=== PATIENT | male | born 1960 ===

== ENCOUNTER 2019-12-05 14:53 | Outpatient (RCR) | payer OTHER, SELFPAY | END 2019-12-21 14:46 | disposition home or self-care (01) | LOC: HO.WCC 14:53 | PROVIDERS: PCP Family Medicine; Visit Provider Physician Assistant Surgical | DX: E11.621 Type 2 diabetes mellitus with foot ulcer (principal); L97.422 Non-pressure chronic ulcer of left heel and midfoot with fat layer exposed; E11.69 Type 2 diabetes mellitus with other specified complication; M86.372 Chronic multifocal osteomyelitis, left ankle and foot; N18.5 Chronic kidney disease, stage 5 | CPT/HCPCS: 11042; 99212 ==

== ENCOUNTER 2020-06-03 08:33 | Emergency (ER) | payer OTHER, SELFPAY ==
--- NOTE | ~2020-06-03 | CT_ITS ---
EXAMINATION: CT ABDOMEN AND PELVIS WITHOUT CONTRAST CLINICAL INFORMATION: Severe left-sided abdominal pain COMPARISON: 10/16/2019 TECHNIQUE: Multidetector volumetric imaging was performed from the superior aspect of the liver through the pubic symphysis. Sagittal and coronal reformatted images were obtained on the technologist's workstation. This CT examination was performed using dose optimization techniques as appropriate, variously including the following: *Automated exposure control *Adjustment of mA and/or kV according to patient size (this includes techniques or standardized protocols for targeted exams where dose is matched to indication/reason for exam; i.e. extremities or head) *Use of iterative reconstruction technique DLP: 951 mGy-cm FINDINGS: LUNG BASES: The visualized lung bases show mosaic attenuation once again. Coronary artery calcifications are present.. LIVER, GALLBLADDER, AND BILIARY TREE: The liver is normal in size, shape, and attenuation. No focal hepatic lesion or biliary ductal dilatation is present. The gallbladder is unremarkable with no evidence of radiopaque gallstones, gallbladder wall thickening, or obvious pericholecystic inflammatory changes. PANCREAS: Unremarkable. SPLEEN: Unremarkable. ADRENAL GLANDS: Unremarkable. KIDNEYS AND URETERS: The kidneys are normal in size, shape, and attenuation. There is mild to moderate left hydroureteronephrosis. There are no obstructing calculi seen. No renal calculi are present on the left or right. Bilateral renal cysts are noted. BLADDER: Partially distended and otherwise unremarkable. GASTROINTESTINAL TRACT: Stomach is unremarkable. Normal caliber small bowel. There is no obstruction. No colonic wall thickening or inflammatory change. Normal appendix. Scattered colonic diverticulosis without diverticulitis. No free air. Trace pelvic free fluid. ABDOMINAL WALL: No significant hernia is appreciated. LYMPH NODES: Normal. VASCULAR: Normal caliber aorta with mild atherosclerotic calcification. PELVIC VISCERA: Normal prostate and seminal vesicles. OSSEOUS STRUCTURES: No acute or suspicious osseous abnormality. Degenerative changes noted throughout the spine. CT/CT abdomen pelvis wo con IMPRESSION: Mild to moderate left hydroureteronephrosis. No obstructing calculus. The appearance is nonspecific and could be associated with a recently passed stone. Cannot exclude outlet obstruction. No acute inflammatory changes otherwise.
[2020-06-03 09:18] VITALS: BP 133/60; PULSE 85; RESP 18; TEMP 36.4; O2SAT 99; BMI 31.8
--- NOTE | 2020-06-03 11:36 | ED.ABDPAIN ---
HPI - Abdominal Pain General Chief Complaint: Abdominal Pain <IGSELA Cain - Last Filed: 06/03/20 14:11> Stated Complaint: abd pain <GISELA Cain - Last Filed: 06/03/20 14:11> Time Seen by Provider: 06/03/20 10:59 <GISELA Cain Last Filed: 06/03/20 14:11> Source: patient <GISELA Cain Last Filed: 06/03/20 14:11> Mode of arrival: ambulatory <GISELA Cain - Last Filed: 06/03/20 14:11> Limitations: no limitations <GISELA Cain Last Filed: 06/03/20 14:11> History of Present Illness HPI narrative: 60 y/o male with history of ESRD on HD M/W/F presents to the ED from dialysis session with complaints of acute onset of 9/10 left sided abdominal pain that started when dialysis session started this morning. He was only able to tolerate 2 of the 4 hours of the session because of the pain. He has never had pain like this before. He denies nausea, vomiting, diarrhea or constipation. No fevers. Had a normal BM yesterday. He still makes urine and last urinated prior to arrival. He denies dysuria or hematuria. <GISELA Cain - Last Filed: 06/03/20 14:11> MD elicited complaint: abdominal pain <GISELA Cain - Last Filed: 06/03/20 14:11> Pertinent past history: none <GISELA Cain Last Filed: 06/03/20 14:11> Onset (ago): hour(s) (3) <GISELA Cain - Last Filed: 06/03/20 14:11> Pain Consistency: constant <GISELA Cain Last Filed: 06/03/20 14:11> Location: LUQ and LLQ <GISELA Cain Last Filed: 06/03/20 14:11> Severity: severe <GISELA Cain Last Filed: 06/03/20 14:11> Pain scale (0-10): 9 <GISELA Cain Last Filed: 06/03/20 14:11> Quality: stabbing <GISELA Cain Last Filed: 06/03/20 14:11> Radiation: none <GISELA Cain Last Filed: 06/03/20 14:11> Migration to: no migration <GISELA Cain Last Filed: 06/03/20 14:11> Exacerbating factors: nothing <GISELA Cain Last Filed: 06/03/20 14:11> Relieving factors: nothing <GISELA Cain Last Filed: 06/03/20 14:11> Associated symptoms: denies other symptoms <GISELA Cain Last Filed: 06/03/20 14:11> Related Data Allergies/Adverse Reactions: Allergies Allergy/AdvReac Type Severity Reaction Status Date / Time No Known Allergies Allergy Verified 06/03/20 09:18 [No Known Allergies*] <GISELA Cain Last Filed: 06/03/20 14:11> Review of Systems Review of Systems Constitutional: No Fever, No Chills ENT/Mouth: No sore throat, No Rhinorrhea, No Swallowing Difficulty Cardiovascular: No Chest Pain, No SOB, No Orthopnea, No Edema Respiratory: No Cough, No Sputum, No Wheezing, No dyspnea Gastrointestinal: No Nausea, No Vomiting, No Diarrhea, + abdominal Pain, No Hematochezia, No Melena Genitourinary: No Dysuria, No Urinary Frequency, No Hematuria Musculoskeletal: No joint pain, No Myalgias Skin: No Skin Lesions, No rash Neuro: No Weakness, No Numbness, No Dizziness, No Headache Psych: No Anxiety/Panic, No Depression Heme/Lymph: No Bruising, No Lymphadenopathy Endocrine: No Polyuria, No Polydipsia <GISELA Cain Last Filed: 06/03/20 14:11> Physical Exam Vital Signs: Vital Signs: Last Vital Signs Temp 97.6 F 06/03/20 09:18 Pulse 77 06/03/20 13:21 Resp 18 06/03/20 13:21 BP 165/77 H 06/03/20 13:21 Pulse Ox 98 06/03/20 13:21 Body Mass Index 31.8 Appearance: Alert. Oriented X3. No acute distress. Eyes: Pupils equal, round and reactive to light. ENT: Pharynx normal. Neck: Normal inspection. Neck supple. CVS: Normal heart rate and rhythm. Pulses normal. Respiratory: No respiratory distress. Breath sounds normal. Abdomen: Soft with left sided abdominal tenderness with some guarding, normal +BS x4 Skin: Skin warm and dry. Normal skin color. Normal skin turgor. No rashes. Extremities: No lower extremity edema. Neuro: Oriented X 3. No motor deficit. No sensory deficit. <GISELA Cain - Last Filed: 06/03/20 14:11> Vital Signs: Last Vital Signs Temp 97.6 F 06/03/20 09:18 Pulse 77 06/03/20 13:21 Resp 18 06/03/20 13:21 BP 165/77 H 06/03/20 13:21 Pulse Ox 98 06/03/20 13:21 Body Mass Index 31.8 <Jere Pierce MD - Last Filed: 06/18/20 07:34> Course Course Course Narrative: 60 y/o male with history of ESRD on HD presents to the ED with acute onset of left sided abdominal pain that starting during HD session this morning. He has tenderness and guarding on exam. Will get labs and imaging for further evaluation. <GISELA Cain - Last Filed: 06/03/20 14:11> I have reviewed the chart <Jere Pierce MD - Last Filed: 06/18/20 07:34> Reevaluation(s) Reevaluation #1: CT scan showing mild-moderate left sided hydronephrosis without obstructing calculus which is nonspecific. Question recently passed kidney stone. Cannot exclude outlet obstruction. Patient is urinating at his baseline. His pain is almost resolved. The results were discussed with the patient and his at the bedside. He is stable for discharge with plan to follow up with PCP and next HD Wednesday. <GISELA Cain - Last Filed: 06/03/20 14:11> MDM - Abdominal Pain Lab Data Result diagrams: : 06/03/20 11:54 06/03/20 11:54 <GISELA Cain - Last Filed: 06/03/20 14:11> Labs: Lab Results 04/07/1906/03/20 06/03/20 Range/Units 11:54 11:54 11:54 WBC 9.3 (4.8-10.8) X10*3/uL RBC 3.44 L (4.60-5.80) X10*6/uL Hgb 10.6 L (14.0-18.0) g/dl Hct 31.0 L (42-52) % MCV 90.1 (80-98) fL MCH 30.8 (27.0-33.0) pg MCHC 34.2 (31.0-36.0) g/dl RDW 12.6 (11.0-16.0) % Plt Count 249 (160-400) X10*3/uL MPV 8.8 L (9.4-12.4) fL Immature Gran % (Auto) 0.2 (0.0-0.4) % Neut % (Auto) 75.7 H (45-73) % Lymph % (Auto) 18.6 L (20-40) % [place] % (Auto) 5.0 (2-11) % Eos % (Auto) 0.3 (0-4) % Baso % (Auto) 0.2 (0-2) % Lymph # (Auto) 1.7 (1.2-4.9) X10*3/uL [place] # (Auto) 0.5 (0.1-1.2) X10*3/uL Eos # (Auto) 0.0 (0.0-0.4) X10*3/uL Baso # (Auto) 0.0 (0.0-0.2) X10*3/uL Abs Immat Gran (auto) 0.02 (0.00-0.03) X10*3/uL Absolute Neuts (auto) 7.0 (2.0-8.3) X10*3/uL Absolute Nucleated RBC 0.000 (0.0-0.012) X10*3/uL Nucleated RBC % (auto) 0.0 (0.0-0.2) /100WBC Hold Blue Top SEE NOTE Sodium 138 (135-145) mmol/L Potassium 4.2 (3.3-5.1) mmol/L Chloride 98 (96-108) mmol/L Carbon Dioxide 27 (22-29) mmol/L Anion Gap 17 (12-20) BUN 38 H (9-16) mg/dL Creatinine 5.67 H* (0.5-1.4) mg/dL Estim Creat Clear Calc 18.0 Estimated GFR 10 Random Glucose 195 H (60-115) mg/dL Calcium 8.1 L (8.4-10.2) mg/dL Magnesium 1.8 (1.6-2.6) mg/dL Total Bilirubin 0.4 (0.0-1.0) mg/dL Direct Bilirubin 0.2 (0.0-0.5) mg/dL AST 23 (5-37) U/L ALT 28 (0-40) U/L Alkaline Phosphatase 78 (39-117) U/L Total Protein 7.0 (6.5-8.0) g/dL Albumin 3.8 (3.5-5.0) g/dL <GISELA Cain - Last Filed: 06/03/20 14:11> Lab Results 06/03/20 06/03/20 06/03/20 Range/Units 11:54 11:54 11:54 WBC 9.3 (4.8-10.8) X10*3/uL RBC 3.44 L (4.60-5.80) X10*6/uL Hgb 10.6 L (14.0-18.0) g/dl Hct 31.0 L (42-52) % MCV 90.1 (80-98) fL MCH 30.8 (27.0-33.0) pg MCHC 34.2 (31.0-36.0) g/dl RDW 12.6 (11.0-16.0) % Plt Count 249 (160-400) X10*3/uL MPV 8.8 L (9.4-12.4) fL Immature Gran % (Auto) 0.2 (0.0-0.4) % Neut % (Auto) 75.7 H (45-73) % Lymph % (Auto) 18.6 L (20-40) % [place] % (Auto) 5.0 (2-11) % Eos % (Auto) 0.3 (0-4) % Baso % (Auto) 0.2 (0-2) % Lymph # (Auto) 1.7 (1.2-4.9) X10*3/uL [place] # (Auto) 0.5 (0.1-1.2) X10*3/uL Eos # (Auto) 0.0 (0.0-0.4) X10*3/uL Baso # (Auto) 0.0 (0.0-0.2) X10*3/uL Abs Immat Gran (auto) 0.02 (0.00-0.03) X10*3/uL Absolute Neuts (auto) 7.0 (2.0-8.3) X10*3/uL Absolute Nucleated RBC 0.000 (0.0-0.012) X10*3/uL Nucleated RBC % (auto) 0.0 (0.0-0.2) /100WBC Hold Blue Top SEE NOTE Sodium 138 (135-145) mmol/L Potassium 4.2 (3.3-5.1) mmol/L Chloride 98 (96-108) mmol/L Carbon Dioxide 27 (22-29) mmol/L Anion Gap 17 (12-20) BUN 38 H (9-16) mg/dL Creatinine 5.67 H* (0.5-1.4) mg/dL Estim Creat Clear Calc 18.0 Estimated GFR 10 Random Glucose 195 H (60-115) mg/dL Calcium 8.1 L (8.4-10.2) mg/dL Magnesium 1.8 (1.6-2.6) mg/dL Total Bilirubin 0.4 (0.0-1.0) mg/dL Direct Bilirubin 0.2 (0.0-0.5) mg/dL AST 23 (5-37) U/L ALT 28 (0-40) U/L Alkaline Phosphatase 78 (39-117) U/L Total Protein 7.0 (6.5-8.0) g/dL Albumin 3.8 (3.5-5.0) g/dL <Jere Pierce MD - Last Filed: 06/18/20 07:34> Critical Care Time Critical Care Time Critical Care Time: No <GISELA Cain - Last Filed: 06/03/20 14:11> Discharge Plan Discharge Clinical Impression: Left sided abdominal pain, Hydronephrosis <GISELA Cain - Last Filed: 06/03/20 14:11> Patient Disposition: Home, Self-Care <GISELA Cain - Last Filed: 06/03/20 14:11> Instructions: Hydronephrosis (ED) <GISELA Cain - Last Filed: 06/03/20 14:11> Additional Instructions: Your blood workup today was unremarkable. CT scan showed some swelling of your left kidney. This is likely due to a recently passed kidney stone. Your pain should continue to get better. Follow up with your doctor this week. If you have worsening pain, come back to the ER for further evaluation. <GISELA Cain - Last Filed: 06/03/20 14:11> Interventions: ED Discharge Assessment Last Done: 06/03/20 15:09 <GISELA Cain - Last Filed: 06/03/20 14:11> Discharge Date/Time: 06/03/20 15:10 <GISELA Cain - Last Filed: 06/03/20 14:11> Print Language: Yakut <GISELA Cain - Last Filed: 06/03/20 14:11> [facility] Past Medical History Attestation statement: The following information was validated with the patient. <GISELA Cain - Last Filed: 06/03/20 14:11> Social History Social History: Social History Smoking Status: Never smoker Use of substances other than those prescribed or required for medical reasons: No Advance Directives: No Advance Directives Information Provided: No <GISELA Cain - Last Filed: 06/03/20 14:11>
[2020-06-03 11:42] VITALS: BP 165/76; PULSE 79; RESP 20; O2SAT 99
[2020-06-03] MEDS: HYDROcodone Bit/Acetam 5/325 TABLET 1 TAB PO (11:58)
[2020-06-03 11:59] LABS: MANUAL DIFF FLAG NO
--- NOTE | 2020-06-03 12:00 | PC.NURSE ---
pt reports left sided abd pain, mostly on the upper side, denies nausea/vomiting, states that he only had two hours of dialysis today, ns on the monitor, and vs stable.
[2020-06-03 12:02] LABS: Basophils Percent Auto 0.2 % (0-2); Eosinophils Percent Auto 0.3 % (0-4); Hemoglobin 10.6 g/dl (14.0-18.0); Imm Gran Abs Auto 0.02 X10*3/uL (0.00-0.03); Imm Gran Pct Auto 0.2 % (0.0-0.4); Lymphocytes Absolute Auto 1.7 X10*3/uL (1.2-4.9); Lymphocytes Percent Auto 18.6 % (20-40); Mean Corpuscular HGB Conc 34.2 g/dl (31.0-36.0); Mean Corpuscular Hemoglobin 30.8 pg (27.0-33.0); Mean Corpuscular Volume 90.1 fL (80-98); Mean Platelet Volume 8.8 fL (9.4-12.4); Monocytes Absolute Auto 0.5 X10*3/uL (0.1-1.2); Neutrophils Percent Auto 75.7 % (45-73); Platelet Count 249 X10*3/uL (160-400); Red Blood Count 3.44 X10*6/uL (4.60-5.80); Red Cell Distribution Width 12.6 % (11.0-16.0); White Blood Count 9.3 X10*3/uL (4.8-10.8)
[2020-06-03 12:35] LABS: Alanine Aminotransferase 28 U/L (0-40); Albumin Level 3.8 g/dL (3.5-5.0); Alkaline Phosphatase 78 U/L (39-117); Anion Gap 17 (12-20); Aspartate Amino Transferase 23 U/L (5-37); Bilirubin Direct 0.2 mg/dL (0.0-0.5); Bilirubin Total 0.4 mg/dL (0.0-1.0); Blood Urea Nitrogen 38 mg/dL (9-16); Calcium 8.1 mg/dL (8.4-10.2); Carbon Dioxide 27 mmol/L (22-29); Chloride 98 mmol/L (96-108); Estimated Glomerular Filt Rate 10; Glucose Random 195 mg/dL (60-115); Magnesium 1.8 mg/dL (1.6-2.6); Potassium 4.2 mmol/L (3.3-5.1); Sodium 138 mmol/L (135-145)
--- NOTE | 2020-06-03 13:20 | PC.NURSE ---
PT REPORTS FEELING BETTER, PAIN AT 4/10 AT THIS TIME
[2020-06-03 13:21] VITALS: BP 165/77; PULSE 77; RESP 18; O2SAT 98
== END 2020-06-03 15:10 | disposition home or self-care (01) ==
PROVIDERS: Physician Assistant; Emergency Provider Emergency Medicine; PCP Family Medicine
DX: N13.30 Unspecified hydronephrosis (principal); R10.9 Unspecified abdominal pain; N18.6 End stage renal disease; Z99.2 Dependence on renal dialysis
CPT/HCPCS: 36415; 74176; 80048; 80076; 83735; 85025; 99284

== ENCOUNTER 2020-12-26 15:00 | Outpatient (REF) | payer OTHER, SELFPAY ==
--- NOTE | ~2020-12-26 | US_ITS ---
EXAMINATION: US THYROID CLINICAL INFORMATION: Single thyroid nodule. COMPARISON: Ultrasound soft tissue head/neck thyroid dated 10/26/2019. TECHNIQUE: Linear transducer grayscale and color Doppler examination with attention to the region of the thyroid. FINDINGS: SIZE: Measurements of the thyroid lobes and nodules are given in sagittal, anteroposterior and transverse dimensions respectively. Right Thyroid Lobe: 4.4 x 1.8 x 2.0 cm, volume 8.1 mL. Previously 4.4 x 1.9 x 1.8 cm, volume 7.9 mL. Parenchyma: The gland echotexture is homogeneous. Thyroid vascularity is normal. Left Thyroid Lobe: 4.1 x 1.3 x 1.8 cm, volume 5.0 mL. Previously 4.0 x 1.3 x 1.9 cm, volume 5.2 mL. Parenchyma: The gland echotexture is homogeneous. Thyroid vascularity is normal. Isthmus: 0.46 cm in maximum AP dimension. Previously 0.4 cm. Estimated total number of nodules greater than or equal to 1 cm: 0. [place]ace [place] nodules are described as follows: 1. Location: Right superior. Size: 0.3 x 0.2 x 0.25 cm, volume 0.008 mL. Previously: 0.3 x 0.2 x 0.3 cm, volume 0.009 mL. Nodule characteristics: Composition: Solid (2). Echogenicity: Hyperechoic (1). Shape: Not taller than wide (0). Margins: Smooth (0). Echogenic Foci: None (0). ACR TI-RADS total points: 3 ACR TI-RADS category: 3 Significant change in size (>/= 20% in 2 dimensions and minimal increase of 2 mm or 50% or greater increase in volume): No Change in features: No Change in ACR TI-RADS risk category: No NODES: No lymphadenopathy is seen in the tissue surrounding the thyroid gland. US/US thyroid IMPRESSION: Stable small right thyroid nodule. According to TI RADS criteria, ultrasound follow-up is not indicated. ACR TI-RADS RECOMMENDATION REFERENCE: Ultrasound-guided fine-needle aspiration, followup ultrasound, no further follow up. * TR1 (0 point) and TR 2 (2 points): No FNA or follow up * TR3 (3 points): FNA if more than or equal to 2.5 cm in maximum dimension, followup ultrasound in 1, 3 and 5 years if 1.5 to 2.4 cm in maximum dimension. * TR4 (4-6 points): FNA if more than or equal to 1.5 cm in maximum dimension, followup ultrasound in 1, 2, 3 and 5 years if 1 to 1.4 cm in maximum dimension. * TR5 (more than or equal to 7 points): FNA if more than or equal to 1 cm in maximum dimension, followup ultrasound every year for 5 years if 0.5 to 0.9 cm in maximum dimension. * TR3, TR4 or TR5 nodules that are below the size threshold for follow up receive no follow up.
== END 2020-12-26 15:01 | disposition home or self-care (01) ==
LOC: HO.US 15:00
PROVIDERS: PCP Internal Medicine; Visit Provider Internal Medicine
DX: E04.1 Nontoxic single thyroid nodule (principal)
CPT/HCPCS: 76536

== ENCOUNTER 2021-06-27 10:36 | Emergency (ER) | payer OTHER, SELFPAY ==
[2021-06-27 10:46] VITALS: BP 116/68; BP 135/65; PULSE 87; PULSE 94; RESP 18; TEMP 36.5; O2SAT 100; O2SAT 99; BMI 38.0
--- NOTE | 2021-06-27 11:11 | ED.GENADULT ---
HPI - General Adult General Chief complaint: General Medical Stated complaint: HYPOTENSION Time Seen by Provider: 06/27/21 11:11 Source: patient Mode of arrival: ambulatory Limitations: no limitations History of Present Illness HPI narrative: Patient is 58-year-old with history of end-stage renal disease on hemodialysis had full hemodialysis today came home felt lightheaded checked his blood pressure was 86/50 took some salt and water when EMS arrived patient's blood pressure improved to 135/65 patient denies any chest pain or dizziness at this time no palpitation patient has similar episode once before few years ago no fever no chills no cough no nausea no vomiting Related Data Allergies Allergy/AdvReac Type Severity Reaction Status Date / Time No Known Allergies Allergy Verified 06/03/20 09:18 [No Known Allergies*] Review of Systems Review of Systems: Yes all other systems are reviewed and are negative [facility] Past Medical History Medical History (Updated 06/27/21 @ 13:52 by Neo Celis MD) End stage chronic kidney disease Social History Social History Advance Directives: No Advance Directives Information Provided: No Physical Exam ED Vital Signs: Vital Signs - 24 hr 06/27/21 10:46 06/27/21 11:49 06/27/21 11:50 Temperature 97.7 F Pulse Rate 87 88 94 Respiratory Rate 18 Blood Pressure 135/65 140/67 H 131/68 Pulse Oximetry 100 06/27/21 13:43 06/27/21 13:48 06/27/21 13:54 Temperature Pulse Rate 83 80 98 Respiratory Rate Blood Pressure 167/77 H 171/84 H 156/78 H Pulse Oximetry BMI result Body Mass Index 38.0 Appearance: Alert. Oriented X3. No acute distress. Eyes: No pallor or icterus ENT: Pharynx normal. Oral Mucosa moist Neck: Normal inspection. Neck supple. CVS: Normal heart rate and rhythm. Pulses normal. Respiratory: No respiratory distress. Equal air entry bilateral, no wheezing/rales/rhonchi Abdomen: Soft and nontender. Bowel sounds are present, Skin: Skin warm and dry. Normal skin color. Normal skin turgor. Extremities: No lower extremity edema. No calf tenderness AV fistula left arm with bruit + Neuro: Oriented X 3. No motor deficit. Medical Decision Making MDM Narrative Medical decision making narrative: Patient likely increased fluid removed during dialysis patient orthostatic positive but still blood pressure was 131/a 60 felt dizzy on standing will give midodrine 5 mg recheck blood pressure and orthostatics Repeat orthostatics much better patient did not feel much dizziness at the time of discharge ECG Data Attestation: I personally reviewed and interpreted this ECG as follows: Interpretation: Normal sinus rhythm heart rate 86 beats per minute QTC 488 milliseconds LVH no acute ST T wave changes no acute ischemia Discharge Plan Discharge Clinical Impression: Orthostatic hypotension Patient Disposition: Home, Self-Care Instructions: Hypotension (ED) Additional Instructions: Rest at home drink fluids Take time while trying to stand up Follow with PCP if any concerns Interventions: ED Discharge Assessment Last Done: 06/27/21 14:06 Discharge Date/Time: 06/27/21 14:07
--- NOTE | 2021-06-27 11:31 | ECG_ITS ---
Test Reason : hypotension Blood Pressure : / mmHG Vent. Rate : 086 BPM Atrial Rate : 086 BPM P-R Int : 170 ms QRS Dur : 092 ms QT Int : 408 ms P-R-T Axes : 050 -11 048 degrees QTc Int : 488 ms Normal sinus rhythm Possible Left atrial enlargement Left ventricular hypertrophy ( R in aVL , [place] product ) Prolonged QT Abnormal ECG When compared with ECG of 24-NOV-2019 12:18, No significant change was found Referred By: Neo Celis Electronically Signed By:JOSÉ MANUEL URIBE
[2021-06-27 11:49] VITALS: BP 140/67; BP 162/70; PULSE 87; PULSE 88
[2021-06-27 11:50] VITALS: BP 131/68; PULSE 94
[2021-06-27] MEDS: Midodrine HCl 5 MG TABLET PO (12:29)
[2021-06-27 13:43] VITALS: BP 167/77; PULSE 83
[2021-06-27 13:48] VITALS: BP 171/84; PULSE 80
[2021-06-27 13:54] VITALS: BP 156/78; PULSE 98
== END 2021-06-27 14:07 | disposition home or self-care (01) ==
PROVIDERS: Emergency Provider Internal Medicine; PCP Internal Medicine
DX: I95.1 Orthostatic hypotension (principal); N18.6 End stage renal disease
CPT/HCPCS: 93005; 99283

== ENCOUNTER 2021-08-06 01:09 | Emergency (ER) | payer OTHER, SELFPAY ==
--- NOTE | ~2021-08-06 | XR_ITS ---
EXAMINATION: XR CHEST CLINICAL INFORMATION: Dyspnea COMPARISON: 11/24/2019 TECHNIQUE: Frontal view of the chest was obtained. FINDINGS: There is pulmonary venous congestion and mild interstitial edema. Heart size within normal limits for portable technique. Aorta is atherosclerotic. No pleural effusion or pneumothorax. No acute osseous abnormalities. XR/XR chest 1V IMPRESSION: Pulmonary venous congestion and mild interstitial edema.
--- NOTE | 2021-08-06 01:13 | ECG_ITS ---
Test Reason : sob Blood Pressure : / mmHG Vent. Rate : 110 BPM Atrial Rate : 110 BPM P-R Int : 154 ms QRS Dur : 088 ms QT Int : 352 ms P-R-T Axes : 062 -07 091 degrees QTc Int : 476 ms Sinus tachycardia Minimal voltage criteria for LVH, may be normal variant ( R in aVL ) Nonspecific ST and T wave abnormality Abnormal ECG When compared with ECG of 27-JUN-2021 11:32, No significant change was found Referred By: Generic ED Physician Electronically Signed By:JOSÉ MANUEL URIBE
[2021-08-06 01:19] VITALS: BP 162/81; PULSE 115; RESP 16; TEMP 36.6; O2SAT 95; BMI 31.0
--- NOTE | 2021-08-06 01:26 | ED_ITS ---
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 He tried albuterol at home with little relief. Per he has not had an asthma attack in 3 years. MD elicited complaint: shortness of breath and asthma attack Pertinent past history: asthma Onset (ago): hour(s) (midnight today) Timing: progressively worsening Severity: moderate Exacerbating factors: exertion and coughing Relieving factors: nothing Known history of: asthma Associated symptoms: cough and wheezing Treatment prior to arrival: bronchodilator Related Data Previous Rx's Medication Instructions Recorded prednisone 20 mg tablet 40 mg PO DAILY 5 days #10 tabs 08/06/21 Allergies Allergy/AdvReac Type Severity Reaction Status Date / Time No Known Allergies Allergy Verified 06/03/20 09:18 [No Known Allergies*] Review of Systems Review of Systems: Constitutional : No Fever, No Chills ENT/Mouth : No Hoarseness, No sore throat, No Rhinorrhea Eyes: No Redness, No Discharge, No Vision Changes Cardiovascular : No Chest Pain, positive SOB, positive Dyspnea on Exertion, No Edema Respiratory : positive Cough, No Sputum, positive Wheezing, Gastrointestinal : No Nausea, No Vomiting, No Diarrhea, No abdominal Pain Genitourinary : No Dysuria, No Hematuria Musculoskeletal : No joint pain, No Myalgias Skin : No rash Neuro : No Weakness, No Numbness, No Headache Psych : No anxiety, depression Heme/Lymph: No Bruising, No Bleeding Endocrine : No Polyuria, No Polydipsia All other systems reviewed and are negative [facility] Past Medical History Attestation statement: The following information was validated with the patient. Medical History Asthma Diabetes End stage chronic kidney disease Social History Social History Patient Tobacco Use Status: Never used Tobacco Advance Directives: No Physical Exam Vital Signs: Vital Signs: Last Vital Signs Temp 97.8 F 08/06/21 01:19 Pulse 107 H 08/06/21 03:29 Resp 12 08/06/21 03:29 BP 161/74 H 08/06/21 03:29 Pulse Ox 98 08/06/21 03:29 O2 Del Method 08/06/21 03:29 BMI result Body Mass Index 31.0 Appearance: Alert. Oriented X3. Mild acute distress. Eyes: Pupils equal, round and reactive to light. ENT: Pharynx normal. Neck: Normal inspection. Neck supple. CVS: tachycardic heart rate and rhythm. Pulses normal. Respiratory: Mild respiratory distress - tachypnea and retractions. Breath sounds diminished with diffuse end exp wheezes Abdomen: Soft and nontender. Skin: Skin warm and dry. Normal skin color. Normal skin turgor. Extremities: trace pitting lower extremity edema. No calf ttp Neuro: Oriented X 3. No motor deficit. No sensory deficit. Course Course Course Narrative: patient states he feels much better with the treatment due for HD this AM mild edema due fo HD this AM, improving with neb and steroids, repeat troponin pending trop downtrending feels better no hypoxia stable for DC at this time, tachycardia due to neb treatment, plans to go to HD today MDM - SOB/Dyspnea MDM Narrative Medical decision making narrative: 61 yo male with ESRD on HD MWF no missed sessions, DM, asthma here with c/o wheezing and cough since midnight with no known triggers on exam the patient has audible wheezes and he is diminished. He c/o feeling chest tightness due to his cough - at this time will obtain labs, EKG, CXR, 5mg albuterol neb, IV steroids and COVID swab. Dispo per results and clinical improvement Lab Data Result diagrams: 08/06/21 01:31 08/06/21 01:31 Labs: Lab Results 08/06/21 08/06/21 08/06/21 Range/Units 01:31 01:31 01:31 WBC 7.3 (4.8-10.8) X10*3/uL RBC 3.49 L (4.60-5.80) X10*6/uL Hgb 10.5 L (14.0-18.0) g/dl Hct 31.8 L (42.0-52.0) % MCV 91.1 (80.0-98.0) fL MCH 30.1 (27.0-33.0) pg MCHC 33.0 (31.0-36.0) g/dl RDW 14.8 (11.0-16.0) % Plt Count 267 (160-400) X10*3/uL MPV 7.9 L (9.4-12.4) fL Immature Gran % (Auto) 0.3 (0.0-0.4) % Neut % (Auto) 59.8 (45-73) % Lymph % (Auto) 31.0 (20-40) % Crowley % (Auto) 5.4 (2-11) % Eos % (Auto) 3.2 (0-4) % Baso % (Auto) 0.3 (0-2) % Lymph # (Auto) 2.3 (1.2-4.9) X10*3/uL Crowley # (Auto) 0.4 (0.1-1.2) X10*3/uL Eos # (Auto) 0.2 (0.0-0.4) X10*3/uL Baso # (Auto) 0.0 (0.0-0.2) X10*3/uL Abs Immat Gran (auto) 0.02 (0.00-0.03) X10*3/uL Absolute Neuts (auto) 4.4 (2.0-8.3) x10*3/uL Absolute Nucleated RBC 0.000 (0.0-0.012) X10*3/uL Nucleated RBC % (auto) 0.0 (0.0-0.2) /100WBC Sodium 140 (135-145) mmol/L Potassium 4.1 (3.3-5.1) mmol/L Chloride 99 (96-108) mmol/L Carbon Dioxide 27 (22-29) mmol/L Anion Gap 18 (12-20) BUN 43 H (9-16) mg/dL Creatinine 7.53 H* (0.5-1.4) mg/dL Estim Creat Clear Calc 13.2 Estimated GFR 7 Random Glucose 116 H D (60-115) mg/dL Calcium 9.2 D (8.4-10.2) mg/dL Troponin I High Sens (<3.5-35.0) ng/L COVID-19 (LUZ) Negative (Negative) COVID-19 Clin Com See Note 08/06/21 08/06/21 Range/Units 01:31 03:27 WBC (4.8-10.8) X10*3/uL RBC (4.60-5.80) X10*6/uL Hgb (14.0-18.0) g/dl Hct (42.0-52.0) % MCV (80.0-98.0) fL MCH (27.0-33.0) pg MCHC (31.0-36.0) g/dl RDW (11.0-16.0) % Plt Count (160-400) X10*3/uL MPV (9.4-12.4) fL Immature Gran % (Auto) (0.0-0.4) % Neut % (Auto) (45-73) % Lymph % (Auto) (20-40) % Crowley % (Auto) (2-11) % Eos % (Auto) (0-4) % Baso % (Auto) (0-2) % Lymph # (Auto) (1.2-4.9) X10*3/uL Crowley # (Auto) (0.1-1.2) X10*3/uL Eos # (Auto) (0.0-0.4) X10*3/uL Baso # (Auto) (0.0-0.2) X10*3/uL Abs Immat Gran (auto) (0.00-0.03) X10*3/uL Absolute Neuts (auto) (2.0-8.3) x10*3/uL Absolute Nucleated RBC (0.0-0.012) X10*3/uL Nucleated RBC % (auto) (0.0-0.2) /100WBC Sodium (135-145) mmol/L Potassium (3.3-5.1) mmol/L Chloride (96-108) mmol/L Carbon Dioxide (22-29) mmol/L Anion Gap (12-20) BUN (9-16) mg/dL Creatinine (0.5-1.4) mg/dL Estim Creat Clear Calc Estimated GFR Random Glucose (60-115) mg/dL Calcium (8.4-10.2) mg/dL Troponin I High Sens 59.5 H 51.4 H (<3.5-35.0) ng/L COVID-19 (LUZ) (Negative) COVID-19 Clin Com ECG Data Attestation: I personally reviewed and interpreted this ECG as follows: ECG interpretation date: 08/06/21 ECG interpretation time: 01:27 Interpretation: Rate: 110 Rhythm: sinus tachycardia Ogden: left , LVH Normal P waves. Normal VANI. Normal QRS complex. ST T wave : inverted aVL, no TAMANNA, nonspecific qTC: normal prior studies: no change from prior The study has been interpreted contemporaneously by me. Discharge Plan Discharge Clinical Impression: Asthma Qualifiers: Asthma severity: mild Asthma persistence: persistent Asthma complication type: with acute exacerbation Qualified Code(s): J45.31 - Mild persistent asthma with (acute) exacerbation Patient Disposition: Home, Self-Care Instructions: Asthma (ED) Additional Instructions: return to ED for any worsening symptoms or concerns go to dialysis today, monitor blood sugars while on steroids regresar al servicio de urgencias por cualquier empeoramiento de los s?ntomas o inquietudes vaya a di?lisis hoy, controle los niveles de az?car en la polly mientras danitza esteroides.. Prescriptions: New prednisone 20 mg tablet 40 mg PO DAILY 5 Days Qty: 10 0RF Referrals: Azalea Lanier MD [Primary Care Provider] - 2 days (if not better) Print Language: Ugandan
[2021-08-06 01:36] LABS: Basophils Percent Auto 0.3 % (0-2); Eosinophils Absolute Auto 0.2 X10*3/uL (0.0-0.4); Eosinophils Percent Auto 3.2 % (0-4); Hematocrit 31.8 % (42.0-52.0); Hemoglobin 10.5 g/dl (14.0-18.0); Imm Gran Abs Auto 0.02 X10*3/uL (0.00-0.03); Imm Gran Pct Auto 0.3 % (0.0-0.4); Lymphocytes Absolute Auto 2.3 X10*3/uL (1.2-4.9); MANUAL DIFF FLAG NO; Mean Corpuscular Hemoglobin 30.1 pg (27.0-33.0); Mean Corpuscular Volume 91.1 fL (80.0-98.0); Mean Platelet Volume 7.9 fL (9.4-12.4); Monocytes Absolute Auto 0.4 X10*3/uL (0.1-1.2); Monocytes Percent Auto 5.4 % (2-11); Neutrophils Absolute Auto 4.4 x10*3/uL (2.0-8.3); Neutrophils Percent Auto 59.8 % (45-73); Platelet Count 267 X10*3/uL (160-400); Red Blood Count 3.49 X10*6/uL (4.60-5.80); Red Cell Distribution Width 14.8 % (11.0-16.0); White Blood Count 7.3 X10*3/uL (4.8-10.8)
[2021-08-06] MEDS: methylPREDNISolone Sod Succ 125 MG/2 ML VIAL IVPUSH (01:50)
[2021-08-06 01:52] VITALS: PULSE 115; RESP 18; O2SAT 95
[2021-08-06] MEDS: Albuterol Sulfate (0.083%) 2.5 MG/3 ML VIAL.NEB 5 MG INHALE (01:52)
[2021-08-06 01:56] LABS: COVID-19 Test Negative (Negative)
[2021-08-06 02:03] LABS: Creatinine Clr Calc Pharmacy 13.2; Estimated Glomerular Filt Rate 7
[2021-08-06 02:04] LABS: Anion Gap 18 (12-20); Blood Urea Nitrogen 43 mg/dL (9-16); Calcium 9.2 mg/dL (8.4-10.2); Carbon Dioxide 27 mmol/L (22-29); Chloride 99 mmol/L (96-108); Glucose Random 116 mg/dL (60-115); Potassium 4.1 mmol/L (3.3-5.1); Sodium 140 mmol/L (135-145)
[2021-08-06 02:08] LABS: Troponin-I High Sensitivity 59.5 ng/L (<3.5-35.0)
[2021-08-06 03:05] VITALS: BP 159/71; PULSE 105; RESP 14; O2SAT 100
[2021-08-06 03:29] VITALS: BP 161/74; PULSE 107; RESP 12; O2SAT 98
[2021-08-06 03:52] LABS: Troponin-I High Sensitivity 51.4 ng/L (<3.5-35.0)
== END 2021-08-06 04:33 | disposition home or self-care (01) ==
PROVIDERS: Emergency Provider Emergency Medicine; PCP Internal Medicine
DX: J45.31 Mild persistent asthma with (acute) exacerbation (principal); Z20.822 Contact with and (suspected) exposure to COVID-19; E11.22 Type 2 diabetes mellitus with diabetic chronic kidney disease; N18.6 End stage renal disease; Z99.2 Dependence on renal dialysis
CPT/HCPCS: 36415; 71045; 80048; 84484; 85025; 87635; 93005; 94640; 94644; 96374; 99283; 99284; J2930

== ENCOUNTER 2021-08-24 06:53 | Inpatient (IN) | payer OTHER, SELFPAY ==
[2021-08-24] VITALS (7 sets, daily range): BP systolic 154–222; BP diastolic 74–100; PULSE 88–125; RESP 12–29; TEMP 36.8–38.2; O2SAT 92–100; BMI 32.3
--- NOTE | ~2021-08-24 | CT_ITS ---
EXAMINATION: CT CHEST WITHOUT CONTRAST CLINICAL INFORMATION: Fever and cough. COMPARISON: Chest x-ray 08/24/2021. TECHNIQUE: Multidetector volumetric CT imaging of the chest was done. Axial MIP volume rendering provided. Sagittal and coronal reformatted images were obtained. This CT examination was performed using dose optimization techniques as appropriate, variously including the following: *Automated exposure control. *Adjustment of mA and/or kV according to patient size (this includes techniques or standardized protocols for targeted exams where dose is matched to indication/reason for exam; i.e. extremities or head). *Use of iterative reconstruction technique. DLP: 381 mGy-cm FINDINGS: [employer]: Unremarkable. LUNGS: There is diffuse ground-glass attenuation seen throughout both lungs without dense consolidation. There is no pulmonary nodule, mass. MEDIASTINUM: Heart size and the great vessels are normal caliber. There are reactive lymph nodes in the mediastinum. There is trace coronary artery calcifications. No pericardial effusion seen. PLEURA: There are small bilateral pleural effusions. AXILLA: No lymphadenopathy. UPPER ABDOMEN: Visualized liver, spleen, pancreas and bilateral adrenal glands unremarkable. There is exophytic small right renal cyst. OSSEOUS STRUCTURES: No aggressive lytic or sclerotic process seen. CT/CT chest wo con IMPRESSION: 1. Diffuse ground-glass attenuation suggestive of panlobular parenchymal inflammatory changes. 2. Bilateral small pleural effusions with reactive lymph nodes in the mediastinum. Fleischner guidelines were followed.
--- NOTE | ~2021-08-24 | XR_ITS ---
EXAMINATION: XR CHEST CLINICAL INFORMATION: Weakness. Fever. Cough. COMPARISON: Chest done on 08/06/2021. TECHNIQUE: 2 views of the chest were obtained. FINDINGS: Mild diffuse prominent bronchovascular markings and diffuse linear interstitial markings are present, similar to prior study, may represent interstitial edema, interstitial infiltrate, fibrosis, interstitial spread of neoplasm or combination thereof. No evidence of any dense airspace consolidation to suspect pneumonia. No evidence of any pleural effusion or pneumothorax. The cardiac mediastinal silhouette is within normal limits. Visualized upper abdomen is unremarkable. XR/XR chest 2V IMPRESSION: Nonspecific diffuse prominent linear interstitial lung markings and bronchovascular markings, indeterminate etiology. No evidence of any dense airspace consolidation to suspect pneumonia.
--- NOTE | 2021-08-24 08:14 | ECG_ITS ---
Test Reason : SHORTNESS OF BREATH Blood Pressure : / mmHG Vent. Rate : 120 BPM Atrial Rate : 120 BPM P-R Int : 140 ms QRS Dur : 090 ms QT Int : 330 ms P-R-T Axes : 062 -01 107 degrees QTc Int : 466 ms Sinus tachycardia T wave abnormality, consider lateral ischemia Abnormal ECG When compared with ECG of 06-AUG-2021 01:15, No significant change was found Referred By: Jeimy Chapin Electronically Signed By:JOSÉ MANUEL URIBE
--- NOTE | 2021-08-24 08:17 | ED.URI ---
HPI - URI/Sore Throat General Chief Complaint: Upper Respiratory Symptoms Stated Complaint: copd exacterbation Time Seen by Provider: 08/24/21 07:59 Source: patient, family, EMS and automotive parts interpreter Mode of arrival: EMS Limitations: language barrier History of Present Illness HPI Narrative: 61-year-old male with a history of end-stage renal disease on dialysis Wednesday, Wednesdays, Fridays, asthma, diabetes here with several days of cough, chills, body aches, shortness of breath. Of note patient was seen here on August 06 for asthma exacerbation and he was treated with prednisone for 5 days. He tells me after this he has been feeling better. However the last few days he started to feel sick again. His cough is nonproductive. He denies any leg swelling or leg pain or chest pain. He has received COVID vaccine x3. He has not missed any dialysis sessions. Related Data Home Medications Medication Instructions Recorded Confirmed atorvastatin 40 mg tablet 1 tab PO DAILY 08/24/21 08/24/21 furosemide 80 mg tablet 80 mg PO SUTUTHSA@0900,2100 08/24/21 08/24/21 glipizide 5 mg tablet, extended 1 tab PO DAILY 08/24/21 08/24/21 release 24 hr omeprazole 20 mg capsule,delayed 1 cap PO DAILY 08/24/21 08/24/21 release primidone 50 mg tablet 1 tab PO BID PRN Tremor(S) 08/24/21 08/24/21 sevelamer carbonate 800 mg tablet 3 tab PO TIDWM 08/24/21 08/24/21 Allergies Allergy/AdvReac Type Severity Reaction Status Date / Time No Known Allergies Allergy Verified 06/03/20 09:18 [No Known Allergies*] Review of Systems Review of Systems: Yes all other systems are reviewed and are negative Constitutional: Constitutional: Reports no additional constitutional complaints, Reports body ache(s), Reports chills, Denies fever(s), Denies headache(s) and Denies weakness Eyes: Eyes: Reports no additional eye complaints and Denies change in vision ENT: Reports system reviewed and no additional complaints, except as documented, Denies dizziness, Denies headache(s), Denies nasal congestion, Reports nasal discharge and Denies neck pain Cardiovascular: Cardiovascular: Reports no additional cardiovascular complaints, Denies chest pain, Denies leg edema and Reports dyspnea Respiratory: Respiratory: Reports no additional respiratory complaints, Reports cough and Reports dyspnea Gastrointestinal: Gastrointestinal: Reports no additional gastrointestinal complaints, Denies abdominal pain, Denies diarrhea, Denies nausea and Denies vomiting Genitourinary: Genitourinary: Denies urinary incontinence Musculoskeletal: Musculoskeletal: Reports no additional musculoskeletal complaints, Denies back pain, Denies arthralgias, Denies joint swelling, Denies neck pain, Denies numbness and Denies tingling Integumentary/Breasts: Skin/Breast: Reports system reviewed and no additional complaints, except as docu and Denies rash Neurologic: Reports system reviewed and no additional complaints, except as documented, Denies Abnormal speech present, Denies dizziness, Denies headache(s), Denies numbness, Denies tingling and Denies weakness PMFSH Past Medical History Attestation statement: The following information was validated with the patient. Source: old records reviewed and nursing notes reviewed Medical History (Updated 08/24/21 @ 15:54 by Jamie De La Torre MD) Asthma Diabetes End stage chronic kidney disease Surgical History (Updated 08/24/21 @ 15:54 by Jamie De La Torre MD) AV fistula Family History Family History Mother CAD (coronary artery disease) Social History Social History (Updated 08/24/21 @ 15:54 by Jamie De La Torre MD) Alcohol intake: never Patient Tobacco Use Status: Never used Tobacco Use of substances other than those prescribed or required for medical reasons: No Advance Directives: No Advance Directives Information Provided: No Physical Exam Vital Signs: Vital Signs: Last Vital Signs Temp 98.2 F 08/24/21 16:03 Pulse 91 08/24/21 16:03 Resp 16 08/24/21 16:03 BP 177/84 H 08/24/21 16:03 Pulse Ox 100 08/24/21 16:03 O2 Del Method 08/24/21 16:03 O2 Flow Rate 2 08/24/21 16:03 BMI result Body Mass Index 32.3 Const: General: cooperative, healthy appearing, comfortable and no acute distress Orientation/consciousness: patient oriented x3 Limitations: no limitations HEENT: Head: Yes normal to inspection Ears: hearing grossly normal bilaterally and TM's normal bilaterally General nose exam: Normal external nose present Face and sinus: Yes normal facial exam Mouth: Normal oral and palatal mucosa present Throat: Yes posterior oropharynx normal, Yes tonsils normal and Yes uvula midline Eyes: General: appearance normal, both eyes and all related structures Pupils: Equal, round and reactive pupils present Neck: Neck: Yes normal visual inspection, Yes full ROM and Yes no lymphadenopathy Chest: Chest palpation & inspection: normal inspection of the chest Resp: Other: Mild tachypnea with rate of 22 Auscultation: clear to auscultation bilaterally Cardio: Rate: tachycardic (118) Rhythm: regular rhythm Peripheral pulses: Peripheral pulses 2+ throughout GI: Inspection: Yes normal to inspection Palpation (GI): Soft to palpation and nontender Auscultation: normal bowel sounds Back/Spine/Pelvis: Thoracic/Lumbar Spine: thoracic and lumbar spine normal to inspection Skin: General skin exam: no rashes or lesions noted Neuro: General: patient oriented x3, no focal motor deficits and normal sensation to monofilament Cranial nerves: Yes Equal, round and reactive pupils present Cognition (Neuro): normal cognition Speech: No Abnormal speech present Gait exam (Neuro): Normal gait present Motor exam (neuro): 5/5 motor strength present throughout Extrem: General: Yes normal to inspection, Yes no pedal edema and Yes no calf tenderness Course Course Course Narrative: 1330-chest x-ray shows no acute finding. Labs show elevated renal function. This is consistent with a dialysis patient. His troponin his mildly elevated. This is likely secondary to his elevated creatinine. Will trend. EKG shows no ischemic changes. Patient denies chest pain. His COVID, flu and RSV screen are positive for COVID only. His CT of the chest will be obtained to rule out occult pneumonia Reevaluation(s) Reevaluation #1: 1530-delay in imaging. I spoke to Radiology. The CT of the chest shows ground-glass density with reactive mediastinal lymph nodes. Bilateral small pleural effusions. Left upper lobe atelectasis. At this time infection is suspected. Antibiotics ordered. The patient's repeat troponin is mildly elevated. Low concern for ACS. No chest pain. This is likely secondary to patient's creatinine. Will continue to trend. I spoke to Dr. De La Torre who accepted admission MDM - URI/Sore Throat MDM Narrative Medical decision making narrative: 61-year-old male with a history of end-stage renal disease, asthma here with several days of URI symptoms with body aches and chills and shortness of breath. No chest pain, leg swelling or leg pain. On arrival patient has a low-grade fever 100.7, tachycardia 118, mild tachypnea with rate of 22, oxygen saturation 92%. He is hypertensive in did receive his morning medications. Lung sounds are diminished but clear throughout. Will check labs including blood cultures, lactic acid, chest x-ray, COVID and flu testing, EKG. At this time infection suspected. Antibiotics ordered Medical Records Attestation: I reviewed the patient's medical records. Lab Data Attestation: I reviewed the patient's lab results. Result diagrams: 08/24/21 09:39 08/24/21 09:39 Labs: Lab Results 08/24/21 08/24/21 08/24/21 Range/Units 09:39 09:39 09:39 WBC 9.3 (4.8-10.8) X10*3/uL RBC 3.01 L (4.60-5.80) X10*6/uL Hgb 9.1 L (14.0-18.0) g/dl Hct 27.3 L (42.0-52.0) % MCV 90.7 (80.0-98.0) fL MCH 30.2 (27.0-33.0) pg MCHC 33.3 (31.0-36.0) g/dl RDW 14.6 (11.0-16.0) % Plt Count 243 (160-400) X10*3/uL MPV 8.5 L (9.4-12.4) fL Immature Gran % (Auto) 0.2 (0.0-0.4) % Neut % (Auto) 87.3 H (45-73) % Lymph % (Auto) 8.2 L (20-40) % Sibley % (Auto) 4.0 (2-11) % Eos % (Auto) 0.1 (0-4) % Baso % (Auto) 0.2 (0-2) % Lymph # (Auto) 0.8 L (1.2-4.9) X10*3/uL Sibley # (Auto) 0.4 (0.1-1.2) X10*3/uL Eos # (Auto) 0.0 (0.0-0.4) X10*3/uL Baso # (Auto) 0.0 (0.0-0.2) X10*3/uL Abs Immat Gran (auto) 0.02 (0.00-0.03) X10*3/uL Absolute Neuts (auto) 8.1 (2.0-8.3) x10*3/uL Absolute Nucleated RBC 0.000 (0.0-0.012) X10*3/uL Nucleated RBC % (auto) 0.0 (0.0-0.2) /100WBC PT 12.9 (9.9-13.0) SEC INR 1.1 (0.9-1.1) Sodium 138 (135-145) mmol/L Potassium 4.1 (3.3-5.1) mmol/L Chloride 98 (96-108) mmol/L Carbon Dioxide 28 (22-29) mmol/L Anion Gap 16 (12-20) BUN 41 H (9-16) mg/dL Creatinine 8.28 H* (0.5-1.4) mg/dL Estim Creat Clear Calc 12.2 Estimated GFR 7 POC Glucose (60-115) mg/dL Random Glucose 162 H D (60-115) mg/dL Lactic Acid (0.5-2.0) mmol/L Calcium 8.9 (8.4-10.2) mg/dL Magnesium 2.0 (1.6-2.6) mg/dL Total Bilirubin 0.6 (0.0-1.0) mg/dL Direct Bilirubin 0.3 (0.0-0.5) mg/dL AST 11 D (5-37) U/L ALT 11 (0-40) U/L Alkaline Phosphatase 57 D (39-117) U/L Troponin I High Sens (<3.5-35.0) ng/L B-Natriuretic Peptide (<100) pg/mL Total Protein 6.5 (6.5-8.0) g/dL Albumin 3.6 (3.5-5.0) g/dL COVID-19 (LUZ) (Negative) COVID-19 Clin Com Influenza Type A (NAHID) (Negative) Influenza Type B (NAHID) (Negative) Influenza A & B Note 08/24/21 08/24/21 08/24/21 Range/Units 09:39 09:39 09:39 WBC (4.8-10.8) X10*3/uL RBC (4.60-5.80) X10*6/uL Hgb (14.0-18.0) g/dl Hct (42.0-52.0) % MCV (80.0-98.0) fL MCH (27.0-33.0) pg MCHC (31.0-36.0) g/dl RDW (11.0-16.0) % Plt Count (160-400) X10*3/uL MPV (9.4-12.4) fL Immature Gran % (Auto) (0.0-0.4) % Neut % (Auto) (45-73) % Lymph % (Auto) (20-40) % Sibley % (Auto) (2-11) % Eos % (Auto) (0-4) % Baso % (Auto) (0-2) % Lymph # (Auto) (1.2-4.9) X10*3/uL Sibley # (Auto) (0.1-1.2) X10*3/uL Eos # (Auto) (0.0-0.4) X10*3/uL Baso # (Auto) (0.0-0.2) X10*3/uL Abs Immat Gran (auto) (0.00-0.03) X10*3/uL Absolute Neuts (auto) (2.0-8.3) x10*3/uL Absolute Nucleated RBC (0.0-0.012) X10*3/uL Nucleated RBC % (auto) (0.0-0.2) /100WBC PT (9.9-13.0) SEC INR (0.9-1.1) Sodium (135-145) mmol/L Potassium (3.3-5.1) mmol/L Chloride (96-108) mmol/L Carbon Dioxide (22-29) mmol/L Anion Gap (12-20) BUN (9-16) mg/dL Creatinine (0.5-1.4) mg/dL Estim Creat Clear Calc Estimated GFR POC Glucose (60-115) mg/dL Random Glucose (60-115) mg/dL Lactic Acid 1.0 (0.5-2.0) mmol/L Calcium (8.4-10.2) mg/dL Magnesium (1.6-2.6) mg/dL Total Bilirubin (0.0-1.0) mg/dL Direct Bilirubin (0.0-0.5) mg/dL AST (5-37) U/L ALT (0-40) U/L Alkaline Phosphatase (39-117) U/L Troponin I High Sens 132.4 H* D (<3.5-35.0) ng/L B-Natriuretic Peptide 1252 H (<100) pg/mL Total Protein (6.5-8.0) g/dL Albumin (3.5-5.0) g/dL COVID-19 (LUZ) (Negative) COVID-19 Clin Com Influenza Type A (NAHID) (Negative) Influenza Type B (NAHID) (Negative) Influenza A & B Note 08/24/21 08/24/21 08/24/21 Range/Units 10:21 10:21 13:19 WBC (4.8-10.8) X10*3/uL RBC (4.60-5.80) X10*6/uL Hgb (14.0-18.0) g/dl Hct (42.0-52.0) % MCV (80.0-98.0) fL MCH (27.0-33.0) pg MCHC (31.0-36.0) g/dl RDW (11.0-16.0) % Plt Count (160-400) X10*3/uL MPV (9.4-12.4) fL Immature Gran % (Auto) (0.0-0.4) % Neut % (Auto) (45-73) % Lymph % (Auto) (20-40) % Sibley % (Auto) (2-11) % Eos % (Auto) (0-4) % Baso % (Auto) (0-2) % Lymph # (Auto) (1.2-4.9) X10*3/uL Sibley # (Auto) (0.1-1.2) X10*3/uL Eos # (Auto) (0.0-0.4) X10*3/uL Baso # (Auto) (0.0-0.2) X10*3/uL Abs Immat Gran (auto) (0.00-0.03) X10*3/uL Absolute Neuts (auto) (2.0-8.3) x10*3/uL Absolute Nucleated RBC (0.0-0.012) X10*3/uL Nucleated RBC % (auto) (0.0-0.2) /100WBC PT (9.9-13.0) SEC INR (0.9-1.1) Sodium (135-145) mmol/L Potassium (3.3-5.1) mmol/L Chloride (96-108) mmol/L Carbon Dioxide (22-29) mmol/L Anion Gap (12-20) BUN (9-16) mg/dL Creatinine (0.5-1.4) mg/dL Estim Creat Clear Calc Estimated GFR POC Glucose 109 (60-115) mg/dL Random Glucose (60-115) mg/dL Lactic Acid (0.5-2.0) mmol/L Calcium (8.4-10.2) mg/dL Magnesium (1.6-2.6) mg/dL Total Bilirubin (0.0-1.0) mg/dL Direct Bilirubin (0.0-0.5) mg/dL AST (5-37) U/L ALT (0-40) U/L Alkaline Phosphatase (39-117) U/L Troponin I High Sens (<3.5-35.0) ng/L B-Natriuretic Peptide (<100) pg/mL Total Protein (6.5-8.0) g/dL Albumin (3.5-5.0) g/dL COVID-19 (LUZ) Positive A (Negative) COVID-19 Clin Com See Note Influenza Type A (NAHID) Negative (Negative) Influenza Type B (NAHID) Negative (Negative) Influenza A & B Note See Note 08/24/21 Range/Units 14:09 WBC (4.8-10.8) X10*3/uL RBC (4.60-5.80) X10*6/uL Hgb (14.0-18.0) g/dl Hct (42.0-52.0) % MCV (80.0-98.0) fL MCH (27.0-33.0) pg MCHC (31.0-36.0) g/dl RDW (11.0-16.0) % Plt Count (160-400) X10*3/uL MPV (9.4-12.4) fL Immature Gran % (Auto) (0.0-0.4) % Neut % (Auto) (45-73) % Lymph % (Auto) (20-40) % Sibley % (Auto) (2-11) % Eos % (Auto) (0-4) % Baso % (Auto) (0-2) % Lymph # (Auto) (1.2-4.9) X10*3/uL Sibley # (Auto) (0.1-1.2) X10*3/uL Eos # (Auto) (0.0-0.4) X10*3/uL Baso # (Auto) (0.0-0.2) X10*3/uL Abs Immat Gran (auto) (0.00-0.03) X10*3/uL Absolute Neuts (auto) (2.0-8.3) x10*3/uL Absolute Nucleated RBC (0.0-0.012) X10*3/uL Nucleated RBC % (auto) (0.0-0.2) /100WBC PT (9.9-13.0) SEC INR (0.9-1.1) Sodium (135-145) mmol/L Potassium (3.3-5.1) mmol/L Chloride (96-108) mmol/L Carbon Dioxide (22-29) mmol/L Anion Gap (12-20) BUN (9-16) mg/dL Creatinine (0.5-1.4) mg/dL Estim Creat Clear Calc Estimated GFR POC Glucose (60-115) mg/dL Random Glucose (60-115) mg/dL Lactic Acid (0.5-2.0) mmol/L Calcium (8.4-10.2) mg/dL Magnesium (1.6-2.6) mg/dL Total Bilirubin (0.0-1.0) mg/dL Direct Bilirubin (0.0-0.5) mg/dL AST (5-37) U/L ALT (0-40) U/L Alkaline Phosphatase (39-117) U/L Troponin I High Sens 196.3 H* (<3.5-35.0) ng/L B-Natriuretic Peptide (<100) pg/mL Total Protein (6.5-8.0) g/dL Albumin (3.5-5.0) g/dL COVID-19 (LUZ) (Negative) COVID-19 Clin Com Influenza Type A (NAHID) (Negative) Influenza Type B (NAHID) (Negative) Influenza A & B Note Imaging Data Chest x-ray: Attestation: I personally reviewed and interpreted this imaging study as follows: Radiologist's impression: [id number] [place] [id number] XRay Report Signed Patient: Manny Gar MR#: [id number] : 1960 Acct:[id number] Age/Sex: 61 / M ADM Date: 08/24/21 Loc: .ED Attending Dr: Ordering Physician: Jeimy Chapin NP Date of Service: 08/24/21 Procedure(s): XR chest 2V Accession Number(s): [id number] cc: Jeimy Chapin NP~ EXAMINATION: XR CHEST CLINICAL INFORMATION: Weakness. Fever. Cough. COMPARISON: Chest done on 08/06/2021. TECHNIQUE: 2 views of the chest were obtained. FINDINGS: Mild diffuse prominent bronchovascular markings and diffuse linear interstitial markings are present, similar to prior study, may represent interstitial edema, interstitial infiltrate, fibrosis, interstitial spread of neoplasm or combination thereof. No evidence of any dense airspace consolidation to suspect pneumonia. No evidence of any pleural effusion or pneumothorax. The cardiac mediastinal silhouette is within normal limits. Visualized upper abdomen is unremarkable. XR/XR chest 2V IMPRESSION: Nonspecific diffuse prominent linear interstitial lung markings and bronchovascular markings, indeterminate etiology. No evidence of any dense airspace consolidation to suspect pneumonia. ECG Data Attestation: I personally reviewed and interpreted this ECG as follows: ECG interpretation date: 08/24/21 ECG interpretation time: 08:14 Interpretation: Sinus tachycardia with a rate of 120, normal [place], normal QRS, normal QT, ST depressions leads 1, lead 2, aVL. Discharge Plan Discharge Clinical Impression: COVID-19, Anemia in chronic renal disease, Chronic kidney disease, Elevated troponin, Elevated brain natriuretic peptide (BNP) level Patient Disposition: Admitted As Inpatient
[2021-08-24] MEDS: guaiFEN/Codeine SF 200/20/10ML 10 ML LIQUID 5 ML PO (08:48)
[2021-08-24] MEDS: Acetaminophen 325 MG TABLET 975 MG PO (08:49)
--- NOTE | 2021-08-24 09:20 | PC.NURSE ---
pt is a difficult lab draw. Phlebotomy has been called to draw labs
[2021-08-24 09:49] LABS: Basophils Percent Auto 0.2 % (0-2); Eosinophils Percent Auto 0.1 % (0-4); Hematocrit 27.3 % (42.0-52.0); Hemoglobin 9.1 g/dl (14.0-18.0); Imm Gran Abs Auto 0.02 X10*3/uL (0.00-0.03); Imm Gran Pct Auto 0.2 % (0.0-0.4); Lymphocytes Absolute Auto 0.8 X10*3/uL (1.2-4.9); Lymphocytes Percent Auto 8.2 % (20-40); MANUAL DIFF FLAG NO; Mean Corpuscular HGB Conc 33.3 g/dl (31.0-36.0); Mean Corpuscular Hemoglobin 30.2 pg (27.0-33.0); Mean Corpuscular Volume 90.7 fL (80.0-98.0); Mean Platelet Volume 8.5 fL (9.4-12.4); Monocytes Absolute Auto 0.4 X10*3/uL (0.1-1.2); Neutrophils Absolute Auto 8.1 x10*3/uL (2.0-8.3); Neutrophils Percent Auto 87.3 % (45-73); Platelet Count 243 X10*3/uL (160-400); Red Blood Count 3.01 X10*6/uL (4.60-5.80); Red Cell Distribution Width 14.6 % (11.0-16.0); White Blood Count 9.3 X10*3/uL (4.8-10.8)
[2021-08-24] MEDS: cefTRIAXone sodium 1 GM in 0.9 % Sodium Chloride 50 ML IV (09:50)
[2021-08-24 09:53] LABS: INTERNATIONAL NORM RATIO 1.1 (0.9-1.1); Prothrombin Time 12.9 SEC (9.9-13.0)
--- NOTE | 2021-08-24 10:05 | PHA.MEDREC ---
Pharmacy Consult ? Medication Reconciliation Pharmacy has completed the medication reconciliation. Pt's at bedside, conference interpreter services used. No remarkable issues.
[2021-08-24 10:08] LABS: B Type Natriuretic Peptide 1252 pg/mL (<100)
[2021-08-24 10:13] LABS: Alanine Aminotransferase 11 U/L (0-40); Albumin Level 3.6 g/dL (3.5-5.0); Alkaline Phosphatase 57 U/L (39-117); Anion Gap 16 (12-20); Aspartate Amino Transferase 11 U/L (5-37); Bilirubin Direct 0.3 mg/dL (0.0-0.5); Bilirubin Total 0.6 mg/dL (0.0-1.0); Blood Urea Nitrogen 41 mg/dL (9-16); Calcium 8.9 mg/dL (8.4-10.2); Carbon Dioxide 28 mmol/L (22-29); Chloride 98 mmol/L (96-108); Creatinine Clr Calc Pharmacy 12.2; Estimated Glomerular Filt Rate 7; Glucose Random 162 mg/dL (60-115); Potassium 4.1 mmol/L (3.3-5.1); Sodium 138 mmol/L (135-145); Total Protein 6.5 g/dL (6.5-8.0); Troponin-I High Sensitivity 132.4 ng/L (<3.5-35.0)
[2021-08-24 10:33] LABS: COVID-19 Test Positive (Negative); IDNOW Serial# 16C4AD1C
[2021-08-24 10:41] LABS: Influenza A Negative (Negative); Influenza B2 Negative (Negative)
[2021-08-24 13:25] LABS: Glucose, Whole Blood 109 mg/dL (60-115)
--- NOTE | 2021-08-24 14:17 | PC.NURSE ---
pt resting comfortably with family at bedside. Pt came back positive for covid. Will continue to monitor
[2021-08-24 14:49] LABS: Troponin-I High Sensitivity 196.3 ng/L (<3.5-35.0)
--- NOTE | 2021-08-24 15:51 | P.HPHOSP_ITS ---
History of Present Illness Date of Service: 08/24/21 Chief Complaint: sob 61M presented with 4 days feeling unwell. he states that he has been having non productive cough, sob, orthopnea, weakness. started having fevers day ptp. denies sick contacts, only goes out to HD, he has received 3 covid vaccinations. in ED found to be hypoxic to 90% at rest. low grade fever, cxr with increased interstitial markings. Review of Systems Review of Systems: Constitutional: see hpi Eyes: denies blurry vision ENT: denies sore throat CVS: denies chest pain Respiratory: dyspnea GI: no abdominal pain : denies dysuria MSK: denies neck pain Skin: denies rash Neuro: denies specific motor weakness Psych: denies suicidal ideation Endocrine: denies heat/cold intolerance Hematologic: denies easy bleeding Allergy: denies hives [facility] Medical History (Updated 08/24/21 @ 15:54 by Jeimy Chapin NP) Asthma Diabetes End stage chronic kidney disease Family History Mother CAD (coronary artery disease) Surgical History (Updated 08/24/21 @ 15:54 by Jamie De La Torre MD) AV fistula Social History (Updated 08/24/21 @ 15:54 by Jamie De La Torre MD) Alcohol intake: never Patient Tobacco Use Status: Never used Tobacco Use of substances other than those prescribed or required for medical reasons: No Advance Directives: No Advance Directives Information Provided: No Meds Allergies Allergy/AdvReac Type Severity Reaction Status Date / Time No Known Allergies Allergy Verified 06/03/20 09:18 [No Known Allergies*] Active Medications: Current Medications Atorvastatin Calcium (Atorvastatin Calcium 40 Mg Tablet) 40 mg PO DAILY [facility] Dexamethasone Sodium Phosphate (Dexamethasone Sod Phosphate 4 Mg/Ml Vial) 6 mg IVPUSH DAILY [facility] Dextrose (Dextrose 50 % 25 Gm/50 Ml Syringe) 25 gm IVPUSH Q15M PRN; Protocol PRN Reason: per Hypoglycemia Standing Ord. Furosemide (Furosemide 100 Mg/10 Ml Vial) 60 mg IVPUSH ONCE ONE; Protocol Stop: 08/24/21 15:46 Furosemide (Furosemide 40 Mg Tablet) 80 mg PO SUTUTHSA@0900,2100 [facility]; Protocol Glucose (Glucose Gel 15 Gm Gel..Gram.) 15 gm PO Q15M PRN; Protocol PRN Reason: per Hypoglycemia Standing Ord. Azithromycin 500 mg/ Sodium (Chloride) 250 mls @ 125 mls/hr IV ONCE ONE Stop: 08/24/21 17:28 Insulin Human Lispro (Insulin Lispro 100 Unit/Ml 3 Ml Vial) 0 unit SUBCUT QIDACHS [facility]; Protocol Omeprazole (Omeprazole 20 Mg Capsule.) 20 mg PO DAILY [facility] Pharmacy Consult (Consult Rx Perform Med Rec) 1 each MISCELLANE ONCE PRN PRN Reason: Consult order Primidone (Primidone 50 Mg Tablet) 50 mg PO BID PRN PRN Reason: Tremor(S) Sevelamer Carbonate (Sevelamer Carbonate Tablet 800 Mg Tablet) 2,400 mg PO TIDWM [facility] Home Medications Medication Instructions Recorded Confirmed Last Taken Type atorvastatin 40 mg tablet 1 tab PO DAILY 08/24/21 08/24/21 08/23/21 History furosemide 80 mg tablet 80 mg PO SUTUTHSA@0900,2100 08/24/21 08/24/21 08/23/21 H istory glipizide 5 mg tablet, extended 1 tab PO DAILY 08/24/21 08/24/21 Unknown History release 24 hr omeprazole 20 mg capsule,delayed 1 cap PO DAILY 08/24/21 08/24/21 08/23/21 History release primidone 50 mg tablet 1 tab PO BID PRN Tremor(S) 08/24/21 08/24/21 Unknown History sevelamer carbonate 800 mg tablet 3 tab PO TIDWM 08/24/21 08/24/21 08/23/21 History Physical Exam Vital Signs and Narrative: Vital Signs: Last Vital Signs Temp 98.4 F 08/24/21 14:12 Pulse 88 08/24/21 14:09 Resp 22 H 08/24/21 14:09 BP 158/75 H 08/24/21 14:09 Pulse Ox 100 08/24/21 14:09 O2 Del Method 08/24/21 14:09 O2 Flow Rate 2 08/24/21 14:09 BMI result Body Mass Index 32.3 General: dyspneic HEENT: atraumatic Neck: normal to visual inspection CVS: S1, S2, RRR Resp: Crackles bilateral Chest: non tender GI: soft, non tender, non distended : no CVA tenderness Skin: no rashes Extremities: no edema Neuro: Oriented X3, grossly intact Psych: cooperative Results Labs CBC and Chem 7: 08/24/21 09:39 08/24/21 09:39 Labs: Laboratory Results - last 24 hr 08/24/21 08/24/21 08/24/21 09:39 09:39 09:39 MCV 90.7 MCH 30.2 MCHC 33.3 RDW 14.6 Plt Count 243 MPV 8.5 L Immature Gran % (Auto) 0.2 Neut % (Auto) 87.3 H Lymph % (Auto) 8.2 L [place] % (Auto) 4.0 Eos % (Auto) 0.1 Baso % (Auto) 0.2 Lymph # (Auto) 0.8 L [place] # (Auto) 0.4 Eos # (Auto) 0.0 Baso # (Auto) 0.0 Abs Immat Gran (auto) 0.02 Absolute Neuts (auto) 8.1 Absolute Nucleated RBC 0.000 Nucleated RBC % (auto) 0.0 PT 12.9 INR 1.1 Anion Gap 16 Estim Creat Clear Calc 12.2 Estimated GFR 7 POC Glucose Random Glucose 162 H D Lactic Acid Calcium 8.9 Magnesium 2.0 Total Bilirubin 0.6 Direct Bilirubin 0.3 AST 11 D ALT 11 Alkaline Phosphatase 57 D Troponin I High Sens B-Natriuretic Peptide Total Protein 6.5 Albumin 3.6 COVID-19 (LUZ) COVID-19 Clin Com Influenza Type A (NAHID) Influenza Type B (NAHID) Influenza A & B Note 08/24/21 08/24/21 08/24/21 09:39 09:39 09:39 MCV MCH MCHC RDW Plt Count MPV Immature Gran % (Auto) Neut % (Auto) Lymph % (Auto) [place] % (Auto) Eos % (Auto) Baso % (Auto) Lymph # (Auto) [place] # (Auto) Eos # (Auto) Baso # (Auto) Abs Immat Gran (auto) Absolute Neuts (auto) Absolute Nucleated RBC Nucleated RBC % (auto) PT INR Anion Gap Estim Creat Clear Calc Estimated GFR POC Glucose Random Glucose Lactic Acid 1.0 Calcium Magnesium Total Bilirubin Direct Bilirubin AST ALT Alkaline Phosphatase Troponin I High Sens 132.4 H* D B-Natriuretic Peptide 1252 H Total Protein Albumin COVID-19 (LUZ) COVID-19 Clin Com Influenza Type A (NAHID) Influenza Type B (NAHID) Influenza A & B Note 08/24/21 08/24/21 08/24/21 10:21 10:21 13:19 MCV MCH MCHC RDW Plt Count MPV Immature Gran % (Auto) Neut % (Auto) Lymph % (Auto) [place] % (Auto) Eos % (Auto) Baso % (Auto) Lymph # (Auto) [place] # (Auto) Eos # (Auto) Baso # (Auto) Abs Immat Gran (auto) Absolute Neuts (auto) Absolute Nucleated RBC Nucleated RBC % (auto) PT INR Anion Gap Estim Creat Clear Calc Estimated GFR POC Glucose 109 Random Glucose Lactic Acid Calcium Magnesium Total Bilirubin Direct Bilirubin AST ALT Alkaline Phosphatase Troponin I High Sens B-Natriuretic Peptide Total Protein Albumin COVID-19 (LUZ) Positive A COVID-19 Clin Com See Note Influenza Type A (NAHID) Negative Influenza Type B (NAHID) Negative Influenza A & B Note See Note 08/24/21 14:09 MCV MCH MCHC RDW Plt Count MPV Immature Gran % (Auto) Neut % (Auto) Lymph % (Auto) [place] % (Auto) Eos % (Auto) Baso % (Auto) Lymph # (Auto) [place] # (Auto) Eos # (Auto) Baso # (Auto) Abs Immat Gran (auto) Absolute Neuts (auto) Absolute Nucleated RBC Nucleated RBC % (auto) PT INR Anion Gap Estim Creat Clear Calc Estimated GFR POC Glucose Random Glucose Lactic Acid Calcium Magnesium Total Bilirubin Direct Bilirubin AST ALT Alkaline Phosphatase Troponin I High Sens 196.3 H* B-Natriuretic Peptide Total Protein Albumin COVID-19 (LUZ) COVID-19 Clin Com Influenza Type A (NAHID) Influenza Type B (NAHID) Influenza A & B Note Imaging Radiologist's Impressions: Impressions Chest X-Ray 08/24/21 08:35 IMPRESSION: Nonspecific diffuse prominent linear interstitial lung markings and bronchovascular markings, indeterminate etiology. No evidence of any dense airspace consolidation to suspect pneumonia. Assessment and Plan (1) COVID-19: Status: Acute Plan 61M presented with sob acute hypoxic respiratory failure secondary to COVID pneumonia and pulmonary edema in the setting of fluid overload due to end-stage renal disease IV Decadron airborne isolation wean O2 as tolerated continue phosphate binders will give Lasix x1( makes small amount of urine) hemodialysis hyperlipidemia continue statin diabetes hold glipizide will use insulin sliding scale DVT prophylaxis with heparin full code patient with hypoxia due to COVID pneumonia and fluid overload, at high risk due to end-stage renal disease and diabetes, therefore likely to require at least 2 midnights Quality Stroke Does the patient have a stroke diagnosis?: No VTE Prior VTE?: No VTE Risk Level:: Medical - moderate - high VTE Device Contraindication: Treatment Not Indicated VTE Drug Contraindication: N/A - Med Ordered
[2021-08-24] MEDS: Azithromycin 500 MG in 0.9 % Sodium Chloride 250 ML 125 MG IV (16:07)
[2021-08-24] MEDS: 0.9 % Sodium Chloride Flush 3 ML SYRINGE IVFLUSH (16:10)
[2021-08-24] MEDS: dexAMETHasone sod phosphate 4 MG/ML VIAL 6 MG IVPUSH (16:20)
[2021-08-24] MEDS: Heparin Sodium,Porcine 5,000 UNIT/ML VIAL 5000 UNIT SUBCUT (16:20)
[2021-08-24] MEDS: Furosemide 100 MG/10 ML VIAL 60 MG IVPUSH (16:20)
[2021-08-24 16:34] LABS: Glucose, Whole Blood 111 mg/dL (60-115)
[2021-08-24] MEDS: Furosemide 40 MG TABLET 80 MG PO (20:39)
[2021-08-24] MEDS: Insulin Lispro 100 UNIT/ML 3 ML VIAL SUBCUT (20:48)
[2021-08-24] MEDS: Sevelamer Carbonate Tablet 800 MG TABLET 2400 MG PO (20:55)
[2021-08-24 21:16] LABS: Glucose, Whole Blood 179 mg/dL (60-115)
[2021-08-25] VITALS (8 sets, daily range): BP systolic 132–178; BP diastolic 55–92; PULSE 86–92; RESP 11–21; TEMP 36.4–36.8; O2SAT 97–100
[2021-08-25] MEDS: Heparin Sodium,Porcine 5,000 UNIT/ML VIAL 5000 UNIT SUBCUT ×3 (01:20→15:37)
[2021-08-25] MEDS: 0.9 % Sodium Chloride Flush 3 ML SYRINGE IVFLUSH ×3 (01:20→16:39)
--- NOTE | 2021-08-25 04:19 | PC.NURSE ---
Patient alert and oriented x 3. Patient ambulates independently but really exhausted. Patient voiding on commode. Patient on 2l nasal cannula with o2 sats in high 90's. Patient has 22g iv in right hand dressing clean dry and intact. tele: sinus rhythm. troponins + x 2. Will continue with plan of care.
[2021-08-25] MEDS: Omeprazole 20 MG CAPSULE.DR PO (06:10)
--- NOTE | 2021-08-25 07:43 | PC.NURSE ---
Patient brought over to overflow bed 4 (isolation) from main ER. Patient alert, oriented. Patient denies pain. RR 14-16, on 2 liters nasal cannula, 100% O2sat. Patient sitting at side of bed.
[2021-08-25 07:50] LABS: Glucose, Whole Blood 168 mg/dL (60-115)
[2021-08-25 08:41] LABS: Hematocrit 30.2 % (42.0-52.0); Hemoglobin 9.8 g/dl (14.0-18.0); Mean Corpuscular HGB Conc 32.5 g/dl (31.0-36.0); Mean Corpuscular Hemoglobin 29.6 pg (27.0-33.0); Mean Corpuscular Volume 91.2 fL (80.0-98.0); Platelet Count 287 X10*3/uL (160-400); Red Blood Count 3.31 X10*6/uL (4.60-5.80); Red Cell Distribution Width 14.6 % (11.0-16.0); White Blood Count 7.2 X10*3/uL (4.8-10.8)
[2021-08-25 09:18] LABS: Anion Gap 21 (12-20); Blood Urea Nitrogen 60 mg/dL (9-16); C Reactive Protein 6.22 mg/dL (< or = 0.50); Calcium 9.3 mg/dL (8.4-10.2); Carbon Dioxide 26 mmol/L (22-29); Chloride 99 mmol/L (96-108); Creatinine Clr Calc Pharmacy 10.1; Estimated Glomerular Filt Rate 5; Glucose Fasting 173 mg/dL (60-99); Potassium 4.9 mmol/L (3.3-5.1); Sodium 141 mmol/L (135-145)
[2021-08-25] MEDS: Insulin Lispro 100 UNIT/ML 3 ML VIAL SUBCUT ×2 (09:49→18:43)
[2021-08-25] MEDS: dexAMETHasone sod phosphate 4 MG/ML VIAL 6 MG IVPUSH (09:50)
[2021-08-25] MEDS: Atorvastatin Calcium 40 MG TABLET PO (09:51)
[2021-08-25] MEDS: Sevelamer Carbonate Tablet 800 MG TABLET 2400 MG PO ×3 (09:51→16:42)
--- NOTE | 2021-08-25 10:09 | PC.NURSE ---
Addendum entered by Tejal Galindo RN 08/25/21 12:22: skin specialist used to communicate. Dialysis fistula with postive bruit and thrill. Original Note: 0930-pt assessed. GCS 15, ANDERSON well. Pt denies pain, SOB and numbness and tingling in extremities. Pt currently on RA, oxygen sats 97%.Lungs clear A&P throughout bilaterally, but slightly diminished. Heart murmur noted upon auscultation. Pulses +2 x4, no edema noted. Bowel sounds active x4. Pt tolerating fluids and food. no nausea or pain stated.
--- NOTE | 2021-08-25 13:14 | PC.NURSE ---
pt medicated per order
[2021-08-25 13:35] LABS: Glucose, Whole Blood 143 mg/dL (60-115)
--- NOTE | 2021-08-25 13:48 | HO.PM.IMPN ---
Subjective Subjective Date of Service: 08/25/21 Interval History: cc: sob interval history:imrpoved Cardiovascular Cardiovascular: Reports no additional cardiovascular complaints Respiratory Respiratory: Reports no additional respiratory complaints Physical Exam Vital Signs: Vital Signs: Last Vital Signs Temp 97.5 F 08/25/21 13:04 Pulse 89 08/25/21 07:54 Resp 16 08/25/21 13:04 BP 178/89 H 08/25/21 13:04 Pulse Ox 98 08/25/21 13:04 O2 Del Method 08/25/21 13:04 O2 Flow Rate 2 08/25/21 07:54 Oxygen Flow Rate 2 08/25/21 03:58 BMI result Body Mass Index 32.3 General: AO X 3, no acute distress Resp: CTA bilateral, no accessory muscles used CVS: S1,S2,RRR GI: soft, non tender, non distended Neuro: motor grossly intact, alert Psych: appropriate affect, appropriate insight Objective Data Active Medications Acetaminophen (Acetaminophen 325 Mg Tablet) 650 mg PO Q6H PRN PRN Reason: Pain, Mild (Pain Scale 1-3) Atorvastatin Calcium (Atorvastatin Calcium 40 Mg Tablet) 40 mg PO DAILY [facility] Last Admin: 08/25/21 09:51 Dose: 40 mg Documented By: QUYNH Dexamethasone Sodium Phosphate (Dexamethasone Sod Phosphate 4 Mg/Ml Vial) 6 mg IVPUSH DAILY [facility] Last Admin: 08/25/21 09:50 Dose: 6 mg Documented By: QUYNH Dextrose (Dextrose 50 % 25 Gm/50 Ml Syringe) 25 gm IVPUSH Q15M PRN; Protocol PRN Reason: per Hypoglycemia Standing Ord. Furosemide (Furosemide 40 Mg Tablet) 80 mg PO SUTUTHSA@0900,2100 [facility]; Protocol Last Admin: 08/24/21 20:39 Dose: 80 mg Documented By: BEATA Glucose (Glucose Gel 15 Gm Gel..Gram.) 15 gm PO Q15M PRN; Protocol PRN Reason: per Hypoglycemia Standing Ord. Heparin Sodium (Porcine) (Heparin Sodium,Porcine 5,000 Unit/Ml Vial) 5,000 unit SUBCUT Q8H [facility] Last Admin: 08/25/21 09:49 Dose: 5,000 unit Documented By: QUYNH Insulin Human Lispro (Insulin Lispro 100 Unit/Ml 3 Ml Vial) 0 unit SUBCUT QIDACHS [facility]; Protocol Last Admin: 08/25/21 13:45 Dose: Not Given Documented By: SHASHI Non-Admin Reason: No Insulin Coverage Omeprazole (Omeprazole 20 Mg [place].) 20 mg PO DAILY@0630 [facility] Last Admin: 08/25/21 06:10 Dose: 20 mg Documented By: JACQUELIN Pharmacy Consult (Consult Rx Perform Med Rec) 1 each MISCELLANE ONCE PRN PRN Reason: Consult order Primidone (Primidone 50 Mg Tablet) 50 mg PO BID PRN PRN Reason: Tremor(S) Sevelamer Carbonate (Sevelamer Carbonate Tablet 800 Mg Tablet) 2,400 mg PO TIDWM [facility] Last Admin: 08/25/21 13:13 Dose: 2,400 mg Documented By: SHASHI Sodium Chloride (0.9 % Sodium Chloride Flush 3 Ml Syringe) [facility] Last Admin: 08/25/21 09:51 Dose: 3 ml Documented By: QUYNH Labs CBC & Chem 7: 08/25/21 08:14 08/25/21 08:14 Labs: Laboratory Results - last 24 hr 08/24/21 08/24/21 08/24/21 14:09 16:29 20:38 MCV MCH MCHC RDW Plt Count MPV Absolute Nucleated RBC Nucleated RBC % (auto) Anion Gap Estim Creat Clear Calc Estimated GFR POC Glucose 111 179 H Fasting Glucose Calcium Troponin I High Sens 196.3 H* C-Reactive Protein 08/25/21 08/25/21 08/25/21 07:44 08:14 08:14 MCV 91.2 MCH 29.6 MCHC 32.5 RDW 14.6 Plt Count 287 MPV 9.0 L Absolute Nucleated RBC 0.000 Nucleated RBC % (auto) 0.0 Anion Gap 21 H Estim Creat Clear Calc 10.1 Estimated GFR 5 POC Glucose 168 H Fasting Glucose 173 H Calcium 9.3 Troponin I High Sens C-Reactive Protein 6.22 H 08/25/21 13:29 MCV MCH MCHC RDW Plt Count MPV Absolute Nucleated RBC Nucleated RBC % (auto) Anion Gap Estim Creat Clear Calc Estimated GFR POC Glucose 143 H Fasting Glucose Calcium Troponin I High Sens C-Reactive Protein Microbiology Microbiology Results: Microbiology 08/24/21 09:39 Blood Culture - Preliminary Blood - Venous No growth after 24 hours. 08/24/21 09:39 Blood Culture - Preliminary Blood - Venous No growth after 24 hours. Assessment and Plan (1) COVID-19: Status: Acute Plan 61M presented with sob ?acute hypoxic respiratory failure secondary to COVID pneumonia and pulmonary edema in the setting of fluid overload due to end-stage renal disease ?IV Decadron day 2 ?airborne isolation ?weaned to room air ?continue phosphate binders ?hemodialysis htn will start amldoipnie ?hyperlipidemia ?continue statin ?diabetes ?hold glipizide ?will use insulin sliding scale ?DVT prophylaxis with heparin ?full code reason for continued hospitalization: close monitoring, high risk covid patient Quality Stroke Does the patient have a stroke diagnosis?: No VTE Prior VTE?: No VTE Risk Level:: Medical - moderate - high VTE Device Contraindication: Treatment Not Indicated VTE Drug Contraindication: N/A - Med Ordered
--- NOTE | 2021-08-25 15:43 | PC.NURSE ---
poc and insulin to be done later as dinner comes late
--- NOTE | 2021-08-25 15:46 | PC.NURSE ---
pt is a&ox3, resting in his bed while watching tv, denies any pain or discomfort, monitoring coordinator intact, medication was given per order, vss, left upper extremity fistula positive for bruit and thrill, lung sounds clear, call verdugo within reach, will continue to monitor
[2021-08-25 16:36] LABS: Glucose, Whole Blood 208 mg/dL (60-115)
--- NOTE | 2021-08-25 16:39 | PM.CNNEP ---
History of Present Illness Reason for Consult Consult date: 08/25/21 Reason for consult: ESRD on HD Chief Complaint Chief complaint: covid, fluid overload History of Present Illness Narrative: 61M presented with 4 days feeling unwell. he states that he has been having non productive cough, sob, orthopnea, weakness. started having fevers day ptp. denies sick contacts, only goes out to HD, he has received 3 covid vaccinations. in ED found to be hypoxic to 90% at rest. low grade fever, cxr with increased interstitial markings. Found to have acute hypoxic respiratory failure secondary to COVID pneumonia and pulmonary edema in the setting of fluid overload due to end-stage renal disease. ROS otherwise negative. Review of Systems Review of Systems Yes all other systems are reviewed and are negative Constitutional: Reports as per HPI [facility] Past Medical History Medical History (Updated 08/24/21 @ 15:54 by Jamie De La Torre MD) Asthma Diabetes End stage chronic kidney disease Family History Family History Mother CAD (coronary artery disease) Surgical History Surgical History (Updated 08/24/21 @ 15:54 by Jamie De La Torre MD) AV fistula Social History Social History (Updated 08/24/21 @ 15:54 by Jamie De La Torre MD) Alcohol intake: never Patient Tobacco Use Status: Never used Tobacco Use of substances other than those prescribed or required for medical reasons: No Advance Directives: No Advance Directives Information Provided: No Meds Allergies Allergy/AdvReac Type Severity Reaction Status Date / Time No Known Allergies Allergy Verified 06/03/20 09:18 [No Known Allergies*] Active Medications: Current Medications Acetaminophen (Acetaminophen 325 Mg Tablet) 650 mg PO Q6H PRN PRN Reason: Pain, Mild (Pain Scale 1-3) Amlodipine Besylate (Amlodipine Besylate 5 Mg Tablet) 5 mg PO DAILY [facility]; Protocol Atorvastatin Calcium (Atorvastatin Calcium 40 Mg Tablet) 40 mg PO DAILY [facility] Last Admin: 08/25/21 09:51 Dose: 40 mg Dexamethasone Sodium Phosphate (Dexamethasone Sod Phosphate 4 Mg/Ml Vial) 6 mg IVPUSH DAILY [facility] Last Admin: 08/25/21 09:50 Dose: 6 mg Dextrose (Dextrose 50 % 25 Gm/50 Ml Syringe) 25 gm IVPUSH Q15M PRN; Protocol PRN Reason: per Hypoglycemia Standing Ord. Furosemide (Furosemide 40 Mg Tablet) 80 mg PO SUTUTHSA@0900,2100 [facility]; Protocol Last Admin: 08/24/21 20:39 Dose: 80 mg Glucose (Glucose Gel 15 Gm Gel..Gram.) 15 gm PO Q15M PRN; Protocol PRN Reason: per Hypoglycemia Standing Ord. Heparin Sodium (Porcine) (Heparin Sodium,Porcine 5,000 Unit/Ml Vial) 5,000 unit SUBCUT Q8H [facility] Last Admin: 08/25/21 15:37 Dose: 5,000 unit Insulin Human Lispro (Insulin Lispro 100 Unit/Ml 3 Ml Vial) 0 unit SUBCUT QIDACHS [facility]; Protocol Last Admin: 08/25/21 13:45 Dose: Not Given Omeprazole (Omeprazole 20 Mg Capsule.) 20 mg PO DAILY@0630 [facility] Last Admin: 08/25/21 06:10 Dose: 20 mg Pharmacy Consult (Consult Rx Perform Med Rec) 1 each MISCELLANE ONCE PRN PRN Reason: Consult order Primidone (Primidone 50 Mg Tablet) 50 mg PO BID PRN PRN Reason: Tremor(S) Sevelamer Carbonate (Sevelamer Carbonate Tablet 800 Mg Tablet) 2,400 mg PO TIDWM [facility] Last Admin: 08/25/21 13:13 Dose: 2,400 mg Sodium Chloride (0.9 % Sodium Chloride Flush 3 Ml Syringe) [facility] Last Admin: 08/25/21 09:51 Dose: 3 ml Home Medications Medication Instructions Recorded Confirmed Last Taken Type atorvastatin 40 mg tablet 1 tab PO DAILY 08/24/21 08/24/21 08/23/21 History furosemide 80 mg tablet 80 mg PO SUTUTHSA@0900,2100 08/24/21 08/24/21 08/23/21 History glipizide 5 mg tablet, extended 1 tab PO DAILY 08/24/21 08/24/21 Unknown History release 24 hr omeprazole 20 mg capsule,delayed 1 cap PO DAILY 08/24/21 08/24/21 08/23/21 History release primidone 50 mg tablet 1 tab PO BID PRN Tremor(S) 08/24/21 08/24/21 Unknown History sevelamer carbonate 800 mg tablet 3 tab PO TIDWM 08/24/21 08/24/21 08/23/21 History Physical Exam Vital Signs: Last Vital Signs Temp 97.5 F 08/25/21 13:04 Pulse 92 08/25/21 16:16 Resp 21 H 08/25/21 16:16 BP 169/90 H 08/25/21 16:16 Pulse Ox 97 08/25/21 16:16 O2 Del Method 08/25/21 16:16 O2 Flow Rate 2 08/25/21 07:54 Oxygen Flow Rate 2 08/25/21 03:58 BMI result Body Mass Index 32.3 Const General: cooperative, comfortable and no acute distress Orientation/consciousness: patient oriented x3 HEENT Head: Yes normocephalic and Yes atraumatic Neck Neck: Yes no JVD Resp Effort & Inspection: normal respiratory effort Auscultation: crackles Cardio Jugular venous distension: no JVD Rate: regular rate Rhythm: regular rhythm Heart sounds: S1 normal heart sound present and S2 normal heart sound present GI Auscultation: normal bowel sounds Neuro General: patient oriented x3 Extrem General: Yes no joint enlargement and Yes no clubbing, cyanosis or edema Results Lab Results Result Diagrams: 08/25/21 08:14 08/25/21 08:14 Lab results: Chemistry 08/24/21 08/25/21 09:39 08:14 Sodium 138 141 Potassium 4.1 4.9 Carbon Dioxide 28 26 BUN 41 H 60 H Creatinine 8.28 H* 10.04 H* Calcium 8.9 9.3 Hematology 08/24/21 08/25/21 09:39 08:14 WBC 9.3 7.2 Hgb 9.1 L 9.8 L Plt Count 243 287 Assessment and Plan (1) End stage chronic kidney disease: #) ESRD on HD Plan to continue HD per MWF schedule. UF as tolerated. Will utilize albumin for bp support during HD> K per protocol. Low K, low Phos, renal diet. #) ESRD ? Anemia Iron panel for am. YOSELIN per protocol #) ESRD-MBD: PTH, Phos, am. Continue outpatient binder therapy. (2) COVID-19: Status: Acute (3) Anemia in chronic renal disease: Status: Acute Procedures Date of Service Date of Service: 08/25/21
--- NOTE | 2021-08-25 16:42 | PC.NURSE ---
pt medicated per order, pt asking about dialysis, pt was told that the order was put in for dialysis and the provider has stated they would likely take him at the end of the day today since he is covid+
--- NOTE | 2021-08-25 19:00 | PC.NURSE ---
patient a&ox3, night monitor intact pt sinus tach, pt has no c/o pain or discomfort, pt medicated per order, denies pain or discomfort, dialysis nurse here to bring patient to dialysis, will monitor when he returns.
--- NOTE | 2021-08-25 22:58 | PC.NURSE ---
pt returned from dialysis
[2021-08-25 23:12] LABS: Glucose, Whole Blood 133 mg/dL (60-115)
[2021-08-26 00:18] VITALS: BP 168/73; PULSE 83; RESP 97; TEMP 36.5; O2SAT 97
[2021-08-26] MEDS: Heparin Sodium,Porcine 5,000 UNIT/ML VIAL 5000 UNIT SUBCUT ×2 (01:04→10:02)
[2021-08-26] MEDS: 0.9 % Sodium Chloride Flush 3 ML SYRINGE IVFLUSH ×2 (01:05→10:03)
[2021-08-26 03:43] LABS: Hematocrit 28.4 % (42.0-52.0); Hemoglobin 9.7 g/dl (14.0-18.0); Mean Corpuscular HGB Conc 34.2 g/dl (31.0-36.0); Mean Corpuscular Hemoglobin 30.7 pg (27.0-33.0); Mean Corpuscular Volume 89.9 fL (80.0-98.0); Mean Platelet Volume 8.8 fL (9.4-12.4); Platelet Count 255 X10*3/uL (160-400); Red Blood Count 3.16 X10*6/uL (4.60-5.80); Red Cell Distribution Width 14.6 % (11.0-16.0); White Blood Count 6.7 X10*3/uL (4.8-10.8)
[2021-08-26 04:12] LABS: Anion Gap 15 (12-20); Blood Urea Nitrogen 40 mg/dL (9-16); Calcium 8.8 mg/dL (8.4-10.2); Carbon Dioxide 29 mmol/L (22-29); Chloride 98 mmol/L (96-108); Creatinine Clr Calc Pharmacy 15.3; Estimated Glomerular Filt Rate 9; Glucose Fasting 144 mg/dL (60-99); Sodium 138 mmol/L (135-145)
[2021-08-26 04:19] LABS: Potassium 3.7 mmol/L (3.3-5.1)
[2021-08-26 04:21] VITALS: BP 144/72; PULSE 75; RESP 16; O2SAT 99
[2021-08-26] MEDS: Omeprazole 20 MG CAPSULE.DR PO (06:17)
[2021-08-26 07:34] LABS: Glucose, Whole Blood 114 mg/dL (60-115)
[2021-08-26 09:18] VITALS: BP 141/61; PULSE 87; RESP 12; TEMP 36.5; O2SAT 99
[2021-08-26] MEDS: Sevelamer Carbonate Tablet 800 MG TABLET 2400 MG PO (09:59)
[2021-08-26] MEDS: Atorvastatin Calcium 40 MG TABLET PO (10:00)
[2021-08-26] MEDS: amLODIPine Besylate 5 MG TABLET PO (10:01)
[2021-08-26] MEDS: dexAMETHasone sod phosphate 4 MG/ML VIAL 6 MG IVPUSH (10:02)
--- NOTE | 2021-08-26 10:08 | MHC.CM.PN ---
WITH ASSIST OF TECHNICAL COMMUNICATOR SERVICES (X [phone]) CALL TO DAUGHTER DELL ([phone] PATIENT LIVES WITH SPOUSE HE USES A WALKER HE HAS BEEN VACCINATED X 3 AGAINST COVID-19 HE HAS DAILY LABOR CONTRACT ANALYST SERVICES FOR AFTERNOON AND EVENING NO HCP ON FILE HERE BUT MAY BE AT PCP OFFICE. PATIENT ALSO HAS OCCASIONAL RN VISITS FOR ASSESSMENT OF NEEDS THROUGH [facility] IMM 08/26 IN CHART ORIGINAL TO RETURN HOME WITH LORNA.
[2021-08-26] MEDS: Furosemide 40 MG TABLET 80 MG PO (10:11)
--- NOTE | 2021-08-26 12:00 | PM.DS ---
DS: Providers Provider Date of Service: 08/26/21 Date of admission: 08/24/21 15:50 Primary care physician: Azalea Lanier MD Consults: 08/24/21 15:48 Consult to Nephrology Routine Consulting Provider: Tae Leon Reason for consultation: esrd, fluid overload DS: Diagnosis Discharge Diagnosis (1) End stage chronic kidney disease: (2) COVID-19: Status: Acute (3) Anemia in chronic renal disease: Status: Acute DS: Summary Hospital Course Hospital Course: from initial hpi: Chief Complaint: sob 61M? presented with 4 days feeling unwell. he states that he has been having non productive cough, sob, orthopnea, weakness. started having fevers day ptp. denies sick contacts, only goes out to HD, he has received 3 covid vaccinations. in ED found to be hypoxic to 90% at rest. low grade fever, cxr with increased interstitial markings. hospital course: Patient was admitted for acute hypoxic respiratory failure secondary to COVID pneumonia pulmonary edema in the setting of fluid overload due to end-stage renal disease. He was treated with IV Decadron, due to delayed presentation he was not given antiviral. He underwent hemodialysis with fluid removal. Patient was noted to have hypertension that was not well controlled, he was started on amlodipine 5 mg daily. First hyperlipidemia was continued on statin. For his diabetes he was given insulin. Patient was weaned off oxygen is feeling much better he will be discharged home on 7 more days of Decadron. Time Spent with Patient Time attestation: Total time spent providing and/or coordinating discharge services: Discharge coordination time: Greater than 30 minutes Quality: Safe Use of Opioids Does Pt have an Active Cancer Diagnosis on the Problem List?: No Quality: Stroke Does the patient have a stroke diagnosis?: No Physical Exam Vital Signs: Vital Signs: Last Vital Signs Temp 97.7 F 08/26/21 09:18 Pulse 87 08/26/21 09:18 Resp 12 08/26/21 09:18 BP 141/61 H 08/26/21 09:18 Pulse Ox 99 08/26/21 09:18 O2 Del Method 08/26/21 09:18 O2 Flow Rate 2 08/25/21 07:54 Oxygen Flow Rate 2 08/25/21 03:58 BMI result Body Mass Index 32.3 General: AO X 3, no acute distress Resp: CTA bilateral, no accessory muscles used CVS: S1,S2,RRR GI: soft, non tender, non distended Neuro: motor grossly intact, alert Psych: appropriate affect, appropriate insight DS: Data Data Completed and Pending Labs on day of discharge: Laboratory Results - last 24 hr 08/25/21 08/25/21 08/25/21 13:29 16:29 23:05 WBC RBC Hgb Hct MCV MCH MCHC RDW Plt Count MPV Absolute Nucleated RBC Nucleated RBC % (auto) Sodium Potassium Chloride Carbon Dioxide Anion Gap BUN Creatinine Estim Creat Clear Calc Estimated GFR POC Glucose 143 H 208 H 133 H Fasting Glucose Calcium 08/26/21 08/26/21 08/26/21 03:31 03:31 07:14 WBC 6.7 RBC 3.16 L Hgb 9.7 L Hct 28.4 L MCV 89.9 MCH 30.7 MCHC 34.2 RDW 14.6 Plt Count 255 MPV 8.8 L Absolute Nucleated RBC 0.000 Nucleated RBC % (auto) 0.0 Sodium 138 Potassium 3.7 D Chloride 98 Carbon Dioxide 29 Anion Gap 15 BUN 40 H Creatinine 6.62 H* Estim Creat Clear Calc 15.3 Estimated GFR 9 POC Glucose 114 Fasting Glucose 144 H Calcium 8.8 Preliminary micro results at discharge 08/24/21 09:39 Blood Culture - Preliminary Blood - Venous No growth after 48 hours. 08/24/21 09:39 Blood Culture - Preliminary Blood - Venous No growth after 48 hours. Discharge Plan Discharge Patient Disposition: Home, Self-Care Discharge Diagnosis: covid, esrd Referrals: Azalea Lanier MD [Primary Care Provider] - 1 Week Discharge Medications: New amlodipine 5 mg Tablet 5 mg PO DAILY Qty: 30 0RF Protocol: Hold for SBP< HOLD for SBP < : 90 dexamethasone [Decadron] 6 mg tablet 6 mg PO DAILY Qty: 7 0RF Continued atorvastatin 40 mg tablet 1 tab PO DAILY furosemide 80 mg tablet 80 mg PO SUTUTHSA@0900,2100 omeprazole 20 mg capsule,delayed release(DR/EC) 1 cap PO DAILY sevelamer carbonate 800 mg tablet 3 tab PO TIDWM glipizide 5 mg tablet extended release 24 hr 1 tab PO DAILY primidone 50 mg tablet 1 tab PO BID PRN (Reason: Tremor(S)) Discharge Orders: Discharge Order (Routine); Ordered 08/26/21 Ordered By: Jamie De La Torre Diet: diabetic diet and low salt diet Activity on Discharge: As tolerated Stand Alone Forms: Patient Portal Discharge page Care Plan Goals: reocvery Health Concerns: covid Plan of Treatment: decadron 7 more days, added amlodipine for htn, keep isolation per cdc guidelines Assessment: see above
== END 2021-08-26 12:33 | disposition home or self-care (01) | DRG 177 ==
LOC: HO.ED 15:54 → HO.EDOVER 16:00
PROVIDERS: Nurse Practitioner Family; Admitting Provider Internal Medicine; Emergency Provider Emergency Medicine Emergency Medical Services; PCP Internal Medicine; Visit Provider Internal Medicine
DX: U07.1 COVID-19 (principal); J12.82 Pneumonia due to coronavirus disease 2019; J96.01 Acute respiratory failure with hypoxia; N18.6 End stage renal disease; N25.0 Renal osteodystrophy; E78.5 Hyperlipidemia, unspecified; E11.22 Type 2 diabetes mellitus with diabetic chronic kidney disease; Z99.2 Dependence on renal dialysis; D63.1 Anemia in chronic kidney disease; Z79.899 Other long term (current) drug therapy
CPT/HCPCS: 36415; 71046; 71250; 80048; 80076; 82947; 83605; 83735; 83880; 84484; 85025; 85027; 85610; 86140; 87040; 87502; 87635; 90999; 93005; 96365; 96366; 96367; 99285; J0456; J0696; J1100; J1940

== ENCOUNTER 2021-09-29 10:43 | Emergency (ER) | payer OTHER, SELFPAY ==
[2021-09-29 10:51] VITALS: BP 128/58; BP 94/76; PULSE 99; RESP 12; TEMP 36.4; O2SAT 100; BMI 30.4
--- NOTE | 2021-09-29 11:34 | ED.GENADULT ---
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 After dialysis patient had a low blood pressure. There was a moment where the family thought he lost consicousness. Daughter found that the pressure was low. He has done this in before. BP 87/51. Patient was out for 5 minutes. Onset (ago): minute(s) Severity: severe and similar to prior episodes Associated symptoms: denies other symptoms Related Data Home Medications Medication Instructions Recorded Confirmed atorvastatin 40 mg tablet 1 tab PO DAILY 08/24/21 08/24/21 furosemide 80 mg tablet 80 mg PO SUTUTHSA@0900,2100 08/24/21 08/24/21 glipizide 5 mg tablet, extended 1 tab PO DAILY 08/24/21 08/24/21 release 24 hr omeprazole 20 mg capsule,delayed 1 cap PO DAILY 08/24/21 08/24/21 release primidone 50 mg tablet 1 tab PO BID PRN Tremor(S) 08/24/21 08/24/21 sevelamer carbonate 800 mg tablet 3 tab PO TIDWM 08/24/21 08/24/21 Previous Rx's Medication Instructions Recorded amlodipine 5 mg tablet 5 mg PO DAILY #30 tabs 08/26/21 dexamethasone 6 mg tablet 6 mg PO DAILY #7 tabs 08/26/21 (Decadron) Allergies Allergy/AdvReac Type Severity Reaction Status Date / Time No Known Allergies Allergy Verified 06/03/20 09:18 [No Known Allergies*] Review of Systems Constitutional: Constitutional: Reports no additional constitutional complaints Eyes: Eyes: Reports no additional eye complaints ENT: Denies dizziness Cardiovascular: Cardiovascular: Reports no additional cardiovascular complaints Respiratory: Respiratory: Reports as per HPI Gastrointestinal: Gastrointestinal: Reports no additional gastrointestinal complaints Musculoskeletal: Musculoskeletal: Reports no additional musculoskeletal complaints Integumentary/Breasts: Skin/Breast: Denies rash Neurologic: Reports system reviewed and no additional complaints, except as documented, Denies dizziness and Denies Sensory deficit (Neuro) Psychiatric: Psychiatric: Denies anxiety PMFSH Past Medical History Medical History Asthma Diabetes End stage chronic kidney disease Surgical History AV fistula Family History Family History Mother CAD (coronary artery disease) Social History Social History Alcohol intake: never Patient Tobacco Use Status: Never used Tobacco Advance Directives: No Advance Directives Information Provided: Yes service: No Current occupational status: retired Physical Exam ED Vital Signs: Vital Signs - 24 hr 09/29/21 10:51 Temperature 97.6 F Pulse Rate 99 Respiratory Rate 12 Blood Pressure 128/58 L Pulse Oximetry 100 Oxygen Delivery Method Room Air BMI result Body Mass Index 30.4 Appearance: Alert. Oriented X3. No acute distress. Eyes: No pallor or icterus ENT: Pharynx normal. Oral Mucosa moist Neck: Normal inspection. Neck supple. CVS: Normal heart rate and rhythm. Pulses normal. Respiratory: No respiratory distress. Equal air entry bilateral, no wheezing/rales/rhonchi Abdomen: Soft and nontender. Bowel sounds are present, Skin: Skin warm and dry. Normal skin color. Normal skin turgor. Extremities: No lower extremity edema. No calf tenderness AV fistula left arm with bruit + Neuro: Oriented X 3. No motor deficit. Const General: healthy appearing Nutritional Appearance: average body habitus Orientation/consciousness: oriented to person and patient oriented x3 Limitations: no limitations [facility] Head: Yes normal to inspection Ears: external ears normal General nose exam: Normal external nose present Mouth: Normal oral and palatal mucosa present and oropharynx normal Throat: Yes posterior oropharynx normal Eyes General: appearance normal, both eyes and all related structures Neck Neck: Yes normal visual inspection Chest Chest palpation & inspection: normal inspection of the chest Resp Auscultation: clear to auscultation bilaterally Cardio Other: 3/6 BRADY Rate: regular rate Rhythm: regular rhythm Heart sounds: S1 normal heart sound present and S2 normal heart sound present GI Inspection: Yes normal to inspection Palpation (GI): Soft to palpation, nontender and No hepatosplenomegaly present Auscultation: normal bowel sounds General: Yes no CVA tenderness Back/Spine/Pelvis Back: no CVA tenderness Skin General skin exam: no rashes or lesions noted Neuro General: oriented to person and patient oriented x3 Cranial nerves: Yes CN's II-XII intact bilaterally Motor exam (neuro): 5/5 motor strength present throughout Sensory Exam: No Sensory deficit (Neuro) Extrem General: Yes normal to inspection Psych Appearance: grossly normal Course Reevaluation(s) Reevaluation #1: patient with syncope secondary to fluid removal during dialysis, repeat troponins negative will dc home Time: 14:55 Medical Decision Making Lab Data Result diagrams: 09/29/21 11:53 09/29/21 11:53 Labs: Lab Results 09/29/21 09/29/21 09/29/21 Range/Units 11:53 11:53 11:53 WBC 8.7 (4.8-10.8) X10*3/uL RBC 3.15 L (4.60-5.80) X10*6/uL Hgb 9.7 L (14.0-18.0) g/dl Hct 28.8 L (42.0-52.0) % MCV 91.4 (80.0-98.0) fL MCH 30.8 (27.0-33.0) pg MCHC 33.7 (31.0-36.0) g/dl RDW 14.9 (11.0-16.0) % Plt Count 256 (160-400) X10*3/uL MPV 8.3 L (9.4-12.4) fL Immature Gran % (Auto) 0.3 (0.0-0.4) % Neut % (Auto) 76.9 H (45-73) % Lymph % (Auto) 13.9 L (20-40) % [place] % (Auto) 8.0 (2-11) % Eos % (Auto) 0.8 (0-4) % Baso % (Auto) 0.1 (0-2) % Lymph # (Auto) 1.2 (1.2-4.9) X10*3/uL [place] # (Auto) 0.7 (0.1-1.2) X10*3/uL Eos # (Auto) 0.1 (0.0-0.4) X10*3/uL Baso # (Auto) 0.0 (0.0-0.2) X10*3/uL Abs Immat Gran (auto) 0.03 (0.00-0.03) X10*3/uL Absolute Neuts (auto) 6.7 (2.0-8.3) x10*3/uL Absolute Nucleated RBC 0.000 (0.0-0.012) X10*3/uL Nucleated RBC % (auto) 0.0 (0.0-0.2) /100WBC Sodium 143 (135-145) mmol/L Potassium 3.1 L (3.3-5.1) mmol/L Chloride 101 (96-108) mmol/L Carbon Dioxide 29 (22-29) mmol/L Anion Gap 16 (12-20) BUN 19 H D (9-16) mg/dL Creatinine 4.39 H* (0.5-1.4) mg/dL Estim Creat Clear Calc 22.5 Estimated GFR 14 Random Glucose 222 H D (60-115) mg/dL Calcium 9.0 (8.4-10.2) mg/dL Troponin I High Sens 64.6 H D (<3.5-35.0) ng/L 09/29/21 Range/Units 13:43 WBC (4.8-10.8) X10*3/uL RBC (4.60-5.80) X10*6/uL Hgb (14.0-18.0) g/dl Hct (42.0-52.0) % MCV (80.0-98.0) fL MCH (27.0-33.0) pg MCHC (31.0-36.0) g/dl RDW (11.0-16.0) % Plt Count (160-400) X10*3/uL MPV (9.4-12.4) fL Immature Gran % (Auto) (0.0-0.4) % Neut % (Auto) (45-73) % Lymph % (Auto) (20-40) % [place] % (Auto) (2-11) % Eos % (Auto) (0-4) % Baso % (Auto) (0-2) % Lymph # (Auto) (1.2-4.9) X10*3/uL [place] # (Auto) (0.1-1.2) X10*3/uL Eos # (Auto) (0.0-0.4) X10*3/uL Baso # (Auto) (0.0-0.2) X10*3/uL Abs Immat Gran (auto) (0.00-0.03) X10*3/uL Absolute Neuts (auto) (2.0-8.3) x10*3/uL Absolute Nucleated RBC (0.0-0.012) X10*3/uL Nucleated RBC % (auto) (0.0-0.2) /100WBC Sodium (135-145) mmol/L Potassium (3.3-5.1) mmol/L Chloride (96-108) mmol/L Carbon Dioxide (22-29) mmol/L Anion Gap (12-20) BUN (9-16) mg/dL Creatinine (0.5-1.4) mg/dL Estim Creat Clear Calc Estimated GFR Random Glucose (60-115) mg/dL Calcium (8.4-10.2) mg/dL Troponin I High Sens 65.0 H (<3.5-35.0) ng/L ECG Data Attestation: I personally reviewed and interpreted this ECG as follows: Interpretation: sinus tachycardia rate of [address] or twave changes Discharge Plan Discharge Clinical Impression: Dehydration, Dialysis complication Patient Disposition: Home, Self-Care Instructions: Dehydration (ED) Prescriptions: No Action atorvastatin 40 mg tablet 1 tab PO DAILY furosemide 80 mg tablet 80 mg PO SUTUTHSA@0900,2100 omeprazole 20 mg capsule,delayed release(DR/EC) 1 cap PO DAILY sevelamer carbonate 800 mg tablet 3 tab PO TIDWM glipizide 5 mg tablet extended release 24 hr 1 tab PO DAILY primidone 50 mg tablet 1 tab PO BID PRN (Reason: Tremor(S)) amlodipine 5 mg Tablet 5 mg PO DAILY Qty: 30 0RF Protocol: Hold for SBP< HOLD for SBP < : 90 dexamethasone [Decadron] 6 mg tablet 6 mg PO DAILY Qty: 7 0RF Referrals: Azalea Lanier MD [Primary Care Provider] - 3 days
--- NOTE | 2021-09-29 11:39 | ECG_ITS ---
Test Reason : chest pain Blood Pressure : / mmHG Vent. Rate : 106 BPM Atrial Rate : 106 BPM P-R Int : 176 ms QRS Dur : 090 ms QT Int : 366 ms P-R-T Axes : 061 -05 054 degrees QTc Int : 486 ms Sinus tachycardia Minimal voltage criteria for LVH, may be normal variant ( R in aVL ) Borderline ECG When compared with ECG of 24-AUG-2021 08:14, T wave inversion no longer evident in Lateral leads Referred By: Jere Pierce Electronically Signed By:MAGDALENE IGNACIO MD
[2021-09-29 12:00] LABS: Basophils Percent Auto 0.1 % (0-2); Eosinophils Absolute Auto 0.1 X10*3/uL (0.0-0.4); Eosinophils Percent Auto 0.8 % (0-4); Hematocrit 28.8 % (42.0-52.0); Hemoglobin 9.7 g/dl (14.0-18.0); Imm Gran Abs Auto 0.03 X10*3/uL (0.00-0.03); Imm Gran Pct Auto 0.3 % (0.0-0.4); Lymphocytes Absolute Auto 1.2 X10*3/uL (1.2-4.9); Lymphocytes Percent Auto 13.9 % (20-40); MANUAL DIFF FLAG NO; Mean Corpuscular HGB Conc 33.7 g/dl (31.0-36.0); Mean Corpuscular Hemoglobin 30.8 pg (27.0-33.0); Mean Corpuscular Volume 91.4 fL (80.0-98.0); Mean Platelet Volume 8.3 fL (9.4-12.4); Monocytes Absolute Auto 0.7 X10*3/uL (0.1-1.2); Neutrophils Absolute Auto 6.7 x10*3/uL (2.0-8.3); Neutrophils Percent Auto 76.9 % (45-73); Platelet Count 256 X10*3/uL (160-400); Red Blood Count 3.15 X10*6/uL (4.60-5.80); Red Cell Distribution Width 14.9 % (11.0-16.0); White Blood Count 8.7 X10*3/uL (4.8-10.8)
[2021-09-29 12:20] LABS: Troponin-I High Sensitivity 64.6 ng/L (<3.5-35.0)
[2021-09-29 12:25] LABS: Anion Gap 16 (12-20); Blood Urea Nitrogen 19 mg/dL (9-16); Carbon Dioxide 29 mmol/L (22-29); Chloride 101 mmol/L (96-108); Glucose Random 222 mg/dL (60-115); Potassium 3.1 mmol/L (3.3-5.1); Sodium 143 mmol/L (135-145)
[2021-09-29 12:32] LABS: Creatinine Clr Calc Pharmacy 22.5; Estimated Glomerular Filt Rate 14
== END 2021-09-29 15:03 | disposition home or self-care (01) ==
PROVIDERS: Emergency Provider Emergency Medicine; PCP Internal Medicine
DX: E86.0 Dehydration (principal); R07.89 Other chest pain; R42 Dizziness and giddiness; I10 Essential (primary) hypertension; Z79.899 Other long term (current) drug therapy
CPT/HCPCS: 36415; 80048; 84484; 85025; 93005; 99283; 99284

== ENCOUNTER 2021-11-02 10:28 | Emergency (ER) | payer OTHER, SELFPAY ==
--- NOTE | ~2021-11-02 | XR_ITS ---
EXAMINATION: XR CHEST CLINICAL INFORMATION: Fevers. COMPARISON: 08/24/2021 chest radiographs. TECHNIQUE: Frontal view of the chest was obtained. FINDINGS: No significant abnormality is noted involving the heart, lungs, mediastinum, bony thorax or soft tissues. XR/XR chest 1V IMPRESSION: No acute cardiopulmonary process. Overall appearance represents mild interval improvement.
[2021-11-02 11:19] VITALS: BP 139/62; PULSE 87; RESP 20; TEMP 37.7; O2SAT 97; BMI 34.4
[2021-11-02 11:52] LABS: MANUAL DIFF FLAG NO
[2021-11-02 11:54] LABS: Basophils Percent Auto 0.3 % (0-2); Eosinophils Absolute Auto 0.1 X10*3/uL (0.0-0.4); Eosinophils Percent Auto 0.9 % (0-4); Hematocrit 30.9 % (42.0-52.0); Hemoglobin 10.4 g/dl (14.0-18.0); Imm Gran Abs Auto 0.03 X10*3/uL (0.00-0.03); Imm Gran Pct Auto 0.5 % (0.0-0.4); Lymphocytes Percent Auto 15.4 % (20-40); Mean Corpuscular HGB Conc 33.7 g/dl (31.0-36.0); Mean Corpuscular Hemoglobin 31.4 pg (27.0-33.0); Mean Corpuscular Volume 93.4 fL (80.0-98.0); Mean Platelet Volume 8.3 fL (9.4-12.4); Monocytes Absolute Auto 0.4 X10*3/uL (0.1-1.2); Monocytes Percent Auto 5.5 % (2-11); Neutrophils Absolute Auto 4.9 x10*3/uL (2.0-8.3); Neutrophils Percent Auto 77.4 % (45-73); Platelet Count 217 X10*3/uL (160-400); Red Blood Count 3.31 X10*6/uL (4.60-5.80); Red Cell Distribution Width 14.4 % (11.0-16.0); White Blood Count 6.4 X10*3/uL (4.8-10.8)
[2021-11-02 12:08] LABS: COVID-19 Test Negative (Negative)
[2021-11-02 12:24] LABS: Anion Gap 20 (12-20); Blood Urea Nitrogen 39 mg/dL (9-16); Calcium 8.8 mg/dL (8.4-10.2); Carbon Dioxide 24 mmol/L (22-29); Chloride 96 mmol/L (96-108); Creatinine Clr Calc Pharmacy 12.2; Estimated Glomerular Filt Rate 6; Glucose Random 173 mg/dL (60-115); Potassium 4.4 mmol/L (3.3-5.1); Sodium 136 mmol/L (135-145)
--- NOTE | 2021-11-02 13:23 | ED_ITS ---
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 Denies any other symptoms or sick contacts, no travel. Vaccinated x 3 with Tish GONZALEZ elicited complaint: fever and other (headaches) Pertinent past history: other (on dialysis) Onset (ago): day(s) (this AM) Exacerbating factors: nothing Relieving factors: acetaminophen Associated symptoms: chills and headache Treatments prior to arrival fever: acetaminophen (8am) Related Data Home Medications Medication Instructions Recorded Confirmed atorvastatin 40 mg tablet 1 tab PO DAILY 08/24/21 08/24/21 furosemide 80 mg tablet 80 mg PO SUTUTHSA@0900,2100 08/24/21 08/24/21 glipizide 5 mg tablet, extended 1 tab PO DAILY 08/24/21 08/24/21 release 24 hr omeprazole 20 mg capsule,delayed 1 cap PO DAILY 08/24/21 08/24/21 release primidone 50 mg tablet 1 tab PO BID PRN Tremor(S) 08/24/21 08/24/21 sevelamer carbonate 800 mg tablet 3 tab PO TIDWM 08/24/21 08/24/21 Previous Rx's Medication Instructions Recorded amlodipine 5 mg tablet 5 mg PO DAILY #30 tabs 08/26/21 dexamethasone 6 mg tablet 6 mg PO DAILY #7 tabs 08/26/21 (Decadron) cefuroxime axetil 250 mg tablet 250 mg PO DAILY 7 days #7 tabs 11/02/21 Allergies Allergy/AdvReac Type Severity Reaction Status Date / Time No Known Allergies Allergy Verified 06/03/20 09:18 [No Known Allergies*] Review of Systems Review of Systems: Constitutional : pos Fever, pos Chills, No Fatigue, No Malaise ENT/Mouth : No sore throat, No Rhinorrhea Eyes: No Eye Pain, No Swelling, No Redness Cardiovascular : No Chest Pain, No SOB, No Dyspnea on Exertion, No Orthopnea, No Edema, No Palpitations Respiratory : No Cough, No Sputum, No Wheezing Gastrointestinal : No Nausea, No Vomiting, No Diarrhea, No Constipation, No abdominal Pain, No Hematochezia, No Melena Genitourinary : No Dysuria, No Urinary Frequency, No Hematuria, Musculoskeletal : No joint pain, No Myalgias, No Joint Swelling Skin : No Skin Lesions, No rash Neuro : No Weakness, No Numbness, No Dizziness, pos Headache Psych : No Anxiety/Panic, No Depression Heme/Lymph: No Bruising, No Bleeding,No Lymphadenopathy Endocrine : No Polyuria, No Polydipsia All other systems reviewed and are negative [facility] Past Medical History Attestation statement: The following information was validated with the patient. Medical History Asthma Diabetes End stage chronic kidney disease Surgical History AV fistula Family History Family History Mother CAD (coronary artery disease) Social History Social History Alcohol intake: never Patient Tobacco Use Status: Never used Tobacco Use of substances other than those prescribed or required for medical reasons: No Advance Directives: No Advance Directives Information Provided: Yes service: No Current occupational status: retired Physical Exam Vital Signs: Vital Signs: Last Vital Signs Temp 98.1 F 11/02/21 14:04 Pulse 76 11/02/21 14:04 Resp 16 11/02/21 14:04 BP 122/56 L 11/02/21 14:04 Pulse Ox 98 11/02/21 14:04 O2 Del Method 11/02/21 14:04 BMI result Body Mass Index 34.4 Appearance: Alert. Oriented X3. No acute distress. Eyes: Pupils equal, round and reactive to light. ENT: Pharynx normal. Neck: Normal inspection. Neck supple. no meningeal signs CVS: Normal heart rate and rhythm. Pulses normal. Respiratory: No respiratory distress. Breath sounds normal. Abdomen: Soft and non-tender. Skin: Skin warm and dry. Normal skin color. Normal skin turgor. Extremities: trace bilateral pitting lower extremity edema. No calf ttp L UE + AVF thrill felt Neuro: Oriented X 3. No motor deficit. No sensory deficit. Course Course Course Narrative: no WBC count, no shift, no pneumonia, no UTI, neg lactic acidosis, no obvious source of infection - will ask patient to repeat covid test tomorrow 6-10 WBC in urine I am going to start on antibiotics given HD patient MDM - Fever MDM Narrative Medical decision making narrative: 61 yo male with hx of ESRD on HD MWF last session Wednesday, anemia, HLD, DM, GERD here with fever this AM - at this time he denies any rash/cough/sick contact. He took tylenol this AM. He has no meningeal signs. At this time labs, cultures, PCR testing for flu/COVID/RSV ordered, UA (still makes urine), CXR for pneumonia. Dispo per results and findings. Lab Data Result diagrams: 11/02/21 11:49 11/02/21 11:49 Labs: Lab Results 11/02/21 11/02/21 11/02/21 Range/Units 11:46 11:49 11:49 WBC 6.4 (4.8-10.8) X10*3/uL RBC 3.31 L (4.60-5.80) X10*6/uL Hgb 10.4 L (14.0-18.0) g/dl Hct 30.9 L (42.0-52.0) % MCV 93.4 (80.0-98.0) fL MCH 31.4 (27.0-33.0) pg MCHC 33.7 (31.0-36.0) g/dl RDW 14.4 (11.0-16.0) % Plt Count 217 (160-400) X10*3/uL MPV 8.3 L (9.4-12.4) fL Immature Gran % (Auto) 0.5 H (0.0-0.4) % Neut % (Auto) 77.4 H (45-73) % Lymph % (Auto) 15.4 L (20-40) % [place] % (Auto) 5.5 (2-11) % Eos % (Auto) 0.9 (0-4) % Baso % (Auto) 0.3 (0-2) % Lymph # (Auto) 1.0 L (1.2-4.9) X10*3/uL [place] # (Auto) 0.4 (0.1-1.2) X10*3/uL Eos # (Auto) 0.1 (0.0-0.4) X10*3/uL Baso # (Auto) 0.0 (0.0-0.2) X10*3/uL Abs Immat Gran (auto) 0.03 (0.00-0.03) X10*3/uL Absolute Neuts (auto) 4.9 (2.0-8.3) x10*3/uL Absolute Nucleated RBC 0.000 (0.0-0.012) X10*3/uL Nucleated RBC % (auto) 0.0 (0.0-0.2) /100WBC Sodium 136 (135-145) mmol/L Potassium 4.4 D (3.3-5.1) mmol/L Chloride 96 (96-108) mmol/L Carbon Dioxide 24 (22-29) mmol/L Anion Gap 20 (12-20) BUN 39 H D (9-16) mg/dL Creatinine 8.57 H* (0.5-1.4) mg/dL Estim Creat Clear Calc 12.2 Estimated GFR 6 POC Glucose (60-115) mg/dL Random Glucose 173 H (60-115) mg/dL Lactic Acid (0.5-2.0) mmol/L Calcium 8.8 (8.4-10.2) mg/dL Total Bilirubin 0.5 (0.0-1.0) mg/dL Direct Bilirubin 0.2 (0.0-0.5) mg/dL AST 11 (5-37) U/L ALT 9 (0-40) U/L Alkaline Phosphatase 58 (39-117) U/L Total Protein 6.4 L (6.5-8.0) g/dL Albumin 3.5 (3.5-5.0) g/dL Procalcitonin ng/mL Urine Color Urine Appearance Urine pH (5.0-9.0) Ur Specific [place] (1.005-1.025) Urine Protein (Neg-Trace) mg/dL Urine Glucose (UA) (Negative) mg/dL Urine Ketones (Negative) mg/dL Urine Blood (Negative) Urine Nitrite (Negative) Ur Leukocyte Esterase (Negative) Urine RBC (0-2) /HPF Urine WBC (0-5) /HPF Ur Squamous Epith Cells (0-2) /HPF Urine Bacteria (None Seen) Hyaline Casts (0-2) /LPF COVID-19 (LU[facility]) Negative (Negative) COVID-19 Clin Com See Note Influenza Type A (PCR) (Negative) Influenza Type B (PCR) (Negative) RSV RNA Qual (PCR) (Negative) SARS-CoV-2 RNA (RT-PCR) (Negative) 11/02/21 11/02/21 11/02/21 Range/Units 13:32 13:32 13:32 WBC (4.8-10.8) X10*3/uL RBC (4.60-5.80) X10*6/uL Hgb (14.0-18.0) g/dl Hct (42.0-52.0) % MCV (80.0-98.0) fL MCH (27.0-33.0) pg MCHC (31.0-36.0) g/dl RDW (11.0-16.0) % Plt Count (160-400) X10*3/uL MPV (9.4-12.4) fL Immature Gran % (Auto) (0.0-0.4) % Neut % (Auto) (45-73) % Lymph % (Auto) (20-40) % [place] % (Auto) (2-11) % Eos % (Auto) (0-4) % Baso % (Auto) (0-2) % Lymph # (Auto) (1.2-4.9) X10*3/uL [place] # (Auto) (0.1-1.2) X10*3/uL Eos # (Auto) (0.0-0.4) X10*3/uL Baso # (Auto) (0.0-0.2) X10*3/uL Abs Immat Gran (auto) (0.00-0.03) X10*3/uL Absolute Neuts (auto) (2.0-8.3) x10*3/uL Absolute Nucleated RBC (0.0-0.012) X10*3/uL Nucleated RBC % (auto) (0.0-0.2) /100WBC Sodium (135-145) mmol/L Potassium (3.3-5.1) mmol/L Chloride (96-108) mmol/L Carbon Dioxide (22-29) mmol/L Anion Gap (12-20) BUN (9-16) mg/dL Creatinine (0.5-1.4) mg/dL Estim Creat Clear Calc Estimated GFR POC Glucose (60-115) mg/dL Random Glucose (60-115) mg/dL Lactic Acid 1.2 (0.5-2.0) mmol/L Calcium (8.4-10.2) mg/dL Total Bilirubin (0.0-1.0) mg/dL Direct Bilirubin (0.0-0.5) mg/dL AST (5-37) U/L ALT (0-40) U/L Alkaline Phosphatase (39-117) U/L Total Protein (6.5-8.0) g/dL Albumin (3.5-5.0) g/dL Procalcitonin 0.58 ng/mL Urine Color Urine Appearance Urine pH (5.0-9.0) Ur Specific [place] (1.005-1.025) Urine Protein (Neg-Trace) mg/dL Urine Glucose (UA) (Negative) mg/dL Urine Ketones (Negative) mg/dL Urine Blood (Negative) Urine Nitrite (Negative) Ur Leukocyte Esterase (Negative) Urine RBC (0-2) /HPF Urine WBC (0-5) /HPF Ur Squamous Epith Cells (0-2) /HPF Urine Bacteria (None Seen) Hyaline Casts (0-2) /LPF COVID-19 ([facility]) (Negative) COVID-19 Clin Com Influenza Type A (PCR) NEGATIVE (Negative) Influenza Type B (PCR) NEGATIVE (Negative) RSV RNA Qual (PCR) NEGATIVE (Negative) SARS-CoV-2 RNA (RT-PCR) NEGATIVE (Negative) 11/02/21 11/02/21 Range/Units 14:22 15:02 WBC (4.8-10.8) X10*3/uL RBC (4.60-5.80) X10*6/uL Hgb (14.0-18.0) g/dl Hct (42.0-52.0) % MCV (80.0-98.0) fL MCH (27.0-33.0) pg MCHC (31.0-36.0) g/dl RDW (11.0-16.0) % Plt Count (160-400) X10*3/uL MPV (9.4-12.4) fL Immature Gran % (Auto) (0.0-0.4) % Neut % (Auto) (45-73) % Lymph % (Auto) (20-40) % [place] % (Auto) (2-11) % Eos % (Auto) (0-4) % Baso % (Auto) (0-2) % Lymph # (Auto) (1.2-4.9) X10*3/uL [place] # (Auto) (0.1-1.2) X10*3/uL Eos # (Auto) (0.0-0.4) X10*3/uL Baso # (Auto) (0.0-0.2) X10*3/uL Abs Immat Gran (auto) (0.00-0.03) X10*3/uL Absolute Neuts (auto) (2.0-8.3) x10*3/uL Absolute Nucleated RBC (0.0-0.012) X10*3/uL Nucleated RBC % (auto) (0.0-0.2) /100WBC Sodium (135-145) mmol/L Potassium (3.3-5.1) mmol/L Chloride (96-108) mmol/L Carbon Dioxide (22-29) mmol/L Anion Gap (12-20) BUN (9-16) mg/dL Creatinine (0.5-1.4) mg/dL Estim Creat Clear Calc Estimated GFR POC Glucose 124 H (60-115) mg/dL Random Glucose (60-115) mg/dL Lactic Acid (0.5-2.0) mmol/L Calcium (8.4-10.2) mg/dL Total Bilirubin (0.0-1.0) mg/dL Direct Bilirubin (0.0-0.5) mg/dL AST (5-37) U/L ALT (0-40) U/L Alkaline Phosphatase (39-117) U/L Total Protein (6.5-8.0) g/dL Albumin (3.5-5.0) g/dL Procalcitonin ng/mL Urine Color Yellow Urine Appearance Clear Urine pH 8.5 (5.0-9.0) Ur Specific [place] 1.015 (1.005-1.025) Urine Protein 300 (3+) H (Neg-Trace) mg/dL Urine Glucose (UA) 100 H (Negative) mg/dL Urine Ketones Negative (Negative) mg/dL Urine Blood Negative (Negative) Urine Nitrite Negative (Negative) Ur Leukocyte Esterase Negative (Negative) Urine RBC 0-2 (0-2) /HPF Urine WBC 6-10 H (0-5) /HPF Ur Squamous Epith Cells 0-2 (0-2) /HPF Urine Bacteria None Seen (None Seen) Hyaline Casts 3-5 (0-2) /LPF COVID-19 ([facility]) (Negative) COVID-19 Clin Com Influenza Type A (PCR) (Negative) Influenza Type B (PCR) (Negative) RSV RNA Qual (PCR) (Negative) SARS-CoV-2 RNA (RT-PCR) (Negative) Discharge Plan Discharge Clinical Impression: Fever, Pyuria Patient Disposition: Home, Self-Care Instructions: Urinary Tract Infection in Men (ED), Fever in Adults (ED) Additional Instructions: repetir test de covid en casa en 2 banerjee si se siente peor con fiebres, v?mitos, sin mejorar. hussain todos los antibioticos iniciar antibi?dorota el 07/07 Prescriptions: New cefuroxime axetil 250 mg tablet 250 mg PO DAILY 7 Days Qty: 7 0RF No Action atorvastatin 40 mg tablet 1 tab PO DAILY furosemide 80 mg tablet 80 mg PO SUTUTHSA@0900,2100 omeprazole 20 mg capsule,delayed release(DR/EC) 1 cap PO DAILY sevelamer carbonate 800 mg tablet 3 tab PO TIDWM glipizide 5 mg tablet extended release 24 hr 1 tab PO DAILY primidone 50 mg tablet 1 tab PO BID PRN (Reason: Tremor(S)) amlodipine 5 mg Tablet 5 mg PO DAILY Qty: 30 0RF Protocol: Hold for SBP< HOLD for SBP < : 90 dexamethasone [Decadron] 6 mg tablet 6 mg PO DAILY Qty: 7 0RF Referrals: Physician,Unknown J [Primary Care Provider] - (PCP si no mejor el jody) Print Language: Danish
[2021-11-02 13:36] LABS: Alanine Aminotransferase 9 U/L (0-40); Albumin Level 3.5 g/dL (3.5-5.0); Alkaline Phosphatase 58 U/L (39-117); Aspartate Amino Transferase 11 U/L (5-37); Bilirubin Direct 0.2 mg/dL (0.0-0.5); Bilirubin Total 0.5 mg/dL (0.0-1.0); Total Protein 6.4 g/dL (6.5-8.0)
[2021-11-02] MEDS: Acetaminophen 325 MG TABLET 650 MG PO (13:36)
[2021-11-02 13:48] LABS: Lactic Acid 1.2 mmol/L (0.5-2.0)
[2021-11-02 14:04] VITALS: BP 122/56; PULSE 76; RESP 16; TEMP 36.7; O2SAT 98
--- NOTE | 2021-11-02 14:08 | PC.NURSE ---
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 PT AWARE OF REQUEST FOR SPECIMEN.
[2021-11-02 14:13] LABS: Influenza A PCR NEGATIVE (Negative); Influenza B PCR NEGATIVE (Negative); Resp Syncy Virus RNA Qual PCR NEGATIVE (Negative); SARS COV2 PCR INHOUSE NEGATIVE (Negative)
[2021-11-02 14:18] LABS: Procalcitonin 0.58 ng/mL
[2021-11-02 14:29] LABS: Glucose, Whole Blood 124 mg/dL (60-115)
[2021-11-02 15:17] LABS: Appearance Urine Clear; Color Urine Yellow; Glucose Urine UA 100 mg/dL (Negative); Leukocyte Esterase Urine Negative (Negative); Nitrite Urine Negative (Negative); PH 8.5 (5.0-9.0); Specific Gravity - Urine 1.015 (1.005-1.025); Urine Blood Negative (Negative); Urine Ketones Negative (Negative); Urine Protein 300 (3+) mg/dL (Neg-Trace)
[2021-11-02 15:53] LABS: Bacteria Urine None Seen (None Seen); RBC Urine 0-2 /HPF (0-2); Squamous Epithelial Cell Urine 0-2 /HPF (0-2)
[2021-11-02] MEDS: cefTRIAXone sodium 1 GM in 0.9 % Sodium Chloride 50 ML IV (17:15)
[2021-11-02 17:55] VITALS: BP 136/58; PULSE 77; RESP 16; TEMP 36.4; O2SAT 99
== END 2021-11-02 18:03 | disposition home or self-care (01) ==
PROVIDERS: Emergency Provider Emergency Medicine
DX: R82.81 Pyuria (principal); R51.9 Headache, unspecified; M79.10 Myalgia, unspecified site; R50.9 Fever, unspecified; Z20.822 Contact with and (suspected) exposure to COVID-19; Z79.899 Other long term (current) drug therapy
CPT/HCPCS: 0241U; 71045; 80048; 80076; 81001; 82947; 83605; 84145; 85025; 87040; 87147; 87205; 87635; 99284; J0696

== ENCOUNTER 2021-11-04 16:10 | Emergency (ER) | payer OTHER, SELFPAY ==
[2021-11-04 16:21] VITALS: BP 162/72; PULSE 88; RESP 18; TEMP 36.1; O2SAT 100; BMI 29.6
--- NOTE | 2021-11-04 23:15 | PC.NURSE ---
Pt came in for to have blood cultures drawn. Pt denies, pain, and fever. Pt states being last febrile on Wednesday. Pt denies discomfort, fatigue.
--- NOTE | 2021-11-04 23:26 | ED_ITS ---
HPI - General Adult General Chief complaint: General Medical Stated complaint: Bacteria in blood Time Seen by Provider: 11/04/21 19:03 Source: patient Mode of arrival: ambulatory Limitations: no limitations History of Present Illness HPI narrative: 61-year-old male with a history of ESRD on HD, anemia, HLD, DM, GERD, who presents to the ER for evaluation of positive blood culture. He was called by staff member today instructed to come back to the ER for repeat blood cultures because 1 of his blood cultures were positive. He reports having fevers, last was on 11/02 but has not had another 1 since. He feels well. He has no physical complaints. He is tired from waiting in the waiting room for several hours. MD complaint: + blood culture Onset (ago): unknown Relieving factors: none Exacerbating factors: none Associated symptoms: denies other symptoms Treatments prior to arrival: none Related Data Home Medications Medication Instructions Recorded Confirmed atorvastatin 40 mg tablet 1 tab PO DAILY 08/24/21 08/24/21 furosemide 80 mg tablet 80 mg PO SUTUTHSA@0900,2100 08/24/21 08/24/21 glipizide 5 mg tablet, extended 1 tab PO DAILY 08/24/21 08/24/21 release 24 hr omeprazole 20 mg capsule,delayed 1 cap PO DAILY 08/24/21 08/24/21 release primidone 50 mg tablet 1 tab PO BID PRN Tremor(S) 08/24/21 08/24/21 sevelamer carbonate 800 mg tablet 3 tab PO TIDWM 08/24/21 08/24/21 Previous Rx's Medication Instructions Recorded amlodipine 5 mg tablet 5 mg PO DAILY #30 tabs 08/26/21 dexamethasone 6 mg tablet 6 mg PO DAILY #7 tabs 08/26/21 (Decadron) cefuroxime axetil 250 mg tablet 250 mg PO DAILY 7 days #7 tabs 11/02/21 Allergies Allergy/AdvReac Type Severity Reaction Status Date / Time No Known Allergies Allergy Verified 11/04/21 16:21 [No Known Allergies*] Review of Systems Review of Systems: Constitutional: No Fever, No Chills Cardiovascular: No Chest Pain, No SOB Respiratory: No Cough, No Sputum Gastrointestinal: No Nausea, No Vomiting, No Diarrhea, No abdominal Pain Musculoskeletal: No joint pain, No Myalgias Skin: No Skin Lesions, No rash Neuro: No Weakness, No Numbness, No Dizziness, + Headache Psych: + Anxiety/Panic, No Depression Heme/Lymph: No Bruising, No Lymphadenopathy Endocrine: No Polyuria, No Polydipsia PMF Past Medical History Medical History Asthma Diabetes End stage chronic kidney disease Surgical History AV fistula Family History Family History Mother CAD (coronary artery disease) Social History Social History Alcohol intake: never Patient Tobacco Use Status: Never used Tobacco Advance Directives: No Advance Directives Information Provided: No service: No Current occupational status: retired Physical Exam ED Vital Signs: Vital Signs - 24 hr 11/04/21 16:21 Temperature 97.0 F Pulse Rate 88 Respiratory Rate 18 Blood Pressure 162/72 H Pulse Oximetry 100 Oxygen Delivery Method Room Air BMI result Body Mass Index 29.6 Appearance: Alert. Oriented X3. No acute distress. HEENT: normal inspection CVS: Normal heart rate and rhythm. Pulses normal. Respiratory: No respiratory distress. Lungs are clear throughout Skin: Skin warm and dry. Normal skin color. Normal skin turgor. No rashes. Extremities: Left upper extremity with a fistula in place, positive thrill. no erythema or tenderness. Neuro: Oriented X 3. grossly normal, nonfocal Course Course Course Narrative: 61-year-old male presents to the ER for evaluation of positive blood culture. Patient was seen here on November 02 for fever. One of the 2 cultures were growing Gram-positive cocci in clusters. The other is negative. He states his last fever was 2 days ago. He has feels well. Repeat labs and cultures sent. Will plan for discharge home if no leukocytosis or lactic acid elevation. Reevaluation(s) Reevaluation #1: WBC is normal. Lactic acid normal. Will discharge home. No need for antibio tics as his 1 of 2 blood cultures is most likely contaminant. No evidence of infection at this time. Medical Decision Making Lab Data Result diagrams: 11/04/21 23:42 11/04/21 23:42 Labs: Lab Results 11/04/21 11/04/21 Range/Units 23:42 23:42 WBC 7.5 (4.8-10.8) X10*3/uL RBC 3.09 L (4.60-5.80) X10*6/uL Hgb 9.7 L (14.0-18.0) g/dl Hct 29.0 L (42.0-52.0) % MCV 93.9 (80.0-98.0) fL MCH 31.4 (27.0-33.0) pg MCHC 33.4 (31.0-36.0) g/dl RDW 14.5 (11.0-16.0) % Plt Count 234 (160-400) X10*3/uL MPV 8.7 L (9.4-12.4) fL Immature Gran % (Auto) 0.4 (0.0-0.4) % Neut % (Auto) 54.5 (45-73) % Lymph % (Auto) 30.9 (20-40) % [place] % (Auto) 10.1 (2-11) % Eos % (Auto) 3.6 (0-4) % Baso % (Auto) 0.5 (0-2) % Lymph # (Auto) 2.3 (1.2-4.9) X10*3/uL [place] # (Auto) 0.8 (0.1-1.2) X10*3/uL Eos # (Auto) 0.3 (0.0-0.4) X10*3/uL Baso # (Auto) 0.0 (0.0-0.2) X10*3/uL Abs Immat Gran (auto) 0.03 (0.00-0.03) X10*3/uL Absolute Neuts (auto) 4.1 (2.0-8.3) x10*3/uL Absolute Nucleated RBC 0.000 (0.0-0.012) X10*3/uL Nucleated RBC % (auto) 0.0 (0.0-0.2) /100WBC Lactic Acid 1.0 (0.5-2.0) mmol/L Discharge Plan Discharge Clinical Impression: Contamination of blood culture Patient Disposition: Home, Self-Care Additional Instructions: Repeat blood cultures were sent again today. IF any of them are positive, we will call you. Follow up with your doctor as needed. If you develop new or worsening symptoms call 911 or come back to the ER for further evaluation. Hoy se enviaron nuevamente hemocultivos repetidos. SI alguno de ellos es positivo, te llamaremos. Evelia un seguimiento con bullard m?dico seg?n sea necesario. Si desarrolla s?ntomas nuevos o que empeoran, llame al 911 o regrese a la keith de emergencias para qiana evaluaci?n adicional. Prescriptions: No Action cefuroxime axetil 250 mg tablet 250 mg PO DAILY 7 Days Qty: 7 0RF atorvastatin 40 mg tablet 1 tab PO DAILY furosemide 80 mg tablet 80 mg PO SUTUTHSA@0900,2100 omeprazole 20 mg capsule,delayed release(DR/EC) 1 cap PO DAILY sevelamer carbonate 800 mg tablet 3 tab PO TIDWM glipizide 5 mg tablet extended release 24 hr 1 tab PO DAILY primidone 50 mg tablet 1 tab PO BID PRN (Reason: Tremor(S)) amlodipine 5 mg Tablet 5 mg PO DAILY Qty: 30 0RF Protocol: Hold for SBP< HOLD for SBP < : 90 dexamethasone [Decadron] 6 mg tablet 6 mg PO DAILY Qty: 7 0RF
[2021-11-04 23:44] LABS: MANUAL DIFF FLAG NO
[2021-11-04 23:45] LABS: Basophils Percent Auto 0.5 % (0-2); Eosinophils Absolute Auto 0.3 X10*3/uL (0.0-0.4); Eosinophils Percent Auto 3.6 % (0-4); Hemoglobin 9.7 g/dl (14.0-18.0); Imm Gran Abs Auto 0.03 X10*3/uL (0.00-0.03); Imm Gran Pct Auto 0.4 % (0.0-0.4); Lymphocytes Absolute Auto 2.3 X10*3/uL (1.2-4.9); Lymphocytes Percent Auto 30.9 % (20-40); Mean Corpuscular HGB Conc 33.4 g/dl (31.0-36.0); Mean Corpuscular Hemoglobin 31.4 pg (27.0-33.0); Mean Corpuscular Volume 93.9 fL (80.0-98.0); Mean Platelet Volume 8.7 fL (9.4-12.4); Monocytes Absolute Auto 0.8 X10*3/uL (0.1-1.2); Monocytes Percent Auto 10.1 % (2-11); Neutrophils Absolute Auto 4.1 x10*3/uL (2.0-8.3); Neutrophils Percent Auto 54.5 % (45-73); Platelet Count 234 X10*3/uL (160-400); Red Blood Count 3.09 X10*6/uL (4.60-5.80); Red Cell Distribution Width 14.5 % (11.0-16.0); White Blood Count 7.5 X10*3/uL (4.8-10.8)
--- NOTE | 2021-11-05 01:11 | PC.NURSE ---
Discharge instructions given and explained to pt. Pt ambulates safely and independently. Pt denies pain.
== END 2021-11-05 01:12 | disposition home or self-care (01) ==
PROVIDERS: Physician Assistant; Emergency Provider Internal Medicine; PCP Internal Medicine
DX: R78.81 Bacteremia (principal); Z79.899 Other long term (current) drug therapy
CPT/HCPCS: 36415; 83605; 85025; 87040; 99283; 99284

== ENCOUNTER 2021-12-17 00:50 | Emergency (ER) | payer OTHER, SELFPAY ==
--- NOTE | ~2021-12-17 | XR_ITS ---
EXAMINATION: XR CHEST CLINICAL INFORMATION: Shortness of breath COMPARISON: 11/02/2021 TECHNIQUE: Frontal view of the chest was obtained. FINDINGS: Normal symmetric lung volumes. No parenchymal consolidation. No pleural effusion. No pneumothorax. Normal heart size. Pulmonary venous congestion and mild interstitial edema.. No acute osseous abnormalities. XR/XR chest 1V IMPRESSION: Mild interstitial pulmonary edema.
[2021-12-17 01:45] VITALS: BP 192/87; PULSE 114; RESP 24; TEMP 37.1; O2SAT 96; BMI 30.2
--- NOTE | 2021-12-17 01:52 | ECG_ITS ---
Test Reason : CHEST PAIN Blood Pressure : / mmHG Vent. Rate : 100 BPM Atrial Rate : 100 BPM P-R Int : 166 ms QRS Dur : 094 ms QT Int : 376 ms P-R-T Axes : 064 -05 087 degrees QTc Int : 485 ms Normal sinus rhythm Moderate voltage criteria for LVH, may be normal variant ( R in aVL , [place] product ) Prolonged QT Abnormal ECG When compared with ECG of 29-SEP-2021 11:48, No significant change was found Referred By: Generic ED Physician Electronically Signed By:MARY MCDANIELS MD
[2021-12-17 02:17] LABS: MANUAL DIFF FLAG NO
[2021-12-17 02:18] LABS: Basophils Absolute Auto 0.1 X10*3/uL (0.0-0.2); Basophils Percent Auto 0.7 % (0-2); Eosinophils Absolute Auto 0.2 X10*3/uL (0.0-0.4); Eosinophils Percent Auto 2.8 % (0-4); Hematocrit 31.3 % (42.0-52.0); Hemoglobin 10.6 g/dl (14.0-18.0); Imm Gran Abs Auto 0.02 X10*3/uL (0.00-0.03); Imm Gran Pct Auto 0.3 % (0.0-0.4); Lymphocytes Absolute Auto 1.8 X10*3/uL (1.2-4.9); Mean Corpuscular HGB Conc 33.9 g/dl (31.0-36.0); Mean Corpuscular Hemoglobin 30.7 pg (27.0-33.0); Mean Corpuscular Volume 90.7 fL (80.0-98.0); Mean Platelet Volume 8.5 fL (9.4-12.4); Monocytes Absolute Auto 0.5 X10*3/uL (0.1-1.2); Monocytes Percent Auto 6.4 % (2-11); Neutrophils Percent Auto 65.8 % (45-73); Platelet Count 248 X10*3/uL (160-400); Red Blood Count 3.45 X10*6/uL (4.60-5.80); White Blood Count 7.5 X10*3/uL (4.8-10.8)
[2021-12-17 02:35] LABS: Anion Gap 20 (12-20); Blood Urea Nitrogen 42 mg/dL (9-16); Calcium 9.3 mg/dL (8.4-10.2); Carbon Dioxide 28 mmol/L (22-29); Chloride 97 mmol/L (96-108); Creatinine Clr Calc Pharmacy 12.2; Estimated Glomerular Filt Rate 7; Glucose Random 137 mg/dL (60-115); Potassium 3.9 mmol/L (3.3-5.1); Sodium 141 mmol/L (135-145)
[2021-12-17 02:39] LABS: B Type Natriuretic Peptide 746 pg/mL (<100); Troponin-I High Sensitivity 51.4 ng/L (<3.5-35.0)
--- NOTE | 2021-12-17 03:18 | ED.SOB ---
HPI - SOB/Dyspnea General Chief Complaint: Dyspnea Stated Complaint: Asthma Time Seen by Provider: 12/17/21 03:16 Source: patient Mode of arrival: ambulatory Limitations: no limitations History of Present Illness HPI Narrative: Patient with history of asthma End stage renal disease on dialysis been having some nasal congestion and dry cough for last 3 days no fever or chills patient woke up from sleep for increased shortness of breath uses inhaler and came to the ER because still feeling short of breath patient is saturating 96% room air due for dialysis today in the a.m. elicited complaint: shortness of breath Related Data Home Medications Medication Instructions Recorded Confirmed atorvastatin 40 mg tablet 1 tab PO DAILY 08/24/21 08/24/21 furosemide 80 mg tablet 80 mg PO SUTUTHSA@0900,2100 08/24/21 08/24/21 glipizide 5 mg tablet, extended 1 tab PO DAILY 08/24/21 08/24/21 release 24 hr omeprazole 20 mg capsule,delayed 1 cap PO DAILY 08/24/21 08/24/21 release primidone 50 mg tablet 1 tab PO BID PRN Tremor(S) 08/24/21 08/24/21 sevelamer carbonate 800 mg tablet 3 tab PO TIDWM 08/24/21 08/24/21 Previous Rx's Medication Instructions Recorded amlodipine 5 mg tablet 5 mg PO DAILY #30 tabs 08/26/21 dexamethasone 6 mg tablet 6 mg PO DAILY #7 tabs 08/26/21 (Decadron) cefuroxime axetil 250 mg tablet 250 mg PO DAILY 7 days #7 tabs 11/02/21 benzonatate 200 mg capsule 200 mg PO TID PRN cough #30 caps 12/17/21 Allergies Allergy/AdvReac Type Severity Reaction Status Date / Time No Known Allergies Allergy Verified 12/17/21 01:45 [No Known Allergies*] Review of Systems Review of Systems: Yes all other systems are reviewed and are negative [facility] Past Medical History Medical History Asthma Diabetes End stage chronic kidney disease Surgical History AV fistula Family History Family History Mother CAD (coronary artery disease) Social History Social History Alcohol intake: never Patient Tobacco Use Status: Never used Tobacco Advance Directives: No Advance Directives Information Provided: Yes service: No Current occupational status: retired Physical Exam Vital Signs: Vital Signs: Last Vital Signs Temp 98.5 F 12/17/21 03:37 Pulse 110 H 12/17/21 04:59 Resp 20 12/17/21 04:59 BP 182/86 H 12/17/21 04:59 Pulse Ox 100 12/17/21 04:59 O2 Del Method 12/17/21 04:59 BMI result Body Mass Index 30.2 Appearance: Alert. Oriented X3. No acute distress. Eyes: PERRLA, No Nystagmus ENT: Pharynx normal. Oral Mucosa moist Neck: Normal inspection. Neck supple. CVS: Normal heart rate and rhythm. Pulses normal. Respiratory: No respiratory distress. Equal air entry bilateral, prolonged expiration with occasional wheezing Abdomen: Soft and nontender. Bowel sounds are present, no mass palpable, no CVA tenderness Skin: Skin warm and dry. Normal skin color. Normal skin turgor. Extremities: No lower extremity edema. No calf tenderness Neuro: Oriented X 3. No motor deficit. No sensory deficit.No cerebellar signs , cranial nerves II-XII intact MDM - SOB/Dyspnea MDM Narrative Medical decision making narrative: Patient is slightly congested due for dialysis next few hours does not make much urine came with wheezing episode with history of asthma responded to DuoNeb treatment vitals are stable received 60 mg of Lasix discharge patient home to go to dialysis in the morning Differential Diagnosis Differential diagnosis: Likely acute exacerbation of chronic obstructive airways disease and congestive heart failure Medical Records Attestation: I reviewed the patient's medical records. Lab Data Attestation: I reviewed the patient's lab results. Result diagrams: 12/17/21 02:14 12/17/21 02:14 Labs: Lab Results 12/17/21 12/17/21 12/17/21 Range/Units 02:13 02:14 02:14 WBC 7.5 (4.8-10.8) X10*3/uL RBC 3.45 L (4.60-5.80) X10*6/uL Hgb 10.6 L (14.0-18.0) g/dl Hct 31.3 L (42.0-52.0) % MCV 90.7 (80.0-98.0) fL MCH 30.7 (27.0-33.0) pg MCHC 33.9 (31.0-36.0) g/dl RDW 13.0 (11.0-16.0) % Plt Count 248 (160-400) X10*3/uL MPV 8.5 L (9.4-12.4) fL Immature Gran % (Auto) 0.3 (0.0-0.4) % Neut % (Auto) 65.8 (45-73) % Lymph % (Auto) 24.0 (20-40) % [place] % (Auto) 6.4 (2-11) % Eos % (Auto) 2.8 (0-4) % Baso % (Auto) 0.7 (0-2) % Lymph # (Auto) 1.8 (1.2-4.9) X10*3/uL [place] # (Auto) 0.5 (0.1-1.2) X10*3/uL Eos # (Auto) 0.2 (0.0-0.4) X10*3/uL Baso # (Auto) 0.1 (0.0-0.2) X10*3/uL Abs Immat Gran (auto) 0.02 (0.00-0.03) X10*3/uL Absolute Neuts (auto) 5.0 (2.0-8.3) x10*3/uL Absolute Nucleated RBC 0.000 (0.0-0.012) X10*3/uL Nucleated RBC % (auto) 0.0 (0.0-0.2) /100WBC Sodium 141 (135-145) mmol/L Potassium 3.9 (3.3-5.1) mmol/L Chloride 97 (96-108) mmol/L Carbon Dioxide 28 (22-29) mmol/L Anion Gap 20 (12-20) BUN 42 H (9-16) mg/dL Creatinine 8.00 H* (0.5-1.4) mg/dL Estim Creat Clear Calc 12.2 Estimated GFR 7 Random Glucose 137 H (60-115) mg/dL Calcium 9.3 (8.4-10.2) mg/dL Troponin I High Sens 51.4 H (<3.5-35.0) ng/L B-Natriuretic Peptide 746 H (<100) pg/mL Influenza Type A (PCR) (Negative) Influenza Type B (PCR) (Negative) RSV RNA Qual (PCR) (Negative) SARS-CoV-2 RNA (RT-PCR) (Negative) 12/17/21 Range/Units 03:36 WBC (4.8-10.8) X10*3/uL RBC (4.60-5.80) X10*6/uL Hgb (14.0-18.0) g/dl Hct (42.0-52.0) % MCV (80.0-98.0) fL MCH (27.0-33.0) pg MCHC (31.0-36.0) g/dl RDW (11.0-16.0) % Plt Count (160-400) X10*3/uL MPV (9.4-12.4) fL Immature Gran % (Auto) (0.0-0.4) % Neut % (Auto) (45-73) % Lymph % (Auto) (20-40) % [place] % (Auto) (2-11) % Eos % (Auto) (0-4) % Baso % (Auto) (0-2) % Lymph # (Auto) (1.2-4.9) X10*3/uL [place] # (Auto) (0.1-1.2) X10*3/uL Eos # (Auto) (0.0-0.4) X10*3/uL Baso # (Auto) (0.0-0.2) X10*3/uL Abs Immat Gran (auto) (0.00-0.03) X10*3/uL Absolute Neuts (auto) (2.0-8.3) x10*3/uL Absolute Nucleated RBC (0.0-0.012) X10*3/uL Nucleated RBC % (auto) (0.0-0.2) /100WBC Sodium (135-145) mmol/L Potassium (3.3-5.1) mmol/L Chloride (96-108) mmol/L Carbon Dioxide (22-29) mmol/L Anion Gap (12-20) BUN (9-16) mg/dL Creatinine (0.5-1.4) mg/dL Estim Creat Clear Calc Estimated GFR Random Glucose (60-115) mg/dL Calcium (8.4-10.2) mg/dL Troponin I High Sens (<3.5-35.0) ng/L B-Natriuretic Peptide (<100) pg/mL Influenza Type A (PCR) NEGATIVE (Negative) Influenza Type B (PCR) NEGATIVE (Negative) RSV RNA Qual (PCR) NEGATIVE (Negative) SARS-CoV-2 RNA (RT-PCR) NEGATIVE (Negative) Discharge Plan Discharge Clinical Impression: Asthma with exacerbation, Chronic kidney disease Patient Disposition: Home, Self-Care Instructions: Asthma (ED), Chronic Kidney Disease (ED) Additional Instructions: Continue use her albuterol inhaler Have dialysis today in the morning Follow with PCP Cough drops as advised Prescriptions: New benzonatate 200 mg capsule 200 mg PO TID PRN (Reason: cough) Qty: 30 0RF No Action cefuroxime axetil 250 mg tablet 250 mg PO DAILY 7 Days Qty: 7 0RF atorvastatin 40 mg tablet 1 tab PO DAILY furosemide 80 mg tablet 80 mg PO SUTUTHSA@0900,2100 omeprazole 20 mg capsule,delayed release(DR/EC) 1 cap PO DAILY sevelamer carbonate 800 mg tablet 3 tab PO TIDWM glipizide 5 mg tablet extended release 24 hr 1 tab PO DAILY primidone 50 mg tablet 1 tab PO BID PRN (Reason: Tremor(S)) amlodipine 5 mg Tablet 5 mg PO DAILY Qty: 30 0RF Protocol: Hold for SBP< HOLD for SBP < : 90 dexamethasone [Decadron] 6 mg tablet 6 mg PO DAILY Qty: 7 0RF Interventions: ED Discharge Assessment Last Done: 12/17/21 05:12 Discharge Date/Time: 12/17/21 05:13
[2021-12-17] MEDS: Albuterol Sulfate 2.5 MG, Albuterol/Iprat 2.5/0.5MG 3 ML 3 ML INHALE (03:35)
[2021-12-17 03:37] VITALS: BP 181/86; PULSE 100; RESP 18; TEMP 36.9; O2SAT 97
[2021-12-17 03:39] VITALS: PULSE 101; RESP 16; O2SAT 98
[2021-12-17] MEDS: Furosemide 100 MG/10 ML VIAL 60 MG IVPUSH (03:56)
[2021-12-17 04:20] LABS: Influenza A PCR NEGATIVE (Negative); Influenza B PCR NEGATIVE (Negative); Resp Syncy Virus RNA Qual PCR NEGATIVE (Negative); SARS COV2 PCR INHOUSE NEGATIVE (Negative)
[2021-12-17 04:59] VITALS: BP 182/86; PULSE 110; RESP 20; O2SAT 100
[2021-12-17] MEDS: guaiFEN/Codeine SF 200/20/10ML 10 ML LIQUID PO (05:02)
== END 2021-12-17 05:13 | disposition home or self-care (01) ==
PROVIDERS: Emergency Provider Internal Medicine
DX: J45.901 Unspecified asthma with (acute) exacerbation (principal); E11.22 Type 2 diabetes mellitus with diabetic chronic kidney disease; N18.6 End stage renal disease; Z99.2 Dependence on renal dialysis; D63.1 Anemia in chronic kidney disease; R06.02 Shortness of breath; Z20.822 Contact with and (suspected) exposure to COVID-19; Z79.02 Long term (current) use of antithrombotics/antiplatelets
CPT/HCPCS: 0241U; 36415; 71045; 80048; 83880; 84484; 85025; 93005; 94640; 94664; 96374; 99284; J1940

== ENCOUNTER 2022-01-12 04:58 | Observation (INO) | payer OTHER, SELFPAY ==
[2022-01-12] VITALS (8 sets, daily range): BP systolic 125–151; BP diastolic 56–83; PULSE 87–121; RESP 16–22; TEMP 36.3–38.2; O2SAT 94–99; BMI 31.4
--- NOTE | 2022-01-12 | ECG_ITS ---
Test Reason : ASTHMA Blood Pressure : / mmHG Vent. Rate : 114 BPM Atrial Rate : 114 BPM P-R Int : 152 ms QRS Dur : 086 ms QT Int : 322 ms P-R-T Axes : 069 -08 107 degrees QTc Int : 443 ms Sinus tachycardia Minimal voltage criteria for LVH, may be normal variant ( R in aVL ) T wave abnormality, consider lateral ischemia Abnormal ECG When compared with ECG of 17-DEC-2021 02:12, No significant change was found Referred By: Generic ED Physician Electronically Signed By:MARY MCDANIELS MD
--- NOTE | ~2022-01-12 | XR_ITS ---
EXAMINATION: XR CHEST CLINICAL INFORMATION: Chest pain and shortness of breath. COMPARISON: Chest radiograph 12/17/2021. TECHNIQUE: 2 views of the chest were obtained. FINDINGS: Stable prominence of the cardiomediastinal silhouette. A left brachial vascular stent is noted. Stable central vasculature prominence. Mild diffuse reticulation is also not convincingly changed. Suspect increased small amount of right-sided pleural fluid. No pneumothorax. No acute osseous abnormalities. XR/XR chest 2V IMPRESSION: 1. Increased small amount of right-sided pleural fluid. 2. Otherwise, no significant change.
[2022-01-12 05:25] LABS: MANUAL DIFF FLAG NO
[2022-01-12 05:26] LABS: Basophils Percent Auto 0.2 % (0-2); Eosinophils Absolute Auto 0.1 X10*3/uL (0.0-0.4); Eosinophils Percent Auto 0.7 % (0-4); Hematocrit 28.1 % (42.0-52.0); Hemoglobin 9.6 g/dl (14.0-18.0); Imm Gran Abs Auto 0.04 X10*3/uL (0.00-0.03); Imm Gran Pct Auto 0.5 % (0.0-0.4); Lymphocytes Absolute Auto 1.1 X10*3/uL (1.2-4.9); Lymphocytes Percent Auto 12.4 % (20-40); Mean Corpuscular HGB Conc 34.2 g/dl (31.0-36.0); Mean Corpuscular Hemoglobin 30.6 pg (27.0-33.0); Mean Corpuscular Volume 89.5 fL (80.0-98.0); Mean Platelet Volume 8.5 fL (9.4-12.4); Monocytes Absolute Auto 0.5 X10*3/uL (0.1-1.2); Monocytes Percent Auto 5.9 % (2-11); Neutrophils Absolute Auto 7.1 x10*3/uL (2.0-8.3); Neutrophils Percent Auto 80.3 % (45-73); Platelet Count 299 X10*3/uL (160-400); Red Blood Count 3.14 X10*6/uL (4.60-5.80); Red Cell Distribution Width 13.9 % (11.0-16.0); White Blood Count 8.9 X10*3/uL (4.8-10.8)
[2022-01-12 05:52] LABS: Alanine Aminotransferase 17 U/L (0-40); Albumin Level 3.4 g/dL (3.5-5.0); Alkaline Phosphatase 63 U/L (39-117); Anion Gap 19 (12-20); Aspartate Amino Transferase 11 U/L (5-37); Bilirubin Total 0.9 mg/dL (0.0-1.0); Blood Urea Nitrogen 48 mg/dL (9-16); Calcium 9.7 mg/dL (8.4-10.2); Carbon Dioxide 25 mmol/L (22-29); Chloride 97 mmol/L (96-108); Creatinine Clr Calc Pharmacy 11.7; Estimated Glomerular Filt Rate 6; Glucose Random 296 mg/dL (60-115); Magnesium 1.6 mg/dL (1.6-2.6); Potassium 4.5 mmol/L (3.3-5.1); Sodium 136 mmol/L (135-145); Total Protein 6.3 g/dL (6.5-8.0)
[2022-01-12 05:57] LABS: Troponin-I High Sensitivity 195.7 ng/L (<3.5-35.0)
[2022-01-12] MEDS: Acetaminophen 325 MG TABLET 975 MG PO (06:00)
[2022-01-12 06:03] LABS: Influenza A PCR NEGATIVE (Negative); Influenza B PCR NEGATIVE (Negative); Resp Syncy Virus RNA Qual PCR NEGATIVE (Negative); SARS COV2 PCR INHOUSE NEGATIVE (Negative)
--- NOTE | 2022-01-12 06:10 | ED.ASTHMA ---
HPI - Asthma General Chief Complaint: Asthma Stated Complaint: General Medical Time Seen by Provider: 01/12/22 05:45 Source: patient, family and manager change Mode of arrival: EMS History of Present Illness HPI Narrative: 61-year-old male with arrival via EMS and states that he has had worsening shortness of breath with cough and chest pain for the past couple of days and reports some chills but no nausea or vomiting. He was scheduled for is 05:00 dialysis appointment but because his difficulty with breathing he decided come to the emergency room. Patient reports substernal chest pain and shortness of breath at rest. He states that all of his problems of started since getting his flu shot. Related Data Home Medications Medication Instructions Recorded Confirmed atorvastatin 40 mg tablet 1 tab PO DAILY 08/24/21 08/24/21 furosemide 80 mg tablet 80 mg PO SUTUTHSA@0900,2100 08/24/21 08/24/21 glipizide 5 mg tablet, extended 1 tab PO DAILY 08/24/21 08/24/21 release 24 hr omeprazole 20 mg capsule,delayed 1 cap PO DAILY 08/24/21 08/24/21 release primidone 50 mg tablet 1 tab PO BID PRN Tremor(S) 08/24/21 08/24/21 sevelamer carbonate 800 mg tablet 3 tab PO TIDWM 08/24/21 08/24/21 Previous Rx's Medication Instructions Recorded amlodipine 5 mg tablet 5 mg PO DAILY #30 tabs 08/26/21 dexamethasone 6 mg tablet 6 mg PO DAILY #7 tabs 08/26/21 (Decadron) cefuroxime axetil 250 mg tablet 250 mg PO DAILY 7 days #7 tabs 11/02/21 benzonatate 200 mg capsule 200 mg PO TID PRN cough #30 caps 12/17/21 Allergies Allergy/AdvReac Type Severity Reaction Status Date / Time No Known Allergies Allergy Verified 12/17/21 01:45 [No Known Allergies*] Review of Systems Review of Systems: Pertinent positives and negatives as stated in HPI 10 point review of systems is otherwise negative. [facility] Past Medical History Source: nursing notes reviewed Medical History Asthma Diabetes End stage chronic kidney disease Surgical History AV fistula Family History Family History Mother CAD (coronary artery disease) Social History Social History Alcohol intake: never Patient Tobacco Use Status: Never used Tobacco Smoked in Last 30 Days: No Use of substances other than those prescribed or required for medical reasons: No Advance Directives: No service: No Current occupational status: retired Physical Exam Vital Signs: Vital Signs: Last Vital Signs Temp 99 F 01/12/22 07:35 Pulse 95 01/12/22 07:35 Resp 18 01/12/22 07:35 BP 136/66 01/12/22 07:35 Pulse Ox 97 01/12/22 07:35 O2 Del Method 01/12/22 07:35 BMI result Body Mass Index 31.4 VITAL SIGNS: Reviewed. GENERAL: Chronically ill, in mild acute distress. HEAD: Normocephalic/atraumatic EYES: PERRLA, EOMI EARS: Ext canals without abnormality OROPHARYNX: no oral lesions noted, posterior pharynx clear LUNGS: Normal breath sounds, no wheeze/rhonchi/rales appreciated. SpO2<94> room-air CARDIOVASCULAR: Regular rate and rhythm without noted murmurs, no JVD 1+ bilateral lower extremity edema ABDOMEN: Soft, non-tender, non-distended with bowel sounds. MUSCULOSKELETAL: No tenderness, deformities, or effusions noted on gross inspection. EXTREMITIES: No cyanosis, clubbing or edema; LEFT UPPER EXTREMITY: Fistula with good thrill and bruit. SKIN: Inspection of the skin reveals no rashes, tactile fever NEUROLOGIC: Alert and oriented x 4. Strength and sensation to light touch were grossly intact x 4. Course Course Course Narrative: 61-year-old male with history and clinical presentation concerning for possible asthma, CHF, viral syndrome, pneumonia. Patient noted to have a rectal temperature 100.7 degrees, lactic acid/blood cultures/Tylenol as well as antibiotics were ordered. I do not appreciate any wheezing and patient is tachycardic and oxygenating well on room air and this time will not administer albuterol. On review of investigations there is a left shift without leukocytosis, but otherwise lab work is consistent with underlying medical condition of ESRD on dialysis. The troponin is noted to be elevated at 195.7, however suspect that this may be secondary to his current tachycardia. Will repeat the troponin as he also complains of chest pain but on review of EKG findings appear to be somewhat consistent with prior. who is at bedside stated that he was quite hypertensive when he initially woke up and reported a systolic greater than 200. Raising suspicion for possible hypertensive crisis resulting in pulmonary edema although patient is not hypoxic. 0700: I suspect infection and patient will receive abx. I spoke with Nephro who will make arrangements for inpt dialysis and discussed [place] with Dr Cortez (cardiology). I discussed the case with Dr Saldaña who accepts admission. Medications Administered Discontinued Medications Generic Name Dose Route Start Last Admin Trade Name Freq PRN Reason Stop Dose Admin Acetaminophen 975 mg 01/12/22 05:52 01/12/22 06:00 Acetaminophen 325 Mg Tablet PO 01/12/22 05:53 975 mg ONCE ONE Administration Aspirin 324 mg 01/12/22 06:16 01/12/22 06:22 Aspirin 81 Mg Tab.Chew PO 01/12/22 06:17 324 mg ONCE ONE Administration Furosemide 60 mg 01/12/22 06:44 01/12/22 07:39 Furosemide 100 Mg/10 Ml Vial IVPUSH 01/12/22 06:45 60 mg ONCE ONE Administration Protocol Sodium Chloride 500 mls @ 500 mls/hr 01/12/22 06:30 01/12/22 06:30 Ns IV 01/12/22 07:29 500 mls/hr .Q1H JOSÉ Administration MDM - Asthma Lab Data Result diagrams: 01/12/22 05:14 01/12/22 05:14 Labs: Lab Results 01/12/22 01/12/22 01/12/22 Range/Units 05:14 05:14 05:14 WBC 8.9 (4.8-10.8) X10*3/uL RBC 3.14 L (4.60-5.80) X10*6/uL Hgb 9.6 L (14.0-18.0) g/dl Hct 28.1 L (42.0-52.0) % MCV 89.5 (80.0-98.0) fL MCH 30.6 (27.0-33.0) pg MCHC 34.2 (31.0-36.0) g/dl RDW 13.9 (11.0-16.0) % Plt Count 299 (160-400) X10*3/uL MPV 8.5 L (9.4-12.4) fL Immature Gran % (Auto) 0.5 H (0.0-0.4) % Neut % (Auto) 80.3 H (45-73) % Lymph % (Auto) 12.4 L (20-40) % [place] % (Auto) 5.9 (2-11) % Eos % (Auto) 0.7 (0-4) % Baso % (Auto) 0.2 (0-2) % Lymph # (Auto) 1.1 L (1.2-4.9) X10*3/uL [place] # (Auto) 0.5 (0.1-1.2) X10*3/uL Eos # (Auto) 0.1 (0.0-0.4) X10*3/uL Baso # (Auto) 0.0 (0.0-0.2) X10*3/uL Abs Immat Gran (auto) 0.04 H (0.00-0.03) X10*3/uL Absolute Neuts (auto) 7.1 (2.0-8.3) x10*3/uL Absolute Nucleated RBC 0.000 (0.0-0.012) X10*3/uL Nucleated RBC % (auto) 0.0 (0.0-0.2) /100WBC Sodium 136 (135-145) mmol/L Potassium 4.5 (3.3-5.1) mmol/L Chloride 97 (96-108) mmol/L Carbon Dioxide 25 (22-29) mmol/L Anion Gap 19 (12-20) BUN 48 H (9-16) mg/dL Creatinine 8.56 H* (0.5-1.4) mg/dL Estim Creat Clear Calc 11.7 Estimated GFR 6 Random Glucose 296 H (60-115) mg/dL Calcium 9.7 (8.4-10.2) mg/dL Magnesium 1.6 (1.6-2.6) mg/dL Total Bilirubin 0.9 (0.0-1.0) mg/dL AST 11 (5-37) U/L ALT 17 (0-40) U/L Alkaline Phosphatase 63 (39-117) U/L Troponin I High Sens 195.7 H* D (<3.5-35.0) ng/L B-Natriuretic Peptide (<100) pg/mL Total Protein 6.3 L (6.5-8.0) g/dL Albumin 3.4 L (3.5-5.0) g/dL Influenza Type A (PCR) (Negative) Influenza Type B (PCR) (Negative) RSV RNA Qual (PCR) (Negative) SARS-CoV-2 RNA (RT-PCR) (Negative) 01/12/22 01/12/22 01/12/22 Range/Units 05:14 05:15 06:47 WBC (4.8-10.8) X10*3/uL RBC (4.60-5.80) X10*6/uL Hgb (14.0-18.0) g/dl Hct (42.0-52.0) % MCV (80.0-98.0) fL MCH (27.0-33.0) pg MCHC (31.0-36.0) g/dl RDW (11.0-16.0) % Plt Count (160-400) X10*3/uL MPV (9.4-12.4) fL Immature Gran % (Auto) (0.0-0.4) % Neut % (Auto) (45-73) % Lymph % (Auto) (20-40) % [place] % (Auto) (2-11) % Eos % (Auto) (0-4) % Baso % (Auto) (0-2) % Lymph # (Auto) (1.2-4.9) X10*3/uL [place] # (Auto) (0.1-1.2) X10*3/uL Eos # (Auto) (0.0-0.4) X10*3/uL Baso # (Auto) (0.0-0.2) X10*3/uL Abs Immat Gran (auto) (0.00-0.03) X10*3/uL Absolute Neuts (auto) (2.0-8.3) x10*3/uL Absolute Nucleated RBC (0.0-0.012) X10*3/uL Nucleated RBC % (auto) (0.0-0.2) /100WBC Sodium (135-145) mmol/L Potassium (3.3-5.1) mmol/L Chloride (96-108) mmol/L Carbon Dioxide (22-29) mmol/L Anion Gap (12-20) BUN (9-16) mg/dL Creatinine (0.5-1.4) mg/dL Estim Creat Clear Calc Estimated GFR Random Glucose (60-115) mg/dL Calcium (8.4-10.2) mg/dL Magnesium (1.6-2.6) mg/dL Total Bilirubin (0.0-1.0) mg/dL AST (5-37) U/L ALT (0-40) U/L Alkaline Phosphatase (39-117) U/L Troponin I High Sens 201.4 H* (<3.5-35.0) ng/L B-Natriuretic Peptide 1055 H (<100) pg/mL Total Protein (6.5-8.0) g/dL Albumin (3.5-5.0) g/dL Influenza Type A (PCR) NEGATIVE (Negative) Influenza Type B (PCR) NEGATIVE (Negative) RSV RNA Qual (PCR) NEGATIVE (Negative) SARS-CoV-2 RNA (RT-PCR) NEGATIVE (Negative) ECG Data Attestation: I personally reviewed and interpreted this ECG as follows: Prior ECG tracings: available for review Interpretation: Sinus tachycardia, HR-114, no STEMI, ME/QRS/QTC is within normal limits. Critical Care Time Critical Care Time Critical Care Time: Yes Total Critical Care Time: 30 Attestation: I personally attest to this time spent taking care of the patient. Discharge Plan Discharge Clinical Impression: Fever of unknown origin, Elevated troponin, Pulmonary edema, Pleural effusion on right Patient Disposition: Admitted As Inpatient Prescriptions: No Action cefuroxime axetil 250 mg tablet 250 mg PO DAILY 7 Days Qty: 7 0RF benzonatate 200 mg capsule 200 mg PO TID PRN (Reason: cough) Qty: 30 0RF atorvastatin 40 mg tablet 1 tab PO DAILY furosemide 80 mg tablet 80 mg PO SUTUTHSA@0900,2100 omeprazole 20 mg capsule,delayed release(DR/EC) 1 cap PO DAILY sevelamer carbonate 800 mg tablet 3 tab PO TIDWM glipizide 5 mg tablet extended release 24 hr 1 tab PO DAILY primidone 50 mg tablet 1 tab PO BID PRN (Reason: Tremor(S)) amlodipine 5 mg Tablet 5 mg PO DAILY Qty: 30 0RF Protocol: Hold for SBP< HOLD for SBP < : 90 dexamethasone [Decadron] 6 mg tablet 6 mg PO DAILY Qty: 7 0RF
[2022-01-12] MEDS: Aspirin 81 MG TAB.CHEW 324 MG PO (06:22)
[2022-01-12] MEDS: 0.9 % Sodium Chloride 500 ML IV (06:30)
[2022-01-12 06:32] LABS: B Type Natriuretic Peptide 1055 pg/mL (<100)
[2022-01-12 07:35] LABS: Troponin-I High Sensitivity 201.4 ng/L (<3.5-35.0)
[2022-01-12] MEDS: Furosemide 100 MG/10 ML VIAL 60 MG IVPUSH (07:39)
--- NOTE | 2022-01-12 07:51 | PC.NURSE ---
pt a&p x4. complains of difficulty breathing. LS clear, diminished on rt base. gave him lasix and started 500cc of ns.
[2022-01-12] MEDS: cefTRIAXone sodium 1 GM in 0.9 % Sodium Chloride 50 ML IV (09:18)
--- NOTE | 2022-01-12 09:19 | PC.NURSE ---
pt medicated per order float nurse
--- NOTE | 2022-01-12 10:23 | PHA.MEDREC ---
Pharmacy Consult ? Medication Reconciliation Pharmacy has completed the medication reconciliation. Using a machine stacker I was able to confirm medication list from patient spouse at the bedside. They state he is on an antibiotic eye drop for 1 more day but they don't know the name of it and there is no claim history that I was able to find.
--- NOTE | 2022-01-12 10:51 | P.HPHOSP_ITS ---
History of Present Illness Date of Service: 01/12/22 Chief Complaint: asthma The patient is a 61 yo M with multiple medical problems including HTN, ESRD on HD MWF, DM who is primarily [place] speaking. Tipping Machine Operator services are used and his who is bedside helps with the history. The patient, who reports that he was in his usal state of health when he went to bed the night before admission, states that early AM he was awoken by sudden onset of trouble breathing. He states he had associated pressure like pain which lasted about 10-15 minutes. His states that she took his blood pressure during the time and he had readings over 200 and hence paramedics were called. She reports that he had a similar episode to this about 1 month ago and the chest pain during that time last about the same. She states that a physician in [place] told him that he has had a mild heart attack before. Even with nitroglycerin distributor services, unable to determine if any PCI was done at that time. Upon arrival to the ED, the patient had a low grade fever -- 100.7; BP on arrival was 151/83 (per patient/ -- he took his BP meds this AM). Infectious work up showed a UA without any bacteria, but mild pyuria. CXR showed right sided effusion (small) but otherwise no significant change from prior studies. Otherwise, he had remained hemodynamically stable. He has been given IV lasxi, IV rocephin, tylenol, aspirin and 500 cc of IVF. He will now be admitted for further work up. Review of Systems Review of Systems: negative except HPI [facility] Medical History Asthma Diabetes End stage chronic kidney disease Family History Mother CAD (coronary artery disease) Surgical History AV fistula Social History Alcohol intake: never Patient Tobacco Use Status: Never used Tobacco Smoked in Last 30 Days: No Use of substances other than those prescribed or required for medical reasons: No Advance Directives: No service: No Current occupational status: retired Meds Allergies Allergy/AdvReac Type Severity Reaction Status Date / Time No Known Allergies Allergy Verified 12/17/21 01:45 [No Known Allergies*] Active Medications: Current Medications Acetaminophen (Acetaminophen 325 Mg Tablet) 650 mg PO Q6H PRN PRN Reason: Pain, Mild (Pain Scale 1-3) Heparin Sodium (Porcine) (Heparin Sodium,Porcine 5,000 Unit/Ml Vial) 5,000 unit SUBCUT Q8H [facility] Ondansetron HCl (Ondansetron Hcl 4 Mg/2 Ml Vial) 4 mg IVPUSH Q8H PRN PRN Reason: Nausea and Vomiting Pharmacy Consult (Consult Rx Perform Med Rec) 1 each MISCELLANE ONCE PRN PRN Reason: Consult order Sodium Chloride (0.9 % Sodium Chloride Flush 3 Ml Syringe) 3 ml IVFLUSH QSHIFT [facility] Home Medications Medication Instructions Recorded Confirmed Last Taken Type furosemide 80 mg tablet 80 mg PO SUTUTHSA@0900,2100 08/24/21 01/12/22 01/11/22 History glipizide 5 mg tablet, extended 5 mg PO DAILY@1700 08/24/21 01/12/22 01/11/22 History release 24 hr omeprazole 20 mg capsule,delayed 20 mg PO DAILY PRN Heartburn 08/24/21 01/12/22 08/23/21 History release primidone 50 mg tablet 50 mg PO BID PRN Tremor(S) 08/24/21 01/12/22 01/12/22 History sevelamer carbonate 800 mg tablet 2,400 mg PO TIDWM 08/24/21 01/12/22 01/11/22 History albuterol sulfate 90 mcg/actuation 2 puff inhalation Q4-6H PRN 01/12/22 01/12/22 01/12/22 History aerosol inhaler Shortness Of Breath Or Wheezing cholecalciferol (vitamin D3) 25 25 mcg PO DAILY@1700 01/12/22 01/12/22 01/11/22 History mcg (1,000 unit) capsule (Vitamin D3) Physical Exam Vital Signs and Narrative: Vital Signs: Last Vital Signs Temp 98.8 F 01/12/22 08:00 Pulse 87 01/12/22 08:00 Resp 18 01/12/22 08:00 BP 125/56 L 01/12/22 08:00 Pulse Ox 98 01/12/22 08:00 O2 Del Method 01/12/22 08:00 BMI result Body Mass Index 31.4 Const: Other: Constitutional - Awake and Alert, No apparent distress Eyes - PERRLA, EOMI Cardiovascular - S1S2, RRR, No edema Respiratory - Normal lung expansion, Normal respiratory effort, No respiratory distress, CTA bilaterally Gastrointestinal - NT / ND; +BS; No rebound or guarding - No CVA tenderness Extremities - no calf tenderness bilaterally, no swelling Musculoskeletal - Normal inspection, normal ROM; LUE av fistula + bruit Skin - Warm/Dry Neurological - Alert & oriented x3, No focal deficit Psychological - Appropriate affect Results Labs CBC and Chem 7: 01/12/22 05:14 01/12/22 05:14 Labs: Laboratory Results - last 24 hr 01/12/22 01/12/22 01/12/22 05:14 05:14 05:14 MCV 89.5 MCH 30.6 MCHC 34.2 RDW 13.9 Plt Count 299 MPV 8.5 L Immature Gran % (Auto) 0.5 H Neut % (Auto) 80.3 H Lymph % (Auto) 12.4 L [place] % (Auto) 5.9 Eos % (Auto) 0.7 Baso % (Auto) 0.2 Lymph # (Auto) 1.1 L [place] # (Auto) 0.5 Eos # (Auto) 0.1 Baso # (Auto) 0.0 Abs Immat Gran (auto) 0.04 H Absolute Neuts (auto) 7.1 Absolute Nucleated RBC 0.000 Nucleated RBC % (auto) 0.0 Anion Gap 19 Estim Creat Clear Calc 11.7 Estimated GFR 6 Random Glucose 296 H Calcium 9.7 Magnesium 1.6 Total Bilirubin 0.9 AST 11 ALT 17 Alkaline Phosphatase 63 Troponin I High Sens 195.7 H* D B-Natriuretic Peptide Total Protein 6.3 L Albumin 3.4 L Influenza Type A (PCR) Influenza Type B (PCR) RSV RNA Qual (PCR) SARS-CoV-2 RNA (RT-PCR) 01/12/22 01/12/22 01/12/22 05:14 05:15 06:47 MCV MCH MCHC RDW Plt Count MPV Immature Gran % (Auto) Neut % (Auto) Lymph % (Auto) [place] % (Auto) Eos % (Auto) Baso % (Auto) Lymph # (Auto) [place] # (Auto) Eos # (Auto) Baso # (Auto) Abs Immat Gran (auto) Absolute Neuts (auto) Absolute Nucleated RBC Nucleated RBC % (auto) Anion Gap Estim Creat Clear Calc Estimated GFR Random Glucose Calcium Magnesium Total Bilirubin AST ALT Alkaline Phosphatase Troponin I High Sens 201.4 H* B-Natriuretic Peptide 1055 H Total Protein Albumin Influenza Type A (PCR) NEGATIVE Influenza Type B (PCR) NEGATIVE RSV RNA Qual (PCR) NEGATIVE SARS-CoV-2 RNA (RT-PCR) NEGATIVE Imaging Radiologist's Impressions: Impressions Chest X-Ray 01/12/22 05:58 IMPRESSION: 1. Increased small amount of right-sided pleural fluid. 2. Otherwise, no significant change. Assessment and Plan (1) Chest pain: Status: Acute Plan 61 yo M with a PMH of DM, HTN, Asthma who presents to the ED with sudden onset shortness of breath and associated anginal type chest pain. He also had a low grade fever in the ED. He will be admitted for further work up and treatment. 1. Shortness of breath / chest pain HS trop-I are elevated around 200 x 2; will repeat a 3rd. EKG without significant changes from prior and does not have a current chest pain consult cardiology and check 2d echo 2. Fever isolated x 1 no definitive foci of infection -- received 1 dose rocephin in the ED, but given no definitive source, will hold off further check full respiratory pathogen panel (COVID/Flu/RSV negative) 3. ESRD on HD MWF due today, will consult nephrology 4. Elevated BP per reports from , BP over 200 when check at home during episode question if chest pain related to this BP now improved (per /, he took his AM meds) 5.DM hold orals diabetic diet and using sliding scale Full Code DVT pptx, subcut. heparin Quality Stroke Does the patient have a stroke diagnosis?: No VTE Prior VTE?: No VTE Risk Level:: Medical - moderate - high VTE Device Contraindication: Treatment Not Indicated VTE Drug Contraindication: N/A - Med Ordered
--- NOTE | 2022-01-12 11:00 | PC.NURSE ---
pt brought from ED 13 to overflow 3, report obtained from graham, this nurse resumed care at 11am. patient a&ox3, denies pain/discomfort, lungs clear throughout- dyspnea not noted at this time, LT AV fistula + bruit/thrill, director of cardiac cath lab applied, nsr 80s, vss, call verdugo within reach, will continue to monitor.
[2022-01-12 11:14] LABS: Lactic Acid 1.2 mmol/L (0.5-2.0)
[2022-01-12 11:37] LABS: Glucose, Whole Blood 208 mg/dL (60-115)
--- NOTE | 2022-01-12 11:41 | PC.NURSE ---
pt to dialysis
[2022-01-12 11:50] LABS: Troponin-I High Sensitivity 224.2 ng/L (<3.5-35.0)
[2022-01-12 12:52] LABS: Adenovirus PCR Not Detected (Not Detect.); Bordetella parapertussis PCR Not Detected (Not Detect.); Bordetella pertussis PCR Not Detected (Not Detect.); Chlamydia pneumoniae PCR Not Detected (Not Detect.); Coronavirus 229E PCR Not Detected (Not Detect.); Coronavirus HKU1 PCR Not Detected (Not Detect.); Coronavirus NL63 PCR Not Detected (Not Detect.); Coronavirus OC43 PCR Not Detected (Not Detect.); Human metapneumovirus PCR Not Detected (Not Detect.); Influenza A PCR Not Detected (Not Detect.); Influenza B PCR Not Detected (Not Detect.); Mycoplasma pneumoniae PCR Not Detected (Not Detect.); Parainfluenza 1 PCR Not Detected (Not Detect.); Parainfluenza 2 PCR Not Detected (Not Detect.); Parainfluenza 3 PCR Not Detected (Not Detect.); Parainfluenza 4 PCR Not Detected (Not Detect.); RSV PCR Not Detected (Not Detect.); Rhino/Enterovirus PCR Not Detected (Not Detect.); SARS-CoV-2 PCR Not Detected (Not Detect.)
[2022-01-12 16:43] LABS: Glucose, Whole Blood 138 mg/dL (60-115)
[2022-01-12] MEDS: Heparin Sodium,Porcine 5,000 UNIT/ML VIAL 5000 UNIT SUBCUT (17:15)
[2022-01-12] MEDS: Cholecalciferol (Vitamin D3) 25 MCG TABLET PO (17:15)
[2022-01-12] MEDS: 0.9 % Sodium Chloride Flush 3 ML SYRINGE IVFLUSH ×2 (17:15→22:13)
[2022-01-12] MEDS: Sevelamer Carbonate Tablet 800 MG TABLET 2400 MG PO (17:15)
[2022-01-12 21:42] LABS: Glucose, Whole Blood 248 mg/dL (60-115)
[2022-01-12] MEDS: Insulin Lispro 100 UNIT/ML 3 ML VIAL SUBCUT (22:10)
[2022-01-13] MEDS: Heparin Sodium,Porcine 5,000 UNIT/ML VIAL 5000 UNIT SUBCUT ×3 (03:25→22:58)
--- NOTE | 2022-01-13 03:26 | CONS_ITS ---
DATE OF SERVICE: 01/12/2022 HISTORY OF PRESENT ILLNESS: I was asked to see the patient to assist in evaluation and management of patient's dialysis needs in the setting of coming to the hospital complaining of shortness of breath and he felt like he was having an asthma flare up. In summary, 61-year-old gentleman with multiple chronic medical problems including ESRD, normally dialysis Wednesday, Wednesday, Wednesday at the [facility], has a history of hypertension. He apparently was having some increasing shortness of breath, came to the emergency room. There is also mention made of chest pressure. Overall, he is feeling better now. No nausea, vomiting, fever, sweats, or chills. PAST MEDICAL HISTORY: Notable for ESRD, diabetes, and asthma. MEDICATIONS: His medications on admission are noted in the admitting notes. ALLERGIES: NO KNOWN DRUG ALLERGIES. SOCIAL HISTORY: Nonsmoker, nondrinker. No illicit drug use. REVIEW OF SYSTEMS: As noted above. PHYSICAL EXAMINATION: VITAL SIGNS: Blood pressure 140/70, heart rate in the 80s. HEENT: Head is atraumatic and normocephalic. Mucous membranes moist NECK: Supple. LUNGS: Few expiratory wheezes and rhonchi. CARDIAC: Regular rate and rhythm. ABDOMEN: Soft. EXTREMITIES: Shows left upper extremity AV fistula. LABORATORY DATA: Showed hemoglobin 9.6, hematocrit 28.1, white count 8.9, platelet count 299. Sodium 136, potassium 4.5, chloride 97, bicarb 25. IMPRESSION: END-STAGE RENAL DISEASE PATIENT PRESENTED WITH CHEST PAIN AND SHORTNESS OF BREATH. 1. End-stage renal disease with dialysis today. Keep him on Wednesday, Wednesday, Wednesday schedule. 2. Chest pain episode. He is going to be evaluated by Cardiology. 3. History of asthma. He is going to get treatments for that. SUGGESTIONS: At this time include dialysis today, keep him on Wednesday, Wednesday, Wednesday schedule. Continue routine medications. Cardiac evaluation. MD PRETTY Mccullough/REYES / [id number]
[2022-01-13 03:53] VITALS: BP 167/85; PULSE 95; RESP 16; TEMP 37.1; O2SAT 97
[2022-01-13 06:19] LABS: Hematocrit 28.5 % (42.0-52.0); Hemoglobin 9.5 g/dl (14.0-18.0); Mean Corpuscular HGB Conc 33.3 g/dl (31.0-36.0); Mean Corpuscular Hemoglobin 29.9 pg (27.0-33.0); Mean Corpuscular Volume 89.6 fL (80.0-98.0); Mean Platelet Volume 8.9 fL (9.4-12.4); Platelet Count 290 X10*3/uL (160-400); Red Blood Count 3.18 X10*6/uL (4.60-5.80); Red Cell Distribution Width 13.8 % (11.0-16.0); White Blood Count 5.1 X10*3/uL (4.8-10.8)
[2022-01-13 06:47] LABS: Anion Gap 16 (12-20); Blood Urea Nitrogen 31 mg/dL (9-16); Calcium 8.9 mg/dL (8.4-10.2); Carbon Dioxide 24 mmol/L (22-29); Chloride 100 mmol/L (96-108); Creatinine Clr Calc Pharmacy 17.1; Estimated Glomerular Filt Rate 10; Glucose Random 146 mg/dL (60-115); Potassium 4.4 mmol/L (3.3-5.1); Sodium 136 mmol/L (135-145)
--- NOTE | 2022-01-13 07:00 | CA_ITS ---
Transthoracic Echocardiogram Patient (Last, First, Middle): Manny Gar C Gender: Male Date of : 1960 Age: 61 Procedure Date: 01/13/2022 Procedure Type: Transthoracic Echocardiogram Location: [facility] [place] Height: 187. cm Weight: 111. kg BSA: 2.36 m2 Heart Rate: bpm BP: 167 / 85 mmHg Radiologic Technologist Chief: MAXIMO Referring MD: Dejan Connelly MD Director Of Federal Sales: Charles Cortez MD Symptoms: chest pain, elevated troponins Study Quality: Technically Difficult, contrast used ECG Rhythm: Sinus Conclusions: - 1. Mildly dilated left ventricle with moderately reduced LV systolic function with mild LVH with grade 2 diastolic dysfunction 2. Mildly dilated left atrium 3. Ggnn-[id number] mitral regurgitation with moderate mitral annular calcification 4. Normal RV systolic pressure Findings Procedure Information Contrast agent, definity, is being given per protocol without apparent complications. Left Ventricle Mildly increased left ventricular cavity size. There is mildly increased left ventricular wall thickness. The left ventricular systolic function is moderately decreased. The visually estimated ejection fraction is between 35 40%. Regional wall motion abnormalities can not be excluded due to suboptimal endocardial definition. Spectral Doppler is indicative of a pseudonormal filling pattern. E/E prime ratio is >15, consistent with elevated filling pressures. Evidence suggests grade II (moderate) diastolic dysfunction. Right Ventricle The right ventricle was not well visualized. Atria The left atrium is mildly dilated. Interatrial shunt cannot be excluded. The right atrium was not well visualized. Aortic Valve The aortic valve was not well visualized. There is no aortic valve stenosis. There is no aortic valve regurgitation. Mitral Valve There is mild anterior mitral leaflet thickening. There is moderate mitral annular calcification. There is mild to moderate mitral valve regurgitation. There is no mitral valve stenosis. Pulmonic Valve The pulmonic valve was not well visualized. Tricuspid Valve The tricuspid valve was not well visualized. There is mild tricuspid valve regurgitation. The right ventricular systolic pressure is normal. The right ventricular systolic pressure is 33 mmHg. There is no evidence of pulmonary hypertension. Great Vessels The aorta was not well visualized. The pulmonary artery was not well visualized. Venous The inferior vena cava is normal in size and collapses greater than 50% with inspiration. Pericardium/Pleural The pericardium was not well visualized. Prior Study Comparison No prior study available for comparison. Measurements 2D Linear Measurements IVSd: 1.03 0.6-0.9/0.6-1.0 cm LVIDd: 5.70 3.9-5.3/4.2-5.9 cm LVIDd Index: 2.42 2.4-3.2/2.2-3.1 cm/m2 LVIDs: 4.58 2.0-3.6 cm LVPWd: 1.28 0.7-1.1 cm LA Diam: 4.80 2.7-3.8/3.0-4.0 cm LAIDs Index: 2.03 1.5-2.3 cm/m2 LV Mass: 341.88 67-162/88-224 g LV Mass Index: 144.86 43-95/49-115 g/m2 LVOT Diam: 2.20 3.0+(-)1.3 cm 2D Systolic Function EF 4C: 36.60 >55% EF 2C: 34.70 >55% EF BiP: 36.90 >55% Mitral Valve MV Pk E: 1.41 MV PK A: 1.27 MV Decel Time: 167.00 E/A: 1.10 E'Lateral: 5.18 E'Medial: 3.38 E/E' Med: 41.70 E/E' Lat: 27.20 PHT: 49.00 MVA PHT: 4.49 Decel Frio: 8.45 MR Vol - PW Dopp: 16.17 MR VTI: 1.47 MR ERO: 11.00 MR Alias Dave: 0.35 MR RAD: 0.50 Aortic Valve AoV Pk Dave: 1.17 AoV Mn Dave: 0.85 AoV VTI: 0.22 AoV Pk Grad: 5.00 Aov Mn Grad: 3.00 SAMRA Cont.VTI: 3.29 LVOT LVOT Pk Dave: 1.03 LVOT Mn Dave: 0.72 LVOT VTI: 0.19 LVOT Pk Grad: 4.00 LVOT Mn Grad: 2.00 LVOT Diam: 2.20 LVOT Area: 3.80 Diastolic Function MV Pk E: 1.41 MV Pk A: 1.27 E/A: 1.10 E'Medial: 3.38 E/E' Med: 41.70 E' Laterial: 5.18 E/E' Lat: 27.20 Right Ventricle TAPSE (mm): 27.00 TVS' Dave: 8.55 Tricuspid Valve TR Pk Dave: 2.72 TR Pk Grad: 30.00 RA Press: 3.00 RVSP: 33.00 Great Vessels Aorta Sinus of Valsalva: 2.90 2.0-3.5 cm Ao Asc: 3.40 2.1-3.4 cm Pulmonary Valve PV Pk Dave: 0.87 Peak PV Grad: 3.00 Updated in Other Vendor System with Status of Final Charles Cortez MD electronically signed on 01/13/2022 4:29:42 PM with status of Final
[2022-01-13 07:40] LABS: Glucose, Whole Blood 142 mg/dL (60-115)
[2022-01-13 08:00] VITALS: BP 158/74; PULSE 92; RESP 20; TEMP 36.1; O2SAT 100
[2022-01-13] MEDS: amLODIPine Besylate 5 MG TABLET PO (08:04)
[2022-01-13] MEDS: Furosemide 40 MG TABLET 80 MG PO ×2 (08:04→22:57)
[2022-01-13] MEDS: Sevelamer Carbonate Tablet 800 MG TABLET 2400 MG PO ×3 (08:05→17:03)
[2022-01-13] MEDS: 0.9 % Sodium Chloride Flush 3 ML SYRINGE IVFLUSH ×3 (08:07→22:58)
--- NOTE | 2022-01-13 10:13 | MHC.CM.PN ---
with gregorio met with pt ,pt goes to [facility] [place] [facility] ,he has own transport home covid vax x3 he has a cpa as well dc plan home
--- NOTE | 2022-01-13 11:10 | PM.CNCAR ---
History of Present Illness History of Present Illness Date of Service: 01/13/22 Requesting physician: Aminta Brito Consult reason: chest pain Chief complaint: shortness of breath and chest pain Narrative: I was consulted to see Manny in cardiology consultation today because of chest pain and shortness of breath. History was obtained with help of radar operator. Patient with prior history of end-stage renal disease on hemodialysis Wednesday, Wednesday and Wednesday, follows with Dr. Oretga. Patient has a also has a shirt presser at [facility] but cannot recall his name. He has prior history of diabetes, hypertension. Not sure of hyperlipidemia. He has no documented prior history of obstructive coronary artery disease or myocardial infarction. He had workup done at [facility] about 2 years ago with a myocardial perfusion imaging which showed a large fixed defect with normal wall motion, suggestive usually an artifact. Has normal LV ejection fraction by echocardiogram. Over the last month since he got his flu vaccine he says been getting symptoms of shortness of breath exertion and at nighttime he has been noticing symptoms of chest pressure. Symptoms usually happen when his blood pressure is elevated which is only happening over the last month or so and then he would get retrosternal chest pressure. Symptoms would last for 10-15 minutes and resolved. He denies any symptoms of exertional chest pain. However he does not exercise much. He only is mobile around his house. Does not go out shopping. He does have prior history of peripheral vascular disease. He also has history of anemia. Review of Systems Constitutional: Constitutional: Reports no additional constitutional complaints Eyes: Eyes: Reports no additional eye complaints Cardiovascular: Cardiovascular: Reports chest pain at rest (When his blood pressure is elevated), Denies syncope, Denies leg edema, Denies lightheadedness, Denies palpitations and Reports dyspnea on exertion Respiratory: Respiratory: Reports dyspnea on exertion Gastrointestinal: Gastrointestinal: Reports no additional gastrointestinal complaints Musculoskeletal: Musculoskeletal: Reports no additional musculoskeletal complaints Integumentary/Breasts: Skin/Breast: Reports system reviewed and no additional complaints, except as docu Neurologic: Reports system reviewed and no additional complaints, except as documented and Denies syncope Psychiatric: Psychiatric: Reports no additional psychiatric complaints Endocrine: Endocrine: Denies palpitations Hematologic/Lymphatic: Hematologic/Lymphatic: Reports no additional hematologic/lymphatic complaints Allergic/Immunologic: Allergic/Immunologic: Reports no additional allergic/immunologic complaints [facility] Past Medical History Medical History Asthma Diabetes End stage chronic kidney disease Family History Family History Mother CAD (coronary artery disease) Surgical History Surgical History AV fistula Social History Social History Household Members: Significant Other Housing: Apartment Do you presently have visiting nurse or other home services: No Alcohol intake: never Patient Tobacco Use Status: Never used Tobacco e-Cigarette/Vaping Use: Never Used Second Hand Smoke Exposure: No service: No Current occupational status: [employer] Allergies Allergy/AdvReac Type Severity Reaction Status Date / Time No Known Allergies Allergy Verified 12/17/21 01:45 [No Known Allergies*] Active Medications: Current Medications Acetaminophen (Acetaminophen 325 Mg Tablet) 650 mg PO Q6H PRN PRN Reason: Pain, Mild (Pain Scale 1-3) Amlodipine Besylate (Amlodipine Besylate 5 Mg Tablet) 5 mg PO DAILY [facility]; Protocol Last Admin: 01/13/22 08:04 Dose: 5 mg Furosemide (Furosemide 40 Mg Tablet) 80 mg PO SUTUTHSA@0900,2100 [facility]; Protocol Last Admin: 01/13/22 08:04 Dose: 80 mg Heparin Sodium (Porcine) (Heparin Sodium,Porcine 5,000 Unit/Ml Vial) 5,000 unit SUBCUT Q8H [facility] Last Admin: 01/13/22 03:25 Dose: 5,000 unit Insulin Human Lispro (Insulin Lispro 100 Unit/Ml 3 Ml Vial) 0 unit SUBCUT QIDACHS [facility]; Protocol Last Admin: 01/13/22 07:43 Dose: Not Given Omeprazole (Omeprazole 20 Mg Capsule.Dr) 20 mg PO DAILY PRN PRN Reason: Heartburn Ondansetron HCl (Ondansetron Hcl 4 Mg/2 Ml Vial) 4 mg IVPUSH Q8H PRN PRN Reason: Nausea and Vomiting Pharmacy Consult (Consult Rx Perform Med Rec) 1 each MISCELLANE ONCE PRN PRN Reason: Consult order Primidone (Primidone 50 Mg Tablet) 50 mg PO BID PRN PRN Reason: Tremor(S) Sevelamer Carbonate (Sevelamer Carbonate Tablet 800 Mg Tablet) 2,400 mg PO TIDWM [facility] Last Admin: 01/13/22 08:05 Dose: 2,400 mg Sodium Chloride (0.9 % Sodium Chloride Flush 3 Ml Syringe) 3 ml IVFLUSH QSHIFT [facility] Last Admin: 01/13/22 08:07 Dose: 3 ml Vitamin D (Cholecalciferol (Vitamin D3) 25 Mcg Tablet) 25 mcg PO DAILY@1700 [facility] Last Admin: 01/12/22 17:15 Dose: 25 mcg Home Medications Medication Instructions Recorded Confirmed Last Taken Type furosemide 80 mg tablet 80 mg PO SUTUTHSA@0900,2100 08/24/21 01/12/22 01/11/22 History glipizide 5 mg tablet, extended 5 mg PO DAILY@1700 08/24/21 01/12/22 01/11/22 History release 24 hr omeprazole 20 mg capsule,delayed 20 mg PO DAILY PRN Heartburn 08/24/21 01/12/22 08/23/21 History release primidone 50 mg tablet 50 mg PO BID PRN Tremor(S) 08/24/21 01/12/22 01/12/22 History sevelamer carbonate 800 mg tablet 2,400 mg PO TIDWM 08/24/21 01/12/22 01/11/22 History albuterol sulfate 90 mcg/actuation 2 puff inhalation Q4-6H PRN 01/12/22 01/12/22 01/12/22 History aerosol inhaler Shortness Of Breath Or Wheezing cholecalciferol (vitamin D3) 25 25 mcg PO DAILY@1700 01/12/22 01/12/22 01/11/22 History mcg (1,000 unit) capsule (Vitamin D3) Physical Exam Vital Signs: Vital Signs: Last Vital Signs Temp 97 F 01/13/22 08:00 Pulse 92 01/13/22 08:00 Resp 20 01/13/22 08:00 BP 158/74 H 01/13/22 08:00 Pulse Ox 100 01/13/22 08:00 O2 Del Method 01/13/22 08:00 BMI result Body Mass Index 31.4 Const: General: cooperative, comfortable, no acute distress, alert and awake Nutritional Appearance: overweight HEENT: Head: Yes normocephalic and Yes atraumatic Neck: Neck: Yes trachea midline, Yes supple and Yes no JVD Chest: Chest palpation & inspection: normal inspection of the chest Resp: Effort & Inspection: normal respiratory effort Auscultation: clear to auscultation bilaterally Cardio: Jugular venous distension: no JVD Palpation: normal PMI Rate: regular rate Rhythm: regular rhythm Heart sounds: S1 normal heart sound present, S2 normal heart sound present, no click, no gallops and Murmur heart sound present systolic early GI: Auscultation: normal bowel sounds Skin: General skin exam: no rashes or lesions noted Neuro: General: no focal motor deficits Extrem: General: Yes no clubbing, cyanosis or edema Objective Labs and Meds Result diagrams: 01/13/22 06:00 01/13/22 06:00 Lab results: Laboratory Results - last 24 hr 01/12/22 01/12/22 01/12/22 10:15 10:52 10:52 WBC RBC Hgb Hct MCV MCH MCHC RDW Plt Count MPV Absolute Nucleated RBC Nucleated RBC % (auto) Sodium Potassium Chloride Carbon Dioxide Anion Gap BUN Creatinine Estim Creat Clear Calc Estimated GFR POC Glucose Random Glucose Lactic Acid 1.2 Calcium Troponin I High Sens 224.2 H* Respiratory Panel Mora See Note Adenovirus (Rapid PCR) Not Detected B.pert (TEM-PCR) Not Detected B.parapertussis DNA PCR Not Detected C. pneumoniae DNA (PCR) Not Detected Coronavirus OC43 (PCR) Not Detected Coronavirus HKU1 (PCR) Not Detected Coronavirus 229E (PCR) Not Detected Coronavirus NL63 (PCR) Not Detected Human Metapneumovir PCR Not Detected Influenza A (RT-PCR) Not Detected Influenza B (RT-PCR) Not Detected M. pneumoniae (PCR) Not Detected Parainfluenza 1 (PCR) Not Detected Parainfluenza 2 (PCR) Not Detected Parainfluenza 3 (PCR) Not Detected Parainfluenza 4 (PCR) Not Detected RSV (PCR) Not Detected Entero/Rhino (PCR) Not Detected SARS-CoV-2 RNA (RT-PCR) Not Detected 01/12/22 01/12/22 01/12/22 11:30 16:38 21:38 WBC RBC Hgb Hct MCV MCH MCHC RDW Plt Count MPV Absolute Nucleated RBC Nucleated RBC % (auto) Sodium Potassium Chloride Carbon Dioxide Anion Gap BUN Creatinine Estim Creat Clear Calc Estimated GFR POC Glucose 208 H 138 H 248 H Random Glucose Lactic Acid Calcium Troponin I High Sens Respiratory Panel Mora Adenovirus (Rapid PCR) B.pert (TEM-PCR) B.parapertussis DNA PCR C. pneumoniae DNA (PCR) Coronavirus OC43 (PCR) Coronavirus HKU1 (PCR) Coronavirus 229E (PCR) Coronavirus NL63 (PCR) Human Metapneumovir PCR Influenza A (RT-PCR) Influenza B (RT-PCR) M. pneumoniae (PCR) Parainfluenza 1 (PCR) Parainfluenza 2 (PCR) Parainfluenza 3 (PCR) Parainfluenza 4 (PCR) RSV (PCR) Entero/Rhino (PCR) SARS-CoV-2 RNA (RT-PCR) 01/13/22 01/13/22 01/13/22 06:00 06:00 07:28 WBC 5.1 RBC 3.18 L Hgb 9.5 L Hct 28.5 L MCV 89.6 MCH 29.9 MCHC 33.3 RDW 13.8 Plt Count 290 MPV 8.9 L Absolute Nucleated RBC 0.000 Nucleated RBC % (auto) 0.0 Sodium 136 Potassium 4.4 Chloride 100 Carbon Dioxide 24 Anion Gap 16 BUN 31 H Creatinine 5.85 H* Estim Creat Clear Calc 17.1 Estimated GFR 10 POC Glucose 142 H Random Glucose 146 H Lactic Acid Calcium 8.9 D Troponin I High Sens Respiratory Panel Mora Adenovirus (Rapid PCR) B.pert (TEM-PCR) B.parapertussis DNA PCR C. pneumoniae DNA (PCR) Coronavirus OC43 (PCR) Coronavirus HKU1 (PCR) Coronavirus 229E (PCR) Coronavirus NL63 (PCR) Human Metapneumovir PCR Influenza A (RT-PCR) Influenza B (RT-PCR) M. pneumoniae (PCR) Parainfluenza 1 (PCR) Parainfluenza 2 (PCR) Parainfluenza 3 (PCR) Parainfluenza 4 (PCR) RSV (PCR) Entero/Rhino (PCR) SARS-CoV-2 RNA (RT-PCR) Assessment and Plan (1) Chest pain: Status: Acute Patient with chest pain usually with elevated blood pressure usually at nighttime. This is usually suggestive myocardial ischemia could be due to subendocardial strain from hypertension. Obstructive coronary artery disease cannot be ruled out and is at high risk for the same. He had a myocardial perfusion imaging about 2 years ago. I think he requires further evaluation of this chest pain syndrome with invasive cardiac catheterization. Discussed with him about this finding with the radar operator. He said he is agreeable and will pursue this as an outpatient. There is no clear evidence of acute coronary syndrome. His troponin elevations of flat and could be related to febrile illness and/or hypertension with hypertensive heart disease as well as in the setting of end-stage renal disease, troponin elevations common. Continue treat his febrile illness and asthma. I will prescribe him Isordil 10 mg at nighttime to control his blood pressure as well as his chest pain syndrome. Follow-up as outpatient with his shirt presser as well as his roller repairer. Continue aggressive blood pressure control. Continue current therapy for the same. Advised to monitor blood pressure at home and maintain a log. Goal blood pressure less than 140/80. Continue statin therapy. High-intensity. Low-dose aspirin therapy is also recommended. Will sign of the case and advised him to follow-up with his shirt presser as outpatient. Procedures Date of Service Date of Service: 01/13/22
[2022-01-13 11:29] LABS: Glucose, Whole Blood 184 mg/dL (60-115)
[2022-01-13] MEDS: Insulin Lispro 100 UNIT/ML 3 ML VIAL SUBCUT (11:47)
[2022-01-13 12:00] VITALS: BP 149/67; PULSE 90; RESP 18; TEMP 35.5; O2SAT 99
--- NOTE | 2022-01-13 14:27 | PM.PNNEP ---
Subjective Subjective Date of Service: 01/13/22 Interval history: Seen and examined, events noted Physical Exam Vital Signs: Vital Signs: Last Vital Signs Temp 96 F L 01/13/22 12:00 Pulse 90 01/13/22 12:00 Resp 18 01/13/22 12:00 BP 149/67 H 01/13/22 12:00 Pulse Ox 99 01/13/22 12:00 O2 Del Method 01/13/22 12:00 BMI result Body Mass Index 31.4 Const: Other: Constitutional - Awake and Alert, No apparent distress Eyes - PERRLA, EOMI Cardiovascular - S1S2, RRR, No edema Respiratory - Normal lung expansion, Normal respiratory effort, No respiratory distress, CTA bilaterally Gastrointestinal - NT / ND; +BS; No rebound or guarding - No CVA tenderness Extremities - no calf tenderness bilaterally, no swelling Musculoskeletal - Normal inspection, normal ROM; LUE av fistula + bruit Skin - Warm/Dry Neurological - Alert & oriented x3, No focal deficit Psychological - Appropriate affect General: cooperative, comfortable, no acute distress, alert and awake Nutritional Appearance: overweight HEENT: Head: Yes normocephalic and Yes atraumatic Neck: Neck: Yes trachea midline, Yes supple and Yes no JVD Chest: Chest palpation & inspection: normal inspection of the chest Resp: Effort & Inspection: normal respiratory effort Auscultation: clear to auscultation bilaterally Cardio: Jugular venous distension: no JVD Palpation: normal PMI Rate: regular rate Rhythm: regular rhythm Heart sounds: S1 normal heart sound present, S2 normal heart sound present, no click, no gallops and Murmur heart sound present systolic early GI: Auscultation: normal bowel sounds Skin: General skin exam: no rashes or lesions noted Neuro: General: no focal motor deficits Extrem: General: Yes no clubbing, cyanosis or edema Objective Data Labs CBC & Chem 7: 01/13/22 06:00 01/13/22 06:00 Labs: Laboratory Results - last 24 hr 01/12/22 01/12/22 01/13/22 16:38 21:38 06:00 WBC 5.1 RBC 3.18 L Hgb 9.5 L Hct 28.5 L MCV 89.6 MCH 29.9 MCHC 33.3 RDW 13.8 Plt Count 290 MPV 8.9 L Absolute Nucleated RBC 0.000 Nucleated RBC % (auto) 0.0 Sodium Potassium Chloride Carbon Dioxide Anion Gap BUN Creatinine Estim Creat Clear Calc Estimated GFR POC Glucose 138 H 248 H Random Glucose Calcium 01/13/22 01/13/22 01/13/22 06:00 07:28 11:21 WBC RBC Hgb Hct MCV MCH MCHC RDW Plt Count MPV Absolute Nucleated RBC Nucleated RBC % (auto) Sodium 136 Potassium 4.4 Chloride 100 Carbon Dioxide 24 Anion Gap 16 BUN 31 H Creatinine 5.85 H* Estim Creat Clear Calc 17.1 Estimated GFR 10 POC Glucose 142 H 184 H Random Glucose 146 H Calcium 8.9 D Microbiology Microbiology Results: Microbiology 01/12/22 06:47 Blood - Venous Blood Culture - Preliminary No growth after 24 hours. 01/12/22 06:47 Blood - Venous Blood Culture - Preliminary No growth after 24 hours. Procedures Date of Service Date of Service: 01/13/22 Assessment & Plan Assessment and plan (1) Chest pain: Status: Acute Assessment and Plan: ESRD: MWF HTN Asthma Anemia REC: cnt HD 3x/wk; meds as noted; d/c pplanning Time Spent With Patient Time: Total time spent is greater than 50% in coordination of care (as documented) at patient's floor/unit and/or counseling patient: Progress Note: Quality Stroke Does the patient have a stroke diagnosis?: No
--- NOTE | 2022-01-13 15:15 | P.PNIM_ITS ---
Subjective Subjective Date of Service: 01/13/22 Interval History: sob, elevated trops , fevers? Review of Systems denies any chest pain or sob or urinary c/o or cough . Physical Exam Vital Signs: Vital Signs: Last Vital Signs Temp 96 F L 01/13/22 12:00 Pulse 90 01/13/22 12:00 Resp 18 01/13/22 12:00 BP 149/67 H 01/13/22 12:00 Pulse Ox 99 01/13/22 12:00 O2 Del Method 01/13/22 12:00 BMI result Body Mass Index 31.4 Appearance: Alert.? Oriented X3.? cvs: rrr, [id number] , no murmur res: air enrty seems fair ,no rales or wheezing abd: no rebound or guarding ,nt, bs present. ext pulses present , no cyanosis . neuro: axo3 , nonfocal. Objective Data Active Medications Acetaminophen (Acetaminophen 325 Mg Tablet) 650 mg PO Q6H PRN PRN Reason: Pain, Mild (Pain Scale 1-3) Amlodipine Besylate (Amlodipine Besylate 5 Mg Tablet) 5 mg PO DAILY [facility]; Protocol Last Admin: 01/13/22 08:04 Dose: 5 mg Documented By: NAPOLEON Furosemide (Furosemide 40 Mg Tablet) 80 mg PO SUTUTHSA@0900,2100 [facility]; Protocol Last Admin: 01/13/22 08:04 Dose: 80 mg Documented By: NAPOLEON Heparin Sodium (Porcine) (Heparin Sodium,Porcine 5,000 Unit/Ml Vial) 5,000 unit SUBCUT Q8H [facility] Last Admin: 01/13/22 11:47 Dose: 5,000 unit Documented By: VIJAY Insulin Human Lispro (Insulin Lispro 100 Unit/Ml 3 Ml Vial) 0 unit SUBCUT QIDACHS [facility]; Protocol Last Admin: 01/13/22 11:47 Dose: 2 unit Documented By: VIJAY Omeprazole (Omeprazole 20 Mg Capsule.) 20 mg PO DAILY PRN PRN Reason: Heartburn Ondansetron HCl (Ondansetron Hcl 4 Mg/2 Ml Vial) 4 mg IVPUSH Q8H PRN PRN Reason: Nausea and Vomiting Pharmacy Consult (Consult Rx Perform Med Rec) 1 each MISCELLANE ONCE PRN PRN Reason: Consult order Primidone (Primidone 50 Mg Tablet) 50 mg PO BID PRN PRN Reason: Tremor(S) Sevelamer Carbonate (Sevelamer Carbonate Tablet 800 Mg Tablet) 2,400 mg PO TIDWM [facility] Last Admin: 01/13/22 11:47 Dose: 2,400 mg Documented By: VIJAY Sodium Chloride (0.9 % Sodium Chloride Flush 3 Ml Syringe) 3 ml IVFLUSH QSHIFT [facility] Last Admin: 01/13/22 08:07 Dose: 3 ml Documented By: NAPOLEON Vitamin D (Cholecalciferol (Vitamin D3) 25 Mcg Tablet) 25 mcg PO DAILY@1700 [facility] Last Admin: 01/12/22 17:15 Dose: 25 mcg Documented By: EVESCKAY Labs CBC & Chem 7: 01/13/22 06:00 01/13/22 06:00 Labs: Laboratory Results - last 24 hr 01/12/22 01/12/22 01/13/22 16:38 21:38 06:00 MCV 89.6 MCH 29.9 MCHC 33.3 RDW 13.8 Plt Count 290 MPV 8.9 L Absolute Nucleated RBC 0.000 Nucleated RBC % (auto) 0.0 Anion Gap Estim Creat Clear Calc Estimated GFR POC Glucose 138 H 248 H Random Glucose Calcium 01/13/22 01/13/22 01/13/22 06:00 07:28 11:21 MCV MCH MCHC RDW Plt Count MPV Absolute Nucleated RBC Nucleated RBC % (auto) Anion Gap 16 Estim Creat Clear Calc 17.1 Estimated GFR 10 POC Glucose 142 H 184 H Random Glucose 146 H Calcium 8.9 D Microbiology Microbiology Results: Microbiology 01/12/22 06:47 Blood Culture - Preliminary Blood - Venous No growth after 24 hours. 01/12/22 06:47 Blood Culture - Preliminary Blood - Venous No growth after 24 hours. Assessment and Plan (1) Elevated troponin: Status: Acute (2) Elevated troponin: Status: Acute (3) HTN (hypertension): Status: Acute Plan 61 yo M with a PMH of DM, HTN, Asthma who presents to the ED with sudden onset shortness of breath and associated anginal type chest pain. He also had a low grade fever in the ED. He will be admitted for further work up and treatment. 1. Shortness of breath / chest pain HS trop-I are elevated around 200's EKG without significant changes from prior and does not have a current chest pain Elevated troponin possibly secondary to uncontrolled hypertension, end-stage renal disease. patient may need outpatient cardiac workup outpatient with his pad machine operator. echo pending 2. Fever isolated x 1 no definitive foci of infection -- received 1 dose rocephin in the ED, but given no definitive source, will hold off further check full respiratory pathogen panel (COVID/Flu/RSV negative) Blood culture pending. Currently denies any new complaints. 3. ESRD on HD MWF due today, will consult nephrology 4. Elevated BP: uncontrolled: continue amlodipine ,added isodril 5.DM: fs 140-180 range hold orals diabetic diet and using sliding scale Full Code DVT pptx, subcut. heparin. ongoing inpatient need: fuo -pending blood cultures.unconctrolled htn -need bp medications adjustment, elevated trops -echo pendin Quality Stroke Does the patient have a stroke diagnosis?: No VTE Prior VTE?: No VTE Risk Level:: Medical - moderate - high VTE Device Contraindication: Treatment Not Indicated VTE Drug Contraindication: N/A - Med Ordered
[2022-01-13 16:00] VITALS: BP 152/72; PULSE 93; RESP 18; TEMP 37.1; O2SAT 100
[2022-01-13 16:55] LABS: Glucose, Whole Blood 120 mg/dL (60-115)
[2022-01-13] MEDS: Cholecalciferol (Vitamin D3) 25 MCG TABLET PO (17:03)
[2022-01-13] MEDS: Aspirin Enteric Coated 81 MG TABLET.DR PO (17:03)
[2022-01-13 19:28] VITALS: BP 164/79; PULSE 87; RESP 18; TEMP 37.1; O2SAT 97
[2022-01-13 19:29] LABS: Glucose, Whole Blood 136 mg/dL (60-115)
[2022-01-13] MEDS: Atorvastatin Calcium 40 MG TABLET PO (22:57)
[2022-01-13] MEDS: Metoprolol Tartrate 25 MG TABLET PO (22:57)
[2022-01-13] MEDS: Isosorbide Dinitrate 10 MG TABLET PO (22:57)
[2022-01-13 23:42] VITALS: BP 149/82; PULSE 94; RESP 18; TEMP 37.1; O2SAT 98
[2022-01-14] MEDS: Heparin Sodium,Porcine 5,000 UNIT/ML VIAL 5000 UNIT SUBCUT (02:34)
[2022-01-14 04:00] VITALS: BP 137/62; PULSE 87; RESP 20; TEMP 37.2; O2SAT 99
[2022-01-14 07:21] LABS: Glucose, Whole Blood 124 mg/dL (60-115)
[2022-01-14 07:31] LABS: Appearance Urine Clear; Color Urine Yellow; Glucose Urine UA 100 mg/dL (Negative); Leukocyte Esterase Urine Negative (Negative); Nitrite Urine Negative (Negative); PH >= 9.0 (5.0-9.0); UMIC TRIGGER UACC YES; Urine Blood Negative (Negative); Urine Ketones Negative (Negative); Urine Protein 300 (3+) mg/dL (Neg-Trace)
[2022-01-14 07:33] VITALS: BP 169/79; PULSE 87; RESP 18; TEMP 36.9; O2SAT 99
[2022-01-14 07:33] LABS: Bacteria Urine None Seen (None Seen); Hyaline Casts Urine 0-2 /LPF (0-2); RBC Urine 0-2 /HPF (0-2); Squamous Epithelial Cell Urine 0-2 /HPF (0-2); UACC Culture Trigger YES
[2022-01-14] MEDS: Aspirin Enteric Coated 81 MG TABLET.DR PO (08:46)
[2022-01-14] MEDS: Sevelamer Carbonate Tablet 800 MG TABLET 2400 MG PO ×2 (08:46→16:55)
[2022-01-14] MEDS: 0.9 % Sodium Chloride Flush 3 ML SYRINGE IVFLUSH (08:48)
--- NOTE | 2022-01-14 11:08 | P.PNNP_ITS ---
Subjective Subjective Date of Service: 01/14/22 Interval history: Seen and examined, events noted Physical Exam Vital Signs: Vital Signs: Last Vital Signs Temp 98.4 F 01/14/22 07:33 Pulse 87 01/14/22 07:33 Resp 18 01/14/22 07:33 BP 169/79 H 01/14/22 07:33 Pulse Ox 99 01/14/22 07:33 O2 Del Method 01/14/22 07:33 BMI result Body Mass Index 31.4 Const: Other: Constitutional - Awake and Alert, No apparent distress Eyes - PERRLA, EOMI Cardiovascular - S1S2, RRR, No edema Respiratory - Normal lung expansion, Normal respiratory effort, No respiratory distress, CTA bilaterally Gastrointestinal - NT / ND; +BS; No rebound or guarding - No CVA tenderness Extremities - no calf tenderness bilaterally, no swelling Musculoskeletal - Normal inspection, normal ROM; LUE av fistula + bruit Skin - Warm/Dry Neurological - Alert & oriented x3, No focal deficit Psychological - Appropriate affect General: cooperative, comfortable, no acute distress, alert and awake Nutritional Appearance: overweight HEENT: Head: Yes normocephalic and Yes atraumatic Neck: Neck: Yes trachea midline, Yes supple and Yes no JVD Chest: Chest palpation & inspection: normal inspection of the chest Resp: Effort & Inspection: normal respiratory effort Auscultation: clear to auscultation bilaterally Cardio: Jugular venous distension: no JVD Palpation: normal PMI Rate: regular rate Rhythm: regular rhythm Heart sounds: S1 normal heart sound present, S2 normal heart sound present, no click, no gallops and Murmur heart sound present systolic early GI: Auscultation: normal bowel sounds Skin: General skin exam: no rashes or lesions noted Neuro: General: no focal motor deficits Extrem: General: Yes no clubbing, cyanosis or edema Objective Data Labs CBC & Chem 7: 01/13/22 06:00 01/13/22 06:00 Labs: Laboratory Results - last 24 hr 01/13/22 01/13/22 01/13/22 11:21 16:50 19:23 POC Glucose 184 H 120 H 136 H Urine Color Urine Appearance Urine pH Ur Specific [place] Urine Protein Urine Glucose (UA) Urine Ketones Urine Blood Urine Nitrite Ur Leukocyte Esterase Urine RBC Urine WBC Ur Squamous Epith Cells Urine Bacteria Hyaline Casts 01/14/22 01/14/22 06:38 07:09 POC Glucose 124 H Urine Color Yellow Urine Appearance Clear Urine pH >= 9.0 Ur Specific [place] 1.010 Urine Protein 300 (3+) H Urine Glucose (UA) 100 H Urine Ketones Negative Urine Blood Negative Urine Nitrite Negative Ur Leukocyte Esterase Negative Urine RBC 0-2 Urine WBC 6-10 H Ur Squamous Epith Cells 0-2 Urine Bacteria None Seen Hyaline Casts 0-2 Microbiology Microbiology Results: Microbiology 01/12/22 06:47 Blood - Venous Blood Culture - Preliminary No growth after 48 hours. 01/12/22 06:47 Blood - Venous Blood Culture - Preliminary No growth after 48 hours. Procedures Date of Service Date of Service: 01/14/22 Assessment & Plan Assessment and plan (1) Chest pain: Status: Acute Assessment and Plan: ESRD: MWF HTN Asthma Anemia CP and new ECHO findings--being eval by card REC: cont HD 3x/wk; meds as noted; poss xfer to [facility] for furhter card eval Time Spent With Patient Time: Total time spent is greater than 50% in coordination of care (as documented) at patient's floor/unit and/or counseling patient: Progress Note: Quality Stroke Does the patient have a stroke diagnosis?: No
--- NOTE | 2022-01-14 12:33 | P.PNCA_ITS ---
Subjective Subjective Date of Service: 01/14/22 <DAMIEN Yeh - Last Filed: 01/14/22 12:55> 01/14/22 <Charles Cortez MD - Last Filed: 01/14/22 14:37> Principal diagnosis: new CMP, CP, HTN <DAMIEN Yeh - Last Filed: 01/14/22 12:55> Interval history: Seen at 1000. Pt in dialysis at time of my visit. Certified thai interpretor used. He report that he is feeling better than admit. His breathing is comfortable, no cough. No chest discomfort, palpitations. Tells me he was up walking in room earlier today without symptoms. Tele monitor showing SR. Discussed plan for [facility] transfer and he is agreeable. <DAMIEN Yeh - Last Filed: 01/14/22 12:55> Review of Systems Review of Systems as above <DAMIEN Yeh - Last Filed: 01/14/22 12:55> Yes all other systems are reviewed and are negative <DAMIEN Yeh - Last Filed: 01/14/22 12:55> Physical Exam Vital Signs: Last Vital Signs Temp 98.4 F 01/14/22 07:33 Pulse 87 01/14/22 07:33 Resp 18 01/14/22 07:33 BP 169/79 H 01/14/22 07:33 Pulse Ox 99 01/14/22 07:33 O2 Del Method 01/14/22 07:33 BMI result Body Mass Index 31.4 <DAMIEN Yeh - Last Filed: 01/14/22 12:55> Const General: cooperative, comfortable and no acute distress <DAMIEN Yeh - Last Filed: 01/14/22 12:55> Orientation/consciousness: patient oriented x3 <DAMIEN Yeh - Last Filed: 01/14/22 12:55> Neck Neck: Yes normal visual inspection and Yes no JVD <DAMIEN Yeh - Last Filed: 01/14/22 12:55> Resp Effort & Inspection: normal respiratory effort <DAMIEN Yeh - Last Filed: 01/14/22 12:55> Auscultation: clear to auscultation bilaterally, no crackles, no rales, no rhonchi and no wheezes <Eliza Guardado NP - Last Filed: 01/14/22 12:55> Cardio Jugular venous distension: no JVD <Elizanery Guardado [facility] Last Filed: 01/14/22 12:55> Rate: regular rate <Eliza [facility] - Last Filed: 01/14/22 12:55> Rhythm: regular rhythm <Eliza [facility] - Last Filed: 01/14/22 12:55> Heart sounds: S1 normal heart sound present, S2 normal heart sound present, no gallops, no murmurs and no rubs <[facility]iza [facility] - Last Filed: 01/14/22 12:55> Neuro General: patient oriented x3 <Elizanery Guardado [facility] Last Filed: 01/14/22 12:55> Extrem General: Yes normal to inspection, No no pedal edema and No calf tenderness <Eliza [facility] - Last Filed: 01/14/22 12:55> Psych Appearance: grossly normal <Elizanery Guardado [facility] - Last Filed: 01/14/22 12:55> Mental Status: mental status grossly normal <Eliza Guardado [facility] - Last Filed: 01/14/22 12:55> Speech and movement: Normal speech and movement present <Eliza Debby [facility] Last Filed: 01/14/22 12:55> Objective Labs and Meds Result diagrams: : 01/13/22 06:00 01/13/22 06:00 <Eliza Guardado [facility] - Last Filed: 01/14/22 12:55> Lab results: Laboratory Results - last 24 hr 01/13/22 01/13/22 01/14/22 16:50 19:23 06:38 POC Glucose 120 H 136 H Urine Color Yellow Urine Appearance Clear Urine pH >= 9.0 Ur Specific [place] 1.010 Urine Protein 300 (3+) H Urine Glucose (UA) 100 H Urine Ketones Negative Urine Blood Negative Urine Nitrite Negative Ur Leukocyte Esterase Negative Urine RBC 0-2 Urine WBC 6-10 H Ur Squamous Epith Cells 0-2 Urine Bacteria None Seen Hyaline Casts 0-2 01/14/22 07:09 POC Glucose 124 H Urine Color Urine Appearance Urine pH Ur Specific [place] Urine Protein Urine Glucose (UA) Urine Ketones Urine Blood Urine Nitrite Ur Leukocyte Esterase Urine RBC Urine WBC Ur Squamous Epith Cells Urine Bacteria Hyaline Casts <DAMIEN Yeh - Last Filed: 01/14/22 12:55> Progress Note: A&P Assessment and plan (1) Chest pain: Status: Acute <DAMIEN Yeh - Last Filed: 01/14/22 12:55> Assessment and Plan: Reports of intermittent CPs prior to admit, nonexertional. No Known hx CAD. Notes indicate prior ischemic eval at [facility] about 2 yrs ago showing Echo with normal EF, Nuclear stress with artifact, no ischemia. This admit EKG not ischemic. Troponins elevated - flat. Echo done yesterday shows EF 35-40%, WMA cant be excluded, mild to mod MR. BP was elevated, Isordil added. Pt will need cardiac cath to eval for obstructive CAD. Planning transfer to [facility]. Informed pt of plan and he is agreeable. Report called to [facility] hospitalist service and requested they consult [facility] cardiology. Pt follows with [facility] cardiology but does not recall his providers name. [facility] will call [facility] when bed is available. <DAMIEN Yeh - Last Filed: 01/14/22 12:55> Reports of intermittent CPs prior to admit, nonexertional. No Known hx CAD. Notes indicate prior ischemic eval at [facility] about 2 yrs ago showing Echo with normal EF, Nuclear stress with artifact, no ischemia. This admit EKG not ischemic. Troponins elevated - flat. Echo done yesterday shows EF 35-40%, WMA cant be excluded, mild to mod MR. BP was elevated, Isordil added. Pt will need cardiac cath to eval for obstructive CAD. Planning transfer to [facility]. Informed pt of plan and he is agreeable. Report called to [facility] hospitalist service and requested they consult [facility] cardiology. Pt follows with [facility] cardiology but does not recall his providers name. [facility] will call [facility] when bed is available. Patient seen and examined. Case discussed with Eliza Guardado. Patient present with chest pain with elevated blood pressure at nighttime. Noted to have significantly reduced LV ejection fraction 35-40%. With his chest pain syndrome with elevated troponins, high likelihood of underlying coronary artery disease. Recommend transfer to [facility] for cardiac catheterization. Discussed with patient about management plan. Understands agrees. Continue to maximize nitrates him metoprolol. Can eventually add Norvasc to his regimen. Will sign of the case. Thank you for allowing us to partake in his care <Charles Cortez MD - Last Filed: 01/14/22 14:37> (2) Elevated troponin: Status: Acute <DAMIEN Yeh - Last Filed: 01/14/22 12:55> (3) Cardiomyopathy: Status: Acute <DAMIEN Yeh - Last Filed: 01/14/22 12:55> Assessment and Plan: New finding. <DAMIEN Yeh - Last Filed: 01/14/22 12:55> (4) HTN (hypertension): Status: Acute <DAMIEN Yeh - Last Filed: 01/14/22 12:55> Assessment and Plan: Hx HTN. BP elevated this admit. He continues on Lasix, metoprolol, amlodipine. Isordil has been added. <DAMIEN Yeh - Last Filed: 01/14/22 12:55> (5) Fever of unknown origin: Status: Acute <DAMIEN Yeh - Last Filed: 01/14/22 12:55> Assessment and Plan: resolved. No covid, RSV or influenza. <DAMIEN Yeh - Last Filed: 01/14/22 12:55> (6) End stage chronic kidney disease: Status: Acute <DAMIEN Yeh - Last Filed: 01/14/22 12:55> Assessment and Plan: Dialysis pt. Follows with Dr Ortega/ [facility]. Attends dialysis Mon - Wed- Fri. He is having dialysis today. [facility] informed <DAMIEN Yeh - Last Filed: 01/14/22 12:55> Time Spent With Patient Time: Total time spent is greater than 50% in coordination of care (as documented) at patient's floor/unit and/or counseling patient: 24 <DAMIEN Yeh - Last Filed: 01/14/22 12:55> Progress Note: Quality Stroke Does the patient have a stroke diagnosis?: No <DAMIEN Yeh - Last Filed: 01/14/22 12:55> Procedures Date of Service Date of Service: 01/14/22 <DAMIEN Yeh - Last Filed: 01/14/22 12:55>
[2022-01-14 13:13] VITALS: BP 166/74; PULSE 86; RESP 18; TEMP 36.6; O2SAT 99
[2022-01-14 13:18] LABS: Glucose, Whole Blood 129 mg/dL (60-115)
--- NOTE | 2022-01-14 13:52 | PM.DS ---
DS: Providers Provider Date of Service: 01/14/22 Date of admission: 01/12/22 10:46 Primary care physician: Azalea Lanier MD Consults: 01/12/22 10:46 Consult to Nephrology Routine Consulting Provider: Clifford Tristan Reason for consultation: ESRD MWF dialysis 01/12/22 10:48 Consult to Cardiology Routine Consulting Provider: Charles Cortez Reason for consultation: chest pain, elevated trop, multiple risk factors DS: Diagnosis Discharge Diagnosis (1) Chest pain: Status: Acute (2) Elevated troponin: Status: Acute (3) Cardiomyopathy: Status: Acute (4) HTN (hypertension): Status: Acute (5) Fever of unknown origin: Status: Acute (6) End stage chronic kidney disease: Status: Acute DS: Summary Hospital Course Hospital Course: ?61 yo M with multiple medical problems including HTN, ESRD on HD MWF, DM who is primarily Fijian speaking. Critical Care Unit Nurse services are used and his who is bedside helps with the history. The patient, who reports that he was in his [place] of [place] when he went to bed the night before admission, states that early AM he was awoken by sudden onset of trouble breathing. He states he had associated pressure like pain which lasted about 10-15 minutes. His states that she took his blood pressure during the time and he had readings over 200 and hence paramedics were called. She reports that he had a similar episode to this about 1 month ago and the chest pain during that time last about the same. She states that a physician in [place] told him that he has had a mild heart attack before. Even with emotionally impaired teacher services, unable to determine if any PCI was done at that time. Upon arrival to the ED, the patient had a low grade fever -- 100.7; BP on arrival was 151/83 (per patient/ -- he took his BP meds this AM). Infectious work up showed a UA without any bacteria, but mild pyuria. CXR showed right sided effusion (small) but otherwise no significant change from prior studies. Otherwise, he had remained hemodynamically stable. He has been given IV lasxi, IV rocephin, tylenol, aspirin and 500 cc of IVF. He will now be admitted for further work up. hospital course: Patient was admitted initially due to chest pain and some short of breath in setting of elevated blood pressure of 200 range and also found to have elevated troponin: patient was seen by Cardiology started on aspirin, statin, beta-john, echo was done- seems abnormal( see below in imaging section.) and need further cardiac workup- So patient is going to [facility] for further cardiac workup including possible cardiac catheterization. Patient had 1 time fever episode: blood culture negative, COVID flu and RSV also negative. UA- asymptomatic pyuria, no bacteriuria patient is asymptomatic, if any new episode of fever consider repeating workup and urine culture. Currently we Defer antibiotic treatment. uncontrolled hypertension: Patient already on amlodipine, metoprolol, Isordil. blood pressure improving. Above management discussed the patient in detail length- He understand and in agreement with the plan. Time Spent with Patient Time attestation: Total time spent providing and/or coordinating discharge services: Discharge coordination time: Greater than 30 minutes Quality: Safe Use of Opioids Does Pt have an Active Cancer Diagnosis on the Problem List?: No Quality: Stroke Does the patient have a stroke diagnosis?: No Physical Exam Vital Signs: Vital Signs: Last Vital Signs Temp 97.8 F 01/14/22 13:13 Pulse 86 01/14/22 13:13 Resp 18 01/14/22 13:13 BP 166/74 H 01/14/22 13:13 Pulse Ox 99 01/14/22 13:13 O2 Del Method 01/14/22 13:13 BMI result Body Mass Index 31.4 Appearance: Alert.? Oriented X3.? not in distress.? Eyes: Pupils equal, round and reactive to light.? Sclera nonicteric.? ENT: Pharynx normal.? Moist mucous membranes. cvs: rrr, [id number] , no murmur res: clear to auscultation ,no rhonchii or wheezing abd: no rebound or guarding ,nt, bs present. ext pulses present , no cyanosis . neuro: axo3 , nonfocal. DS: Data Data Completed and Pending Completed studies during hospitalization [Text1]: Procedures Performance of Urinary Filtration, Intermittent, Less than 6 Hours Per Day (08/24/21) Labs on day of discharge: Laboratory Results - last 24 hr 01/13/22 01/13/22 01/14/22 16:50 19:23 06:38 POC Glucose 120 H 136 H Urine Color Yellow Urine Appearance Clear Urine pH >= 9.0 Ur Specific [place] 1.010 Urine Protein 300 (3+) H Urine Glucose (UA) 100 H Urine Ketones Negative Urine Blood Negative Urine Nitrite Negative Ur Leukocyte Esterase Negative Urine RBC 0-2 Urine WBC 6-10 H Ur Squamous Epith Cells 0-2 Urine Bacteria None Seen Hyaline Casts 0-2 01/14/22 01/14/22 07:09 13:11 POC Glucose 124 H 129 H Urine Color Urine Appearance Urine pH Ur Specific [place] Urine Protein Urine Glucose (UA) Urine Ketones Urine Blood Urine Nitrite Ur Leukocyte Esterase Urine RBC Urine WBC Ur Squamous Epith Cells Urine Bacteria Hyaline Casts Preliminary micro results at discharge 01/12/22 06:47 Blood Culture - Preliminary Blood - Venous No growth after 48 hours. 01/12/22 06:47 Blood Culture - Preliminary Blood - Venous No growth after 48 hours. Additional Comments Additional comments: XR/XR chest 2V IMPRESSION: 1.? Increased small amount of right-sided pleural fluid. 2.? Otherwise, no significant change. echo:Conclusions: - 1. Mildly dilated left ventricle with moderately reduced LV? ? systolic function with mild LVH with grade 2 diastolic ? dysfunction? 2. Mildly dilated left atrium? 3. [id number] mitral regurgitation? with moderate mitral ? annular calcification? 4. Normal RV systolic pressure ? Findings Procedure Information Contrast agent, definity, is being given per protocol without apparent complications. Left Ventricle Mildly increased left ventricular cavity size.? There is mildly increased left ventricular wall thickness.? The left ventricular systolic function is moderately decreased.? The visually estimated ejection fraction is between 35 40%.? Regional wall motion abnormalities can not be excluded due to suboptimal endocardial definition.? Spectral Doppler is indicative of a pseudonormal filling pattern.? E/E prime ratio is >15, consistent with elevated filling pressures.? Evidence suggests grade II (moderate) diastolic dysfunction. Right Ventricle The right ventricle was not well visualized. Atria The left atrium is mildly dilated.? Interatrial shunt cannot be excluded. The right atrium was not well visualized. Aortic Valve The aortic valve was not well visualized.? There is no aortic valve stenosis. ?There is no aortic valve regurgitation. Mitral Valve There is mild anterior mitral leaflet thickening. There is moderate mitral annular calcification.? There is mild to moderate mitral valve regurgitation. ?There is no mitral valve stenosis. Pulmonic Valve The pulmonic valve was not well visualized. Tricuspid Valve The tricuspid valve was not well visualized.? There is mild tricuspid valve regurgitation.? The right ventricular systolic pressure is normal.? The right ventricular systolic pressure is 33 mmHg.? There is no evidence of pulmonary hypertension. Great Vessels The aorta was not well visualized.? The pulmonary artery was not well visualized. Venous The inferior vena cava is normal in size and collapses greater than 50% with inspiration. Pericardium/Pleural The pericardium was not well visualized. Prior Study Comparison No prior study available for comparison. ? Discharge Plan Discharge Patient Disposition: Xfer Acute [facility] Discharge Diagnosis: esrd, cmp , fever episode Referrals: Azalea Lanier MD [Primary Care Provider] - 1 Week Discharge Medications: New aspirin 81 mg Tablet,Delayed Release (Dr/Ec) 81 mg PO DAILY Qty: 1 0RF atorvastatin 40 mg Tablet 40 mg PO BEDTIME Qty: 1 0RF isosorbide dinitrate 10 mg Tablet 10 mg PO BEDTIME Qty: 1 0RF Protocol: Hold for SBP< HOLD for SBP < : 90 metoprolol tartrate 25 mg Tablet 25 mg PO BID Qty: 1 0RF Protocol: Hold for SBP/HR < HOLD for SBP < : 90 HOLD for HR < : 60 Continued furosemide 80 mg tablet 80 mg PO SUTUTHSA@0900,2100 omeprazole 20 mg capsule,delayed release(DR/EC) 20 mg PO DAILY PRN (Reason: Heartburn) sevelamer carbonate 800 mg tablet 2,400 mg PO TIDWM glipizide 5 mg tablet extended release 24 hr 5 mg PO DAILY@1700 primidone 50 mg tablet 50 mg PO BID PRN (Reason: Tremor(S)) amlodipine 5 mg Tablet 5 mg PO DAILY Qty: 30 0RF Protocol: Hold for SBP< HOLD for SBP < : 90 albuterol sulfate 90 mcg/actuation HFA aerosol inhaler 2 puff INHALATION Q4-6H PRN (Reason: Shortness Of Breath Or Wheezing) cholecalciferol (vitamin D3) [Vitamin D3] 25 mcg (1,000 unit) capsule 25 mcg PO DAILY@1700 Discharge Orders: Discharge Order (Routine); Ordered 01/14/22 Ordered By: Aminta Brito Diet: Advance to usual diet Activity on Discharge: As tolerated Stand Alone Forms: Patient Portal Discharge page Care Plan Goals: Patient was admitted initially due to chest pain and some short of breath in setting of elevated blood pressure of 200 range and also found to have elevated troponin: patient was seen by Cardiology started on aspirin, statin, beta-john, echo was done- seems abnormal( see below in imaging section.) and need further cardiac workup- So patient is going to [facility] for further cardiac workup including possible cardiac catheterization. Patient had 1 time fever episode: blood culture negative, COVID flu and RSV also negative. UA- asymptomatic pyuria, no bacteriuria patient is asymptomatic, if any new episode of fever consider repeating workup and urine culture. Currently we Defer antibiotic treatment. uncontrolled hypertension: Patient already on amlodipine, metoprolol, Isordil. blood pressure improving. Above management discussed the patient in detail length. Health Concerns: as above. Plan of Treatment: As above. Assessment: As above.
[2022-01-14 16:00] VITALS: BP 173/84; PULSE 94; RESP 17; TEMP 36.8; O2SAT 99
[2022-01-14 16:26] LABS: Glucose, Whole Blood 176 mg/dL (60-115)
[2022-01-14] MEDS: Omeprazole 20 MG CAPSULE.DR PO (16:55)
[2022-01-14] MEDS: Insulin Lispro 100 UNIT/ML 3 ML VIAL SUBCUT (16:56)
[2022-01-14] MEDS: Cholecalciferol (Vitamin D3) 25 MCG TABLET PO (16:56)
--- NOTE | 2022-01-14 18:10 | PC.NURSE ---
report received from overnight RN, occ med physician per APR. Pt scheduled for dialysis today, BP meds held per almond sorter request - MD notified. Pt due to transfer to [facility] today, pt notified. Education given with rolling mill operator helper services, states no further questions. Daughter at bedside for discharge education. Report called to [facility] at [phone]. EMS to transport the pt, warm handover given to EMS.
== END 2022-01-14 18:15 | disposition short-term general hospital (02) ==
LOC: HO.ED 10:41 → HO.EDOVER 10:54 → HO.IMC 14:28
PROVIDERS: Admitting Provider Family Medicine; Emergency Provider Student in an Organized Health Care Education/Training Program; PCP Internal Medicine; Visit Provider Internal Medicine
DX: R07.9 Chest pain, unspecified (principal); R77.8 Other specified abnormalities of plasma proteins; I42.9 Cardiomyopathy, unspecified; J90 Pleural effusion, not elsewhere classified; R50.9 Fever, unspecified; R82.81 Pyuria; R00.0 Tachycardia, unspecified; R06.02 Shortness of breath; J81.1 Chronic pulmonary edema; E11.22 Type 2 diabetes mellitus with diabetic chronic kidney disease; I12.0 Hypertensive chronic kidney disease with stage 5 chronic kidney disease or end stage renal disease; N18.6 End stage renal disease; Z99.2 Dependence on renal dialysis; D63.1 Anemia in chronic kidney disease; J45.909 Unspecified asthma, uncomplicated; E66.3 Overweight; Z68.31 Body mass index [BMI] 31.0-31.9, adult; Z20.822 Contact with and (suspected) exposure to COVID-19; Z79.899 Other long term (current) drug therapy
CPT/HCPCS: 0241U; 36415; 71046; 80048; 80053; 81001; 82947; 83605; 83735; 83880; 84484; 85025; 85027; 87040; 87086; 87633; 90935; 90999; 93005; 93306; 96361; 96365; 96372; 96375; 99219; 99285; J0696; J1940; Q9957

== ENCOUNTER 2022-02-08 03:46 | Emergency (ER) | payer OTHER, SELFPAY ==
--- NOTE | ~2022-02-08 | XR_ITS ---
EXAMINATION: XR CHEST CLINICAL INFORMATION: Chest pain. COMPARISON: Chest radiograph 01/12/2022 TECHNIQUE: 2 views of the chest were obtained. FINDINGS: Normal cardiac silhouette. Moderate aortic calcific atherosclerosis. No effusions or pneumothoraces. Normal pattern of pulmonary vasculature making allowances for slightly underpenetrated radiographic technique. No focal pulmonary consolidation. XR/XR chest 2V IMPRESSION: No acute cardiopulmonary abnormalities. Moderate aortic calcific atherosclerosis.
[2022-02-08 03:58] VITALS: BP 177/89; PULSE 114; RESP 19; TEMP 37.4; O2SAT 97; BMI 29.4
--- NOTE | 2022-02-08 04:08 | ECG_ITS ---
Test Reason : chest pain Blood Pressure : / mmHG Vent. Rate : 112 BPM Atrial Rate : 112 BPM P-R Int : 164 ms QRS Dur : 090 ms QT Int : 352 ms P-R-T Axes : 067 -12 084 degrees QTc Int : 480 ms Sinus tachycardia Minimal voltage criteria for LVH, may be normal variant ( R in aVL ) Borderline ECG When compared with ECG of 12-JAN-2022 05:26, T wave inversion less evident in Lateral leads Referred By: Generic ED Physician Electronically Signed By:MAGDALENE IGNACIO MD
[2022-02-08 04:24] LABS: MANUAL DIFF FLAG NO
[2022-02-08 04:27] LABS: Basophils Percent Auto 0.3 % (0-2); Eosinophils Absolute Auto 0.1 X10*3/uL (0.0-0.4); Eosinophils Percent Auto 1.4 % (0-4); Hematocrit 31.6 % (42.0-52.0); Hemoglobin 10.5 g/dl (14.0-18.0); Imm Gran Abs Auto 0.02 X10*3/uL (0.00-0.03); Imm Gran Pct Auto 0.2 % (0.0-0.4); Lymphocytes Absolute Auto 1.9 X10*3/uL (1.2-4.9); Lymphocytes Percent Auto 20.1 % (20-40); Mean Corpuscular HGB Conc 33.2 g/dl (31.0-36.0); Mean Corpuscular Hemoglobin 30.2 pg (27.0-33.0); Mean Corpuscular Volume 90.8 fL (80.0-98.0); Mean Platelet Volume 8.6 fL (9.4-12.4); Monocytes Absolute Auto 0.5 X10*3/uL (0.1-1.2); Monocytes Percent Auto 5.5 % (2-11); Neutrophils Absolute Auto 6.8 x10*3/uL (2.0-8.3); Neutrophils Percent Auto 72.5 % (45-73); Platelet Count 251 X10*3/uL (160-400); Red Blood Count 3.48 X10*6/uL (4.60-5.80); Red Cell Distribution Width 14.6 % (11.0-16.0); White Blood Count 9.4 X10*3/uL (4.8-10.8)
[2022-02-08 04:49] LABS: Alanine Aminotransferase 16 U/L (0-40); Albumin Level 3.6 g/dL (3.5-5.0); Alkaline Phosphatase 69 U/L (39-117); Anion Gap 19 (12-20); Aspartate Amino Transferase 15 U/L (5-37); Bilirubin Total 0.6 mg/dL (0.0-1.0); Blood Urea Nitrogen 42 mg/dL (9-16); Calcium 8.8 mg/dL (8.4-10.2); Carbon Dioxide 26 mmol/L (22-29); Chloride 98 mmol/L (96-108); Creatinine Clr Calc Pharmacy 13.4; Estimated Glomerular Filt Rate 8; Glucose Random 169 mg/dL (60-115); Potassium 3.9 mmol/L (3.3-5.1); Sodium 139 mmol/L (135-145); Total Protein 6.5 g/dL (6.5-8.0)
[2022-02-08 05:03] LABS: Influenza A PCR NEGATIVE (Negative); Influenza B PCR NEGATIVE (Negative); Resp Syncy Virus RNA Qual PCR NEGATIVE (Negative); SARS COV2 PCR INHOUSE NEGATIVE (Negative)
[2022-02-08 06:04] VITALS: BP 168/73; PULSE 107; RESP 16; TEMP 37.1; O2SAT 98
--- NOTE | 2022-02-08 06:45 | ED_ITS ---
HPI - Chest Pain General Chief Complaint: Chest Pain Stated Complaint: cough, chest pain Time Seen by Provider: 02/08/22 06:45 Source: patient and family Mode of arrival: ambulatory Limitations: no limitations History of Present Illness HPI narrative: 61-year-old male who presents emergency department for evaluation of cough x1 week, chest pain which began at midnight, fever, chills, sore throat shortness of breath, myalgias and arthralgias. Patient states he has had a nonproductive cough for 1 week which is gotten worse. He states over the past week he has had subjective fever and chills, shortness of breath, myalgias and arthralgias. He states that the chest pain woke him up at midnight. The pain is located across his anterior chest. The pain is a constant pressure-like pain which waxes and wanes in intensity. The pain is 9/10 at its worst and 7/10 at its best. The patient took his blood pressure at the onset of his pain and it was elevated at 190 8/98 and is systolic blood pressures usually run around 130. The pain does not change with breathing or with coughing. He denies pain in his neck, jaw, arm or back. The patient had a recent evaluated here in the emergency department on 12/2021 for chest pain, elevated blood pressure, pulmonary edema. He was hospitalized eventually sent to [facility] for cardiac catheterization and the patient told me that he had a myocardial infarction. He states that today's chest pain is different than the chest pain that he was experiencing with his myocardial infarction. Related Data Home Medications Medication Instructions Recorded Confirmed furosemide 80 mg tablet 80 mg PO SUTUTHSA@0900,2100 08/24/21 01/12/22 glipizide 5 mg tablet, extended 5 mg PO DAILY@1700 08/24/21 01/12/22 release 24 hr omeprazole 20 mg capsule,delayed 20 mg PO DAILY PRN Heartburn 08/24/21 01/12/22 release primidone 50 mg tablet 50 mg PO BID PRN Tremor(S) 08/24/21 01/12/22 sevelamer carbonate 800 mg tablet 2,400 mg PO TIDWM 08/24/21 01/12/22 albuterol sulfate 90 mcg/actuation 2 puff inhalation Q4-6H PRN 01/12/22 01/12/22 aerosol inhaler Shortness Of Breath Or Wheezing cholecalciferol (vitamin D3) 25 25 mcg PO DAILY@1700 01/12/22 01/12/22 mcg (1,000 unit) capsule (Vitamin D3) Previous Rx's Medication Instructions Recorded amlodipine 5 mg tablet 5 mg PO DAILY #30 tabs 08/26/21 aspirin 81 mg tablet,delayed 81 mg PO DAILY #1 tab 01/14/22 release atorvastatin 40 mg tablet 40 mg PO BEDTIME #1 tab 01/14/22 isosorbide dinitrate 10 mg tablet 10 mg PO BEDTIME #1 tab 01/14/22 metoprolol tartrate 25 mg tablet 25 mg PO BID #1 tab 01/14/22 doxycycline hyclate 100 mg tablet 100 mg PO Q12H 10 days #20 tabs 02/08/22 morphine 15 mg immediate release 15 mg PO Q4-6H PRN pain #10 tabs 02/08/22 tablet Allergies Allergy/AdvReac Type Severity Reaction Status Date / Time No Known Allergies Allergy Verified 02/08/22 03:58 [No Known Allergies*] Review of Systems Review of Systems: Yes all other systems are reviewed and are negative [facility] Past Medical History [facility] Narrative: Past medical history: Cardiomyopathy, hypertension, end-stage renal disease dialyzed on Wednesday, diabetes mellitus, coronary artery disease, myocardial infarct 01/12/2022 with cardiac catheterization a [facility]. Social history: Patient lives with his . He denies tobacco, alcohol and drug use. Medical History (Updated 02/08/22 @ 09:56 by Abhilash Mcdaniels MD) Asthma Diabetes End stage chronic kidney disease Surgical History AV fistula Family History Family History Mother CAD (coronary artery disease) Social History Social History Household Members: Significant Other Housing: Apartment Do you presently have visiting nurse or other home services: No Alcohol intake: never Patient Tobacco Use Status: Never used Tobacco Smoked in Last 30 Days: No e-Cigarette/Vaping Use: Never Used Second Hand Smoke Exposure: No Use of substances other than those prescribed or required for medical reasons: No Advance Directives: No service: No Current occupational status: retired Physical Exam Vital Signs: Vital Signs: Last Vital Signs Temp 98.8 F 02/08/22 06:04 Pulse 89 02/08/22 09:41 Resp 12 02/08/22 09:41 BP 142/63 H 02/08/22 09:41 Pulse Ox 98 02/08/22 09:41 O2 Del Method 02/08/22 09:41 BMI result Body Mass Index 29.4 Const: Other: Awake, alert, male patient, very pleasant cooperative, answers all questions appropriately, does have a very persistent nonproductive sounding cough. HEENT: Head: Yes normal to inspection, Yes normocephalic and Yes atraumatic Ears: external ears normal General nose exam: Normal external nose present Face and sinus: Yes normal facial exam Mouth: Normal oral and palatal mucosa present Throat: Yes posterior oropharynx normal Eyes: General: appearance normal, both eyes and all related structures Pupils: Equal, round and reactive pupils present Neck: Neck: Yes normal visual inspection, Yes no lymphadenopathy, Yes trachea midline and Yes supple Chest: Chest palpation & inspection: normal inspection of the chest and tenderness (Moderate anterior chest wall tender) Resp: Effort & Inspection: normal respiratory effort and able to speak in complete sentences Auscultation: clear to auscultation bilaterally Cardio: Rate: regular rate Rhythm: regular rhythm Heart sounds: S1 normal heart sound present, S2 normal heart sound present and no murmurs GI: Inspection: Yes normal to inspection Palpation (GI): Soft to palpation, nontender and no guarding Auscultation: normal bowel sounds : General: Yes no CVA tenderness Back/Spine/Pelvis: Back: no CVA tenderness Skin: General skin exam: no rashes or lesions noted Neuro: Cranial nerves: Yes CN's II-XII intact bilaterally and Yes Equal, round and reactive pupils present Cognition (Neuro): normal cognition Motor exam (neuro): 5/5 motor strength present throughout Extrem: General: Yes normal to inspection Psych: Appearance: grossly normal Speech and movement: Normal speech and movement present Affect: normal affect Attitude: cooperative Thought process: Normal thought process present Thought content: Normal thought content present Course Course Course Narrative: 61-year-old male who presents emergency department with a viral-like illness x1 week with fever, chills, sore throat, cough shortness of breath myalgias arthralgias who woke up this morning at midnight with anterior chest pressure, const, waxing and waning from 11/08 to 710 with elevated blood pressure of 198/98. Patient's vital signs reveal that he was afebrile with an O2 saturation of 97%. He did have an elevated blood pressure of 177/89. Patient did have anterior chest wall tenderness, lungs were clear, otherwise exam unremarkable 0720: Laboratory evaluate: Anemia with an H&H of 10 and 31.9-chronic elevated BUN creatinine 42 and 7.25-chronic. Elevated glucose 169. First troponin at 04:16 hours was elevated 50. COVID-19, RSV and influenza were negative. Radiology evaluation: Chest x-ray: No acute disease on my review. Radiology impression: No acute cardiopulmonary abnormalities. Moderate aortic calcific atherosclerosis. Twelve lead EKG done at 04:10: Sinus tachycardia with a rate of 112, normal [place] and QRS interval, prolonged QTC of 480 milliseconds, no ST segment elevation, no ST segment depression, no Q-waves, no significant T-wave abnormalities, no PACs, no PVCs, compared to EKG dated the patient has [address] segment depression V4 V5 V6 which is now resolved. Patient's presentation is consistent with a viral URI but since he has been ill for 1 week with a cough he may also have bacterial bronchitis, given his cardiac history however it is elevated troponin I will repeat a 3 hour troponin. Patient was given doxycycline 100 mg orally , Tylenol 975 mg orally and morphine 15 mg orally. 0947: Patient feels significantly better after the above treatment. The patient's repeat high sensitivity troponin I went from 50 to 69.7 which is less than a 50% increase suggests a did not have myocardial injury. I did discuss this with the patient patient most likely has a viral infection and may now have a bacterial bronchitis, will be treated with doxycycline 100 mg twice a day for 7 days, Tylenol for pain and fever and for pain not relieved by Tylenol morphine. Was given printed and verbal instructions discharged home. Medications Administered Discontinued Medications Generic Name Dose Route Start Last Admin Trade Name Freq PRN Reason Stop Dose Admin Acetaminophen 975 mg 02/08/22 07:08 02/08/22 07:30 Acetaminophen 325 Mg Tablet PO 02/08/22 07:09 975 mg ONCE ONE Administration Doxycycline Monohydrate 100 mg 02/08/22 07:08 02/08/22 07:31 Doxycycline Monohydrate 100 Mg Capsule PO 02/08/22 07:09 100 mg ONCE ONE Administration Morphine Sulfate 15 mg 02/08/22 07:08 02/08/22 07:31 Morphine Sulfate Immed Release 15 Mg Tablet PO 02/08/22 07:09 15 mg ONCE ONE Administration Discharge Plan Discharge Clinical Impression: Bronchitis, Acute viral syndrome, Elevated blood pressure reading Chest pain Qualifiers: Chest pain type: unspecified Qualified Code(s): R07.9 - Chest pain, unspecified Patient Disposition: Home, Self-Care Instructions: Chest Pain (ED), Acute Bronchitis (ED) Additional Instructions: Your blood work was unremarkable. You did have an elevated troponin but the repeat troponin was the same suggesting that you did not have any heart damage/heart attack as the cause of your pain. At this time I believe that your chest pain is caused by your coughing and your upper respiratory infection/bronchitis. Take doxycycline 100 mg, 1 pill every 12 hours for 7 days Take Tylenol (acetaminophen) 500 mg pills, 2 pills every 4-6 hours as needed for pain. For pain not relieved by Tylenol take morphine 15 mg pills, 1 pill every 4 hours as needed for pain. This medication will make you sleepy, do not drive or work while taking this medication. Morphine is a narcotic medication and can be addicting. If you are concerned about addiction you can ask the pharmacist for less pills or do not get this prescription filled. Follow-up with your doctor in 2 days. Please return to the emergency department if your symptoms get worse or if you develop any symptoms that are concerning to you. Prescriptions: New morphine 15 mg tablet 15 mg PO Q4-6H PRN (Reason: pain) Qty: 10 0RF Rx Instructions: The patient may ask for partial fill; Partial Fill upon patient request. doxycycline hyclate 100 mg tablet 100 mg PO Q12H 10 Days Qty: 20 0RF No Action furosemide 80 mg tablet 80 mg PO SUTUTHSA@0900,2100 omeprazole 20 mg capsule,delayed release(DR/EC) 20 mg PO DAILY PRN (Reason: Heartburn) sevelamer carbonate 800 mg tablet 2,400 mg PO TIDWM glipizide 5 mg tablet extended release 24 hr 5 mg PO DAILY@1700 primidone 50 mg tablet 50 mg PO BID PRN (Reason: Tremor(S)) amlodipine 5 mg Tablet 5 mg PO DAILY Qty: 30 0RF Protocol: Hold for SBP< HOLD for SBP < : 90 albuterol sulfate 90 mcg/actuation HFA aerosol inhaler 2 puff INHALATION Q4-6H PRN (Reason: Shortness Of Breath Or Wheezing) cholecalciferol (vitamin D3) [Vitamin D3] 25 mcg (1,000 unit) capsule 25 mcg PO DAILY@1700 isosorbide dinitrate 10 mg Tablet 10 mg PO BEDTIME Qty: 1 0RF Protocol: Hold for SBP< HOLD for SBP < : 90 atorvastatin 40 mg Tablet 40 mg PO BEDTIME Qty: 1 0RF aspirin 81 mg Tablet,Delayed Release (Dr/Ec) 81 mg PO DAILY Qty: 1 0RF metoprolol tartrate 25 mg Tablet 25 mg PO BID Qty: 1 0RF Protocol: Hold for SBP/HR < HOLD for SBP < : 90 HOLD for HR < : 60
[2022-02-08] MEDS: Acetaminophen 325 MG TABLET 975 MG PO (07:30)
[2022-02-08] MEDS: Doxycycline Monohydrate 100 MG CAPSULE PO (07:31)
[2022-02-08] MEDS: Morphine Sulfate Immed Release 15 MG TABLET PO (07:31)
[2022-02-08 09:05] LABS: Troponin-I High Sensitivity 69.7 ng/L (<3.5-35.0)
[2022-02-08 09:41] VITALS: BP 142/63; PULSE 89; RESP 12; O2SAT 98
== END 2022-02-08 10:54 | disposition home or self-care (01) ==
PROVIDERS: Emergency Provider Emergency Medicine Emergency Medical Services
DX: J20.8 Acute bronchitis due to other specified organisms (principal); B34.9 Viral infection, unspecified; R07.89 Other chest pain; R05.9 Cough, unspecified; R50.9 Fever, unspecified; Z20.822 Contact with and (suspected) exposure to COVID-19; Z79.899 Other long term (current) drug therapy
CPT/HCPCS: 0241U; 36415; 71046; 80053; 84484; 85025; 93005; 99283; 99284

== ENCOUNTER 2022-02-21 14:16 | Emergency (ER) | payer OTHER, SELFPAY ==
--- NOTE | 2022-02-21 14:24 | ECG_ITS ---
Test Reason : SOB Blood Pressure : / mmHG Vent. Rate : 087 BPM Atrial Rate : 087 BPM P-R Int : 152 ms QRS Dur : 096 ms QT Int : 406 ms P-R-T Axes : 066 -02 119 degrees QTc Int : 488 ms Normal sinus rhythm Moderate voltage criteria for LVH, may be normal variant ( R in aVL , [place] product ) Nonspecific T wave abnormality Prolonged QT Abnormal ECG When compared with ECG of 08-FEB-2022 04:10, T wave inversion more evident in Lateral leads Referred By: Generic ED Physician Electronically Signed By:Zachary Florez
[2022-02-21 14:29] VITALS: BP 151/79; PULSE 95; RESP 16; TEMP 37.1; O2SAT 99; BMI 28.8
[2022-02-21 14:57] LABS: MANUAL DIFF FLAG NO
[2022-02-21 15:00] LABS: Basophils Percent Auto 0.5 % (0-2); Eosinophils Absolute Auto 0.2 X10*3/uL (0.0-0.4); Eosinophils Percent Auto 1.7 % (0-4); Hematocrit 27.3 % (42.0-52.0); Hemoglobin 9.1 g/dl (14.0-18.0); Imm Gran Abs Auto 0.04 X10*3/uL (0.00-0.03); Imm Gran Pct Auto 0.5 % (0.0-0.4); Lymphocytes Percent Auto 23.6 % (20-40); Mean Corpuscular HGB Conc 33.3 g/dl (31.0-36.0); Mean Corpuscular Hemoglobin 30.2 pg (27.0-33.0); Mean Corpuscular Volume 90.7 fL (80.0-98.0); Mean Platelet Volume 8.7 fL (9.4-12.4); Monocytes Absolute Auto 0.5 X10*3/uL (0.1-1.2); Monocytes Percent Auto 6.3 % (2-11); Neutrophils Absolute Auto 5.8 x10*3/uL (2.0-8.3); Neutrophils Percent Auto 67.4 % (45-73); Platelet Count 308 X10*3/uL (160-400); Red Blood Count 3.01 X10*6/uL (4.60-5.80); White Blood Count 8.6 X10*3/uL (4.8-10.8)
[2022-02-21 15:23] LABS: Troponin-I High Sensitivity 38.3 ng/L (<3.5-35.0)
[2022-02-21 15:53] LABS: Alanine Aminotransferase 12 U/L (0-40); Albumin Level 3.3 g/dL (3.5-5.0); Alkaline Phosphatase 63 U/L (39-117); Anion Gap 16 (12-20); Aspartate Amino Transferase 12 U/L (5-37); Bilirubin Total 0.7 mg/dL (0.0-1.0); Blood Urea Nitrogen 36 mg/dL (9-16); Calcium 8.7 mg/dL (8.4-10.2); Carbon Dioxide 28 mmol/L (22-29); Chloride 98 mmol/L (96-108); Creatinine Clr Calc Pharmacy 15.9; Estimated Glomerular Filt Rate 9; Glucose Random 222 mg/dL (60-115); Potassium 3.9 mmol/L (3.3-5.1); Sodium 138 mmol/L (135-145); Total Protein 6.3 g/dL (6.5-8.0)
[2022-02-21 16:27] LABS: Influenza A PCR NEGATIVE (Negative); Influenza B PCR NEGATIVE (Negative); Resp Syncy Virus RNA Qual PCR NEGATIVE (Negative); SARS COV2 PCR INHOUSE NEGATIVE (Negative)
--- NOTE | 2022-02-21 17:03 | ED.SOB ---
HPI - SOB/Dyspnea General Chief Complaint: Dyspnea Stated Complaint: DIFF BREATHING Time Seen by Provider: 02/21/22 16:27 Source: patient Mode of arrival: ambulatory Limitations: no limitations History of Present Illness HPI Narrative: Patient with end-stage renal disease, hypertension, cardiomyopathy, chronic bronchitis on inhalers been complaining of shortness of breath 1st sometimes getting worse with dry cough patient using inhalers no fever cough is mostly dry patient had dialysis yesterday feel chest tight saturating 99% at room air when arrived no significant respiratory distress noticed Related Data Home Medications Medication Instructions Recorded Confirmed furosemide 80 mg tablet 80 mg PO SUTUTHSA@0900,2100 08/24/21 01/12/22 glipizide 5 mg tablet, extended 5 mg PO DAILY@1700 08/24/21 01/12/22 release 24 hr omeprazole 20 mg capsule,delayed 20 mg PO DAILY PRN Heartburn 08/24/21 01/12/22 release primidone 50 mg tablet 50 mg PO BID PRN Tremor(S) 08/24/21 01/12/22 sevelamer carbonate 800 mg tablet 2,400 mg PO TIDWM 08/24/21 01/12/22 albuterol sulfate 90 mcg/actuation 2 puff inhalation Q4-6H PRN 01/12/22 01/12/22 aerosol inhaler Shortness Of Breath Or Wheezing cholecalciferol (vitamin D3) 25 25 mcg PO DAILY@1700 01/12/22 01/12/22 mcg (1,000 unit) capsule (Vitamin D3) Previous Rx's Medication Instructions Recorded amlodipine 5 mg tablet 5 mg PO DAILY #30 tabs 08/26/21 aspirin 81 mg tablet,delayed 81 mg PO DAILY #1 tab 01/14/22 release atorvastatin 40 mg tablet 40 mg PO BEDTIME #1 tab 01/14/22 isosorbide dinitrate 10 mg tablet 10 mg PO BEDTIME #1 tab 01/14/22 metoprolol tartrate 25 mg tablet 25 mg PO BID #1 tab 01/14/22 doxycycline hyclate 100 mg tablet 100 mg PO Q12H 10 days #20 tabs 02/08/22 morphine 15 mg immediate release 15 mg PO Q4-6H PRN pain #10 tabs 02/08/22 tablet benzonatate 200 mg capsule 200 mg PO TID PRN cough #30 caps 02/21/22 Allergies Allergy/AdvReac Type Severity Reaction Status Date / Time No Known Allergies Allergy Verified 02/08/22 03:58 [No Known Allergies*] Review of Systems Review of Systems: Yes all other systems are reviewed and are negative [facility] Past Medical History Medical History Asthma Diabetes End stage chronic kidney disease Surgical History AV fistula Family History Family History Mother CAD (coronary artery disease) Social History Social History Household Members: Significant Other Housing: Apartment Do you presently have visiting nurse or other home services: No Alcohol intake: never Patient Tobacco Use Status: Never used Tobacco e-Cigarette/Vaping Use: Never Used Second Hand Smoke Exposure: No Advance Directives: No Advance Directives Information Provided: No service: No Current occupational status: retired Physical Exam Vital Signs: Vital Signs: Last Vital Signs Temp 98.7 F 02/21/22 14:29 Pulse 95 02/21/22 14:29 Resp 16 02/21/22 14:29 BP 151/79 H 02/21/22 14:29 Pulse Ox 99 02/21/22 14:29 O2 Del Method 02/21/22 14:29 BMI result Body Mass Index 28.8 Appearance: Alert. Oriented X3. No acute distress. Eyes: Pallor+ ENT: Pharynx normal. Oral Mucosa moist Neck: Normal inspection. Neck supple. CVS: Normal heart rate and rhythm. Pulses normal. Respiratory: No respiratory distress. Equal air entry bilateral, no wheezing/rales/rhonchi Abdomen: Soft and nontender. Bowel sounds are present, no mass palpable, no CVA tenderness Skin: Skin warm and dry. Normal skin color. Normal skin turgor. Extremities: No lower extremity edema. No calf tenderness Neuro: Oriented X 3. No motor deficit. No sensory deficit.No cerebellar signs , cranial nerves II-XII intact Medications Administered Discontinued Medications Generic Name Dose Route Start Last Admin Trade Name Freq PRN Reason Stop Dose Admin Guaifenesin/Codeine Phosphate 10 ml 02/21/22 17:16 02/21/22 17:35 Guaifen/Codeine Sf 200/20/10ml 10 Ml Liquid PO 02/21/22 17:17 10 ml ONCE ONE Administration Medical Decision Making Medical Decision Making MDM Narrative: Patient with stable labs chronic shortness of breath stable at this time even after dialysis patient complaining of main thing at this time with a cough already on inhaler will give him Tessalon advised to follow with PCP Lab Data MDM Lab Attestation statement: I reviewed the patient's lab results. Result Diagrams: 02/21/22 14:51 02/21/22 14:51 Labs: Lab Results 02/21/22 02/21/22 02/21/22 Range/Units 14:51 14:51 14:51 WBC 8.6 (4.8-10.8) X10*3/uL RBC 3.01 L (4.60-5.80) X10*6/uL Hgb 9.1 L (14.0-18.0) g/dl Hct 27.3 L (42.0-52.0) % MCV 90.7 (80.0-98.0) fL MCH 30.2 (27.0-33.0) pg MCHC 33.3 (31.0-36.0) g/dl RDW 14.0 (11.0-16.0) % Plt Count 308 (160-400) X10*3/uL MPV 8.7 L (9.4-12.4) fL Immature Gran % (Auto) 0.5 H (0.0-0.4) % Neut % (Auto) 67.4 (45-73) % Lymph % (Auto) 23.6 (20-40) % [place] % (Auto) 6.3 (2-11) % Eos % (Auto) 1.7 (0-4) % Baso % (Auto) 0.5 (0-2) % Lymph # (Auto) 2.0 (1.2-4.9) X10*3/uL [place] # (Auto) 0.5 (0.1-1.2) X10*3/uL Eos # (Auto) 0.2 (0.0-0.4) X10*3/uL Baso # (Auto) 0.0 (0.0-0.2) X10*3/uL Abs Immat Gran (auto) 0.04 H (0.00-0.03) X10*3/uL Absolute Neuts (auto) 5.8 (2.0-8.3) x10*3/uL Absolute Nucleated RBC 0.000 (0.0-0.012) X10*3/uL Nucleated RBC % (auto) 0.0 (0.0-0.2) /100WBC Sodium 138 (135-145) mmol/L Potassium 3.9 (3.3-5.1) mmol/L Chloride 98 (96-108) mmol/L Carbon Dioxide 28 (22-29) mmol/L Anion Gap 16 (12-20) BUN 36 H (9-16) mg/dL Creatinine 6.05 H* (0.5-1.4) mg/dL Estim Creat Clear Calc 15.9 Estimated GFR 9 Random Glucose 222 H (60-115) mg/dL Calcium 8.7 (8.4-10.2) mg/dL Total Bilirubin 0.7 (0.0-1.0) mg/dL AST 12 (5-37) U/L ALT 12 (0-40) U/L Alkaline Phosphatase 63 (39-117) U/L Troponin I High Sens 38.3 H D (<3.5-35.0) ng/L Total Protein 6.3 L (6.5-8.0) g/dL Albumin 3.3 L (3.5-5.0) g/dL Influenza Type A (PCR) (Negative) Influenza Type B (PCR) (Negative) RSV RNA Qual (PCR) (Negative) SARS-CoV-2 RNA (RT-PCR) (Negative) 02/21/22 Range/Units 14:52 WBC (4.8-10.8) X10*3/uL RBC (4.60-5.80) X10*6/uL Hgb (14.0-18.0) g/dl Hct (42.0-52.0) % MCV (80.0-98.0) fL MCH (27.0-33.0) pg MCHC (31.0-36.0) g/dl RDW (11.0-16.0) % Plt Count (160-400) X10*3/uL MPV (9.4-12.4) fL Immature Gran % (Auto) (0.0-0.4) % Neut % (Auto) (45-73) % Lymph % (Auto) (20-40) % [place] % (Auto) (2-11) % Eos % (Auto) (0-4) % Baso % (Auto) (0-2) % Lymph # (Auto) (1.2-4.9) X10*3/uL [place] # (Auto) (0.1-1.2) X10*3/uL Eos # (Auto) (0.0-0.4) X10*3/uL Baso # (Auto) (0.0-0.2) X10*3/uL Abs Immat Gran (auto) (0.00-0.03) X10*3/uL Absolute Neuts (auto) (2.0-8.3) x10*3/uL Absolute Nucleated RBC (0.0-0.012) X10*3/uL Nucleated RBC % (auto) (0.0-0.2) /100WBC Sodium (135-145) mmol/L Potassium (3.3-5.1) mmol/L Chloride (96-108) mmol/L Carbon Dioxide (22-29) mmol/L Anion Gap (12-20) BUN (9-16) mg/dL Creatinine (0.5-1.4) mg/dL Estim Creat Clear Calc Estimated GFR Random Glucose (60-115) mg/dL Calcium (8.4-10.2) mg/dL Total Bilirubin (0.0-1.0) mg/dL AST (5-37) U/L ALT (0-40) U/L Alkaline Phosphatase (39-117) U/L Troponin I High Sens (<3.5-35.0) ng/L Total Protein (6.5-8.0) g/dL Albumin (3.5-5.0) g/dL Influenza Type A (PCR) NEGATIVE (Negative) Influenza Type B (PCR) NEGATIVE (Negative) RSV RNA Qual (PCR) NEGATIVE (Negative) SARS-CoV-2 RNA (RT-PCR) NEGATIVE (Negative) Discharge Plan Discharge Clinical Impression: Chronic bronchitis Patient Disposition: Home, Self-Care Instructions: Chronic Bronchitis (ED) Additional Instructions: Continue your inhaler and other medications Cough drops as advised Contin?e con bullard inhalador y otros medicamentos [place] para la tos seg?n lo recomendado Prescriptions: New benzonatate 200 mg capsule 200 mg PO TID PRN (Reason: cough) Qty: 30 0RF No Action morphine 15 mg tablet 15 mg PO Q4-6H PRN (Reason: pain) Qty: 10 0RF Rx Instructions: The patient may ask for partial fill; Partial Fill upon patient request. doxycycline hyclate 100 mg tablet 100 mg PO Q12H 10 Days Qty: 20 0RF furosemide 80 mg tablet 80 mg PO SUTUTHSA@0900,2100 omeprazole 20 mg capsule,delayed release(DR/EC) 20 mg PO DAILY PRN (Reason: Heartburn) sevelamer carbonate 800 mg tablet 2,400 mg PO TIDWM glipizide 5 mg tablet extended release 24 hr 5 mg PO DAILY@1700 primidone 50 mg tablet 50 mg PO BID PRN (Reason: Tremor(S)) amlodipine 5 mg Tablet 5 mg PO DAILY Qty: 30 0RF Protocol: Hold for SBP< HOLD for SBP < : 90 albuterol sulfate 90 mcg/actuation HFA aerosol inhaler 2 puff INHALATION Q4-6H PRN (Reason: Shortness Of Breath Or Wheezing) cholecalciferol (vitamin D3) [Vitamin D3] 25 mcg (1,000 unit) capsule 25 mcg PO DAILY@1700 isosorbide dinitrate 10 mg Tablet 10 mg PO BEDTIME Qty: 1 0RF Protocol: Hold for SBP< HOLD for SBP < : 90 atorvastatin 40 mg Tablet 40 mg PO BEDTIME Qty: 1 0RF aspirin 81 mg Tablet,Delayed Release (Dr/Ec) 81 mg PO DAILY Qty: 1 0RF metoprolol tartrate 25 mg Tablet 25 mg PO BID Qty: 1 0RF Protocol: Hold for SBP/HR < HOLD for SBP < : 90 HOLD for HR < : 60 Interventions: ED Discharge Assessment Last Done: 02/21/22 17:37 Discharge Date/Time: 02/21/22 17:38 Print Language: Sudanese
[2022-02-21] MEDS: guaiFEN/Codeine SF 200/20/10ML 10 ML LIQUID PO (17:35)
== END 2022-02-21 17:38 | disposition home or self-care (01) ==
PROVIDERS: Emergency Provider Internal Medicine; PCP Registered Nurse
DX: J42 Unspecified chronic bronchitis (principal); Z20.828 Contact with and (suspected) exposure to other viral communicable diseases; E11.22 Type 2 diabetes mellitus with diabetic chronic kidney disease; I12.0 Hypertensive chronic kidney disease with stage 5 chronic kidney disease or end stage renal disease; N18.6 End stage renal disease
CPT/HCPCS: 0241U; 36415; 71045; 80053; 84484; 85025; 93005; 99283

== ENCOUNTER 2022-07-20 04:56 | Inpatient (IN) | payer OTHER, SELFPAY ==
--- NOTE | ~2022-07-20 | CT_ITS ---
EXAMINATION: CT ABDOMEN AND PELVIS WITHOUT CONTRAST CLINICAL INFORMATION: Lower abdominal pain, diarrhea COMPARISON: CT abdomen and pelvis 06/03/2020 TECHNIQUE: Multidetector volumetric imaging was performed from the superior aspect of the liver through the pubic symphysis. Sagittal and coronal reformatted images were obtained on the technologist's workstation. This CT examination was performed using dose optimization techniques as appropriate, variously including the following: *Automated exposure control *Adjustment of mA and/or kV according to patient size (this includes techniques or standardized protocols for targeted exams where dose is matched to indication/reason for exam; i.e. extremities or head) *Use of iterative reconstruction technique DLP: 659 mGy-cm FINDINGS: LUNG BASES: Focal atelectatic changes right lung base. Heart size is normal. There is moderate coronary artery calcification. LIVER, GALLBLADDER, AND BILIARY TREE: The liver is normal in size, shape, and attenuation. No focal hepatic lesion or biliary ductal dilatation is present. The gallbladder is unremarkable with no evidence of radiopaque gallstones, gallbladder wall thickening, or obvious pericholecystic inflammatory changes. PANCREAS: Unremarkable. SPLEEN: Unremarkable. ADRENAL GLANDS: Unremarkable. KIDNEYS AND URETERS: The kidneys are normal in size, shape, and attenuation.There are bilateral cortical and exophytic renal cysts. There is 3 mm radiopaque calculi mid pole left kidney. No additional radiopaque calculi seen. There is no caliectasis or hydronephrosis. BLADDER: Unremarkable. GASTROINTESTINAL TRACT: There is diffuse mural thickening and pericolic fat stranding throughout the colon most prominent in the hepatic flexure. The small bowel loops are normal caliber. Appendix is likely normal caliber. No free air seen. There is small amount of free fluid in the pelvis. ABDOMINAL WALL: No significant hernia is appreciated. LYMPH NODES: Normal. VASCULAR: Unremarkable. PELVIC VISCERA: The uterus is surgically absent or atrophied. No abnormal pelvic or inguinal lymph nodes seen. OSSEOUS STRUCTURES: No aggressive lytic or sclerotic process. CT/CT abdomen pelvis wo IV con IMPRESSION: Diffuse colitis likely inflammatory or infectious etiology. No diverticuli seen. Small amount of free fluid in the pelvis. Bilateral renal cysts question polycystic kidney disease. Nonobstructive 3 mm radiopaque calculi mid to lower pole left kidney. Fleischner guidelines were followed.
[2022-07-20 05:14] VITALS: BP 160/54; PULSE 97; RESP 18; TEMP 37; O2SAT 99
[2022-07-20 05:17] VITALS: BP 160/54; PULSE 97; RESP 18; TEMP 37; O2SAT 99; BMI 27.5
[2022-07-20 05:32] LABS: Basophils Percent Auto 0.3 % (0-2); Eosinophils Absolute Auto 0.4 X10*3/uL (0.0-0.4); Eosinophils Percent Auto 5.2 % (0-4); Hemoglobin 10.6 g/dl (14.0-18.0); Imm Gran Abs Auto 0.02 X10*3/uL (0.00-0.03); Imm Gran Pct Auto 0.3 % (0.0-0.4); Lymphocytes Absolute Auto 1.7 X10*3/uL (1.2-4.9); Lymphocytes Percent Auto 25.6 % (20-40); MANUAL DIFF FLAG NO; Mean Corpuscular HGB Conc 34.2 g/dl (31.0-36.0); Mean Corpuscular Hemoglobin 29.8 pg (27.0-33.0); Mean Corpuscular Volume 87.1 fL (80.0-98.0); Mean Platelet Volume 8.7 fL (9.4-12.4); Monocytes Absolute Auto 0.7 X10*3/uL (0.1-1.2); Monocytes Percent Auto 9.8 % (2-11); Neutrophils Percent Auto 58.8 % (45-73); Platelet Count 236 X10*3/uL (160-400); Red Blood Count 3.56 X10*6/uL (4.60-5.80); Red Cell Distribution Width 13.4 % (11.0-16.0); White Blood Count 6.8 X10*3/uL (4.8-10.8)
--- OUTSIDE RECORDS SUMMARY | 2022-07-20 05:46 | XMS_ITS | Continuity of Care Document ---
Author Name Unknown Organization [facility] Address [address] [place] [address], [address] [address]- Care Team Providers Care Breastfeeding Program Coordinator Name Role Phone John GONZALEZ, Margo Allen Primary Care Physician Encounter [facility] Date(s): 02/16/19 - 02/23/19 [facility] [address] [place] [address], [address] [place] [id number] Attending Physician: Shad GONZALEZ, Rangel Mackenzie Referring Physician: Margo Lopez MD Allergies, Adverse Reactions, Alerts Substance Reaction Severity Status NKA Active Immunizations Given and Recorded Vaccine Date Status Refusal Reason Varicella Virus Vaccine 02/16/19 Given Varicella Virus Vaccine 01/19/19 Given Medications atorvastatin 20 mg oral tablet 1 tablet = 20 mg, By Mouth, Daily, 0 Refills, Maintenance Start Date: 09/23/17 Status: Ordered glipiZIDE 5 mg oral tablet 5 mg, 1, tablet, By Mouth, Daily, Refills 0, Maintenance, 09/23/17 15:01:04 EDT Start Date: 09/23/17 Status: Ordered hydrochlorothiazide 25 mg oral tablet 25 mg, 1, tablet, By Mouth, Daily, Refills 0, Maintenance, 09/23/17 15:01:32 EDT Start Date: 09/23/17 Status: Ordered levothyroxine 0.025 mg oral tablet 1 tablet = 25 mcg, By Mouth, Daily, 0 Refills, Maintenance, 09/23/17 15:01:53 EDT Start Date: 09/23/17 Status: Ordered Renvela 800 mg oral tablet 1 tablet = 800 mg, By Mouth, 3 times a day, with meals, 0 Refills, Maintenance, 09/23/17 15:02:15 EDT Start Date: 09/23/17 Status: Ordered
--- OUTSIDE RECORDS SUMMARY | 2022-07-20 05:46 | XMS_ITS | Continuity of Care Document ---
Author Name Unknown Organization [facility] [place] Address [address] [place] [address]- Care Team Providers Care Prosthodontist/Educator Name Role Phone Azalea Lanier MD Primary Care Physician Encounter [facility] Date(s): 05/12/21 - 06/11/21 [facility] [place] [address] [place] [address]- Allergies, Adverse Reactions, Alerts No Known Allergies Immunizations Given and Recorded Vaccine Date Status Refusal Reason SARS-CoV-2 (COVID-19) mRNA-1273 vaccine 02/07/21 R ecorded SARS-CoV-2 (COVID-19) mRNA-1273 vaccine 05/24/20 R ecorded SARS-CoV-2 (COVID-19) mRNA-1273 vaccine 04/10/20 R ecorded Varicella Virus Vaccine 02/16/19 Given Varicella Virus Vaccine 01/19/19 Given Medications atorvastatin 20 mg oral tablet 1 tablet = 20 mg, By Mouth, Daily, 0 Refills, Maintenance Start Date: 09/23/17 Status: Ordered furosemide 80 mg oral tablet 80 mg, 1, tablet, By Mouth, Daily, ON NONDIALYSIS DAYS, # 30 tablet, Refills 0, Maintenance, 01/30/20 11:10:00 EST, Partial fill upon patient request if the prescription is for a schedule II opioid drug. Start Date: 01/30/20 Status: Ordered glipiZIDE 5 mg oral tablet [...]
--- OUTSIDE RECORDS SUMMARY | 2022-07-20 05:46 | XMS_ITS | Continuity of Care Document ---
Author Name Unknown Organization [facility] Address [address] [place] [address], [address] [address]- Care Team Providers Care Marking Clerk Name Role Phone Margo Lopez MD Primary Care Physician Encounter [facility] [place] Date(s): 02/16/19 - 02/26/[address] [facility] [address] [place] [address], [address] [place] [address]- Attending Physician: Madison Angelo Admitting Physician: Admtr, ArRaji Referring Physician: Admtr, Ar8 Allergies, Adverse Reactions, Alerts Substance Reaction Severity [...]
--- OUTSIDE RECORDS SUMMARY | 2022-07-20 05:46 | XMS_ITS | Continuity of Care Document ---
Author Name Unknown Organization [facility] ter Address [address] [place] [address]- Care Team Providers Care Desk Reporter Name Role Phone John GONZALEZ, Margo Allen Primary Care Physician Encounter [facility] [place] Date(s): 04/12/19 - 04/12/[address] [address]- [facility] Attending Physician: Christian Ortega MD Allergies, Adverse Reactions, Alerts Substance Reaction [...]
--- OUTSIDE RECORDS SUMMARY | 2022-07-20 05:46 | XMS_ITS | Continuity of Care Document ---
Author Name Unknown Organization [facility] Address Unknown Care Team Providers Care Operator Weapon Locating Radar Name Role Phone Azalea Lanier MD Primary Care Physician [phone] Encounter [id number] Date(s): 01/28/21 - 03/29/21 [facility] Attending Physician: Clifford Sandhu MD Admitting Physician: Cliffrod Sandhu MD Allergies, Adverse Reactions, Alerts No Known Allergies [...]
--- OUTSIDE RECORDS SUMMARY | 2022-07-20 05:46 | XMS_ITS | Continuity of Care Document ---
Author Name Unknown Organization [facility] Address [address] [place] [address]- Care Team Providers Care Juvenile Probation Officer Name Role Phone Yannick GONZALEZ, Azalea Primary Care Physician [phone] [place] [facility] [place](s[place] 11/09/19 - 11/16/19 [facility] [address] [place] [address]- [facility] Attending Physician: Ronnie Kunz MD Admitting Physician: Ronnie Kunz MD Referring Physician: Clifford Sandhu MD Allergies, Adverse Reactions, Alerts Substance Reaction [...] 15:02:15 EDT Start Date: 09/23/17 Status: Ordered Vital Signs Most recent to oldest [Reference Range]: 1 Height 187 cm (11/09/19 9:36 AM) Weight 109.9 kg (11/09/19 9:36 AM) Pulse Rate [55-90 bpm] 88 bpm (11/09/19 9:36 AM) Body Mass Index [18.5-24.99] 31.43 *>HHI* (11/09/19 9:36 AM) Blood Pressure [90-138/55-84 mm Hg] 128/ 86mm Hg (11/09/19 9:36 AM) Weight Obtained Via Patient/family state d (11/09/19 9:36 AM)
--- OUTSIDE RECORDS SUMMARY | 2022-07-20 05:46 | XMS_ITS | Continuity of Care Document ---
Author Name Unknown Organization [facility] Address [address] [place] [address]- Care Team Providers Care Insurance Office Supervisor Name Role Phone Yannick GONZALEZ, Azalea Primary Care Physician En[place] [facility] Date(s): 10/10/19 - 11/09/19 [facility] [address] [place] [address]- [facility] Attending Physician: Madison Angelo Admitting Physician: Madison Angelo Referring Physician: AdmtrMadison Allergies, Adverse Reactions, Alerts Substance Reaction Severity [...]
--- OUTSIDE RECORDS SUMMARY | 2022-07-20 05:46 | XMS_ITS | Continuity of Care Document ---
Author Name Unknown Organization [facility] Address [address] [place] [address]- Care Team Providers Care Tumbler Plater Name Role Phone Yannick GONZALEZ, Azalea Primary Care Physician [phone] [facility] [facility] Date(s): 08/08/20 - 09/07/20 [facility] [address] [facility] [address] [place], [place] [address] Attending Physician: Madison Angelo Admitting Physician: Madison [...]
--- OUTSIDE RECORDS SUMMARY | 2022-07-20 05:46 | XMS_ITS | Continuity of Care Document ---
Author Name Unknown Organization [facility] Address [address] [place] [address]- Care Team Providers Care Lighter Name Role Phone Ilya RANDOLPH, [place] Primary Care Physician [phone] [place] [id number] Date(s): 02/02/22 - 03/04/[address] [address]- Attending Physician: AdmMadison garcia Admitting Physician: Admtr, Ar8 Referring Physician: Admtr, Ar8 Allergies, Adverse Reactions, Alerts No Known Allergies Immunizations Given and Recorded Vaccine Date Status Refusal Reason Varicella Virus Vaccine 10/14/21 Recorded Varicella Virus Vaccine 09/16/21 Recorded Varicella Virus Vaccine 02/16/19 Given Varicella Virus Vaccine 01/19/19 Given zoster vaccine, inactivated 03/27/21 Recorded SARS-CoV-2 (COVID-19) mRNA-1273 vaccine 02/11/21 R ecorded SARS-CoV-2 (COVID-19) mRNA-1273 vaccine 02/07/21 R ecorded SARS-CoV-2 (COVID-19) mRNA-1273 vaccine 05/24/20 R ecorded SARS-CoV-2 (COVID-19) mRNA-1273 vaccine 04/10/20 R ecorded Medications Albuterol (Eqv-ProAir HFA) 90 mcg/inh inhalation aerosol 2 puffs, Inhalation, Every 6 hours, PRN Wheezing/Shortness of Breath, 0 Refills, Maintenance, 01/14/22 21:27:00 EST, Partial fill upon patient request if the prescription is for a schedule II opioid drug. Start Date: 01/14/22 Status: Ordered amLODIPine 10 mg oral tablet 1 tablet = 10 mg, By Mouth, Daily, # 30 tablet, 0 Refills, Maintenance, 01/14/22 21:26:00 EST, Tablet, Partial fill upon patient request if the prescription is for a schedule II opioid drug. Start Date: 01/14/22 Status: Ordered aspirin 81 mg oral delayed release tablet 81 mg, By Mouth, Daily, # 90 tablet, Refills 0, Tot. Refills 0, Maintenance, 01/16/22 10:41:00 EST,Route to Pharmacy Electronically, [facility], Partial fill upon patient request if the prescription is for a schedule II opioid drug., 18... Start Date: 01/16/22 Status: Ordered atorvastatin 80 mg oral tablet 1 tablet = 80 mg, By Mouth, Daily at bedtime, # 30 tablet, 0 Refills, Maintenance, 01/16/22 10:43:00 EST, Tablet, [facility], Partial fill upon patient request if the prescription is for a schedule II opioid drug., 187, cm, 01/06/22 13:1... Start Date: 01/16/22 Status: Ordered Combigan 0.2%-0.5% ophthalmic solution 1 drops, Eyes, Both, Every 12 hours, # 10 mL, 0 Refills, Maintenance, 01/14/22 21:26:00 EST, Solution, Partial fill upon patient request if the prescription is for a schedule II opioid drug. Start Date: 01/14/22 Status: Ordered ferrous fumarate 325 mg oral tablet 1 tablet = 325 mg, By Mouth, Every other day, between meals to improve absorption, if tolerated Instructions in australian please, # 30 tablet, 0 Refills, Maintenance, 01/16/22 11:44:00 EST, Tablet, [facility], Partial fill upon patient... Start Date: 01/16/22 Status: Ordered furosemide 80 mg oral tablet 80 mg, 1, tablet, By Mouth, 2 times a day, ON NONDIALYSIS DAYS (Wednesday, Wednesday, and Wednesday), # 30 tablet, Refills 0, Maintenance, 01/30/20 11:10:00 EST, Partial fill upon patient request if the prescription is for a schedule II opioid drug. Start Date: 01/30/20 Status: Ordered glipiZIDE 5 mg oral tablet 5 mg, 1, tablet, By Mouth, Daily, Refills 0, Maintenance, 09/23/17 15:01:04 EDT Start Date: 09/23/17 Status: Ordered isosorbide mononitrate 30 mg oral tablet, extended release 30 mg, 1, tablet, By Mouth, Daily, # 30 tablet, Refills 0, Tot. Refills 0, Maintenance, 01/16/22 10:42:00 EST, Route to Pharmacy Electronically, [facility], Partial fill upon patient request if the prescription is for a schedule II opioi... Start Date: 01/16/22 Status: Ordered metoprolol 50 mg oral tablet, extended release 50 mg, 1, tablet, By Mouth, Daily, # 90 tablet, Refills 0, Tot. Refills 0, Maintenance, 01/16/22 10:43:00 EST, Route to Pharmacy Electronically, [facility], Partial fill upon patient request if the prescription is for a schedule II opioi... Start Date: 01/16/22 Status: Ordered omeprazole 20 mg oral enteric coated capsule TAKE 1 CAPSULE BY MOUTH EVERY DAY BEFORE A MEAL Start Date: 01/14/22 Status: Ordered Renvela 800 mg oral tablet 1 tablet = 800 mg, By Mouth, 3 times a day, with meals, 0 Refills, Maintenance, 09/23/17 15:02:15 EDT Start Date: 09/23/17 Status: Ordered ticagrelor 90 mg oral tablet 1 tablet = 90 mg, By Mouth, 2 times a day, # 60 tablet, 11 Refills, Maintenance, 01/16/22 10:44:00 EST, Tablet, [facility], Partial fill upon patient request if the prescription is for a schedule II opioid drug., 187, cm, 01/06/22 13:18:... Start Date: 01/16/22 Status: Ordered VITAMIN D3 1,000 UNIT SOFTGEL TAKE 1 CAPSULE BY MOUTH EVERY DAY Start Date: 01/14/22 Status: Ordered Problem List Condition Confirmation Course Effective Dates Status Health St atus Informant ESRD on dialysis Confirmed Active HLD (hyperlipidemia) Confirmed Active HTN (hypertension) Confirmed Active Diabetic retinopathy Confirmed Active DMII (diabetes mellitus, type 2) Confirmed Active Patient Care team information Care Team Personnel Name: Israel Caraballo NP Position: S Associate Professional Member Role: PCP Address: Address: [address] [place] [address] Name: Melissa Hermosillo Position: [facility] Outreach Member Role: Lifetime Consulting Physician Name: Deidre Lopez RN Position: [facility] RN Member Role: Primary Care Nurse Care Team Related Persons Name: TORY DE LA GARZA Address: home [address] [place] [address] Name: BRIELLE ROD Name: MICHAEL GIBSON Address: [place] [address]
--- OUTSIDE RECORDS SUMMARY | 2022-07-20 05:46 | XMS_ITS | Continuity of Care Document ---
Author Name Unknown Organization [facility] [place] Address [address] [place] [address]- Care Team Providers Care Test Designer Name Role Phone Yannick GONZALEZ, Azalea Primary Care Physician Encounter [facility] Date(s): 07/08/21 - 09/11/21 [facility] [place] [address] [place] [address]- Attending Physician: Not on Staff, Attending MD Referring Physician: Seferino RANDOLPH, Simona Allergies, Adverse Reactions, Alerts No Known Allergies [...]
--- OUTSIDE RECORDS SUMMARY | 2022-07-20 05:46 | XMS_ITS | Continuity of Care Document ---
Author Name Unknown Organization [facility] Address [address] [place] [address]- Care Team Providers Care Multimedia Educational Specialist Name Role Phone Yannick GONZALEZ, Azalea Primary Care Physician [phone] [place] [facility] [place] 02/06/20 - 03/07/20 [facility] [address] [place], [place] [address] Attending Physician: Madison Angelo Admitting Physician: Madison [...]
--- OUTSIDE RECORDS SUMMARY | 2022-07-20 05:46 | XMS_ITS | Continuity of Care Document ---
Author Name Unknown Organization [facility] [place] Address [address] [place] [address]- Care Team Providers Care Workers Compensation Manager Name Role Phone Azalea Lanier MD Primary Care Physician Encounter [facility] Date(s): 05/12/21 - 08/07/21 [facility] [place] [address] [place] [address]- Attending Physician: Not on Staff, Attending MD Referring Physician: Azalea Lanier MD Allergies, Adverse Reactions, Alerts No Known [...]
--- OUTSIDE RECORDS SUMMARY | 2022-07-20 05:46 | XMS_ITS | Continuity of Care Document ---
Author Name Unknown Organization [facility] ter Address [address] [place] [address]- Care Team Providers Care Threading Machine Operator Name Role Phone Yannick GONZALEZ, Azalea Primary Care Physician [phone] [place] [facility] [place](s): 03/15/20 - 04/19/[address] [address] Attending Physician: Rufus Mata MD Admitting Physician: Rufus Mata MD Allergies, Adverse Reactions, Alerts Substance Reaction [...]
--- OUTSIDE RECORDS SUMMARY | 2022-07-20 05:46 | XMS_ITS | Continuity of Care Document ---
Author Name Unknown Organization [facility] ter Address [address] [place] [address]- Care Team Providers Care Campus Recruiting Internship Name Role Phone Margo Lopez MD Primary Care Physician Encounter [facility] [place] Date(s): 03/27/19 - 05/06/[address] [address]- [facility] Attending Physician: Lawrence Urbano DO Admitting Physician: Lawrence Urbano DO Referring Physician: Lawrence Urbano DO Allergies, Adverse Reactions, Alerts Substance Reaction Severity [...]
--- OUTSIDE RECORDS SUMMARY | 2022-07-20 05:46 | XMS_ITS | Continuity of Care Document ---
Author Name Unknown Organization [facility] ter Address [address] [place] [id number]- Care Team Providers Care Lab Support Technician Name Role Phone Yannick GONZALEZ, Azalea Primary Care Physician [phone] [place] [facility] [place]): [place] - 01/16/[address] [address]- Discharge Disposition: A-D/C Home Attending Physician: Tejas Fraser MD Admitting Physician: Jazlyn Romo MD Referring Physician: Jalzyn Romo MD Allergies, Adverse Reactions, Alerts No Known [...] Status: Ordered amLODIPine 10 mg oral tablet 10 mg, Tablet, By Mouth, 01/16/22 9:00:00 EST Start Date: 01/16/22 Stop Date: 01/16/22 Status: Completed amLODIPine 10 mg oral tablet 1 tablet [...] Maintenance, 01/16/22 10:41:00 EST,Route to Pharmacy Electronically, [facility], Partial fill upon patient request if the prescription is for a schedule II opioid drug., 18... Start Date: 01/16/22 Status: Ordered atorvastatin 80 mg oral tablet 1 tablet = 80 mg, By Mouth, Daily at bedtime, # 30 tablet, 0 Refills, Maintenance, 01/16/22 10:43:00 EST, Tablet, [facility], Partial fill upon patient request if [...] to improve absorption, if tolerated Instructions in nigerian please, # 30 tablet, 0 Refills, Maintenance, 01/16/22 11:44:00 EST, Tablet, [facility], Partial fill upon patient... Start Date: [...] 01/16/22 10:42:00 EST, Route to Pharmacy Electronically, [facility], Partial fill upon patient request if the prescription is for a schedule II opioi... Start Date: 01/16/22 Status: Ordered metoprolol 25 mg oral tablet 25 mg, Tablet, By Mouth, 01/16/22 9:00:00 EST Start Date: 01/16/22 Stop Date: 01/16/22 Status: Completed metoprolol 50 mg oral tablet, extended release 50 mg, 1, tablet, By Mouth, Daily, # 90 tablet, Refills 0, Tot. Refills 0, Maintenance, 01/16/22 10:43:00 EST, Route to Pharmacy Electronically, [facility], Partial fill upon patient request if [...] 11 Refills, Maintenance, 01/16/22 10:44:00 EST, Tablet, [facility], Partial fill upon patient request if the prescription is for a schedule II opioid drug., 187, cm, 01/06/22 13:18:... Start Date: 01/16/22 Status: Ordered VITAMIN D3 1,000 UNIT SOFTGEL TAKE 1 CAPSULE BY MOUTH EVERY DAY Start Date: 01/14/22 Status: Ordered Problem List Condition Confirmation Course Effective Dates Status Health St atus Informant Obese class I Confirmed Active Vital Signs Most recent to oldest [Reference Range]: 1 2 3 Weight 97.5 kg (01/16/22 5:30 AM) 112.6 kg (01/15/22 6:23 AM) 112.6 kg (01/14/22 6:44 PM) Oxygen Saturation [94-100 %] 98 % (01/16/22 7:37 AM) 99 % (01/16/22 2:16 AM) 100 % (01/15/22 8:45 PM) Pulse Rate [55-90 bpm] 94 bpm *H* (01/16/22 12:26 PM) 89 bpm (01/16/22 7:37 AM) 77 bpm (01/16/22 2:16 AM) Blood Pressure [90-138/55-84 mm Hg] 108/59mm Hg (01/16/22 12:26 PM) 108/59mm Hg (01/16/22 12:26 PM) 134/57mm Hg (01/16/22 7:37 AM) Respiratory Rate [16-30 br/min] 18 br/min (01/16/22 7:37 AM) 16 br/min (01/16/22 2:16 AM) 20 br/min (01/15/22 8:45 PM) Temperature [96.8-100.4 DegF] 97.5 DegF (01/16/22 7:37 AM) 97.9 DegF (01/16/22 2:16 AM) 97.8 DegF (01/15/22 8:45 PM) Mode of Delivery (Oxygen) Room air (01/16/22 7:37 AM) Room air (01/16/22 2:16 AM) Room air (01/15/22 8:45 PM) Blood pressure sites Arm, left (01/16/22 7:37 AM) Arm, right (01/16/22 2:16 AM) Arm, right (01/15/22 8:45 PM) Temperature Route Temporal (01/16/22 7:37 AM) Temporal (01/16/22 2:16 AM) Temporal (01/15/22 8:45 PM) Dry Weight 109 kg (01/14/22 6:44 PM) Weight Obtained Via Bed scale (01/16/22 5:30 AM) Note * Event Display: Hemodynamic Procedure Report Authored Date: * Hannah Shine: PERFORM Event Display: Discharge/Transfer Note Hospital Authored Date: [id number] Nursing Discharge Note Entered On: 01/16/2022 14:47 EST Performed On: 01/16/2022 14:44 EST by Hannah Shine Nursing Discharge Note 2 Discharge Time : 01/16/2022 14:45 EST Discharge Level of Care at Discharge : Home/Mcfp/Foster Care Patient Left Unit Via : Wheelchair Patient Accompanied Off Unit with : Responsible adult DC Instructions Provided & Signed by Pt : Yes Patient Understands D/C Instructions : Yes Patient Instructions Discharge Signed : Yes Did Pt have Specialty Bed or Wound Vac : No Hannah Shine - 01/16/2022 14:44 EST * Sushant Mead DO: MODIFY, MODIFY, MODIFY, MODIFY, MODIFY, MODIFY, MODIFY, MODIFY, MODIFY, PERFORM, MODIFY, MODIFY, MODIFY, MODIFY, MODIFY, MODIFY, MODIFY, MODIFY, MODIFY, MODIFY Event Display: Discharge/Transfer Note Hospital Authored Date: [id number] Patient: ??VALE CUENCA ? Age:??61 Years?Sex:??Male?:??1960?? Patient Information Discharge Location: M7 Primary Care Physician: Azalea Lanier MD Admit Date/Time: 01/14/22 18:33 Discharge ?01/16/22 11:58:00 EST Discharge Disposition Discharge Disposition: Home: No Services Discharge Diagnosis NSTEMI Myocardial Injury Ischemic/ Hypertensive Cardiomyopathy ESRD on dialysis (N18.6) HTN (hypertension) (I10) Type 2 diabetes mellitus (E11.9) Hypertensive emergency?? Ischemic/Hypertensive ??Cardiomyopathy ?? _ Discharge Medications Albuterol (Albuterol (Eqv-ProAir HFA) 90 mcg/inh inhalation aerosol)?2?puff(s)?Inhalation?Every 6 hours?as needed?Wheezing/Shortness of Breath Amlodipine (amLODIPine 10 mg oral tablet)?1?tab(s)?10?Milligram?By Mouth?Daily Aspirin (aspirin 81 mg oral delayed release tablet)?81?Milligram?By Mouth?Daily Atorvastatin (atorvastatin 80 mg oral tablet)?1?tab(s)?80?Milligram?By Mouth?Daily at bedtime Brimonidine-Timolol Ophthalmic (Combigan 0.2%-0.5% ophthalmic solution)?1?Drops?Eyes, Both?Every 12 hours Ferrous Fumarate (ferrous fumarate 325 mg oral tablet)?1?tab(s)?325?Milligram?By Mouth?Every other day?between meals to improve absorption, if toleratedInstructions in nigerian please Furosemide (furosemide 80 mg oral tablet)?80?Milligram?1?tablet?By Mouth?2 times a day?ON NONDIALYSIS DAYS (Wednesday, Wednesday, and Wednesday) GlipiZIDE (glipiZIDE 5 mg oral tablet)?5?Milligram?1?tablet?By Mouth?Daily Isosorbide Mononitrate (isosorbide mononitrate 30 mg oral tablet, extended release)?30?Milligram?1?tablet?By Mouth?Daily Metoprolol (metoprolol 50 mg oral tablet, extended release)?50?Milligram?1?tablet?ByMouth?Daily Miscellaneous Rx (VITAMIN D3 1,000 UNIT SOFTGEL)?TAKE 1 CAPSULE BY MOUTH EVERY DAY Omeprazole (omeprazole 20 mg oral enteric coated capsule)?TAKE 1 CAPSULE BY MOUTH EVERY DAY BEFORE A MEAL Sevelamer (Renvela 800 mg oral tablet)?1?tab(s)?800?Milligram?By Mouth?3 times a day?with meals Ticagrelor (ticagrelor 90 mg oral tablet)?1?tab(s)?90?Milligram?By Mouth?2 times a day ? Medications Started Aspirin (aspirin 81 mg oral delayed release tablet)?81?Milligram?By Mouth?Daily Metoprolol (metoprolol 50 mg oral tablet, extended release)?50?Milligram?1?tablet?ByMouth?Daily Ticagrelor (ticagrelor 90 mg oral tablet)?1?tab(s)?90?Milligram?By Mouth?2 times a day Medications Discontinued Primidone (primidone 50 mg oral tablet)?50?Milligram?1?tablet?By Mouth?2 times a day Doses Changed Atorvastatin (atorvastatin 80 mg oral tablet)?1?tab(s)?80?Milligram?By Mouth?Daily at bedtime Isosorbide Mononitrate (isosorbide mononitrate 30 mg oral tablet, extended release)?30?Milligram?1?tablet?By Mouth?Daily Allergies Allergies ?(Active and Proposed Allergies Only) NKA? (Severity: Unknown severity, Onset: Unknown) ? PCP Follow-Up/Heads-Up Pt went to [facility] for chest pain in the setting of hypertensive emergency. Pt had elevated trops and was [place] [facility] [place]. Pt had cath and ARIELA placed to mid LAD. Pt will be discharged on Brilinta, Aspirin, and Atorvastatin 80mg daily. We are going to discontinue thePrimidone because it can reduce the bioavailability of Brilinta. We are also going to start Metoprol ol XL 50mg and increase the dose of Imdur to 30mg daily. Please follow up with Pt within one week. Follow up with Cardiology. Follow up with Cardio Rehab. Future Appointments Wednesday 2:30 PM EST ?? Where: [facility] [address] [place] [address]- 2022 10:00 AM EDT ?? [place] [facility] Course Mr. Ari Rod is a 61-year-old Malagasy speaking male with past medical history of ischemic cardiomyopathy LVEF of 35 to 40%??diabetes mellitus type 2 with diabetic retinopathy, hypertension, hypercholesterolemia, end-stage renal disease on hemodialysis on Wednesday and Wednesday who presented as transfer from due to ACS workup.??Pt presented there with hypertensive emergency and chest pain. EKG showed NSR in the 70s no concerns of ST segment changes or T wave inversions. A1c 6.8. Lipid Panel hypertriglyceridemia and low HDL. Pt presented there with hypertensive emergency and chest pain. Pt is s/p??ARIELA to the mid LAD. Pt had Myocardial Injury based on High sensitivity troponin levels and is considered to have had an NSTMEI. Pt will be on lifetime Aspirin??81mg daily and will be on Brilinta 90mg BID for 12 months.??Will start patient on Atorvastatin 80mg daily.??Pt is normotensive at this time. Pt will be getting dialysis today. Pt is hemodynamically stable and medically discharged to home with no services after pt gets dialysis. Objective Assessment and Plan Mr. Ari Rod is a 61-year-old Malagasy speaking male with past medical history of diabetes mellitus type 2 with diabetic retinopathy, hypertension, hypercholesterolemia, end-stage renal diseaseon hemodialysis on Wednesday and Wednesday who presented as transfer from due to ACS workup. Pt is s/p ARIELA to the mid LAD.? NSTEMI Myocardial Injury Ischemic/ Hypertensive Cardiomyopathy ?? Recommendations - Continue Aspirin 81mg for life - Started Atorvastatin??80mg daily - Imdur increase to 30mg daily - Continue Amlodipine 10mg??daily - Continue Lopressor 25mg BID - Continue Brillinta 90mg BID for 12 months - Follow up with Cardiology ?? Hypertensive emergency?? Pt came in with blood pressure in the 200s??and with elevated troponins Blood pressure is now 140s/60s ?? Recommendations - Imdur increase to 30mg daily - Continue Amlodipine 10mg??daily - Continue Lopressor 25mg BID - Follow up with PCP in??1 week ?? ESRD on dialysis? HD on //Wed ?? Type 2 diabetes mellitus?? hold home oral antihyperglycemic medications?? A1c is 6.8 ?? Recommendations - Lispro Sliding Scale - continue Glipizide 5mg daily ?? Vital Signs?? Temperature: 97.5 DegF (01/16/22 07:37:00) Temperature Route: Temporal (01/16/22 07:37:00) Pulse Rate: 89 bpm (01/16/22 07:37:00) Respiratory Rate: 18 br/min (01/16/22 07:37:00) Systolic Blood Pressure: 134 mm Hg (01/16/22 07:37:00) Diastolic Blood Pressure: 57 mm Hg (01/16/22 07:37:00) Blood pressure sites: Arm, left (01/16/22 07:37:00) Mean Arterial Pressure: 83 mm Hg (01/16/22 07:37:00) Pulse Pressure: 77 mm Hg (01/16/22 07:37:00) Oxygen Saturation: 98 % (01/16/22 07:37:00) Mode of Delivery (Oxygen): Room air (01/16/22 07:37:00) Early Warning Score: 3 (01/16/22 07:58:24) ? . Physical Exam Constitutional: Alert, in no distress. Mental Status: Oriented to person, place and time. Head: Normocephalic. Eyes: Pupils are equal, round and reactive to light. Extraocular muscles intact. Ear, Nose and Throat: Oropharynx clear, mucous membranes moist. Ears and nose without masses, lesions or deformities. Trachea midline. Neck: Supple, Full range of motion. Respiratory: Clear to auscultation. No wheezing, rales or rhonchi. Cardiovascular: S1 S2 present regular rate rhythm. No murmurs, rubs or gallops. No JVD present. No peripheral edema Gastrointestinal: Abdomen soft, non-tender, non-distended. Normal bowel sounds. No pulsatile mass. No hepatosplenomegaly. Genitourinary: No costovertebral angle tenderness. Neurologic: No focal neurological deficits. Flexor plantar response. Moves all extremities spontaneously. Sensation intact bilaterally. Skin: No rashes or lesions. No petechiae or purpura.?? Musculoskeletal: No cyanosis or clubbing. No gross deformities. Normal range of motion. Psychiatric: Normal mood and affect [facility] Patient Education Titles Recognizing a Heart Attack or Angina?? Discharge Instructions for Heart Attack?? Exercising After a Heart Attack?? Symptoms of a Heart Attack?? Heart Attack: Back at Home?? What Is Angina??? Cardiac Procedures?? Follow-Up Appointments Added Follow Up ?Time Frame ?Comments Ana GONZALEZ, Rui Wang?1 week: call to discuss follow up [facility]1 week: call to discuss follow up visit Patient Instructions You came to the hospital due to chest pain with elevated blood pressures. You received a stent to one of the arteries that supply blood to the heart. You will be on Aspirin 81mg taken once a day for life, you will be on Brilinta 90mg taken twice a day for the next 12 months, We increased your Imdurto 30mg taken once a day, we are going to increase your atorvastatin to 80mg daily, and we are going to start you on Metoprolol 50mg which should be taken once day. We ask to stop taking Primidone asit interacts with the medication called Brilinta which is help keep the stent in the??artery that supplies the heart open.??Please follow up??with alumnae secretary. please follow up with your PCP within one week. Please follow up with Cardiology Rehab. Post Discharge Care Diet: Renal diet Code Status: ?? Full Resuscitation Condition: fair Discharge ?01/16/22 11:58:00 EST Discharge Prescriptions ?ePrescribed, ??[facility], [facility], ??01/16/22 11:58:00 EST Results Discharge Labs BLOOD COUNT & DIFF WBC 4.8 k/mm3 ()?? 01/15/2022 00:25 RBC 3.24 m/mm3 (Low)?? 01/15/2022 00:25 Hgb 9.6 Gm/dL (Low)?? 01/15/2022 00:25 Hct 29.8 % (Low)?? 01/15/2022 00:25 MCV 92.0 femtoliters ()?? 01/15/2022 00:25 MCH 29.6 pg ()?? 01/15/2022 00:25 MCHC 32.2 g/dL (Low)?? 01/15/2022 00:25 Platelet Count 283 k/mm3 ()?? 01/15/2022 00:25 RDW-SD 47.1 femtoliters (High)?? 01/15/2022 00:25 MPV 9.1 femtoliters (Low)?? 01/15/2022 00:25 Nucleated RBC (Automated) 0.0 #/100 WBC'S ()?? 01/15/2022 00:25 Abs. NRBC 0.0 k/mm3 ()?? 01/15/2022 00:25 ?? CARDIAC CK, Total 27 units/L ()?? 01/14/2022 19:37 High Sensitivity Troponin (HSTnT) 124 ng/L (Critical)?? 01/15/2022 00:25 ?? CHEM GENERAL Sodium 135 mmol/L ()?? 01/15/2022 00:25 Potassium 4.5 mmol/L ()?? 01/15/2022 00:25 Chloride 98 mmol/L ()?? 01/15/2022 00:25 Bicarbonate Level 25 mmol/L ()?? 01/15/2022 00:25 Anion Gap 12 ()?? 01/15/2022 00:25 Glucose Level 124 mg/dL (High)?? 01/15/2022 00:25 Glucose, POC 175 mg/dL (High)?? 01/16/2022 07:44 Hemoglobin A1C (Monitoring) 6.8 % (High)?? 01/15/2022 00:25 BUN 33 mg/dL (High)?? 01/15/2022 00:25 Creatinine-Blood 5.3 mg/dL (High)?? 01/15/2022 00:25 Estimated GFR Creatinine 11 ML/MIN/1.73 M2 ()?? 01/15/2022 00:25 Calcium 8.8 mg/dL ()?? 01/15/2022 00:25 Magnesium 2.0 mg/dL ()?? 01/14/2022 19:37 Protein, Total 6.2 Gm/dL ()?? 01/15/2022 00:25 Albumin 3.5 Gm/dL ()?? 01/15/2022 00:25 AG Ratio 1.3 ()?? 01/15/2022 00:25 Alkaline Phosphatase 65 units/L ()?? 01/15/2022 00:25 AST (SGOT) 13 units/L ()?? 01/15/2022 00:25 ALT (SGPT) 15 units/L ()?? 01/15/2022 00:25 Bilirubin, Total 0.3 mg/dL ()?? 01/15/2022 00:25 ?? LIPID STUDIES Cholesterol 119 mg/dL ()?? 01/15/2022 00:25 Triglycerides 182 mg/dL (High)?? 01/15/2022 00:25 HDL Cholesterol 28 mg/dL (Low)?? 01/15/2022 00:25 LDL Cholesterol 55 mg/dL ()?? 01/15/2022 00:25 Non HDL Cholesterol 91 mg/dL ()?? 01/15/2022 00:25 ? VIROLOGY COVID-19 PCR Specimen Source NASAL ()?? 01/14/2022 20:01 COVID-19 PCR Result NEGATIVE ()?? 01/14/2022 20:01 ? Microbiology ?? COVID-19 (2019 Novel Coronavirus) PCR?? Completed?? Source: Nasal Body Site: Nose Collected Dt/Tm: 01/14/2022 19:57 Last Updated Dt/Tm: 01/15/2022 05:10 ?? Coronary Angiography Cardiac Diagnostic + PCI Report ?Demographics ?Patient Name ?ROD ROD VALE Gender ? Male ?Corporate ?Race ?Facility ?Room Number ?M710 ? Height ? 73.62 inches ?Date of ? 1960 ? Weight ? 248.24 pounds ?Age ? 61 year(s) ? BSA ?2.37 m2 ?Accession Number ?[id number] ? BMI ?32.2 kg/m2 ?Referring Physician ? Rajni Loyola MD ??Date of Study ??01/15/2022 ?Performing Physician ?Robert Vicente ?Fellow ? Francisco Gonzalez ?Interventional ?Robert Vicente ??Physician ?Procedure ?? Procedure Type ?Diagnostic procedure:Coronary Angiography with Grafts ?PCI procedure:FFR, Coronary IVUS, Stent (Drug Eluting) ?Miscellaneous:ACT ?? ACC Diagnostic Catheterization Status:Urgent ?? ACC Interventional Catheterization Status:Urgent ?Indications ?Indications: ??Chest pain. ?Clinical History ?? Admission Medications + +------+-------+ + + +---------+ !Medication ?? !Dosage!Times ??!Last ? !Last ? !Administered !Comments ! ! ? ! ?!Per Day!Delivery ?? !Delivery ?? ! ? ! ? ! ! ? ! ?! ? !Date ? !Time ? ! ? ! ? ! + +------+-------+ + + +---------+ !Aspirin (any)!81 mg ! ? !01/15/2022 !09:23 ?! ? ! ? ! + +------+-------+ + + +---------+ !Beta Kendra ! ?! ? ! ? ! ? ! ? ! ? ! !(any) ?! ?! ? ! ? ! ? ! ? ! ? ! + +------+-------+ + + +---------+ !Calcium ?! ?! ? ! ? ! ? ! ? ! ? ! !Channel ?! ?! ? ! ? ! ? ! ? ! ? ! !Kendra ?! ?! ? ! ? ! ? ! ? ! ? ! + +------+-------+ + + +---------+ !Nitrate (Any)! ?! ? ! ? ! ? ! ? ! ? ! + +------+-------+ + + +---------+ !Statin (any) ! ?! ? ! ? ! ? ! ? ! ? ! + +------+-------+ + + +---------+ ?Procedure Data ?? Procedure Date Date: 01/15/2022tart: 15:51End: 18:09 ?? The procedure was explained in detail to the patient. Risks, complications and alternative treatments were reviewed. Written consent was obtained. ?? Entry Locations ?- Retrograde Percutaneous access was performed through the Right Femoral ?artery. A 4 Fr sheath was inserted. This was exchanged for a 6 Fr sheath. ?Hemostasis was successfully obtained using Perclose ProGlide. ?? Procedure Medications ?- Lidocaine 2% S.C. Right groin 10 ml. ?- Heparin I.V. 7000 units. ?- Heparin I.V. 2000 units. ?- Versed (Midazolam) I.V. 1 mg. ?- Fentanyl I.V. 50 mcg. ?- Zofran I.V. 4 mg. ?- Heparin I.V. 2000 units. ?- Adenosine 90mg/90ml 0.9NS I.V. drip 140 mcg/kg/min. ?- Nitroglycerin I.A. 200 mcg. ?- Ticagrelor P.O. 180 mg. ?- Heparin I.V. 2000 units. ?- Nitroglycerin I.A. 200 mcg. ?- Nitroglycerin I.A. 200 mcg. ?- Nitroglycerin I.A. 200 mcg. ?- Nitroglycerin I.A. 200 mcg. ?- Nitroglycerin I.A. 200 mcg. ?- Adenosine I.C. 5 mcg. ?- Adenosine I.C. 5 mcg. ?- Nitroglycerin I.A. 200 mcg. ?- Fentanyl I.V. 25 mcg. ?? Sedation: My in-service moderate sedation time was from 1602 to 1806 . Refer to the procedural log for detailed chronological information. ?? Contrast Material ?- Omnipaque 125 ml ?? Diagnostic Catheters ?- [id number] JR 4 INFINITI DIAGNOSTIC CATHETER ?was used for: Left heart catheterization. ?- [id number] JR 4 INFINITI DIAGNOSTIC CATHETER ?was used for: Right coronary angiography. ?- A6F JL4 INFINITI CATHETERwas used for: Left coronary angiography. ?- A6F EBU 3.5 LAUNCHER GUIDING CATHETERwas used for: FFR . ?- [id number] RX SYCUAN EYE [place] DIGITAL IVUS CATHETERwas used for: IVUS. ?- [id number] RX SYCUAN EYE [place] DIGITAL IVUS CATHETERwas used for: IVUS. ?- [id number] RX SYCUAN EYE [place] DIGITAL IVUS CATHETERwas used for: IVUS. ?? Fluoroscopy Time: Diagnostic: 2:05 minutes. PCI: 17:35 minutes. Total: 19:40 minutes. ?? Fluoroscopy Dose: Diagnostic: 935 mGy. PCI: 2035 mGy. Total: 2970 mGy. ?? Dose Area Product:Diagnostic: 18174.5 mGy/cm2. PCI: 824797 mGy/cm2. Total: 664490.5 mGy/cm2. ?? Dose Area Product:Diagnostic: 6873.35?Gy/m2. PCI: 92212.071141124342?Gy/m2. Total: 39000.608534660986?Gy/m2. ?Procedure Narrative ?Timeout was performed prior to the procedure. Right femoral arterial access ??was obtained using a 6 Fr femoral sheath. Selective coronary angiography of ??the right coronary artery was performed using a 6F JR4 catheter. Selective ??coronary angiography of the left coronary artery was performed using 6F JL4 ??catheter. After review of the coronary angiogram the decision was made to ??iFR the LAD. A 6Fr EBU 3.5 guide catheter was used to engage the left ??coronary system. A 0.014 omni coronary wire was used to cross the lesion. ??The iFR of the LAD was 0.86 and the FFR was 0.78. The lesion was predilated ??using a 2.5X12 NC balloon. An Yoomly eye IVUS was used to image the vessel. A ??3.5 shock wave was used to pre-dilate the lesion. A 3.5 X 16 m Synergy ARIELA ??was successfully deployed at 11 vincent. This was post-dilated using a 4.0X12 NC ??balloon at 18 Vincent. Successful hemostasis was obtained using a Perclose. ?Angiographic Findings ?Cardiac Arteries and Lesion Findings ?? LAD: ?Lesion in Mid LAD: 80% stenosis . ?FFR ?+----+ +-------+ ?!FFR !Stage/Medication !Dosage ! ?+----+ +-------+ ?!0.78!Adenosine (I.V) ??!140 ?! ?+----+ +-------+ ?iFR ?+----+ + ?!iFR !Stage ? ! ?+----+ + ?!0.93!Diagnostic! ?+----+ + ?!0.91!Diagnostic! ?+----+ + ?!0.9 !Diagnostic! ?+----+ + ?!0.86!Diagnostic! ?+----+ + ?!0.85!Diagnostic! ?+----+ + ?Hemodynamics ?Condition: Rest ?O2 Consumption: Estimated: 282.78Heart Rate: 76 bpm ?? Pressures (mmHg) +-----+ + !Site !Pressure ?? ! +-----+ + !LV ?? !145/2 ,10 ??! +-----+ + !AO ?? !135/58 (90)! +-----+ + !LV ?? !144/4 ,11 ??! +-----+ + !AO ?? !103/42 (46)! +-----+ + ?? Valve Gradients and Areas +------+----+----+----+-----+----+------+ !Valve !Peak!Mean!Area!Index!Flow!Source! +------+----+----+----+-----+----+------+ !Aortic!9 ?? !0 ?? ! ?! ? ! ?! ?! +------+----+----+----+-----+----+------+ !Aortic!9 ?? !0 ?? ! ?! ? ! ?! ?! +------+----+----+----+-----+----+------+ ?? Shunts ?? Oxygen Values ?O2 Capacity 130.56 O2 Consumption 282.78 ?Interventional Procedure ?? Cardiac lesions ?? LAD: ?Lesion in Mid LAD: 80% stenosis . ?Devices used ?- 185cm STR OMNIWIRE PRESSURE GUIDEWIRE. Number of passes: 2. ?- 2.0lzh16ky MR NC EMERGE BALLOON. Diameter: 2.5 mm. Length: 12 mm. 2 ?inflation(s) to a max pressure of: 18 vincent. ?- 3.7vld05hw RX SHOCKWAVE C2 IVL. Diameter: 3.5 mm. Length: 12 mm. 6 ?inflation(s) to a max pressure of: 6 vincent. ?- 3.44wuk28ia SYNERGY XD ARIELA. Diameter: 3.5 mm. Length: 16 mm. 1 ?inflation(s) to a max pressure of: 11 vincent. ?- 4.6xdg97da RX NC EUPHORA BALLOON. Diameter: 4 mm. Length: 12 mm. 2 ?inflation(s) to a max pressure of: 18 vincent. ?Conclusions ?Diagnostic Summary ??Coronary angiogram showed: ??1. Left main large size vessel with 20% ostial stenosis. ??2. LAD large size vessel with 70-80% mid calcific stenosis. This was ??hemodynamically significant by iFR/FFR assessment 0.86/0.78 respectively. ??3. Ramus is a moderate size vessel with minimal luminal irregularities. ??4. LCx is a large size vessel. OM1 has a lateral small distal branch with ??80% ostial stenosis. ??5. RCA is a a large size vessel with minimal luminal irregularities. ??6. LVEDP is 10 mmHg. ?Diagnostic Recommendations ??Proceed with PCI of the mid LAD ?Interventional Summary ??Successful IVUS optimized IVL assisted PCI of the mid LAD using a 3.5X16 mm ??Synergy ARIELA that was post-dilated using a 4.0 NC balloon. IVUS post PCI ??showed a MSA of 8.2 mm2. LIZ 3 flow post PCI with no complications. ?Interventional Recommendations ??Aspirin for lifetime. ??P2Y12 inhibitor for at least 12 months. ??Aggressive cardiovascular risk factor modification. ??Evidence based optimal medical therapy. ? Pt seen and discussed with??Attending Dr. Fraser ?? Sushant Mead,??DO PGY-1 Internal Medicine Pager [phone]/ cortext? 30 minutes spent on discharge * Hannah Shine: PERFORM, MODIFY Event Display: Patient Education/Instruction Authored Date: [id number] Inpatient Adult Discharge Instructions [address] [id number] Name: VALE ROD : 1960 Visit: 01/14/2022 18:33:00 Current Date: 01/16/2022 12:45 Account: [id number] Inpatient Adult Discharge Instructions We would like to thank you for allowing us to assist you with your healthcare needs. The following includes patient education materials and information regarding your injury/illness. Our entire staffstrives to provide an excellent experience for our patients and their families. PLEASE ENSURE YOU FOLLOW-UP PER THE INSTRUCTIONS BELOW! ?? YOUR OPINION IS IMPORTANT TO US! Please complete the survey you may receive by mail or email. Your feedback will be used to make improvements to the healthcare experiences of our patients and their families. Surveys are administered by [email or web address] ?? If further treatment with your primary care physician or another doctor is recommended, it is important for you to keep the appointment. Call your primary care physician or return to the Emergency Department immediately if your condition worsens, fails to improve, or new symptoms develop. If you need to find a doctor, you can call [facility] [employer] for a referral at [phone] or toll free at [phone] ([phone]) or log in to [email or web address].. ?? You can view and manage your care through the patient portal or by using a health care yocasta of your choosing. [employer] [place] is a website that allows you to securely view your medical information including your hospital discharge summary, office visit summaries, medications and follow-up visits. You can also request appointments, renew medications, and request access to your medical information using a health care yocasta of your choosing, or just ask a question. You can enroll at [email or web address] or register during your next office visit. You have been discharged from [facility], Patient Care Unit: M7. If you have any questions regarding these instructions after you leave, please call us and we will be happy to assist you. [facility] Your Care Team Attending Physician Bria GONZALEZ, [place] Consulting Providers Rui Perez MD Discharging Providers Sushant Mead DO Reason for Admission Chest pain, abnormal troponin Your Diagnosis ACS (acute coronary syndrome) HTN (hypertension) ESRD on dialysis Type 2 diabetes mellitus Tests Performed Below is a partial list of the tests performed during your hospitalization. You may have had other tests and procedures not included in this list. Please discuss all test results with your provider. CK (CREATINE KINASE) Comprehensive Metabolic Panel COVID-19 (2019 Novel Coronavirus) PCR GLUCOSE POC Hemoglobin A1c, (Diagnostic) Lipid Panel Troponin T, High Sensitivity Primary Care Provider Azalea Lanier MD Advance Directive Health Care Proxy on File No No qualifying data available. Discharge Vitals Temperature: 97.5 DegF Weight: 97.5 kg Pulse Rate:??94 bpm??High ?? Respiratory Rate: 18 br/min ?? Systolic Blood Pressure: 108 mm Hg ?? Systolic Blood Pressure: 108 mm Hg ?? Diastolic Blood Pressure: 59 mm Hg ?? Diastolic Blood Pressure: 59 mm Hg ?? Oxygen Saturation: 98 % ?? Studies Pending All tests and labs ordered during this hospital stay have been completed unless listed below. Please discuss all pending results with your provider listed above in these instructions. ?? Add On Lab Order (Lab Add On Order) Basic Metabolic Panel CBC COVID-19 (2019 Novel Coronavirus) PCR (COVID-19 (NOVEL CORONAVIRUS) PCR) Magnesium Level What to do next Instructions From Your Doctor You came to the hospital due to chest pain with elevated blood pressures. You received a stent to one of the arteries that supply blood to the heart. You will be on Aspirin 81mg taken once a day for life, you will be on Brilinta 90mg taken twice a day for the next 12 months, We increased your Imdurto 30mg taken once a day, we are going to increase your atorvastatin to 80mg daily, and we are going to start you on Metoprolol 50mg which should be taken once day. We ask to stop taking Primidone asit interacts with the medication called Brilinta which is help keep the stent in the??artery that supplies the heart open.??Please follow up??with alumnae secretary. please follow up with your PCP within one week. Please follow up with Cardiology Rehab. Discharge Orders Diet:??Renal diet Code Status:?? Full Resuscitation Condition:??fair Scheduled Follow-Up Appointments Wednesday 2:30 PM EST ?? Where: [facility] [address] [place] [address]22 10:00 AM EDT ?? Where: [facility] You Need to Schedule the Following Appointments Follow Up with??Cardiac Rehab When?? Why: An email has been sent to the program, They will contact you to schedule an appointment. ??If you do not hear from them please call. Where: [address] [place] [phone] Follow Up with??[facility] Asst Prog [phone] When?? Follow Up with??Ana GONZALEZ, Rui Wang When??Within 1 week: call to discuss follow up visit Where: ?? Follow Up with??Azalea Lanier MD When??Within 1 week: call to discuss follow up visit Where: [address] [place] [address]- Discharge Medications VALE CUENCA :1960 Visit Date:01/14/2022 Medications: Please continue your medications until treatment is completed or stopped by your provider. Medications not listed below should be discontinued. Discuss any questions related to medications with your provider. What How Much When Instructions Next Dose New Aspirin (aspirin 81 mg oral delayed release tablet) 81 Milligram Oral Daily Pickup at [place] [address] 01/17 New Ferrous Fumarate (ferrous fumarate 325 mg oral tablet) 1 tab(s) Oral Every other day between meals to improve absorption, if tolerated ?? Instructions in nigerian please ?? Pickup at [place] [address] New Isosorbide Mononitrate (isosorbide mononitrate 30 mg oral tablet, extended release) 1 tab(s) Oral Daily Pickup at [place] [address] 01/17 New Metoprolol (metoprolol 50 mg oral tablet, extended release) 1 tab(s) Oral Daily Pickup at [place] [address] 01/17 New Ticagrelor (ticagrelor 90 mg oral tablet) 1 tab(s) Oral Twice a day Refills: 11 Pickup at [place] [address] 01/16 PM Changed Atorvastatin (atorvastatin 80 mg oral tablet) 1 tab(s) Oral Daily at Bedtime Pickup at [place] [address] 01/16 PM Unchanged Albuterol (Albuterol (Eqv-ProAir HFA) 90 mcg/ inh inhalation aerosol) 2 puff(s) Inhalation Every 6 hours as needed for Wheezing/Shortness of Breath Unchanged Amlodipine (amLODIPine 10 mg oral tablet) 1 tab(s) Oral Daily 01/17 Unchanged Brimonidine-Timolol Ophthalmic (Combigan 0.2%-0.5% ophthalmic solution) 1 Drops Both eyes Every 12 hours Unchanged Furosemide (furosemide 80 mg oral tablet) 1 tab(s) Oral Twice a day ON NONDIALYSIS DAYS (Wednesday, Wednesday, and Wednesday) ?? Unchanged GlipiZIDE (glipiZIDE 5 mg oral tablet) 1 tab(s) Oral Daily 01/17 Unchanged Miscellaneous Rx (VITAMIN D3 1,000 UNIT SOFTGEL) TAKE 1 CAPSULE BY MOUTH EVERY DAY ?? Unchanged Omeprazole (omeprazole 20 mg oral enteric coated capsule) TAKE 1 CAPSULE BY MOUTH EVERY DAY BEFORE A MEAL ?? Unchanged Sevelamer (Renvela 800 mg oral tablet) 1 tab(s) Oral 3 times a day with meals ?? 01/16 PM Pharmacy Information [facility]: [address], [place] [id number] [phone] ?? What How Much When Comments Stop Taking PEG Electrolyte Solution (Plenvu oral powder for reconstitution) See instructions split dose 1/ 2 dose day before 1/ 2 dose day of procedure (7hrs before procedure) ?? Stop Taking Primidone (primidone 50 mg oral tablet) 1 tab(s) Oral Twice a day Test Results Below is a partial list of the most recent Laboratory test results done prior to this discharge. You may have had other tests and procedures not included in this list. Please discuss all test resultswith your provider. CK (CREATINE KINASE) (01/14/2022) ???CK, Total - 27 units/L Comprehensive Metabolic Panel (01/15/2022) ???Sodium - 135 mmol/L???Potassium - 4.5 mmol/L???Chloride - 98 mmol/L???Bicarbonate Level - 25 mmol/L???Anion Gap - 12???Glucose Level - 124 mg/dL???BUN - 33 mg/dL???Creatinine-Blood - 5.3 mg/dL???Estimated GFR Creatinine - 11 ML/MIN/1.73 M2???Calcium - 8.8 mg/dL???Protein, Total - 6.2 Gm/dL???Albumin - 3.5 Gm/dL???AG Ratio - 1.3???Alkaline Phosphatase - 65 units/L???AST (SGOT) - 13 units/L???ALT (SGPT) - 15 units/L???Bilirubin, Total - 0.3 mg/dL COVID-19 (2019 Novel Coronavirus) PCR (01/14/2022) ???COVID-19 PCR Specimen Source - NASAL???COVID-19 PCR Result - NEGATIVE GLUCOSE POC (01/16/2022) ???Glucose, POC - 89 mg/dL Hemoglobin A1c, (Diagnostic) (01/15/2022) ???Hemoglobin A1C (Monitoring) - 6.8 % Lipid Panel (01/15/2022) ???Cholesterol - 119 mg/dL???Triglycerides - 182 mg/dL???HDL Cholesterol - 28 mg/dL???LDL Cholesterol - 55 mg/dL???Non HDL Cholesterol - 91 mg/dL Troponin T, High Sensitivity (01/15/2022) ???High Sensitivity Troponin (HSTnT) - 124 ng/L Allergies (NKA means No Known Allergies) NKA Problems Active Problems??(1) Obese class I?? Education Materials Below is the list of Educational Leaflet Providered with your Discharge Instructions. Cardiac Rehabilitation?? Recognizing a Heart Attack or Angina?? Discharge Instructions for Heart Attack?? Exercising After a Heart Attack?? Symptoms of a Heart Attack?? Heart Attack: Back at Home?? What Is Angina??? Cardiac Procedures?? Valuables and Belongings I fully understand and agree that [facility] accepts no responsibility for all my personal property including clothing, toilet articles, radios, jewelry, dentures, hearing aids, rings, money, or any other property that is in my possession or is brought to me after admission. I understand certain valuables may be placed in a hospital safe for a short period of time. I understand that the hospital is not liable for loss or damage due to accident, fire, or other natural occurrence while said property is in the safe. I accept full responsibility for any personal property that I keep with me, and will not hold the hospital responsible in case of loss or disappearance. I acknowledge that i have been encouraged to send valuables and belongings home. ? Other Discharge Information ? Pulmonary Rehab Status?? Pulmonary Rehab Discharge Status?? Respiratory Rate: 18 br/min ? Cardiac Rehab Assessment?? Cardiac Rehab Inpatient Assessment?? Comments-Education: [place] handbook, post PCI activity restrictions, groin site care/ management, anti-platelet medication Comments-Smoking Cessation: n/a Comments-Exercise Activity: home walking, increase as tolerated Comments-Nutrition: Mediterranean Diet Comments-Lipids: meds/diet/exercise Comments-Other plan of care: Refer to Phase 2 at [facility] Comments: email sent to program Common Emergency Awareness Tips IS IT A STROKE? Act FAST and Check for these signs: FACE Does the face look uneven? ARM Does one arm drift down? SPEECH Does their speech sound strange? TIME Call at any sign of stroke ?? Heart Attack Signs Chest discomfort: Most heart attacks involve discomfort in the center of the chest and lasts more than a few minutes, or goes away and comes back. It can feel like uncomfortable pressure, squeezing, fullness or pain. Discomfort in upper body: Symptoms can include pain or discomfort in one or both arms, back, neck, jaw or stomach. Shortness of breath: With or without discomfort. Other signs: Breaking out in a cold sweat, nausea, or lightheaded. Remember, MINUTES DO MATTER. If you experience any of these heart attack warning signs, call to get immediate medical attention! ?? Smoking can increase your chances of developing chronic health problems and can cause harmful effects to other family members in your house. If you smoke, you are strongly encouraged to quit. Please call [facility] [employer] Link at [phone] or [phone] ([phone]) or log in to [email or web address] for referrals to smoking cessation programs. ?? The National Suicide Prevention Hotline is available 21/09 if you or someone you know needs to find a reason to keep living. By calling 7-573-569[employer] Income (1165) you'll be connected to a skilled, trained counselor at a crisis center in your area. INPATIENT DISCHARGE INSTRUCTIONS SIGNATURE PAGE VALE CUENCA Location:[facility] Registration Date and Time:01/14/2022 18:33 EST Primary Care Physician: Yannick GONZALEZ [facility], VALE HINES, have received the above patient education materials/instructions and have verbalized understanding. If ambulance or transport services are being used I further acknowledge being given a choice of service. ?? If you need to contact me, please call me at this number: . Patient/Fire Claims Adjuster Name: Patient/Fire Claims Adjuster Signature: Relationship to Patient: Witness Name/Signature: Date: * Sarina Barraza RN: PERFORM, SIGN, VERIFY Event Display: Patient Education Handout Authored Date: [id number] * Sarina Barraza RN: PERFORM Event Display: Patient Education Leaflets Authored Date: [id number] Cardiac Rehabilitation ?? [address]90 Cardiac Rehabilitation Cardiac rehabilitation (cardiac rehab) is a professionally supervised program designed by your healthcare team. It'll help you recover from your heart problem and??reduce your risk of future heart problems. You may be helped by cardiac rehab if you have certain heart conditions or certain heart procedures. These include: ??? Stable angina ??? Heart attack ??? Stable heart failure ??? Coronary artery bypass surgery ??? Heart valve surgery ??? Angioplasty with or without a stent ??? Heart-lung transplant ?? Along with a tailored exercise program, cardiac rehab provides education and counseling to improve health. The cardiac rehab program includes: ??? An assessment of your health ??? Managing your risk factors such as high cholesterol, blood pressure, and diabetes ??? Education on diet and medicines ??? Exercise training ??? Losing weight ??? Quitting smoking ??? Emotional aspects such as stress, anxiety, or depression It's important to talk with your provider about the health benefits of enrolling in a cardiac rehabprogram. . Your rehab program Your cardiac rehab program may start while you???re still in the hospital. After you leave the hospital, you may go to a facility for rehab classes. You???ll regain some strength and learn how to exercise safely. Once you do that, your healthcare provider may prescribe an exercise program for you to do at a gym or at home. ?? As an inpatient You may start light exercise within 2 days of entering the hospital once you have the healthcare provider's approval. Your activity may be limited based on the procedure you had such as bypass surgery, valve replacement, coronary angioplasty, or coronary stenting. ?? As an outpatient As early as 1 to 2 weeks after leaving the hospital, you can join a supervised rehab program. Ask for a referral from your healthcare provider. Before leaving the hospital, your provider can provide contact and enrollment information. See if your healthcare team can get an appointment set up beforeyou're discharged home. ??? Exercises will be prescribed to help you build strength and movement. The first month will mostlikely include easier exercises. Over time, you???ll exercise harder to improve your endurance. ???Your heart, oxygen saturation,??and blood pressure may be watched as you work. ??? Cardiac rehab programs are tailored to meet your needs. Some people may take part in the program for 6 weeks while others will do it for 6 months or longer. ??? Some people may not have access to a facility-based cardiac rehab. Home-based cardiac rehab is considered in some cases for some people. Virtual programs may also be available. Ask your provider if these are an option for you. ?? Maintain the benefits to your health Don???t stop once you???ve finished your program! Make what you learned in rehab a regular part of your life. Here are some tips: ??? Work out at home or at a gym. Try watching a new workout video each week. Take an exercise class. Find something that keeps you interested. ??? Ask family and friends to help you stay motivated. The healthy lifestyle changes can benefit them as well by partnering up and working out together. ??? Make other lifestyle changes to improve your heart and overall health. Quit smoking. Make changes to lower your stress. Lose excess weight. And lower your blood pressure and cholesterol. ??? It's important to keep an open conversation with your healthcare provider about your progress and goals. ?? Last Reviewed Date: 2020 ?? The [employer]. All rights reserved. This information is not intended as a substitute for professional medical care. Always follow your healthcare professional's instructions. ?? * Sushant Mead DO: PERFORM Event Display: Patient Education Leaflets Authored Date: [id number] Recognizing a Heart Attack or Angina ?? [address] C??mo reconocer un ataque al coraz??n o qiana angina de pecho Si usted tiene factores de riesgo para problemas card??acos, deber??a estar atento siempre a las posibles se??ales de angina o de ataque al coraz??n. Si tiene un problema card??aco repentino, obteneratenci??n m??dica r??pidamente puede salvarle la memo. Los factores de riesgo de un ataque al coraz??n incluyen: ??? Ser mayor ??? Colesterol alto ??? Presi??n arterial lakesha (hipertensi??n) ??? Tener un familiar directo linda un mainor, qiana hermana, un padre o qiana madre que haya padecido un ataque al coraz??n antes de los 50 a??os de edad ??? Diabetes ??? Fumar ??? Exceso de peso ??? Fumar o usar estimulantescomo la coca??na o la anfetamina ??? Estr??s alto Existen otros factores de riesgo linda la ingesta de qiana dieta con alto contenido de grasas y la falta de actividad f??flavio. La angina y el ataque al coraz??n ??? La angina??produce qiana sensaci??n inc??moda de ardor, tensi??n o presi??n en el pecho, la espalda, el lennie, la garganta o la franci??bula. Puede resultar doloroso. [place] indica que menos polly llega al m??sculo card??aco. Por lo general, esto se debe a que hay qiana arteria bloqueada en el coraz??n. La angina es se??al de que est?? teniendo o est?? a punto de tener un ataque al coraz??n. Debe llamar al 911 de inmediato. ??? Un ataque al coraz??n tambi??n se conoce linda infarto awilda de miocardio (FERNANDO). Es lo que sucede cuando la polly y el ox??lianet no pueden llegar a qiana parte del m??sculo card??aco. Lew parte del m??sculo card??aco se da??a y comienza amorir. Si un porcentaje importante del coraz??n se ve afectado, no podr?? latir correctamente. Estolimitar?? mcgrath capacidad para enviar polly al cerebro y al almita del cuerpo. Puede ser mortal. Ante un ataque al coraz??n, es esencial obtener ayuda lo m??s pronto posible. ?? Entendemos que el g??rosina es un espectro. Es probable que usemos t??rminos diferenciados en funci??n del g??rosina para hablar sobre anatom??a y riesgos de la dre. Use esta hoja de la forma que mejorse adecue a usted y a mcgrath proveedor cuando conversen sobre mcgrath atenci??n. ?? Angina estable en comparaci??n con la angina inestable La angina estable tambi??n es conocida linda angina cr??porfirio. Tiene un patr??n t??zbigniew. Normalmente ocurre con el esfuerzo f??sico o ante qiana emoci??n chikis. Los s??ntomas se alivian f??cilmente con reposo y nitroglicerina o ambos. Los s??ntomas de la angina estable probablemente producir??n la misma sensaci??n cada vez que los tenga. Es importante analizar estos s??ntomas con mcgrath proveedor de atenci??n m??dica. Pueden ser qiana se??al de advertencia de un futuro ataque al coraz??n. La angina inestable provoca s??ntomas inesperados o imprevisibles, que suelen ocurrir en reposo. Laangina inestable constituye qiana emergencia m??dica. La angina tambi??n se considera inestable si elreposo y la nitroglicerina no alivian los s??ntomas. O si los s??ntomas se agravan, ocurren con mayor frecuencia o escalante m??s. Estos s??ntomas sugieren un bloqueo grave o un espasmo de qiana arteria del coraz??n. La angina inestable es com??nmente un signo de un ataque al coraz??n activo. Recuerde los siguientes consejos: ??? Los s??ntomas de angina estable deber??an desaparecer con reposo o medicamentos. De no ser as??, ??llame al 911! ??? Los s??ntomas de la angina estable solo escalante unos pocos minutos. Si escalante m??s tiempo, o desaparecen y reaparecen, es posible que est?? teniendo un ataque al coraz??n. ??Llame al 911! ??? Si tiene falta de aire, sudores fr??os, malestar estomacal (n??useas) o aturdimiento, ??llame al 911! Ante qiana angina de pecho, solo hay qiana respuesta: ?llame al 911! Nunca debe ???autodiagnosticarse?? qiana angina. Si estos s??ntomas son nuevos o empeoran, ??llame al 911! ?? Se??ales de advertencia de un ataque al coraz??n Si tiene s??ntomas que no puede explicar, llame al 911 inmediatamente. No conduzca usted mismo hasta la keith de emergencias. Estos son se??ales de advertencia de un posible ataque al coraz??n: ??? Malestar en el pecho.??La mayor??a de los ataques al coraz??n vienen acompa??ados de alg??n tipo de malestar en el centro del pecho que dura m??s de unos minutos, o que desaparece y reaparece. Irene malestar puede manifestarse en forma de qiana presi??n inc??moda, apret??n, saciedad, o dolor. ??? Malestar en otras zonas de la parte superior del cuerpo.??Estos s??ntomas pueden incluir malestar enuno o ambos brazos, la espalda, el lennie, la franci??bula o el est??jose. ??? Falta de aire con o sin malestar en el pecho ??? Otras se??ales pueden incluir los sudores fr??os, las n??useas o el aturdimiento. Si barrett que alguien est?? sufriendo un ataque al coraz??n, llame al 911 en vez de llevar la personaa la keith de emergencias. Despu??s de llamar al 911, le dir??n qu?? hacer. Es posible que el operador del 911le diga que le administre aspirina mientras espera que llegue la ayuda. No le de aspirina si el operador no se lo indica. La aspirina puede ser peligrosa en ciertos casos. ??? Nota para las mujeres: Al igual que los hombres, las mujeres suelen tener dolor o malestar en el pecho linda s??ntoma de ataque al coraz??n. Randi las mujeres tienen qiana probabilidad ligeramente mayor que los hombresde manifestar s??ntomas menos comunes. Estos incluyen falta de aire, cansancio anormal, aturdimiento, acidez, n??useas, v??mitos, dolor de espalda o dolor de franci??bula. ??? Nota para los adultos mayores: Las personas mayores tambi??n pueden tener s??ntomas at??picos de un ataque al coraz??n. Pueden tener s??ntomas que incluyan, desmayos, debilidad o confusi??n. Ignorarlos puede conducir a qiana enfermedad grave o la muerte. Adrianna s??ntomas se deber??an controlar inmediatamente. ??? Si tuvo un ataque al coraz??n. Las personas que ward tenido un ataque al coraz??n corren un mayor riesgo de sufrir otro. Es probable que mcgrath proveedor de atenci??n m??dica le recete un medicamento linda la nitroglicerina para hussain cuando comience el dolor de pecho. O quiz??s necesite medicamentos para disminuir la frecuencia card??amauri y la presi??n arterial. Estos se administran para evitar la angina y otro ataqueal coraz??n. Recuerde hussain todos los medicamentos que mcgrath proveedor le haya recetado. No deje de tomarlos sin antes consultar a mcgrath proveedor. ?? Si usted tiene diabetes: problemas card??acos silenciosos Con el tiempo, los niveles altos de az??car en la polly pueden da??ar los nervios de mcgrath organismo.[place] puede llegar a impedir que sienta el dolor causado por un problema card??aco, dando as?? lugara un problema card??aco ???silencioso?? . Si no nota los s??ntomas, tendr?? menos probabilidades desaber que puede estar teniendo un ataque al coraz??n y le ser?? m??s dif??cil obtener tratamiento de inmediato. Hable con mcgrath proveedor de atenci??n m??dica para reducir el riesgo de tener problemas card??acos silenciosos. ?? Last Reviewed Date: 2020 ?? 3423-6580 The [employer]. Todos los derechos reservados. Esta informaci??n no pretende sustituir la atenci??n m??dica profesional. S??lo mcgrath m??dico puede diagnosticar y tratar un problema de dre. ?? * Sushant Mead DO: PERFORM Event Display: Patient Education Leaflets Authored Date: [id number] Discharge Instructions for Heart Attack ?? 41238 Instrucciones de lakesha luego de un ataque al coraz??n [place] sufrido un ataque al coraz??n (infarto awilda de miocardio). El ataque al coraz??n ocurre cuando un vaso que suministra polly al coraz??n repentinamente se bloquea. [place] hace que el coraz??n no funcione walker nessa linda deber??a. Siga estas instrucciones para el cuidado en la casa y los cambios en mcgrath estilo de memo. En el hogar ??? Revise si tiene qiana lista de todos los medicamentos que usa. Use los medicamentos exactamente linda le indiquen. Aseg??rese de que le den instrucciones sobre adrianna medicamentos y c??mo debe usarlos. Aseg??rese de tener qiana farmacia donde pueda obtener los medicamentos que le recetaron.No omita ninguna dosis. Hable con mcgrath proveedor de atenci??n m??dica si adrianna medicamentos no le est??n funcionando. Juntos pueden dise??ar un nuevo plan de tratamiento. ??? Recuerde que recuperarse despu??s de un ataque al coraz??n lleva tiempo. Debe planificar estar tranquilo por lo menos 4 a 6 semanas mientras se recupera. Luego reanude adrianna actividades normales cuando el m??dico le diga que puede hacerlo. ??? Preg??ntele a mcgrath m??dico acerca de la posibilidad de participar en un programa de rehabilitaci??n card??amauri. Irene puede ayudarlo a fortalecer el coraz??n y los pulmones, y a darle m??s energ??a y confianza. ??? D??gale a mcgrath m??dico si est?? deprimido. Es com??n que sienta tristeza despu??s de un ataque al coraz??n. Randi es importante que hable con alguien o busque asesoramiento si sesiente abrumado por estos sentimientos. Por lo general, dejar?? de sentirse as?? en menos de un mes. ??? Llame de inmediato al??911 si tiene dolor de pecho o dolor que se irradia hacia los hombros, el lennie o la espalda. No conduzca usted mismo hacia el hospital. ? Pida a adrianna familiares que aprendan a alysia reanimaci??n cardiopulmonar. Esta es qiana importante destreza que puede salvar vidas cuando sea necesario. ??? Aprenda a tomarse mcgrath propia presi??n arterial y pulso. Lleve un registro desus resultados. P??moris a mcgrath m??dico que le indique cu??ndo debe solicitar asistencia m??dica. Le dir??n qu?? niveles de presi??n arterial son peligrosos. ?? Cambios en el estilo de memo La causa probable de mcgrath ataque al coraz??n son enfermedades del coraz??n. Mcgrath proveedor de atenci??nm??dica colaborar?? con usted para hacer cambios en mcgrath estilo de memo. Que lo ayudar??n a detener el avance de esta enfermedad. Es muy probable que estos cambios amarilys qiana combinaci??n de dieta con ejercicios. Dieta Mcgrath proveedor de atenci??n m??dica le explicar?? los cambios que probablemente tenga que hacer en sualimentaci??n. Es posible que necesite consultar a un nutricionista registrado para obtener ayuda con los cambios alimentarios. A continuaci??n se indican los cambios que pueden incluirse: ??? Reducir la cantidad de grasas y colesterol que consume ??? Reducir la cantidad de andrés (sodio) de adrianna alimentos, especialmente si tiene presi??n arterial [place] ??? [place] m??s frutas y verduras frescas ??? [place] prote??lillie magras, linda pescado, idris, frijoles, guisantes, y comer menos carne de res y procesadas ??? Consumir productos l??cteos con bajo contenido de grasa ??? Limitar la cantidad de aceites vegetales y de nueces ??? Limitar la cantidad de dulces y alimentos procesados tales linda chips, galletas dulces y productos horneados ??? Limitar las veces que sale a comer a restaurantes. Y cuando lo evelia, elegir mejor adrianna alimentos. ??? No comer alimentos fritos o grasosos, ni alimentoscon jozef grasa saturada Actividad f??flavio Es posible que mcgrath proveedor de atenci??n m??dica le indique que evelia m??s ejercicio si usted no fontanez sido f??sicamente activo. Seg??n el indu, el proveedor puede recomendarle un programa de ejercicios que sea adecuado. Evelia siempre ejercicios de estiramiento juan carlos 5??a??10??minutos antes y despu??still photographer ejercitar. El programa de rehabilitaci??n card??amauri Preg??ntele a mcgrath proveedor de atenci??n m??dica acerca de un programa de rehabilitaci??n card??amauri.La rehabilitaci??n card??amauri es un programa supervisado para ayudar a las personas con enfermedadesdel coraz??n. Est?? dise??ado para mejorar la recuperaci??n card??amauri y la capacidad de funcionamien to. Tambi??n lo ayuda a prepararse para las actividades de la memo diaria. Las personas que asistena irene programa pueden amy tenido un ataque al coraz??n o qiana cirug??a del coraz??n recientemente. Pueden aliviar adrianna s??ntomas y mejorar la sensaci??n de bienestar. Los programas de rehabilitaci??n card??amauri est??n dise??ados para satisfacer adrianna necesidades. Est?? supervisado por un cardi??logo y un equipo de proveedores de dre card??amauri. El programa puede durar entre seis semanas y un a??o. El objetivo de la rehabilitaci??n card??amauri es ayudar a aliviar adrianna s??ntomas y hacer que mcgrath coraz??n est?? lo m??s callie posible. El programa puede incluir lo siguiente: ??? Un programa de ejercicio. [place] le permite mantenerse en forma y ayuda al coraz??n a funcionar mejor. ??? Clases para ayudarlo a cambiar mcgrath estilo de memo y adrianna h??bitos. Por ejemplo, clases y apoyo para ayudarlo a dejar de fumar. O kristen vez tenga que asistir a qiana clase de nutrici??n para aprender a alimentarse mejor. ??? Control del estr??s. Aprender?? a controlar el estr??s para disminuir laansiedad. ??? Asesor??a. Lo ayudar?? a aprender sobre mcgrath afecci??n en particular y a vivir con trudy. ??? Terapia ocupacional. [place] lo ayudar?? a prepararse para regresar al trabajo o a manejar las actividades de la memo diaria. Otros cambios Mcgrath proveedor de atenci??n m??dica tambi??n podr??a recomendarle que evelia lo siguiente: ??? Pierda peso. Si tiene sobrepeso o est?? laura, mcgrath proveedor de atenci??n m??dica lo ayudar?? para que baje de peso. Hacer cambios en la dieta y aumentar la actividad f??flavio puede ayudar. Qiana buena meta es perder un 10??% de mcgrath peso corporal en un a??o. ??? Deje de fumar. Inscr??base en un programa para dejar de fumar a fin de tener mejores probabilidades de dejarlo para siempre. Puede unirse a un demi de apoyo para dejar de fumar. O nessa, puede preguntarle a mcgrath m??dico sobre los productos de reemplazode nicotina para ayudarlo a dejar de fumar. ??? Aprenda a controlar el estr??s. Aprenda t??cnicas de manejo del estr??s para lidiar con el estr??s en mcgrath memo laboral y en el hogar. [place] lo ayudar?? asentirse mejor emocionalmente y aligerar?? la carga para mcgrath coraz??n. ??? Controle otras afecciones. Si tiene diabetes, presi??n arterial lakesha, enfermedad renal o colesterol alto, el proveedor lo ayudar?? a controlar estas enfermedades. Todos esos efectos son factores de riesgo para ataques al coraz ??n. ?? Seguimiento Controle que tenga los detalles de todas adrianna citas m??dicas cuando salga del hospital. Tambi??n puede programar qiana visita de control seg??n lo que le hayan indicado. ?? Cu??ndo llamar al?? 911 Llame al?? 911 de inmediato si tiene lo siguiente: ??? Dolor de pecho o dolor que se irradia al lennie, la franci??bula, la espalda o el hombro ??? Falta de aire nueva ?? Cu??ndo llamar al proveedor de atenci??n m??dica Llame a mcgrath proveedor de atenci??n m??dica de inmediato si tiene los siguientes s??ntomas: ??? Aturdimiento, mareos o desmayo ??? Sensaci??n de tener ritmo card??aco irregular o acelerado ?? Last Reviewed Date: 2021 ?? [id number] [employer]. Todos los derechos reservados. Esta informaci??n no pretende sustituir la atenci??n m??dica profesional. S??lo mcgrath m??dico puede diagnosticar y tratar un problema de dre. ?? * Event Display: Cardiac Rhythm Strips Authored Date: Admission evaluation note * Abdoul GONZALEZ, [facility]: PERFORM Event Display: Admission Note Authored Date: Patient: ??VALE CUENCA ? Age:??61 Years?Sex:??Male?:??1960?? History of Present Illness Mr. Ari Rod is a 61-year-old nigerian speaking male with past medical history of diabetes mellitus type 2 with diabetic retinopathy, hypertension, hypercholesterolemia, end-stage renal diseaseon hemodialysis on Wednesday and Wednesday who presented as transfer from due to chest pain and elevated troponin concerning for ACS. He was in his usual state of health until 01/12 when he woke up with pressure like chest pain that lasted for 10-15 minutes and had BP with over 200 systolic so patient presented to [facility] via ambulance. There he was febrile at 100.7, BP on arrival was 150s, Infectious workup was unremarkable except for mild pyuria for which he was started on IV rocephin. Additional workup was significant for elevated troponin (flat per transfer records)??so patient was transferred to [facility] for further cardiac workup, abx were stopped prior to transfer due to negative infectious workup and no recurrent fevers. ECHO there showed EF 35-40% and by cardiology??in addition to his home medications, the patient was started on asa 81mg PO daily, atorvastatin was increased to 40mg PO daily from 20 and he was initiated on imdur 10 andlopressor 25 BID and recommended [place] [facility] [place]. Here, the patient is free of chest pain and dyspnea. Review of Systems Complete review of systems was obtained and is negative except for those mentioned above. Objective Temperature?97.8 ?(20:09) Systolic Blood Pressure?149 ?(22:12) Diastolic Blood Pressure?79 ?(22:12) Pulse?84 ?(22:12) SpO2?100 ?(20:09) Respiratory Rate?20 ?(20:09) ? Physical Exam ?? Constitutional: Alert, in no acute distress. Head EENT: Normocephalic. Extraocular muscles intact.??Moist mucous membranes.?? Neck: Supple. No JVD. Respiratory: Clear to auscultation. No wheezing or crackles. No use of accessory muscles. Cardiovascular: S1S2 regular. No murmurs, rubs or gallops. Gastrointestinal: Abdomen soft, non-tender, non-distended. Normal bowel sounds. Extremities: No lower extremity pitting pedal edema. No cyanosis or clubbing. Neurologic: AAOx3, Speech normal. No focal neurological deficits. Skin: No rash. Psychiatric: Normal mood and affect Assessment/Plan Diagnoses ACS (acute coronary syndrome) ??(I24.9) ESRD on dialysis ??(N18.6) HTN (hypertension) ??(I10) Type 2 diabetes mellitus ??(E11.9) ?? Assessment:??Mr. Ari Rod is a 61-year-old nigerian speaking male with past medical history of diabetes mellitus type 2 with diabetic retinopathy, hypertension, hypercholesterolemia, end-stage renal disease on hemodialysis on Wednesday and Wednesday who presented as transfer from due to ACS. ?? ACS (acute coronary syndrome) (I24.9):??chest pain in the setting of elevated blood pressure to 200s and elevated troponin. Troponin was flat and patient has hx of ESRD however chest pain concerning for underlying ischemia therefore the patient was transferred for potential cath. ECHO at prior facility showed EF 35- 40%. Will trend troponins and consult cardiology. If troponins rise, will start heparin drip. For now start asa and atorvastatin 80, continue imdur, will increase to 15mg daily, continue amlodipine and lopressor ?? ESRD on dialysis (N18.6):??consulted [facility] for HD on //Wed ?? HTN (hypertension) (I10):??continue amlodipine, imdur and Lopressor. ?? Type 2 diabetes mellitus (E11.9):??hold home oral antihyperglycemic medications and start insulin sliding scale ?? VTE Prophylaxis:??heparin sq ?? Code Status:??full code ?Order Code Status:??Code Status Ordered ?? Discharge Planning:? Histories Allergies Allergies ?(Active and Proposed Allergies Only) NKA? (Severity: Unknown severity, Onset: Unknown) ? Past Medical History/Problem List Active Problems??(1) Obese class I ? Social History No history of tobacco alcohol or illicit drug use. ? Family History No history of premature coronary disease in immediate family members. ? Medications Home Medications Albuterol (Albuterol (Eqv-ProAir HFA) 90 mcg/inh inhalation aerosol)?2?puff(s)?Inhalation?Every 6 hours?as needed?Wheezing/Shortness of Breath Amlodipine (amLODIPine 10 mg oral tablet)?1?tab(s)?10?Milligram?By Mouth?Daily Atorvastatin (atorvastatin 20 mg oral tablet)?2?tab(s)?40?Milligram?By Mouth?Daily Brimonidine-Timolol Ophthalmic (Combigan 0.2%-0.5% ophthalmic solution)?1?Drops?Eyes, Both?Every 12 hours Furosemide (furosemide 80 mg oral tablet)?80?Milligram?1?tablet?By Mouth?2 times a day?ON NONDIALYSIS DAYS (Wednesday, Wednesday, and Wednesday) GlipiZIDE (glipiZIDE 5 mg oral tablet)?5?Milligram?1?tablet?By Mouth?Daily Miscellaneous Rx (VITAMIN D3 1,000 UNIT SOFTGEL)?TAKE 1 CAPSULE BY MOUTH EVERY DAY Omeprazole (omeprazole 20 mg oral enteric coated capsule)?TAKE 1 CAPSULE BY MOUTH EVERY DAY BEFORE A MEAL Primidone (primidone 50 mg oral tablet)?50?Milligram?1?tablet?By Mouth?2 times a day Sevelamer (Renvela 800 mg oral tablet)?1?tab(s)?800?Milligram?By Mouth?3 times a day?with meals ? Results Recent Labs BLOOD COUNT & DIFF WBC 5.0 k/mm3 ()?? 01/14/2022 19:37 RBC 3.22 m/mm3 (Low)?? 01/14/2022 19:37 Hgb 9.6 Gm/dL (Low)?? 01/14/2022 19:37 Hct 29.3 % (Low)?? 01/14/2022 19:37 MCV 91.0 femtoliters ()?? 01/14/2022 19:37 MCH 29.8 pg ()?? 01/14/2022 19:37 MCHC 32.8 g/dL (Low)?? 01/14/2022 19:37 Platelet Count 284 k/mm3 ()?? 01/14/2022 19:37 RDW-SD 46.5 femtoliters ()?? 01/14/2022 19:37 MPV 9.0 femtoliters (Low)?? 01/14/2022 19:37 Nucleated RBC (Automated) 0.0 #/100 WBC'S ()?? 01/14/2022 19:37 Abs. NRBC 0.0 k/mm3 ()?? 01/14/2022 19:37 ?? CARDIAC CK, Total 27 units/L ()?? 01/14/2022 19:37 High Sensitivity Troponin (HSTnT) 130 ng/L (Critical)?? 01/14/2022 19:37 ?? CHEM GENERAL Sodium 135 mmol/L ()?? 01/14/2022 19:37 Potassium 4.7 mmol/L ()?? 01/14/2022 19:37 Chloride 97 mmol/L (Low)?? 01/14/2022 19:37 Bicarbonate Level 25 mmol/L ()?? 01/14/2022 19:37 Anion Gap 13 ()?? 01/14/2022 19:37 Glucose Level 136 mg/dL (High)?? 01/14/2022 19:37 Glucose, POC 127 mg/dL (High)?? 01/14/2022 21:45 BUN 25 mg/dL (High)?? 01/14/2022 19:37 Creatinine-Blood 4.8 mg/dL (High)?? 01/14/2022 19:37 Estimated GFR Creatinine 13 ML/MIN/1.73 M2 ()?? 01/14/2022 19:37 Calcium 9.0 mg/dL ()?? 01/14/2022 19:37 Magnesium 2.0 mg/dL ()?? 01/14/2022 19:37 ? EKG study * Event Display: EKG Authored Date: Hospital Progress note * Bel Wall RN: PERFORM, SIGN, VERIFY Event Display: Progress Note Hospital Authored Date: Patient: VALE CUENCA Age: 61 years Sex: Male : 1960 Associated Diagnoses: None Author: Bel Wall RN Findings Narrative/Incidental Patient tolerated 3 hours HD treatment. Blood volume change neg 14.3%. BP 156/70 at end of treatment. pulled 1.5 kg. Left AVF positive bruit and thrill. No s/s infection. Patient stable at end of treatment. . * Ana GONZALEZ, Rui N: PERFORM Event Display: Progress Note Hospital Authored Date: Patient: ??VALE CUENCA ? Age:??61 Years?Sex:??Male?:??1960?? Indication for Consult Chest pain, abnormal troponin History of Present Illness/Interval History 61-year-old Malagasy-speaking gentleman with a past medical history significant for HTN, HLD, DM 2, diabetic retinopathy, ESRD on HD who presents as a transfer from for concernsof ACS.??According to the patient, he experienced chest pressure that lasted for about 10 to 15 minutes few days ago and presented to for that reason. ??His blood pressure was found to be significantly elevated with a SBP of over 200 mmHg. ??He was treated accordingly. ??He was found to have a low-grade fever of 100.7 and had an infectious work-up which was unremarkable. ??He was started on IV antibiotics. ??Troponins ruled in for NSTEMI however remained flat. ??He had an echocardiogram done at [facility] which revealed an LV EF of 35 to 40% which is worse than prior. ??Patient started on metoprolol and isosorbide and was transferred to [facility] for consideration of cardiac catheterization. ?? Review of Systems ?Constitutional, Eye, Skin, Head/Neck, ENMT, Respiratory, Cardio, Gastrointestinal, Breast, Gynecologic, Genitourinary, Endocrine, Muscoloskeletal, Immunologic, Hematologic, Lymphatic, Neurologic,Psych reviewed and negative except as noted in HPI. ? Physical Exam Vitals & Measurements Weight lb/oz: 214 lb 15 oz ?GENERAL: The patient is lying in bed comfortably, in no acute distress. ?HEENT: NC/AT. PERRL. EOMI. Anicteric sclerae. ?NECK: Supple, intact. No JVD. Trachea midline. No lymphadenopathy appreciated. ?CVS: RRR. Normal S1/S2. No murmurs, rubs or gallops. ?PULM: CTA bilaterally. No wheezes, rales or rhonchi. ?ABDOMEN: Soft, nontender, nondistended. Positive bowel sounds in all 4 quadrants. No hepatosplenomegaly. ?EXTREMITIES: No edema. Peripheral pulses intact bilaterally. ?NEURO: AOx3. Intact, non-focal motor and sensory exam. CN II-XII grossly intact.?SKIN: Dry, clean, intact. No rash or ulcer. No apparent nail changes. ?MSK: No joint swelling, erythema or tenderness. ?PSYCH: Good insight. No depression or suicidal ideation. ? Assessment/Plan ACS (acute coronary syndrome) ESRD on dialysis HTN (hypertension) Type 2 diabetes mellitus ?? Patient presents with NSTEMI. Cath yesterday revealed??a moderate to severe heavily calcified proximal LAD stenosis s/p successful PCI with DESx1. c/w aspirin, ticagrelor. c/w atorvastatin 80. LVEF reported at 35-40% on echo done at [facility]. Would recommend switching to metoprolol XL 50mg daily andinitiation of losartan 25mg daily. Will need repeat echo in a??few months as an outpatient.??We will arrange followup as an outpatient with Dr. Urbano in the upcoming weeks. ?? Thank you for allowing us to participate in the care of this patient. ? Rui Perez MD Interventional Cardiology - [facility] [id number] ?? Disclaimer: This dictation was accomplished with use of [employer] voice recognition software, prone tomedical word misidentifications and grammatical errors. The physician does strive to identify and correct these, but some could still be present. Please do not hesitate to contact physician for clarifications. Total Time Spent I personally spent a total of??20 minutes, including both axih-bk-fepc and tul-fljj-mr-face time onthe date of the encounter, addressing the above diagnoses. Problem List/Past Medical History Ongoing Obese class I Historical No qualifying data Procedure/Surgical History No qualifying data available. Hospital Medications Medications (26) Active SCHEDULED: (13) Amlodipine 10 mg Tablet (amLODIPine 10 mg oral tablet) ??10 mg, By Mouth, Daily Aspirin 81 mg EC Tablet (aspirin 81 mg oral delayed release tablet) ??81 mg, By Mouth, Daily Aspirin 81 mg EC Tablet (Aspirin Tablet) ??81 mg, By Mouth, Daily Atorvastatin 80 mg Tablet (atorvastatin 80 mg oral tablet) ??80 mg, By Mouth, Daily at bedtime Heparin 5000 units/mL Inj (1 mL) (Heparin Inj) ??5,000 units 1 mL, Subcutaneous Injection, 3 times a day Insulin Lispro 100 units/mL Inj (3mL) (Insulin LISPRO Sliding Scale) ??2-10 units, Subcutaneous Injection, 3 times a day before meals Isosorbide Mononitrate 30 mg ER Tablet (Imdur 30 mg oral tablet, extended release) ??30 mg, By Mouth, Daily Metoprolol 25mg Tablet (metoprolol 25 mg oral tablet) ??25 mg, By Mouth, 2 times a day NaCl 0.9% Flush 3ml (NaCL 0.9% Flush) ??3 mL, IV Push, Every 8 hours Pantoprazole 20 mg EC Tablet (pantoprazole 20 mg oral delayed release tablet) ??20 mg, By Mouth, Daily Primidone 50 mg Tablet (primidone 50 mg oral tablet) ??50 mg, By Mouth, 2 times a day Sevelamer Carbonate 800 mg Tablet (Renvela 800 mg oral tablet) ??800 mg, By Mouth, 3 times a day with meals Ticagrelor 90 mg Tablet (Ticagrelor Tablet) ??90 mg 1 tablet, By Mouth, 2 times a day CONTINUOUS: (0) PRN: (13) Acetaminophen 325 mg Tablet (Acetaminophen Tablet) ??650 mg, By Mouth, Every 4 hours Albuterol 90mcg/Inhalation Inhaler HFA (albuterol CFC free 90 mcg/inh inhalation aerosol) ??180 mcg2 puffs, Inhalation, Every 4 hours Dextromethorphan-Guaifenesin 20 mg-200 mg/10 mL Liqu UD (Robitussin DM Liquid) ??10 mL, By Mouth, Every 4 hours Dextrose Inj Syringe (Dextrose 50% Inj Syringe (25Gm)) ??12.5 Gm, IV Push Slowly, Every 20 minutes Dextrose Inj Syringe (Dextrose 50% Inj Syringe (25Gm)) ??25 Gm, IV Push Slowly, Every 15 minutes Glucagon 1 mg Inj (Glucagon Inj) ??1 mg, Intramuscular, Once Glucose 40% Gel (15 Gm) (Glucose Gel) ??15 Gm, By Mouth, Every 20 minutes Glucose 40% Gel (15 Gm) (Glucose Gel) ??30 Gm, By Mouth, Every 20 minutes Melatonin 3 mg Tablet (Melatonin Tablet) ??3 mg, By Mouth, Daily at bedtime NaCl 0.9% Flush 3ml (NaCL 0.9% Flush) ??3 mL, IV Push, Every 8 hours Polyethylene Glycol 17 Gm Powder (MiraLax Powder) ??17 Gm 1 pack/packet, By Mouth, Daily Senna 8.6 mg / Docusate 50 mg tablet (Docusate/Senna Tablet) ??1 tablet, By Mouth, 2 times a day Simethicone 80 mg Chewable Tablet (Simethicone Tablet) ??80 mg, Chew, 3 times a day Patient Education Titles Cardiac Rehabilitation?? Recognizing a Heart Attack or Angina?? Discharge Instructions for Heart Attack?? Exercising After a Heart Attack?? Symptoms of a Heart Attack?? Heart Attack: Back at Home?? What Is Angina??? Cardiac Procedures?? Follow-Up Appointments Added Follow Up ?Time Frame ?Comments Cardiac Rehab ?An email has been sent to the program, They will contact you to schedule an appointment. ??If you do not hear from them please call. [facility] Prog [phone] Ana GONZALEZ, Riu Wang?1 week: call to discuss follow up visit Azalea Lanier MD?1 week: call to discuss follow up visit Patient Instructions You came to the hospital due to chest pain with elevated blood pressures. You received a stent to one of the arteries that supply blood to the heart. You will be on Aspirin 81mg taken once a day for life, you will be on Brilinta 90mg taken twice a day for the next 12 months, We increased your Imdurto 30mg taken once a day, we are going to increase your atorvastatin to 80mg daily, and we are going to start you on Metoprolol 50mg which should be taken once day. We ask to stop taking Primidone asit interacts with the medication called Brilinta which is help keep the stent in the??artery that supplies the heart open.??Please follow up??with alumnae secretary. please follow up with your PCP within one week. Please follow up with Cardiology Rehab. Lab Results Cardiology Labs WBC: 4.8 k/mm3 (01/15/22) RBC:??3.24 m/mm3??Low (01/15/22) Hgb:??9.6 Gm/dL??Low (01/15/22) Hct:??29.8 %??Low (01/15/22) MCV: 92 femtoliters (01/15/22) MCH: 29.6 pg (01/15/22) MCHC:??32.2 g/dL??Low (01/15/22) Platelet Count: 283 k/mm3 (01/15/22) RDW-SD:??47.1 femtoliters??High (01/15/22) Nucleated RBC (Automated): 0 #/100 WBC'S (01/15/22) Sodium: 135 mmol/L (01/15/22) Potassium: 4.5 mmol/L (01/15/22) Chloride: 98 mmol/L (01/15/22) Bicarbonate Level: 25 mmol/L (01/15/22) Glucose Level:??124 mg/dL??High (01/15/22) Hemoglobin A1C (Monitoring):??6.8 %??High (01/15/22) BUN:??33 mg/dL??High (01/15/22) Creatinine-Blood:??5.3 mg/dL??High (01/15/22) Calcium: 8.8 mg/dL (01/15/22) Protein, Total: 6.2 Gm/dL (01/15/22) Albumin: 3.5 Gm/dL (01/15/22) Alkaline Phosphatase: 65 units/L (01/15/22) AST (SGOT): 13 units/L (01/15/22) ALT (SGPT): 15 units/L (01/15/22) Bilirubin, Total: 0.3 mg/dL (01/15/22) CK, Total: 27 units/L (01/14/22) Cholesterol: 119 mg/dL (01/15/22) Triglycerides:??182 mg/dL??High (01/15/22) HDL Cholesterol:??28 mg/dL??Low (01/15/22) LDL Cholesterol: 55 mg/dL (01/15/22) Non HDL Cholesterol: 91 mg/dL (01/15/22) Diagnostic Impression ECG ECG 12-Lead * Preliminary * ?? 22:23:11 Please click on pdf link to open report Stress Test NM Myocard Perf SPECT Multi ?? 01:10:00 Summary 1.) Abnormal myocardial perfusion imaging following regadenoson administration. There is a large in size, moderate in intensity, fixed defect noted in the inferior, infero-apical, and apical territories without wall motion abnormalities appreciated. This is concerning for myocardial scar. No reversible defects. ?? 2.) Normal rest and post-stress left ventricular chamber size and systolic function without regional wall motion abnormalities. ?? 3.) ECG portion from stress lab reported separately. ?? Signatures _ _ ?? Signed By: Bambi GONZALEZ, Tejas Mackenzie Echo Echocardiogram - Complete ?? 08:20:18 Summary 1) Technically difficult study 2) The left ventricle is poorly visualized. The LV systolic function appears grossly normal. Cannot assess regional wall motion abnormalities due to poor endocardial definition 3) There is mild concentric left ventricular hypertrophy. 4) The right ventricular size and function appears grossly normal on limited views. 5) There is moderate posterior mitral annular calcification. There is no significant mitral regurgitation. 6) The left atrium appears mildly dilated. ?? Comparison No prior study available for comparison. ?? Signature ?? Signed By: Javier GONZALEZ, Carlos Laguna Cardiac Cath Procedure Cardiac Cath Procedure ?? 15:51:00 Conclusions ?? Diagnostic Summary Coronary angiogram showed: 1. Left main large size vessel with 20% ostial stenosis. 2. LAD large size vessel with 70-80% mid calcific stenosis. This was hemodynamically significant by iFR/FFR assessment 0.86/0.78 respectively. 3. Ramus is a moderate size vessel with minimal luminal irregularities. 4. LCx is a large size vessel. OM1 has a lateral small distal branch with 80% ostial stenosis. 5. RCA is a a large size vessel with minimal luminal irregularities. 6. LVEDP is 10 mmHg. ?? Diagnostic Recommendations Proceed with PCI of the mid LAD ?? Interventional Summary Successful IVUS optimized IVL assisted PCI of the mid LAD using a 3.5X16 mm Synergy ARIELA that was post-dilated using a 4.0 NC balloon. IVUS post PCI showed a MSA of 8.2 mm2. LIZ 3 flow post PCI with no complications. ?? Interventional Recommendations Aspirin for lifetime. P2Y12 inhibitor for at least 12 months. Aggressive cardiovascular risk factor modification. Evidence based optimal medical therapy. ?? Signatures ?? Signed By: Cinthia GONZALEZ, Robert Kline MD, Ye I: MODIFY Delia GONZALEZ, Georgette: PERFORM, MODIFY Delia GONZALEZ, Georgette: MODIFY, MODIFY Delia GONZALEZ, Georgette: MODIFY Event Display: Progress Note Hospital Authored Date: Patient: ??VALE CUENCA ? Age:??61 Years?Sex:??Male?:??1960?? Subjective I saw the patient at bedside this morning in the dialysis unit. He had no pain anywhere, no nausea or vomiting, no SOB or any other complaints. Review of Systems Unremarkable except as mentioned above. Objective Vital Signs?? Temperature: 97.5 DegF (01/16/22 07:37:00) Temperature Route: Temporal (01/16/22 07:37:00) Pulse Rate: 89 bpm (01/16/22 07:37:00) Respiratory Rate: 18 br/min (01/16/22 07:37:00) Systolic Blood Pressure: 134 mm Hg (01/16/22 07:37:00) Diastolic Blood Pressure: 57 mm Hg (01/16/22 07:37:00) Blood pressure sites: Arm, left (01/16/22 07:37:00) Mean Arterial Pressure: 83 mm Hg (01/16/22 07:37:00) Pulse Pressure: 77 mm Hg (01/16/22 07:37:00) Oxygen Saturation: 98 % (01/16/22 07:37:00) Mode of Delivery (Oxygen): Room air (01/16/22 07:37:00) Early Warning Score: 3 (01/16/22 07:58:24) ? Intake/Output? 01/14 18:33 01/16 07:00 01/15 07:00 01/14 07:00 01/13 07:00 ?? 01/16 10:15 01/16 10:15 01/16 06:59 01/15 06:59 01/14 06:59 Intake ?100 ?0 ?0 ?100 ?0 Output ?0 ?0 ?0 ?0 ?0 Net Total ?100 ?0 ?0 ?100 ?0 ? Physical Exam General:??No acute distress. Respiratory:??Clear to auscultation bilaterally, no increased work of breathing, no wheezes/crackles Cardiovascular:??Normal rate, regular rhythm, no murmurs could be appreciated Abdomen:??No tenderness Musculoskeletal:??No lower extremity edema Neurologic:??Alert & Oriented Skin:??Warm and dry _ Inpatient Medications Medications (26) Active SCHEDULED: (13) Amlodipine 10 mg Tablet (amLODIPine 10 mg oral tablet) ??10 mg, By Mouth, Daily Aspirin 81 mg EC Tablet (aspirin 81 mg oral delayed release tablet) ??81 mg, By Mouth, Daily Aspirin 81 mg EC Tablet (Aspirin Tablet) ??81 mg, By Mouth, Daily Atorvastatin 80 mg Tablet (atorvastatin 80 mg oral tablet) ??80 mg, By Mouth, Daily at bedtime Heparin 5000 units/mL Inj (1 mL) (Heparin Inj) ??5,000 units 1 mL, Subcutaneous Injection, 3 times a day Insulin Lispro 100 units/mL Inj (3mL) (Insulin LISPRO Sliding Scale) ??2-10 units, Subcutaneous Injection, 3 times a day before meals Isosorbide Mononitrate 30 mg ER Tablet (Imdur 30 mg oral tablet, extended release) ??30 mg, By Mouth, Daily Metoprolol 25mg Tablet (metoprolol 25 mg oral tablet) ??25 mg, By Mouth, 2 times a day NaCl 0.9% Flush 3ml (NaCL 0.9% Flush) ??3 mL, IV Push, Every 8 hours Pantoprazole 20 mg EC Tablet (pantoprazole 20 mg oral delayed release tablet) ??20 mg, By Mouth, Daily Primidone 50 mg Tablet (primidone 50 mg oral tablet) ??50 mg, By Mouth, 2 times a day Sevelamer Carbonate 800 mg Tablet (Renvela 800 mg oral tablet) ??800 mg, By Mouth, 3 times a day with meals Ticagrelor 90 mg Tablet (Ticagrelor Tablet) ??90 mg 1 tablet, By Mouth, 2 times a day CONTINUOUS: (0) PRN: (13) Acetaminophen 325 mg Tablet (Acetaminophen Tablet) ??650 mg, By Mouth, Every 4 hours Albuterol 90mcg/Inhalation Inhaler HFA (albuterol CFC free 90 mcg/inh inhalation aerosol) ??180 mcg2 puffs, Inhalation, Every 4 hours Dextromethorphan-Guaifenesin 20 mg-200 mg/10 mL Liqu UD (Robitussin DM Liquid) ??10 mL, By Mouth, Every 4 hours Dextrose Inj Syringe (Dextrose 50% Inj Syringe (25Gm)) ??12.5 Gm, IV Push Slowly, Every 20 minutes Dextrose Inj Syringe (Dextrose 50% Inj Syringe (25Gm)) ??25 Gm, IV Push Slowly, Every 15 minutes Glucagon 1 mg Inj (Glucagon Inj) ??1 mg, Intramuscular, Once Glucose 40% Gel (15 Gm) (Glucose Gel) ??15 Gm, By Mouth, Every 20 minutes Glucose 40% Gel (15 Gm) (Glucose Gel) ??30 Gm, By Mouth, Every 20 minutes Melatonin 3 mg Tablet (Melatonin Tablet) ??3 mg, By Mouth, Daily at bedtime NaCl 0.9% Flush 3ml (NaCL 0.9% Flush) ??3 mL, IV Push, Every 8 hours Polyethylene Glycol 17 Gm Powder (MiraLax Powder) ??17 Gm 1 pack/packet, By Mouth, Daily Senna 8.6 mg / Docusate 50 mg tablet (Docusate/Senna Tablet) ??1 tablet, By Mouth, 2 times a day Simethicone 80 mg Chewable Tablet (Simethicone Tablet) ??80 mg, Chew, 3 times a day ? Results Recent Labs BLOOD COUNT & DIFF WBC 4.8 k/mm3 ()?? 01/15/2022 00:25 RBC 3.24 m/mm3 (Low)?? 01/15/2022 00:25 Hgb 9.6 Gm/dL (Low)?? 01/15/2022 00:25 Hct 29.8 % (Low)?? 01/15/2022 00:25 MCV 92.0 femtoliters ()?? 01/15/2022 00:25 MCH 29.6 pg ()?? 01/15/2022 00:25 MCHC 32.2 g/dL (Low)?? 01/15/2022 00:25 Platelet Count 283 k/mm3 ()?? 01/15/2022 00:25 RDW-SD 47.1 femtoliters (High)?? 01/15/2022 00:25 MPV 9.1 femtoliters (Low)?? 01/15/2022 00:25 Nucleated RBC (Automated) 0.0 #/100 WBC'S ()?? 01/15/2022 00:25 Abs. NRBC 0.0 k/mm3 ()?? 01/15/2022 00:25 ?? CARDIAC High Sensitivity Troponin (HSTnT) 124 ng/L (Critical)?? 01/15/2022 00:25 ?? CHEM GENERAL Sodium 135 mmol/L ()?? 01/15/2022 00:25 Potassium 4.5 mmol/L ()?? 01/15/2022 00:25 Chloride 98 mmol/L ()?? 01/15/2022 00:25 Bicarbonate Level 25 mmol/L ()?? 01/15/2022 00:25 Anion Gap 12 ()?? 01/15/2022 00:25 Glucose Level 124 mg/dL (High)?? 01/15/2022 00:25 Glucose, POC 175 mg/dL (High)?? 01/16/2022 07:44 Hemoglobin A1C (Monitoring) 6.8 % (High)?? 01/15/2022 00:25 BUN 33 mg/dL (High)?? 01/15/2022 00:25 Creatinine-Blood 5.3 mg/dL (High)?? 01/15/2022 00:25 Estimated GFR Creatinine 11 ML/MIN/1.73 M2 ()?? 01/15/2022 00:25 Calcium 8.8 mg/dL ()?? 01/15/2022 00:25 Protein, Total 6.2 Gm/dL ()?? 01/15/2022 00:25 Albumin 3.5 Gm/dL ()?? 01/15/2022 00:25 AG Ratio 1.3 ()?? 01/15/2022 00:25 Alkaline Phosphatase 65 units/L ()?? 01/15/2022 00:25 AST (SGOT) 13 units/L ()?? 01/15/2022 00:25 ALT (SGPT) 15 units/L ()?? 01/15/2022 00:25 Bilirubin, Total 0.3 mg/dL ()?? 01/15/2022 00:25 ?? LIPID STUDIES Cholesterol 119 mg/dL ()?? 01/15/2022 00:25 Triglycerides 182 mg/dL (High)?? 01/15/2022 00:25 HDL Cholesterol 28 mg/dL (Low)?? 01/15/2022 00:25 LDL Cholesterol 55 mg/dL ()?? 01/15/2022 00:25 Non HDL Cholesterol 91 mg/dL ()?? 01/15/2022 00:25 ? Assessment/Plan Mr. Rod is a 61 years old obese man with a past medical history of diabetes mellitus type 2, hypertension, end-stage renal disease on hemodialysis MWF who was transferred from [place] for chest pain and was found to have elevated troponins, concerning for ACS. He underwent cardiac catheterization and received a ARIELA to the mid LAD. ? ESRD Hemodialysis Wednesday. I saw the patient at dialysis today,??he is euvolemic on exam and he has no symptoms or complaints at the moment and he is ready to be discharged home per primary team. Plan: 1. Dialysis MWF 2. Continue sevelamer 800mg TID 3. Renally dose medications ? Patient has been??seen and discussed with Dr. Raisa Palomino??[facility] * Ye Kline MD I: PERFORM Event Display: Progress Note Hospital Authored Date: ?? I reviewed the patient's history, examined the patient, and confirmed the above findings as documented by the fellow/resident. I personally formulated the essential elements of the assessment and plan noted above. Dr. Kline?? Deprecated Cardiac rehabilitation treatment plan Progress note and attainment of goals (narrative) * Sarina Barraza RN: PERFORM, SIGN, VERIFY Event Display: Cardiac Rehab Note Authored Date: Patient: VALE CUENCA Age: 61 years Sex: Male : 1960 Associated Diagnoses: None Author: Sarina Barraza RN Diagnosis Cardiac Rehab Diagnosis: NSTEMI ARIELA to LAD. Pre-exercise Vitals Vital Signs: 84 HR, 110/52 BP Sitting, 100% room air SaO2. Vital Signs Comment: Reviewed in [facility]. Pre-exercise Physical Examination Neurologic: alert & oriented. Cardiovascular: heart rate regular. Lungs: Normal I:E. Activity Symptoms with Cardiac Rehab Symptoms: Mild dizziness, Weakness, pt had dialysis earlier this am, was slightly dizzy/weak upon ambulation- states is baseline after dialysis- bedside RN aware. Activity Transfers: independent. Ambulate: independent, assistive device, distance ambulated 50 feet. Assistive Devices Assistive Device: Wheeled walker. Compliance problems: Compliance problems: diet, exercise. . Post-exercise Vitals Vital Signs: 108/60 BP Standing, 98% room air SaO2. Patient Education Education: Patient alone, Photographer present, Written material included, Post procedure guidelines, Stent card reviewed, pt visited with the assistance of Aly modisecurity compliance specialist Rick #[id number]. Education topic Teachback comprehension 75% Topic: Pathophysiology, Medication education, Role of exercise, Home activity guidelines/limits, Infarct recovery guidelines, pt provided with [place] handbook in Malag[place], reviewed with pt. Discussed procedure site care/ management, signs of infection & when to call MD. Reinforcement needed: Role of exercise, Home activity guidelines/limits, Infarct recovery guidelines. Recommendation and Plan Ambulate: 3-5 times/day. Encourage: AROM. Outpatient follow up recommended: [facility], in 2 weeks, email sent to program. Cardiac Rehab: Will sign off at this time, Please contact us if we can provide further assistance with this patient, pager [phone] plan for DC today. Recommendation comment: RN notified of plan. Patient Care team information Care Team Personnel Name: Melissa Hermosillo [facility] Outreach Member Role: Lifetime Consulting Physician Name: Azalea Lanier MD Position[facility] Outreach Member Role: PCP Address: Address: [address] [place] [id number]- Name: Deidre Lopez RN [facility] RN Member Role: Primary Care Nurse Care Team Related Persons Name: TORY DE LA GARZA Address: home [address] [place] [id number] Name: MICHAEL GIBSON Address: [place] [address]
--- OUTSIDE RECORDS SUMMARY | 2022-07-20 05:46 | XMS_ITS | Continuity of Care Document ---
Author Name Unknown Organization [facility] Address [address] [place] [address]- Care Team Providers Care Ad Trafficker Name Role Phone John GONZALEZ, Margo Allen Primary Care Physician Encounter [facility] Date(s): 04/12/19 - 04/22/19 [facility] [address] [place] [address]- [facility] Attending Physician: AdmMadison garcia Admitting Physician: AdmtrMadison Referring Physician: Admtr, Ar8 Allergies, Adverse Reactions, [...]
--- OUTSIDE RECORDS SUMMARY | 2022-07-20 05:46 | XMS_ITS | Continuity of Care Document ---
Author Name Unknown Organization [facility] [place] Address [address] [place] [address]- Care Team Providers Care Oven Roaster Name Role Phone Azalea Lanier MD Primary Care Physician Encounter [facility] Date(s): 08/12/21 - 09/11/21 [facility] [place] [address] [place], [place] [address] Attending Physician: Madison Angelo Admitting Physician: AdmtrMadison Referring Physician: Admtr, Ar8 [...]
--- OUTSIDE RECORDS SUMMARY | 2022-07-20 05:46 | XMS_ITS | Continuity of Care Document ---
Author Name Unknown Organization [facility] Address Unknown Care Team Providers Care Licensed Nuclear Control Room Operator Name Role Phone Azalea Lanier MD Primary Care Physician Encounter [facility] [id number] Date(s): 09/18/21 - 10/18/21 [facility] Attending Physician: Madison Angelo Admitting Physician: Madison Angelo Referring Physician: Madison Angelo Allergies, Adverse Reactions, Alerts No Known Allergies Immunizations Given and Recorded Vaccine Date Status Refusal Reason Varicella Virus Vaccine 10/14/21 Recorded Varicella Virus Vaccine 09/16/21 Recorded Varicella Virus Vaccine 02/16/19 Given Varicella Virus Vaccine 01/19/19 Given SARS-CoV-2 (COVID-19) mRNA-1273 vaccine 02/07/21 R ecorded SARS-CoV-2 (COVID-19) mRNA-1273 vaccine 05/24/20 R ecorded SARS-CoV-2 (COVID-19) mRNA-1273 vaccine 04/10/20 R ecorded Medications atorvastatin 20 mg oral tablet 1 [...]
[2022-07-20 05:54] LABS: Alanine Aminotransferase 13 U/L (0-40); Albumin Level 3.3 g/dL (3.5-5.0); Alkaline Phosphatase 68 U/L (39-117); Anion Gap 16 (12-20); Aspartate Amino Transferase 12 U/L (5-37); Bilirubin Direct 0.2 mg/dL (0.0-0.5); Bilirubin Total 0.5 mg/dL (0.0-1.0); Blood Urea Nitrogen 32 mg/dL (9-16); Calcium 8.9 mg/dL (8.4-10.2); Carbon Dioxide 25 mmol/L (22-29); Chloride 103 mmol/L (96-108); Glucose Random 103 mg/dL (60-115); Lipase 24 U/L (8-78); Potassium 3.8 mmol/L (3.3-5.1); Sodium 140 mmol/L (135-145); Total Protein 5.7 g/dL (6.5-8.0)
[2022-07-20 05:56] LABS: Creatinine Clr Calc Pharmacy 8.9; Estimated Glomerular Filt Rate 5
--- NOTE | 2022-07-20 06:33 | ED_ITS ---
HPI - Nausea/Vomiting/Diarrhea General Chief complaint: Nausea/Vomiting/Diarrhea Stated complaint: n/d/v Time Seen by Provider: 07/20/22 05:38 Source: patient, family and certified court interpreter Mode of arrival: ambulatory Limitations: no limitations History of Present Illness HPI Narrative: 62 yo French speaking male with history of ESRD on HD (M/W/F), anemia, HTN, cardiomyopathy, DM who presents to the ER for evaluation of diarrheqa and abdominal pain for 1 week. He states the pain in his abdomen is mostly on the left side and it waxes and wanes. He states he has been having 10 episodes of nonbloody diarrhea per day. He has been intermittently taking imodium to be able to go dialysis sessions. He denies any known sick contacts or possible food bourne illnesses. He denies any nausea or vomiting. His PO intake has been decreased and he has been very weak at home. Unable to take more than 2 steps without needing to rest and take a break. No fever, chills, chest pain, headaches, URI symptoms. MD elicited complaint: nausea, vomiting, diarrhea and abdominal pain Onset (ago): week(s) (1) Description of diarrhea: watery Associated nausea: Yes Associated abdominal pain: No Location of pain: none Pain consistency: constant Severity: moderate Quality: cramping and stabbing Exacerbating factors: none Relieving factors: none Associated symptoms: loss of appetite, malaise, weakness and fatigue Related Data Home Medications Medication Instructions Recorded Confirmed furosemide 80 mg tablet 80 mg PO SUTUTHSA@0900,2100 08/24/21 01/12/22 glipizide 5 mg tablet, extended 5 mg PO DAILY@1700 08/24/21 01/12/22 release 24 hr omeprazole 20 mg capsule,delayed 20 mg PO DAILY PRN Heartburn 08/24/21 01/12/22 release primidone 50 mg tablet 50 mg PO BID PRN Tremor(S) 08/24/21 01/12/22 sevelamer carbonate 800 mg tablet 2,400 mg PO TIDWM 08/24/21 01/12/22 albuterol sulfate 90 mcg/actuation 2 puff inhalation Q4-6H PRN 01/12/22 01/12/22 aerosol inhaler Shortness Of Breath Or Wheezing cholecalciferol (vitamin D3) 25 25 mcg PO DAILY@1700 01/12/22 01/12/22 mcg (1,000 unit) capsule (Vitamin D3) Previous Rx's Medication Instructions Recorded amlodipine 5 mg tablet 5 mg PO DAILY #30 tabs 08/26/21 aspirin 81 mg tablet,delayed 81 mg PO DAILY #1 tab 01/14/22 release atorvastatin 40 mg tablet 40 mg PO BEDTIME #1 tab 01/14/22 isosorbide dinitrate 10 mg tablet 10 mg PO BEDTIME #1 tab 01/14/22 metoprolol tartrate 25 mg tablet 25 mg PO BID #1 tab 01/14/22 doxycycline hyclate 100 mg tablet 100 mg PO Q12H 10 days #20 tabs 02/08/22 morphine 15 mg immediate release 15 mg PO Q4-6H PRN pain #10 tabs 02/08/22 tablet benzonatate 200 mg capsule 200 mg PO TID PRN cough #30 caps 02/21/22 Allergies Allergy/AdvReac Type Severity Reaction Status Date / Time No Known Allergies Allergy Verified 02/08/22 03:58 [No Known Allergies*] Review of Systems Review of Systems: Yes all other systems are reviewed and are negative Gastrointestinal: Gastrointestinal: Reports nausea PMFSH Past Medical History Medical History Asthma Diabetes End stage chronic kidney disease Surgical History AV fistula Family History Family History Mother CAD (coronary artery disease) Social History Social History Household Members: Significant Other Housing: Apartment Do you presently have visiting nurse or other home services: No Alcohol intake: never Patient Tobacco Use Status: Never used Tobacco Smoked in Last 30 Days: No e-Cigarette/Vaping Use: Never Used Second Hand Smoke Exposure: No Use of substances other than those prescribed or required for medical reasons: No Advance Directives: No Advance Directives Information Provided: No service: No Current occupational status: retired Physical Exam Vital Signs: Vital Signs: Last Vital Signs Temp 98.6 F 07/20/22 05:17 Pulse 97 07/20/22 05:17 Resp 18 07/20/22 05:17 BP 160/54 H 07/20/22 05:17 Pulse Ox 99 07/20/22 05:17 O2 Del Method Room Air 07/20/22 05:17 BMI result Body Mass Index 27.5 Appearance: Alert. Oriented X3. No acute distress. Head: normocephalic, atraumatic. Eyes: Pupils equal, round and reactive to light. injected sclera bilaterally. ENT: Pharynx normal. No tonsillar swelling or exudate. Neck: Normal inspection. Neck supple. CVS: Normal heart rate and rhythm. Pulses normal. Respiratory: No respiratory distress. Breath sounds normal. Abdomen: Soft with mild LUQ and LLQ tenderness, no rebound or guarding, normal active +BS x4 Skin: Skin warm and dry. Normal skin color. Normal skin turgor. No rashes. Extremities: No lower extremity edema. No joint swelling. Neuro/psych: Oriented X 3. No motor deficit. No sensory deficit. CN II-XII intact. Normal speech and cognition. Course Reevaluation(s) Reevaluation #1: CT w/ diffuse colitis. pt providing stool sample now. will start IV abx in the meantime and plan for admission given his symptoms and weakness. nephrology will be contacted now to let them know about admission Time: 07:39 Medical Decision Making Medical Decision Making [facility] Narrative: 62-year-old French-speaking male with history of end-stage renal disease on dialysis, cardiomyopathy, HTN, anemia of chronic disease, who presents to the ER for evaluation of generalized weakness, profuse nonbloody diarrhea, and generali zed abdominal pain, worse on the left side for the last 1 week. He has lower abdominal tenderness bilaterally on examination, CT scan was done revealing diffuse colitis. No leukocytosis or fever. Etiology could be infectious versus inflammatory. Stool samples are pending (watery, yellow stool collected). Will start on empiric antibiotics. Will plan for admission to the hospital. Differential Diagnosis Differential Diagnoses: The differential diagnosis associated with the presentation includes bacterial gastroenteritis, viral gastroenteritis, C diff, colitis, dehydration, electrolyte abnormalities, diverticulitis Admission/Observation Consideration of admission/observation: Escalation of care including admission/observation considered Consult Healthcare Provider Management of the patient was discussed with: Hospitalist Dr. De La Rosa TT for admit who accepts Lab Data [facility] Lab Attestation statement: I reviewed the patient's lab results. ESRD, stable K 07/20/22 05:28 07/20/22 05:28 Labs: Lab Results 07/20/22 07/20/22 Range/Units 05:28 05:28 WBC 6.8 (4.8-10.8) X10*3/uL RBC 3.56 L (4.60-5.80) X10*6/uL Hgb 10.6 L (14.0-18.0) g/dl Hct 31.0 L (42.0-52.0) % MCV 87.1 (80.0-98.0) fL MCH 29.8 (27.0-33.0) pg MCHC 34.2 (31.0-36.0) g/dl RDW 13.4 (11.0-16.0) % Plt Count 236 (160-400) X10*3/uL MPV 8.7 L (9.4-12.4) fL Immature Gran % (Auto) 0.3 (0.0-0.4) % Neut % (Auto) 58.8 (45-73) % Lymph % (Auto) 25.6 (20-40) % [place] % (Auto) 9.8 (2-11) % Eos % (Auto) 5.2 H (0-4) % Baso % (Auto) 0.3 (0-2) % Lymph # (Auto) 1.7 (1.2-4.9) X10*3/uL [place] # (Auto) 0.7 (0.1-1.2) X10*3/uL Eos # (Auto) 0.4 (0.0-0.4) X10*3/uL Baso # (Auto) 0.0 (0.0-0.2) X10*3/uL Abs Immat Gran (auto) 0.02 (0.00-0.03) X10*3/uL Absolute Neuts (auto) 4.0 (2.0-8.3) x10*3/uL Absolute Nucleated RBC 0.000 (0.0-0.012) X10*3/uL Nucleated RBC % (auto) 0.0 (0.0-0.2) /100WBC Sodium 140 (135-145) mmol/L Potassium 3.8 (3.3-5.1) mmol/L Chloride 103 (96-108) mmol/L Carbon Dioxide 25 (22-29) mmol/L Anion Gap 16 (12-20) BUN 32 H (9-16) mg/dL Creatinine 9.70 H* (0.5-1.4) mg/dL Estim Creat Clear Calc 8.9 Estimated GFR 5 Random Glucose 103 (60-115) mg/dL Calcium 8.9 (8.4-10.2) mg/dL Total Bilirubin 0.5 (0.0-1.0) mg/dL Direct Bilirubin 0.2 (0.0-0.5) mg/dL AST 12 (5-37) U/L ALT 13 (0-40) U/L Alkaline Phosphatase 68 (39-117) U/L Total Protein 5.7 L (6.5-8.0) g/dL Albumin 3.3 L (3.5-5.0) g/dL Lipase 24 (8-78) U/L Independent Interpretation I performed an independent interpretation of an: CT Scan Interpretation: CT w/ colitis, no appreciated abscess, agreee w/ radiology read Radiology Impression Discussion of test interpretation with radiology: I have reviewed the radiologist's reading. Radiologist Impression: EXAMINATION: CT ABDOMEN AND PELVIS WITHOUT CONTRAST? CLINICAL INFORMATION: Lower abdominal pain, diarrhea? COMPARISON: CT abdomen and pelvis 06/03/2020 TECHNIQUE: Multidetector volumetric imaging was performed from the superior aspect of the liver through the pubic symphysis. Sagittal and coronal reformatted images were obtained on the technologist's workstation.? This CT examination was performed using dose optimization techniques as appropriate, variously including the following: *Automated exposure control *Adjustment of mA and/or kV according to patient size (this includes techniques or standardized protocols for targeted exams where dose is matched to indication/reason for exam; i.e. extremities or head) *Use of iterative reconstruction technique DLP: 659 mGy-cm FINDINGS: LUNG BASES: Focal atelectatic changes right lung base. Heart size is normal. There is moderate coronary artery calcification.? LIVER, GALLBLADDER, AND BILIARY TREE: The liver is normal in size, shape, and attenuation. No focal hepatic lesion or biliary ductal dilatation is present. The gallbladder is unremarkable with no evidence of radiopaque gallstones, gallbladder wall thickening, or obvious pericholecystic inflammatory changes.? PANCREAS: Unremarkable.? SPLEEN: Unremarkable.? ADRENAL GLANDS: Unremarkable.? KIDNEYS AND URETERS: The kidneys are normal in size, shape, and attenuation.There are bilateral cortical and exophytic renal cysts. There is 3 mm radiopaque calculi mid pole left kidney. No additional radiopaque calculi seen. There is no caliectasis or hydronephrosis. BLADDER: Unremarkable.? GASTROINTESTINAL TRACT: There is diffuse mural thickening and pericolic fat stranding throughout the colon most prominent in the hepatic flexure. The small bowel loops are normal caliber. Appendix is likely normal caliber. No free air seen. There is small amount of free fluid in the pelvis.? ABDOMINAL WALL: No significant hernia is appreciated.? LYMPH NODES: Normal. VASCULAR: Unremarkable. PELVIC VISCERA: The uterus is surgically absent or atrophied. No abnormal pelvic or inguinal lymph nodes seen.? OSSEOUS STRUCTURES: No aggressive lytic or sclerotic process.? CT/CT abdomen pelvis wo IV con IMPRESSION: Diffuse colitis likely inflammatory or infectious etiology. No diverticuli seen. ? Small amount of free fluid in the pelvis. ? Bilateral renal cysts question polycystic kidney disease. Nonobstructive 3 mm radiopaque calculi mid to lower pole left kidney.? Independent Historian Clinical information obtained from an independent historian. History obtained from or confirmed by: Spouse External Record Review External record reviewed: Office record, Outpatient record, Prior outpatient labs and Prior outpatient radiology Prescription Management I considered prescription management with: Pain Medication and Antibiotic Chronic Conditions Patient?s care impacted by: Other (ESRD) Critical Care Time Critical Care Time Critical Care Time: Yes Total Critical Care Time: 35 Attestation: I have personally provided critical care time exclusive of time spent on separately billable procedures. Time includes review of lab data, radiology results, discussion with consultants, and monitoring for potential decompensation. Intervention performed as documented. Discharge Plan Discharge Clinical Impression: Colitis Patient Disposition: Admitted As Inpatient
[2022-07-20] MEDS: cefTRIAXone sodium 1 GM in 0.9 % Sodium Chloride 50 ML IV (08:18)
[2022-07-20 08:30] VITALS: BP 153/69; PULSE 86; RESP 16; O2SAT 99
[2022-07-20 08:34] LABS: Lactic Acid 1.3 mmol/L (0.5-2.0)
[2022-07-20 08:43] LABS: Phosphorus 3.3 mg/dL (2.7-4.5)
[2022-07-20] MEDS: metroNIDAZOLE/NS 500 MG/100 ML PIGGYBACK 100 MG IV (09:06)
[2022-07-20 09:18] LABS: CDiff Gene PCR POSITIVE (Negative)
--- NOTE | 2022-07-20 09:21 | PHA.MEDREC ---
Pharmacy Consult ? Medication Reconciliation Pharmacy has completed the medication reconciliation. Manager Er used. Spoke to patient and family member. Patients family member stated that there are two medications for his heart, one being entresto and she could not remember the other but it was not one I mentioned. They could not remember who the demonstrator electric [employer] appliances was, called office of Lawrence Urbano (provider who prescribed the entresto) to see if I am missing a medication as patient was very worried. Currently waiting for office to call back.
--- NOTE | 2022-07-20 10:17 | PC.NURSE ---
transport aware of pt needing to go to dialysis
--- NOTE | 2022-07-20 10:21 | P.CONNP_ITS ---
History of Present Illness Reason for Consult Consult date: 07/20/22 Chief Complaint Chief complaint: CDiff Colitis HD History of Present Illness Narrative: 62 year old patient with history of ESRD presents to the hospital with diarrhea. He complains of at last a week of diarrhea and abdominal discomfort. There is no report f fever, chills, chest pain, shortness of breath. He normally has dialysis at [facility] and his last treatment was on Wednesday. Review of Systems Review of Systems 10 points ROS negative except for pertinent in HPI PMFSH Past Medical History Medical History Asthma Diabetes End stage chronic kidney disease Family History Family History Mother CAD (coronary artery disease) Surgical History Surgical History AV fistula Social History Social History Household Members: Significant Other Housing: Apartment Do you presently have visiting nurse or other home services: No Alcohol intake: never Patient Tobacco Use Status: Never used Tobacco Smoked in Last 30 Days: No e-Cigarette/Vaping Use: Never Used Second Hand Smoke Exposure: No Use of substances other than those prescribed or required for medical reasons: No Advance Directives: No Advance Directives Information Provided: No service: No Current occupational status: retired Meds Allergies Allergy/AdvReac Type Severity Reaction Status Date / Time No Known Allergies Allergy Verified 02/08/22 03:58 [No Known Allergies*] Active Medications: Current Medications Acetaminophen (Acetaminophen 325 Mg Tablet) 650 mg PO Q6H PRN PRN Reason: Pain, Mild (Pain Scale 1-3) Albuterol Sulfate (Albuterol Sulfate 90 Mcg 8 Gm Inhaler) 2 puff INHALE Q4H PRN PRN Reason: Shortness Of Breath Or Wheezing Aspirin (Aspirin Enteric Coated 81 Mg Tablet.) 81 mg PO DAILY JOSÉ Atorvastatin Calcium (Atorvastatin Calcium 40 Mg Tablet) 40 mg PO BEDTIME JOSÉ Brimonidine Tartrate (Brimonidine Tartrate 0.2% Oph 5 Ml Bottle) 1 drop EYE- BOTH BID JOSÉ Furosemide (Furosemide 40 Mg Tablet) 80 mg PO MOWEFR JOSÉ; Protocol Furosemide (Furosemide 40 Mg Tablet) 80 mg PO SUTUTHSA@0900,2100 [facility]; Protocol Heparin Sodium (Porcine) (Heparin Sodium,Porcine 5,000 Unit/Ml Vial) 5,000 unit SUBCUT Q12H [facility] Isosorbide Mononitrate (Isosorbide Mononitrate 30 Mg Tab.Er.24h) 30 mg PO DAILY JOSÉ; Protocol Latanoprost (Latanoprost 0.005 % Ophth Graciela 2.5 Ml Drops) 1 drop EYE-BOTH BEDTIME [facility] Metoprolol Succinate (Metoprolol Succinate Er 50 Mg Tab.Er.24h) 50 mg PO DAILY JOSÉ; Protocol Montelukast Sodium (Montelukast Sodium 10 Mg Tablet) 10 mg PO BEDTIME [facility] Omeprazole (Omeprazole 20 Mg Capsule.Dr) 20 mg PO DAILY@629 [facility] Ondansetron HCl (Ondansetron Hcl 4 Mg/2 Ml Vial) 4 mg IVPUSH Q8H PRN PRN Reason: Nausea and Vomiting Pharmacy Consult (Consult Rx Perform Med Rec) 1 each MISCELLANE ONCE PRN PRN Reason: Consult order Sacubitril/Valsartan (Sacubitril/Valsartan 1 Tab Tablet) 1 tab PO BID [facility]; Protocol Sevelamer Carbonate (Sevelamer Carbonate Tablet 800 Mg Tablet) 2,400 mg PO TIDWM [facility] Sodium Chloride (0.9 % Sodium Chloride Flush 3 Ml Syringe) 3 ml IVFLUSH QSHIFT [facility] Ticagrelor (Ticagrelor 90 Mg Tablet) 90 mg PO BID [facility] Timolol Maleate (Timolol Maleate 0.5 % Oph Graciela 5 Ml Drbtl) 1 drop EYE-BOTH BID [facility] Vancomycin HCl (Vancomycin Hcl 125 Mg Capsule) 125 mg PO Q6H [facility] Vitamin D (Cholecalciferol (Vitamin D3) 25 Mcg Tablet) 25 mcg PO DAILY@1700 [facility] Home Medications Medication Instructions Recorded Confirmed Last Taken Type furosemide 80 mg tablet 80 mg PO SUTUTHSA@0900,2100 08/24/21 07/20/22 01/11/22 History omeprazole 20 mg capsule,delayed 20 mg PO DAILY PRN Heartburn 08/24/21 07/20/22 08/23/21 History release sevelamer carbonate 800 mg tablet 2,400 mg PO TIDWM 08/24/21 07/20/22 01/11/22 History albuterol sulfate 90 mcg/actuation 2 puff inhalation Q4-6H PRN 01/12/22 07/20/22 01/12/22 History aerosol inhaler Shortness Of Breath Or Wheezing cholecalciferol (vitamin D3) 25 25 mcg PO DAILY@1700 01/12/22 07/20/22 01/11/22 History mcg (1,000 unit) capsule (Vitamin D3) bimatoprost 0.01 % eye drops 1 drp ophthalmic (eye) BEDTIME 07/20/22 07/20/22 Unknown History (Lumigan) brimonidine 0.2 %-timolol 0.5 % 1 drp ophthalmic (eye) BID 07/20/22 07/20/22 Unknown History eye drops (Combigan) furosemide 80 mg tablet 80 mg PO MOWEFR 07/20/22 07/20/22 Unknown History isosorbide mononitrate 30 mg 30 mg PO DAILY 07/20/22 07/20/22 Unknown History tablet,extended release 24 hr metoprolol succinate 50 mg 50 mg PO QAM 07/20/22 07/20/22 Unknown History tablet,extended release 24 hr montelukast 10 mg tablet 10 mg PO BEDTIME asthma 07/20/22 07/20/22 Unknown History sacubitril 24 mg-valsartan 26 mg 1 tab PO BID 07/20/22 07/20/22 Unknown History tablet (Entresto) ticagrelor 90 mg tablet (Brilinta) 90 mg PO BID 07/20/22 07/20/22 Unknown History Physical Exam Vital Signs: Last Vital Signs Temp 98.6 F 07/20/22 05:17 Pulse 86 07/20/22 08:30 Resp 16 07/20/22 08:30 BP 153/69 H 07/20/22 08:30 Pulse Ox 99 07/20/22 08:30 O2 Del Method Room Air 07/20/22 08:30 BMI result Body Mass Index 27.5 Const General: no acute distress, alert and awake HEENT Head: Yes normocephalic and Yes atraumatic Neck Neck: Yes supple Resp Auscultation: clear to auscultation bilaterally Cardio Heart sounds: S1 normal heart sound present and S2 normal heart sound present GI Palpation (GI): Soft to palpation and nontender Extrem Right upper extremity: no edema Results Lab Results 07/20/22 05:28 07/20/22 05:28 Lab results: Chemistry 07/20/22 05:28 Sodium 140 Potassium 3.8 Carbon Dioxide 25 BUN 32 H Creatinine 9.70 H* Calcium 8.9 Phosphorus 3.3 Hematology 07/20/22 05:28 WBC 6.8 Hgb 10.6 L Plt Count 236 Assessment and Plan (1) End stage chronic kidney disease: Status: Acute (2) Anemia: Status: Acute Plan usually has HD at [facility] via [facility] presented with diarrhea and abdominal pain CT scan of the abdomen showed diffuse colitis REC HD today optimize volume status renal diet YOSELIN phosphate binders Time Spent With Patient Time: Total time managing care of this patient today ____ minutes. Procedures Date of Service Date of Service: 07/20/22
--- NOTE | 2022-07-20 10:30 | PC.NURSE ---
pt to dialysis
[2022-07-20 10:46] LABS: Adenovirus F 40/41 Not Detected (Not Detect.); Astrovirus Not Detected (Not Detect.); Campylobacter Not Detected (Not Detect.); Cryptosporidium Not Detected (Not Detect.); Cyclospora cayetanensis Not Detected (Not Detect.); E. coli EAEC Not Detected (Not Detect.); E. coli EPEC Not Detected (Not Detect.); E. coli ETEC Not Detected (Not Detect.); E. coli STEC Not Detected (Not Detect.); Entamoeba histolytica Not Detected (Not Detect.); Giardia lamblia Not Detected (Not Detect.); Norovirus GI/GII Not Detected (Not Detect.); Plesiomonas shigelloides Not Detected (Not Detect.); Rotavirus A Not Detected (Not Detect.); Salmonella Not Detected (Not Detect.); Sapovirus Not Detected (Not Detect.); Shigella sp./EIEC Not Detected (Not Detect.); Vibrio Not Detected (Not Detect.); Vibrio Cholerae Not Detected (Not Detect.); Yersinia enterocolitica Not Detected (Not Detect.)
[2022-07-20 10:57] LABS: CDIFF Internal ctrl Dots and bkg OK (V); CDiff Toxin Positive (Negative)
--- NOTE | 2022-07-20 11:47 | PC.NURSE ---
report given to rn on s3
--- NOTE | 2022-07-20 14:22 | PM.IMHP ---
History of Present Illness Date of Service: 07/20/22 Chief Complaint: abd pain, diarrhea A 62 years old male with PMH of ESRD on HD (M/W/F), anemia, HTN, cardiomyopathy, DMII who presents to the hospital with abdominal pain and diarrhea. reports 1 week of symptoms with associated chills but no recorded fever. decrease PO intake, mild nausea, no skin rash, CP, vomiting, urinary symptoms or chest pain. Last day he had 10 episodes of diarrhea. In ED a CT scan was consistent with colitis. tested positive for Cdiff. denies any recent antibiotics usage. He does dialysis MWF. last session on Wednesday. Admitted for further eval and treatment. Review of Systems Review of Systems: reporting chills and weakness No chest pain, palpitation No shortness of breath or coughing abdominal pain with nausea and diarrhea, decrease PO intake No urinary symptoms No any rash or wounds PMFSH Medical History Asthma Diabetes End stage chronic kidney disease Family History Mother CAD (coronary artery disease) Surgical History AV fistula Social History Household Members: Significant Other Housing: Apartment Do you presently have visiting nurse or other home services: No Alcohol intake: never Patient Tobacco Use Status: Never used Tobacco Smoked in Last 30 Days: No e-Cigarette/Vaping Use: Never Used Second Hand Smoke Exposure: No Use of substances other than those prescribed or required for medical reasons: No Advance Directives: No Advance Directives Information Provided: No service: No Current occupational status: retired Meds Allergies Allergy/AdvReac Type Severity Reaction Status Date / Time No Known Allergies Allergy Verified 02/08/22 03:58 [No Known Allergies*] Active Medications: Current Medications Acetaminophen (Acetaminophen 325 Mg Tablet) 650 mg PO Q6H PRN PRN Reason: Pain, Mild (Pain Scale 1-3) Albuterol Sulfate (Albuterol Sulfate 90 Mcg 8 Gm Inhaler) 2 puff INHALE Q4H PRN PRN Reason: Shortness Of Breath Or Wheezing Aspirin (Aspirin Enteric Coated 81 Mg Tablet.) [address] [facility] Atorvastatin Calcium (Atorvastatin Calcium 40 Mg Tablet) [address] [facility] Brimonidine Tartrate (Brimonidine Tartrate 0.2% Oph 5 Ml Bottle) 1 drop EYE-BOTH BID [facility] Furosemide (Furosemide 40 Mg Tablet) 80 mg PO MOWEFR JOSÉ; Protocol Furosemide (Furosemide 40 Mg Tablet) 80 mg PO SUTUTHSA@0900,2100 [facility]; Protocol Heparin Sodium (Porcine) (Heparin Sodium,Porcine 5,000 Unit/Ml Vial) 5,[address] [facility] Isosorbide Mononitrate (Isosorbide Mononitrate 30 Mg Tab.Er.24h) [address] [facility]; Protocol Latanoprost (Latanoprost 0.005 % Ophth Graciela 2.5 Ml Drops) 1 drop EYE-BOTH BEDTIME [facility] Metoprolol Succinate (Metoprolol Succinate Er 50 Mg Tab.Er.24h) [address] [facility]; Protocol Montelukast Sodium (Montelukast Sodium 10 Mg Tablet) [address] [facility] Omeprazole (Omeprazole 20 Mg Capsule.) 20 mg PO DAILY@0630 [facility] Ondansetron HCl (Ondansetron Hcl 4 Mg/2 Ml Vial) 4 mg IVPUSH Q8H PRN PRN Reason: Nausea and Vomiting Pharmacy Consult (Consult Rx Perform Med Rec) 1 each MISCELLANE ONCE PRN PRN Reason: Consult order Sacubitril/Valsartan (Sacubitril/Valsartan 1 Tab Tablet) [address] [facility]; Protocol Sevelamer Carbonate (Sevelamer Carbonate Tablet 800 Mg Tablet) 2,[address] [facility] Sodium Chloride (0.9 % Sodium Chloride Flush 3 Ml Syringe) [address] [facility] Ticagrelor (Ticagrelor 90 Mg Tablet) [address] [facility] Timolol Maleate (Timolol Maleate 0.5 % Oph Graciela 5 Ml Drbtl) 1 drop EYE-BOTH BID [facility] Vancomycin HCl (Vancomycin Hcl 125 Mg Capsule) [address] [facility] Vitamin D (Cholecalciferol (Vitamin D3) 25 Mcg Tablet) 25 mcg PO DAILY@1700 [facility] Home Medications Medication Instructions Recorded Confirmed Last Taken Type furosemide 80 mg tablet 80 mg PO SUTUTHSA@0900,2100 08/24/21 07/20/22 01/11/22 History omeprazole 20 mg capsule,delayed 20 mg PO DAILY PRN Heartburn 08/24/21 07/20/22 08/23/21 History release sevelamer carbonate 800 mg tablet 2,400 mg PO TIDWM 08/24/21 07/20/22 01/11/22 History albuterol sulfate 90 mcg/actuation 2 puff inhalation Q4-6H PRN 01/12/22 07/20/22 01/12/22 History aerosol inhaler Shortness Of Breath Or Wheezing cholecalciferol (vitamin D3) 25 25 mcg PO DAILY@1700 01/12/22 07/20/22 01/11/22 History mcg (1,000 unit) capsule (Vitamin D3) bimatoprost 0.01 % eye drops 1 drp ophthalmic (eye) BEDTIME 07/20/22 07/20/22 Unknown History (Lumigan) brimonidine 0.2 %-timolol 0.5 % 1 drp ophthalmic (eye) BID 07/20/22 07/20/22 Unknown History eye drops (Combigan) furosemide 80 mg tablet 80 mg PO MOWEFR 07/20/22 07/20/22 Unknown History isosorbide mononitrate 30 mg 30 mg PO DAILY 07/20/22 07/20/22 Unknown History tablet,extended release 24 hr metoprolol succinate 50 mg 50 mg PO QAM 07/20/22 07/20/22 Unknown History tablet,extended release 24 hr montelukast 10 mg tablet 10 mg PO BEDTIME asthma 07/20/22 07/20/22 Unknown History sacubitril 24 mg-valsartan 26 mg 1 tab PO BID 07/20/22 07/20/22 Unknown History tablet (Entresto) ticagrelor 90 mg tablet (Brilinta) 90 mg PO BID 07/20/22 07/20/22 Unknown History Physical Exam Vital Signs and Narrative: Vital Signs: Last Vital Signs Temp 98.6 F 07/20/22 05:17 Pulse 86 07/20/22 08:30 Resp 16 07/20/22 08:30 BP 153/69 H 07/20/22 08:30 Pulse Ox 99 07/20/22 08:30 O2 Del Method Room Air 07/20/22 08:30 BMI result Body Mass Index 27.5 Const: Other: Constitutional : Awake, interactive, not in distress Neck : Normal inspection, Supple Cardiovascular : RRR, no JVP, no lower extremity edema Respiratory : good bilateral air entry, no crackles, wheezes or rhonchi Gastrointestinal: soft, lax, Normal bowel sounds, LLQ tenderness, no surgical signs Skin : Warm, Dry Neurological : Alert & oriented x3, No focal deficit Results Labs 07/20/22 05:28 07/20/22 05:28 Labs: Laboratory Results - last 24 hr 07/20/22 07/20/22 07/20/22 05:28 05:28 08:15 MCV 87.1 MCH 29.8 MCHC 34.2 RDW 13.4 Plt Count 236 MPV 8.7 L Immature Gran % (Auto) 0.3 Neut % (Auto) 58.8 Lymph % (Auto) 25.6 [place] % (Auto) 9.8 Eos % (Auto) 5.2 H Baso % (Auto) 0.3 Lymph # (Auto) 1.7 [place] # (Auto) 0.7 Eos # (Auto) 0.4 Baso # (Auto) 0.0 Abs Immat Gran (auto) 0.02 Absolute Neuts (auto) 4.0 Absolute Nucleated RBC 0.000 Nucleated RBC % (auto) 0.0 Anion Gap 16 Estim Creat Clear Calc 8.9 Estimated GFR 5 Random Glucose 103 Lactic Acid 1.3 Calcium 8.9 Phosphorus 3.3 Total Bilirubin 0.5 Direct Bilirubin 0.2 AST 12 ALT 13 Alkaline Phosphatase 68 Total Protein 5.7 L Albumin 3.3 L Lipase 24 Stl C. cayetanensis PCR Stool Rotavirus A PCR Stl Adenov F 40/41 PCR Stool Astrovirus (PCR) Stool Campylobacter PCR Stool Cryptosporidium PCR Stl Sh Tox Pr E STEC PCR Stool E coli O157 PCR Stl Enterotoxigenic E PCR Stool EPEC (PCR) Stool EAEC (PCR) Stl E. histolytica PCR Stool Giardia Lamblia PCR Stl P. shigelloides PCR Stool Salmonella PCR Stool Sapovirus (PCR) Stl Shigella/EIEC PCR St Y.enterocolitica PCR Stool Vibrio (PCR) Stl Vibrio cholerae PCR Stl Norovirus GI/GII PCR C. difficile Tox B Gene C. difficile Toxin A&B C. difficile Interpret 07/20/22 07/20/22 08:15 08:15 MCV MCH MCHC RDW Plt Count MPV Immature Gran % (Auto) Neut % (Auto) Lymph % (Auto) [place] % (Auto) Eos % (Auto) Baso % (Auto) Lymph # (Auto) [place] # (Auto) Eos # (Auto) Baso # (Auto) Abs Immat Gran (auto) Absolute Neuts (auto) Absolute Nucleated RBC Nucleated RBC % (auto) Anion Gap Estim Creat Clear Calc Estimated GFR Random Glucose Lactic Acid Calcium Phosphorus Total Bilirubin Direct Bilirubin AST ALT Alkaline Phosphatase Total Protein Albumin Lipase Stl C. cayetanensis PCR Not Detected Stool Rotavirus A PCR Not Detected Stl Adenov F 40/41 PCR Not Detected Stool Astrovirus (PCR) Not Detected Stool Campylobacter PCR Not Detected Stool Cryptosporidium PCR Not Detected Stl Sh Tox Pr E STEC PCR Not Detected Stool E coli O157 PCR Not applicable Stl Enterotoxigenic E PCR Not Detected Stool EPEC (PCR) Not Detected Stool EAEC (PCR) Not Detected Stl E. histolytica PCR Not Detected Stool Giardia Lamblia PCR Not Detected Stl P. shigelloides PCR Not Detected Stool Salmonella PCR Not Detected Stool Sapovirus (PCR) Not Detected Stl Shigella/EIEC PCR Not Detected St Y.enterocolitica PCR Not Detected Stool Vibrio (PCR) Not Detected Stl Vibrio cholerae PCR Not Detected Stl Norovirus GI/GII PCR Not Detected C. difficile Tox B Gene POSITIVE A* C. difficile Toxin A&B Positive A* C. difficile Interpret SEE NOTE Imaging Radiologist's Impressions: Impressions Abdomen/Pelvis CT 07/20/22 06:46 IMPRESSION: Diffuse colitis likely inflammatory or infectious etiology. No diverticuli seen. Small amount of free fluid in the pelvis. Bilateral renal cysts question polycystic kidney disease. Nonobstructive 3 mm radiopaque calculi mid to lower pole left kidney. Fleischner guidelines were followed. Assessment and Plan (1) C. difficile colitis: Status: Acute (2) End stage chronic kidney disease: Status: Acute Plan A 62 years old male with PMH of ESRD on HD (M/W/F), anemia, HTN, cardiomyopathy, DMII who presents to the hospital with abdominal pain and diarrhea. Acute C.Diff colitis not septic pending blood cultures IVF gentle start PO Vancomycin advance diet as tolerated Hx CMP continue Brilinta, ASA continue Isosorbide mononitrate, Metoprolol, Enteresto and lasix ESRD on HD MWF schedule Nephro consult Sevelamer Continue rest of home meds and eye drops DVT PPx heparin PAtient will likely need 2 overniht hospital stay for tx of cdiff colitis with decrease PO intake and diarrhea pending clinical improvement. Time Spent With Patient Time: Total time managing care of this patient today ____ minutes. Quality Stroke Does the patient have a stroke diagnosis?: No VTE Prior VTE?: No VTE Risk Level:: Medical - moderate - high VTE Device Contraindication: Treatment Not Indicated VTE Drug Contraindication: N/A - Med Ordered
[2022-07-20 15:39] LABS: Glucose, Whole Blood 92 mg/dL (60-115)
[2022-07-20] MEDS: Sevelamer Carbonate Tablet 800 MG TABLET 2400 MG PO (17:31)
[2022-07-20] MEDS: 0.9 % Sodium Chloride Flush 3 ML SYRINGE IVFLUSH (17:31)
[2022-07-20] MEDS: vancomycin HCL 125 MG CAPSULE PO ×2 (17:31→20:33)
[2022-07-20] MEDS: Cholecalciferol (Vitamin D3) 25 MCG TABLET PO (17:31)
[2022-07-20] MEDS: 0.9 % Sodium Chloride 1,000 ML 80 ML IVCONT (17:36)
[2022-07-20 19:54] VITALS: BP 133/62; PULSE 90; RESP 17; TEMP 36.4; O2SAT 100
[2022-07-20 20:17] LABS: Glucose, Whole Blood 205 mg/dL (60-115)
[2022-07-20] MEDS: Heparin Sodium,Porcine 5,000 UNIT/ML VIAL 5000 UNIT SUBCUT (20:33)
[2022-07-20] MEDS: Atorvastatin Calcium 40 MG TABLET PO (20:33)
[2022-07-20] MEDS: Ticagrelor 90 MG TABLET PO (20:33)
[2022-07-20] MEDS: Sacubitril/Valsartan 24/26 1 TAB TABLET PO (20:33)
[2022-07-20] MEDS: Montelukast Sodium 10 MG TABLET PO (20:33)
[2022-07-20] MEDS: Latanoprost 0.005 % Ophth Sol 2.5 ML DROPS 1 DROP EYE-BOTH (20:34)
[2022-07-20] MEDS: timoloL maleate 0.5 % Oph Sol 5 ML DRBTL 1 DROP EYE-BOTH (20:34)
[2022-07-20] MEDS: Brimonidine Tartrate 0.2% Oph 5 ML BOTTLE 1 DROP EYE-BOTH (20:34)
[2022-07-20] MEDS: Insulin Lispro 100 UNIT/ML 3 ML VIAL SUBCUT (20:34)
[2022-07-21] MEDS: vancomycin HCL 125 MG CAPSULE PO ×4 (03:00→20:44)
[2022-07-21 03:47] VITALS: BP 129/60; PULSE 77; RESP 16; TEMP 36.2; O2SAT 97
[2022-07-21] MEDS: 0.9 % Sodium Chloride 1,000 ML 80 ML IVCONT (04:17)
[2022-07-21] MEDS: Omeprazole 20 MG CAPSULE.DR PO (05:52)
[2022-07-21 06:41] LABS: Anion Gap 8 (12-20); Blood Urea Nitrogen 13 mg/dL (9-16); Calcium 6.1 mg/dL (8.4-10.2); Carbon Dioxide 18 mmol/L (22-29); Chloride 116 mmol/L (96-108); Creatinine Clr Calc Pharmacy 19.2; Estimated Glomerular Filt Rate 13; Glucose Random 61 mg/dL (60-115); Potassium 2.6 mmol/L (3.3-5.1); Sodium 139 mmol/L (135-145)
--- NOTE | 2022-07-21 07:15 | PM.PNNEP ---
Subjective Subjective Date of Service: 07/21/22 Interval history: seen and examined c/o diarrhea had HD yesterday Physical Exam Vital Signs: Vital Signs: Last Vital Signs Temp 97.1 F 07/21/22 03:47 Pulse 77 07/21/22 03:47 Resp 16 07/21/22 03:47 BP 129/60 07/21/22 03:47 Pulse Ox 97 07/21/22 03:47 O2 Del Method Room Air 07/21/22 03:47 BMI result Body Mass Index 27.5 Const: General: no acute distress, alert and awake HEENT: Head: Yes normocephalic and Yes atraumatic Neck: Neck: Yes supple Resp: Auscultation: clear to auscultation bilaterally Cardio: Heart sounds: S1 normal heart sound present and S2 normal heart sound present GI: Palpation (GI): Soft to palpation and nontender Extrem: Right upper extremity: no edema Objective Data Labs 07/20/22 05:28 07/21/22 05:41 Labs: Laboratory Results - last 24 hr 07/20/22 07/20/22 07/20/22 05:28 08:15 08:15 Sodium Potassium Chloride Carbon Dioxide Anion Gap BUN Creatinine Estim Creat Clear Calc Estimated GFR POC Glucose Random Glucose Lactic Acid 1.3 Calcium Phosphorus 3.3 Stl C. cayetanensis PCR Stool Rotavirus A PCR Stl Adenov F PCR Stool Astrovirus (PCR) Stool Campylobacter PCR Stool Cryptosporidium PCR Stl Sh Tox Pr E STEC PCR Stool E coli O157 PCR Stl Enterotoxigenic E PCR Stool EPEC (PCR) Stool EAEC (PCR) Stl E. histolytica PCR Stool Giardia Lamblia PCR Stl P. shigelloides PCR Stool Salmonella PCR Stool Sapovirus (PCR) Stl Shigella/EIEC PCR St Y.enterocolitica PCR Stool Vibrio (PCR) Stl Vibrio cholerae PCR Stl Norovirus GI/GII PCR C. difficile Tox B Gene POSITIVE A* C. difficile Toxin A&B Positive A* C. difficile Interpret SEE NOTE 07/20/22 07/20/22 07/20/22 08:15 15:36 20:13 Sodium Potassium Chloride Carbon Dioxide Anion Gap BUN Creatinine Estim Creat Clear Calc Estimated GFR POC Glucose 92 205 H Random Glucose Lactic Acid Calcium Phosphorus Stl C. cayetanensis PCR Not Detected Stool Rotavirus A PCR Not Detected Stl Adenov F 40/41 PCR Not Detected Stool Astrovirus (PCR) Not Detected Stool Campylobacter PCR Not Detected Stool Cryptosporidium PCR Not Detected Stl Sh Tox Pr E STEC PCR Not Detected Stool E coli O157 PCR Not applicable Stl Enterotoxigenic E PCR Not Detected Stool EPEC (PCR) Not Detected Stool EAEC (PCR) Not Detected Stl E. histolytica PCR Not Detected Stool Giardia Lamblia PCR Not Detected Stl P. shigelloides PCR Not Detected Stool Salmonella PCR Not Detected Stool Sapovirus (PCR) Not Detected Stl Shigella/EIEC PCR Not Detected St Y.enterocolitica PCR Not Detected Stool Vibrio (PCR) Not Detected Stl Vibrio cholerae PCR Not Detected Stl Norovirus GI/GII PCR Not Detected C. difficile Tox B Gene C. difficile Toxin A&B C. difficile Interpret 07/21/22 05:41 Sodium 139 Potassium 2.6 L D Chloride 116 H Carbon Dioxide 18 L Anion Gap 8 L BUN 13 Creatinine 4.50 H* Estim Creat Clear Calc 19.2 Estimated GFR 13 POC Glucose Random Glucose 61 Lactic Acid Calcium 6.1 L D Phosphorus Stl C. cayetanensis PCR Stool Rotavirus A PCR Stl Adenov F PCR Stool Astrovirus (PCR) Stool Campylobacter PCR Stool Cryptosporidium PCR Stl Sh Tox Pr E STEC PCR Stool E coli O157 PCR Stl Enterotoxigenic E PCR Stool EPEC (PCR) Stool EAEC (PCR) Stl E. histolytica PCR Stool Giardia Lamblia PCR Stl P. shigelloides PCR Stool Salmonella PCR Stool Sapovirus (PCR) Stl Shigella/EIEC PCR St Y.enterocolitica PCR Stool Vibrio (PCR) Stl Vibrio cholerae PCR Stl Norovirus GI/GII PCR C. difficile Tox B Gene C. difficile Toxin A&B C. difficile Interpret Procedures Date of Service Date of Service: 07/21/22 Assessment & Plan Assessment and plan (1) End stage chronic kidney disease: Status: Acute (2) Anemia: Status: Acute (3) C. difficile colitis: Status: Acute (4) Hypokalemia: Status: Acute Plan s/p HD yesterday usually has HD at [facility] presented with diarrhea and abdominal pain CT scan of the abdomen showed diffuse colitis REC potassium chloride 20 meq po x 1 (ordered) dc IVF (resume IVF if hemodynamically unstable) HD tomorrow renal diet YOSELIN phosphate binders Time Spent With Patient Time: Total time managing care of this patient today ____ minutes. Progress Note: Quality Stroke Does the patient have a stroke diagnosis?: No
[2022-07-21 07:37] LABS: Glucose, Whole Blood 86 mg/dL (60-115)
[2022-07-21 07:52] VITALS: BP 169/76; PULSE 78; RESP 18; TEMP 36.2; O2SAT 99
[2022-07-21] MEDS: timoloL maleate 0.5 % Oph Sol 5 ML DRBTL 1 DROP EYE-BOTH ×2 (09:06→20:46)
[2022-07-21] MEDS: Potassium Chloride Packet 20 MEQ PACKET 40 MEQ PO (09:06)
[2022-07-21] MEDS: Brimonidine Tartrate 0.2% Oph 5 ML BOTTLE 1 DROP EYE-BOTH ×2 (09:06→20:45)
[2022-07-21] MEDS: Heparin Sodium,Porcine 5,000 UNIT/ML VIAL 5000 UNIT SUBCUT ×2 (09:07→21:45)
[2022-07-21] MEDS: Sacubitril/Valsartan 24/26 1 TAB TABLET PO ×2 (09:07→20:43)
[2022-07-21] MEDS: Metoprolol Succinate ER 50 MG TAB.ER.24H PO (09:07)
[2022-07-21] MEDS: Furosemide 40 MG TABLET 80 MG PO ×2 (09:07→20:44)
[2022-07-21] MEDS: Potassium Chloride ER 20 MEQ TAB.ER.PRT PO (09:07)
[2022-07-21] MEDS: Aspirin Enteric Coated 81 MG TABLET.DR PO (09:07)
[2022-07-21] MEDS: Sevelamer Carbonate Tablet 800 MG TABLET 2400 MG PO ×3 (09:08→16:39)
[2022-07-21] MEDS: Ticagrelor 90 MG TABLET PO ×2 (09:08→20:44)
[2022-07-21] MEDS: Isosorbide Mononitrate 30 MG TAB.ER.24H PO (09:08)
--- NOTE | 2022-07-21 09:30 | MHC.CM.PN ---
IMM DELIVERED. PT REQUIRES EXECUTIVE VP LIVES WITH FAMILY IN AN APT. USES ROLLATOR AT BASELINE. [facility]. + HCP ON FILE. +COVID VAX X4 PCP AT [facility] (UNSURE OF NAME IS NEW) DP: HOME, NO SERVICES ANTICIPATED. FAMILY WILL TRANSPORT. CM WILL CONTINUE TO FOLLOW FOR ANY CHANGE IN PLAN.
[2022-07-21 11:10] LABS: Glucose, Whole Blood 206 mg/dL (60-115)
--- NOTE | 2022-07-21 11:43 | HO.PM.IMPN ---
Subjective Subjective Date of Service: 07/21/22 Interval History: seen and evaluated feels better with less pain still having significant diarrhea tolerating clears no other overnight events Review of Systems reporting chills and weakness No chest pain, palpitation No shortness of breath or coughing abdominal pain improving with nausea and diarrhea No urinary symptoms No any rash or wounds Physical Exam Vital Signs: Vital Signs: Last Vital Signs Temp 97.1 F 07/21/22 07:52 Pulse 78 07/21/22 07:52 Resp 18 07/21/22 07:52 BP 169/76 H 07/21/22 07:52 Pulse Ox 99 07/21/22 07:52 O2 Del Method Room Air 07/21/22 07:52 BMI result Body Mass Index 27.5 Const: Other: Constitutional : Awake, interactive, not in distress Neck : Normal inspection, Supple Cardiovascular : RRR, no JVP, no lower extremity edema Respiratory : good bilateral air entry, no crackles, wheezes or rhonchi Gastrointestinal: soft, lax, Normal bowel sounds, LLQ tenderness, no surgical signs Skin : Warm, Dry Neurological : Alert & oriented x3, No focal deficit Objective Data Active Medications Acetaminophen (Acetaminophen 325 Mg Tablet) 650 mg PO Q6H PRN PRN Reason: Pain, Mild (Pain Scale 1-3) Albuterol Sulfate (Albuterol Sulfate 90 Mcg 8 Gm Inhaler) 2 puff INHALE Q4H PRN PRN Reason: Shortness Of Breath Or Wheezing Aspirin (Aspirin Enteric Coated 81 Mg Tablet.) 81 mg PO DAILY [facility] Last Admin: 07/21/22 09:07 Dose: 81 mg Documented By: JOS Atorvastatin Calcium (Atorvastatin Calcium 40 Mg Tablet) 40 mg PO BEDTIME [facility] Last Admin: 07/20/22 20:33 Dose: 40 mg Documented By: NYA Brimonidine Tartrate (Brimonidine Tartrate 0.2% Oph 5 Ml Bottle) 1 drop EYE-BOTH BID [facility] Last Admin: 07/21/22 09:06 Dose: 1 drop Documented By: JOS Furosemide (Furosemide 40 Mg Tablet) 80 mg PO MOWEFR [facility]; Protocol Last Admin: 07/20/22 15:21 Dose: Not Given Documented By: JERMAINE Non-Admin Reason: Off unit: Dialysis Furosemide (Furosemide 40 Mg Tablet) 80 mg PO SUTUTHSA@0900,2100 [facility]; Protocol Last Admin: 07/21/22 09:07 Dose: 80 mg Documented By: JOS Glucose (Glucose Gel 15 Gm Gel..Gram.) 15 gm PO Q15M PRN; Protocol PRN Reason: per Hypoglycemia Standing Ord. Heparin Sodium (Porcine) (Heparin Sodium,Porcine 5,000 Unit/Ml Vial) 5,000 unit SUBCUT Q12H [facility] Last Admin: 07/21/22 09:07 Dose: 5,000 unit Documented By: JOS Dextrose (D10) 250 mls @ 750 mls/hr IV Q15M PRN; Protocol PRN Reason: per Hypoglycemia Standing Ord. Insulin Human Lispro (Insulin Lispro 100 Unit/Ml 3 Ml Vial) 0 unit SUBCUT QIDACHS [facility]; Protocol Last Admin: 07/21/22 07:41 Dose: Not Given Documented By: JOS Non-Admin Reason: No Insulin Coverage Isosorbide Mononitrate (Isosorbide Mononitrate 30 Mg Tab.Er.24h) 30 mg PO DAILY [facility]; Protocol Last Admin: 07/21/22 09:08 Dose: 30 mg Documented By: JOS Latanoprost (Latanoprost 0.005 % Ophth Graciela 2.5 Ml Drops) 1 drop EYE-BOTH BEDTIME [facility] Last Admin: 07/20/22 20:34 Dose: 1 drop Documented By: NYA Metoprolol Succinate (Metoprolol Succinate Er 50 Mg Tab.Er.24h) 50 mg PO DAILY [facility]; Protocol Last Admin: 07/21/22 09:07 Dose: 50 mg Documented By: JOS Montelukast Sodium (Montelukast Sodium 10 Mg Tablet) 10 mg PO BEDTIME [facility] Last Admin: 07/20/22 20:33 Dose: 10 mg Documented By: NYA Omeprazole (Omeprazole 20 Mg Capsule.) 20 mg PO DAILY@0630 [facility] Last Admin: 07/21/22 05:52 Dose: 20 mg Documented By: NYA Ondansetron HCl (Ondansetron Hcl 4 Mg/2 Ml Vial) 4 mg IVPUSH Q8H PRN PRN Reason: Nausea and Vomiting Pharmacy Consult (Consult Rx Perform Med Rec) 1 each MISCELLANE ONCE PRN PRN Reason: Consult order Sacubitril/Valsartan (Sacubitril/Valsartan 1 Tab Tablet) 1 tab PO BID [facility]; Protocol Last Admin: 07/21/22 09:07 Dose: 1 tab Documented By: JOS Sevelamer Carbonate (Sevelamer Carbonate Tablet 800 Mg Tablet) 2,400 mg PO TIDWM [facility] Last Admin: 07/21/22 09:08 Dose: 2,400 mg Documented By: PBEMA Sodium Chloride (0.9 % Sodium Chloride Flush 3 Ml Syringe) 3 ml IVFLUSH QSHIFT [facility] Last Admin: 07/21/22 07:22 Dose: Not Given Documented By: COTEMA Non-Admin Reason: IV Running Ticagrelor (Ticagrelor 90 Mg Tablet) 90 mg PO BID [facility] Last Admin: 07/21/22 09:08 Dose: 90 mg Documented By: COTEMA Timolol Maleate (Timolol Maleate 0.5 % Oph Graciela 5 Ml Drbtl) 1 drop EYE-BOTH BID [facility] Last Admin: 07/21/22 09:06 Dose: 1 drop Documented By: PBEMA Vancomycin HCl (Vancomycin Hcl 125 Mg Capsule) 125 mg PO Q6H [facility] Last Admin: 07/21/22 09:08 Dose: 125 mg Documented By: JOS Vitamin D (Cholecalciferol (Vitamin D3) 25 Mcg Tablet) 25 mcg PO DAILY@1700 [facility] Last Admin: 07/20/22 17:31 Dose: 25 mcg Documented By: ALBASK Labs 07/20/22 05:28 07/21/22 05:41 Labs: Laboratory Results - last 24 hr 07/20/22 07/20/22 07/21/22 15:36 20:13 05:41 Anion Gap 8 L Estim Creat Clear Calc 19.2 Estimated GFR 13 POC Glucose 92 205 H Random Glucose 61 Calcium 6.1 L D 07/21/22 07/21/22 07:33 11:04 Anion Gap Estim Creat Clear Calc Estimated GFR POC Glucose 86 206 H Random Glucose Calcium Microbiology Microbiology Results: Microbiology 07/20/22 08:15 Blood Culture - Preliminary Blood - Venous No growth after 24 hours. 07/20/22 08:15 Blood Culture - Preliminary Blood - Venous No growth after 24 hours. Assessment and Plan (1) Hypokalemia: Status: Acute (2) C. difficile colitis: Status: Acute (3) End stage chronic kidney disease: Status: Acute Plan A 62 years old male with PMH of ESRD on HD (M/W/F), anemia, HTN, cardiomyopathy, DMII who presents to the hospital with abdominal pain and diarrhea. Acute C.Diff colitis not septic pending blood panel as well IVF dc PO Vancomycin advance diet as tolerated Hx CMP continue Brilinta, ASA continue Isosorbide mononitrate, Metoprolol, Enteresto and lasix ESRD on HD MWF schedule Nephro consult Sevelamer Hypokalemia replacement given Continue rest of home meds and eye drops DVT PPx heparin PAtient will likely need overniht hospital stay for tx of cdiff colitis with decrease PO intake and diarrhea pending clinical improvement. Time Spent With Patient Time: Total time managing care of this patient today ____ minutes. Quality Stroke Does the patient have a stroke diagnosis?: No VTE Prior VTE?: No VTE Risk Level:: Medical - moderate - high VTE Device Contraindication: Treatment Not Indicated VTE Drug Contraindication: N/A - Med Ordered
[2022-07-21] MEDS: Insulin Lispro 100 UNIT/ML 3 ML VIAL SUBCUT ×2 (11:44→20:45)
[2022-07-21 15:16] VITALS: BP 127/61; PULSE 62; RESP 20; TEMP 36.2; O2SAT 98
[2022-07-21] MEDS: 0.9 % Sodium Chloride Flush 3 ML SYRINGE IVFLUSH ×2 (15:45→21:47)
[2022-07-21 16:13] LABS: Glucose, Whole Blood 97 mg/dL (60-115)
[2022-07-21] MEDS: Cholecalciferol (Vitamin D3) 25 MCG TABLET PO (16:39)
[2022-07-21 19:08] VITALS: BP 121/58; PULSE 71; RESP 16; TEMP 36.4; O2SAT 100
[2022-07-21 19:23] LABS: Glucose, Whole Blood 155 mg/dL (60-115)
[2022-07-21] MEDS: Montelukast Sodium 10 MG TABLET PO (20:44)
[2022-07-21] MEDS: Atorvastatin Calcium 40 MG TABLET PO (20:44)
[2022-07-21] MEDS: Latanoprost 0.005 % Ophth Sol 2.5 ML DROPS 1 DROP EYE-BOTH (20:45)
[2022-07-22] MEDS: vancomycin HCL 125 MG CAPSULE PO ×2 (03:48→10:00)
[2022-07-22 04:00] VITALS: BP 134/60; PULSE 68; RESP 16; TEMP 36; O2SAT 100
[2022-07-22] MEDS: Omeprazole 20 MG CAPSULE.DR PO (06:25)
[2022-07-22 06:28] LABS: Hematocrit 31.8 % (42.0-52.0); Hemoglobin 10.7 g/dl (14.0-18.0); Mean Corpuscular HGB Conc 33.6 g/dl (31.0-36.0); Mean Corpuscular Hemoglobin 30.1 pg (27.0-33.0); Mean Corpuscular Volume 89.3 fL (80.0-98.0); Mean Platelet Volume 9.3 fL (9.4-12.4); Platelet Count 293 X10*3/uL (160-400); Red Blood Count 3.56 X10*6/uL (4.60-5.80); Red Cell Distribution Width 13.4 % (11.0-16.0); White Blood Count 6.3 X10*3/uL (4.8-10.8)
[2022-07-22 07:09] LABS: Anion Gap 12 (12-20); Blood Urea Nitrogen 28 mg/dL (9-16); Calcium 9.2 mg/dL (8.4-10.2); Carbon Dioxide 22 mmol/L (22-29); Chloride 107 mmol/L (96-108); Creatinine Clr Calc Pharmacy 10.1; Estimated Glomerular Filt Rate 6; Glucose Random 135 mg/dL (60-115); Potassium 4.1 mmol/L (3.3-5.1); Sodium 137 mmol/L (135-145)
[2022-07-22 07:19] VITALS: BP 136/63; PULSE 69; RESP 18; TEMP 37.1; O2SAT 97
[2022-07-22 07:22] LABS: Glucose, Whole Blood 129 mg/dL (60-115)
--- NOTE | 2022-07-22 09:48 | PM.DS ---
DS: Providers Provider Date of Service: 07/22/22 Date of admission: 07/20/22 09:41 Primary care physician: Unknown Physician Consults: 07/20/22 07:54 Consult to Nephrology Stat Consulting Provider: Clifford Tristan Reason for consultation: esrd on hd DS: Diagnosis Discharge Diagnosis (1) Hypokalemia: Status: Acute (2) C. difficile colitis: Status: Acute (3) End stage chronic kidney disease: Status: Acute DS: Summary Hospital Course Hospital Course: from initial hpi: Chief Complaint: abd pain, diarrhea A 62 years old male with PMH of ESRD on HD (M/W/F), anemia, HTN, cardiomyopathy, DMII who presents to the hospital with abdominal pain and diarrhea. reports 1 week of symptoms with associated chills but no recorded fever. decrease PO intake, mild nausea, no skin rash, CP, vomiting, urinary symptoms or chest pain. Last day he had 10 episodes of diarrhea. In ED a CT scan was consistent with colitis. tested positive for Cdiff. denies any recent antibiotics usage. He does dialysis MWF. last session on Wednesday. Admitted for further eval and treatment. hospital course: Patient was admitted for acute Clostridium difficile colitis. He was treated with oral vancomycin. His diarrhea slowed down. His abdominal pain resolved. He was able to make it to the bathroom on time. Patient will be discharged on 12 more days of p.o. vancomycin. He is instructed on the importance of handwashing. For chronic ischemic systolic CHF use continued on aspirin, Brilinta, Imdur, metoprolol, Entresto, Lasix. End-stage renal disease with continue on hemodialysis. For hypokalemia this was replaced, for diabetes was continue on insulin. Patient is feeling better will be discharged home. Time Spent with Patient Time attestation: Total time managing care of this patient today ____ minutes. Discharge coordination time: Greater than 30 minutes Quality: Safe Use of Opioids Does Pt have an Active Cancer Diagnosis on the Problem List?: No Quality: Stroke Does the patient have a stroke diagnosis?: No Physical Exam Vital Signs: Vital Signs: Last Vital Signs Temp 98.7 F 07/22/22 07:19 Pulse 69 07/22/22 07:19 Resp 18 07/22/22 07:19 BP 136/63 07/22/22 07:19 Pulse Ox 97 07/22/22 07:19 O2 Del Method Room Air 07/22/22 07:19 BMI result Body Mass Index 27.5 General: AO X 3, no acute distress Resp: CTA bilateral, no accessory muscles used CVS: S1,S2,RRR GI: soft, non tender, non distended Neuro: motor grossly intact, alert Psych: appropriate affect, appropriate insight DS: Data Data Completed and Pending Completed studies during hospitalization [Text1]: Procedures Performance of Urinary Filtration, Intermittent, Less than 6 Hours Per Day (08/24/21) Labs on day of discharge: Laboratory Results - last 24 hr 07/21/22 07/21/22 07/21/22 11:04 16:10 19:07 WBC RBC Hgb Hct MCV MCH MCHC RDW Plt Count MPV Absolute Nucleated RBC Nucleated RBC % (auto) Sodium Potassium Chloride Carbon Dioxide Anion Gap BUN Creatinine Estim Creat Clear Calc Estimated GFR POC Glucose 206 H 97 155 H Random Glucose Calcium 07/22/22 07/22/22 07/22/22 05:25 05:25 07:17 WBC 6.3 RBC 3.56 L Hgb 10.7 L Hct 31.8 L MCV 89.3 MCH 30.1 MCHC 33.6 RDW 13.4 Plt Count 293 MPV 9.3 L Absolute Nucleated RBC 0.000 Nucleated RBC % (auto) 0.0 Sodium 137 Potassium 4.1 D Chloride 107 Carbon Dioxide 22 Anion Gap 12 BUN 28 H Creatinine 8.55 H* Estim Creat Clear Calc 10.1 Estimated GFR 6 POC Glucose 129 H Random Glucose 135 H Calcium 9.2 D Preliminary micro results at discharge 07/20/22 08:15 Blood Culture - Preliminary Blood - Venous No growth after 24 hours. 07/20/22 08:15 Blood Culture - Preliminary Blood - Venous No growth after 24 hours. Discharge Plan Discharge Anticipated Discharge Date/Time: 07/22/22 09:44 Patient Disposition: Home, Self-Care Discharge Diagnosis: cdif Referrals: Physician,Unknown J [Primary Care Provider] - 1 Week Discharge Medications: New vancomycin 125 mg Capsule 125 mg PO Q6H Qty: 48 0RF Continued furosemide 80 mg tablet 80 mg PO SUTUTHSA@0900,2100 omeprazole 20 mg capsule,delayed release(DR/EC) 20 mg PO DAILY PRN (Reason: Heartburn) sevelamer carbonate 800 mg tablet 2,400 mg PO TIDWM albuterol sulfate 90 mcg/actuation HFA aerosol inhaler 2 puff INHALATION Q4-6H PRN (Reason: Shortness Of Breath Or Wheezing) cholecalciferol (vitamin D3) [Vitamin D3] 25 mcg (1,000 unit) capsule 25 mcg PO DAILY@1700 atorvastatin 40 mg Tablet 40 mg PO BEDTIME Qty: 1 0RF aspirin 81 mg Tablet,Delayed Release (Dr/Ec) 81 mg PO DAILY Qty: 1 0RF metoprolol succinate 50 mg tablet extended release 24 hr 50 mg PO QAM isosorbide mononitrate 30 mg tablet extended release 24 hr 30 mg PO DAILY furosemide 80 mg Tablet 80 mg PO MOWEFR montelukast 10 mg tablet 10 mg PO BEDTIME brimonidine-timolol [Combigan] 0.2-0.5 % drops 1 drp ophthalmic (eye) BID Lumigan 0.01 % drops 1 drp ophthalmic (eye) BEDTIME Brilinta 90 mg tablet 90 mg PO BID Entresto 24-26 mg tablet 1 tab PO BID Discharge Orders: Discharge Order (Routine); Ordered 07/22/22 Ordered By: Jamie De La Torre Diet: Advance to usual diet Activity on Discharge: As tolerated Stand Alone Forms: Patient Portal Discharge page Care Plan Goals: recovery Health Concerns: cdif Plan of Treatment: 12 more days vanco, wash hands with soap and water Assessment: see above
--- NOTE | 2022-07-22 09:57 | PM.PNNEP ---
Subjective Subjective Date of Service: 07/22/22 Interval history: seen and evaluated feels better still having diarrhea Physical Exam Vital Signs: Vital Signs: Last Vital Signs Temp 98.7 F 07/22/22 07:19 Pulse 69 07/22/22 07:19 Resp 18 07/22/22 07:19 BP 136/63 07/22/22 07:19 Pulse Ox 97 07/22/22 07:19 O2 Del Method Room Air 07/22/22 07:19 BMI result Body Mass Index 27.5 Const: General: no acute distress, alert and awake HEENT: Head: Yes normocephalic and Yes atraumatic Neck: Neck: Yes supple Resp: Auscultation: clear to auscultation bilaterally Cardio: Heart sounds: S1 normal heart sound present and S2 normal heart sound present GI: Palpation (GI): Soft to palpation and nontender Extrem: Right upper extremity: no edema Objective Data Labs 07/22/22 05:25 07/22/22 05:25 Labs: Laboratory Results - last 24 hr 07/21/22 07/21/22 07/21/22 11:04 16:10 19:07 WBC RBC Hgb Hct MCV MCH MCHC RDW Plt Count MPV Absolute Nucleated RBC Nucleated RBC % (auto) Sodium Potassium Chloride Carbon Dioxide Anion Gap BUN Creatinine Estim Creat Clear Calc Estimated GFR POC Glucose 206 H 97 155 H Random Glucose Calcium 07/22/22 07/22/22 07/22/22 05:25 05:25 07:17 WBC 6.3 RBC 3.56 L Hgb 10.7 L Hct 31.8 L MCV 89.3 MCH 30.1 MCHC 33.6 RDW 13.4 Plt Count 293 MPV 9.3 L Absolute Nucleated RBC 0.000 Nucleated RBC % (auto) 0.0 Sodium 137 Potassium 4.1 D Chloride 107 Carbon Dioxide 22 Anion Gap 12 BUN 28 H Creatinine 8.55 H* Estim Creat Clear Calc 10.1 Estimated GFR 6 POC Glucose 129 H Random Glucose 135 H Calcium 9.2 D Microbiology Microbiology Results: Microbiology 07/20/22 08:15 Blood - Venous Blood Culture - Preliminary No growth after 24 hours. 07/20/22 08:15 Blood - Venous Blood Culture - Preliminary No growth after 24 hours. Procedures Date of Service Date of Service: 07/22/22 Assessment & Plan Assessment and plan (1) End stage chronic kidney disease: Status: Acute (2) Anemia: Status: Acute (3) C. difficile colitis: Status: Acute Plan usually has HD at [facility] via [facility] presented with diarrhea and abdominal pain CT scan of the abdomen showed diffuse colitis REC HD today optimize volume status renal diet YOSELIN phosphate binders Time Spent With Patient Time: Total time managing care of this patient today ____ minutes. Progress Note: Quality Stroke Does the patient have a stroke diagnosis?: No
[2022-07-22] MEDS: Heparin Sodium,Porcine 5,000 UNIT/ML VIAL 5000 UNIT SUBCUT (09:59)
[2022-07-22] MEDS: Ticagrelor 90 MG TABLET PO (10:00)
[2022-07-22] MEDS: Aspirin Enteric Coated 81 MG TABLET.DR PO (10:00)
[2022-07-22] MEDS: Sevelamer Carbonate Tablet 800 MG TABLET 2400 MG PO ×2 (10:00→11:44)
[2022-07-22] MEDS: Sacubitril/Valsartan 24/26 1 TAB TABLET PO (10:00)
[2022-07-22] MEDS: timoloL maleate 0.5 % Oph Sol 5 ML DRBTL 1 DROP EYE-BOTH (10:05)
[2022-07-22] MEDS: Brimonidine Tartrate 0.2% Oph 5 ML BOTTLE 1 DROP EYE-BOTH (10:06)
[2022-07-22] MEDS: 0.9 % Sodium Chloride Flush 3 ML SYRINGE IVFLUSH (10:09)
--- NOTE | 2022-07-22 10:32 | MHC.CM.PN ---
IMM 07/22/22 Patient is discharged to home today. [facility] will [facility] @ 5am. The patients dtr will provide transport home and to HD. DC Info has been sent to the facility.
[2022-07-22 11:34] LABS: Glucose, Whole Blood 211 mg/dL (60-115)
[2022-07-22] MEDS: Insulin Lispro 100 UNIT/ML 3 ML VIAL SUBCUT (11:44)
--- NOTE | 2022-07-30 10:47 | P.CDIM_ITS ---
PROVIDER RESPONSE TEXT: To clarify, the appropriate diagnosis supported by the clinical indicators: Hypocalcemia QUERY TEXT: PHYSICIAN'S DOCUMENTATION REQUEST Date of Query: 07/21/2022 10:02 AM EDT Patient Name: Manny Gar Admit Date: 07/20/2022 Dear Nafisa Fink, A review of the medical record indicates additional documentation may be needed. Please review below and update the documentation accordingly. Clinical Indicators: LAB FINDINGS: calcium 6.1 L Based on the above, is there a diagnosis that correlates with the lab findings above: Hypocalcemia Labs indicate a diagnosis of (please specify) Unable to determine Other (explain)Clinically unable to determine (explain)Thank you, Addis Millan, CCS, CDIS Use of terms such as suspected, likely, concern for, or probable (associated with a specific diagnosi s that is being evaluated, monitored, or treated as if it exists) are acceptable and can be coded in the inpatient se tting, when documented at the time of discharge. Please use your independent medical judgment in providing your response. THIS QUERY IS PART OF THE PERMANENT MEDICAL RECORD
== END 2022-07-22 18:49 | disposition home or self-care (01) | DRG 371 ==
LOC: HO.ED 07:39 → HO.EDOVER 09:51 → HO.S3 11:49
PROVIDERS: Emergency Medicine; Physician Assistant; Admitting Provider Student in an Organized Health Care Education/Training Program; Emergency Provider Emergency Medicine; PCP Registered Nurse; Visit Provider Internal Medicine
DX: A04.72 Enterocolitis due to Clostridium difficile, not specified as recurrent (principal); N18.6 End stage renal disease; I12.0 Hypertensive chronic kidney disease with stage 5 chronic kidney disease or end stage renal disease; I42.9 Cardiomyopathy, unspecified; E83.51 Hypocalcemia; D63.1 Anemia in chronic kidney disease; E11.22 Type 2 diabetes mellitus with diabetic chronic kidney disease; Z99.2 Dependence on renal dialysis; E87.6 Hypokalemia; Z79.82 Long term (current) use of aspirin; Z79.899 Other long term (current) drug therapy
CPT/HCPCS: 36415; 74176; 80048; 80053; 82248; 82947; 83605; 83690; 84100; 85025; 85027; 87040; 87324; 87493; 87507; 90999; 99284; J0696; J1643

== ENCOUNTER 2022-08-31 03:12 | Inpatient (IN) | payer OTHER, SELFPAY ==
[2022-08-31] VITALS (8 sets, daily range): BP systolic 121–160; BP diastolic 54–79; PULSE 85–115; RESP 13–18; TEMP 36.8–37.4; O2SAT 97–100; BMI 23.7; BMI 28.5
[2022-08-31 03:54] LABS: Basophils Percent Auto 0.3 % (0-2); Eosinophils Absolute Auto 0.2 X10*3/uL (0.0-0.4); Eosinophils Percent Auto 2.6 % (0-4); Hematocrit 27.5 % (42.0-52.0); Hemoglobin 9.3 g/dl (14.0-18.0); Imm Gran Abs Auto 0.02 X10*3/uL (0.00-0.03); Imm Gran Pct Auto 0.2 % (0.0-0.4); Lymphocytes Absolute Auto 1.2 X10*3/uL (1.2-4.9); Lymphocytes Percent Auto 13.9 % (20-40); MANUAL DIFF FLAG NO; Mean Corpuscular HGB Conc 33.8 g/dl (31.0-36.0); Mean Corpuscular Hemoglobin 30.2 pg (27.0-33.0); Mean Corpuscular Volume 89.3 fL (80.0-98.0); Mean Platelet Volume 8.6 fL (9.4-12.4); Monocytes Absolute Auto 0.6 X10*3/uL (0.1-1.2); Monocytes Percent Auto 7.2 % (2-11); Neutrophils Absolute Auto 6.5 x10*3/uL (2.0-8.3); Neutrophils Percent Auto 75.8 % (45-73); Platelet Count 220 X10*3/uL (160-400); Red Blood Count 3.08 X10*6/uL (4.60-5.80); Red Cell Distribution Width 14.8 % (11.0-16.0); White Blood Count 8.6 X10*3/uL (4.8-10.8)
[2022-08-31 04:28] LABS: Alanine Aminotransferase 9 U/L (0-40); Albumin Level 3.2 g/dL (3.5-5.0); Alkaline Phosphatase 62 U/L (39-117); Anion Gap 16 (12-20); Aspartate Amino Transferase 11 U/L (5-37); Bilirubin Direct 0.2 mg/dL (0.0-0.5); Bilirubin Total 0.8 mg/dL (0.0-1.0); Blood Urea Nitrogen 56 mg/dL (9-16); Calcium 9.2 mg/dL (8.4-10.2); Carbon Dioxide 25 mmol/L (22-29); Chloride 102 mmol/L (96-108); Estimated Glomerular Filt Rate 6; Glucose Random 122 mg/dL (60-115); Lipase 43 U/L (8-78); Potassium 4.1 mmol/L (3.3-5.1); Sodium 139 mmol/L (135-145); Total Protein 6.1 g/dL (6.5-8.0)
--- NOTE | 2022-08-31 05:58 | PC.NURSE ---
pt resting comfortably on stretcher. pt reports frequent diarrhea since yesterday. denies n/v or abdominal pain. labs done vital signs updated, pt waiting to be seen by ED provider. pt ambulates to and from bathroom with steady gait. call verdugo within reach. will CTM
--- NOTE | 2022-08-31 07:39 | ED.NAVMDI ---
HPI - Nausea/Vomiting/Diarrhea General Chief complaint: Nausea/Vomiting/Diarrhea Stated complaint: Diarrhea Time Seen by Provider: 08/31/22 07:02 Source: patient and family () Mode of arrival: ambulatory Limitations: language barrier (Liberian speaking only, rotary helper used) History of Present Illness HPI Narrative: 62-year-old male who presents emergency department for evaluation of diarrhea. Has had diarrhea since yesterday morning. He has had approximately 5 episodes of loose brown stool per day. There was no blood in the stool. The patient is complaining of diffuse abdominal cramping/squeezing pain. The patient had chills but no fever. He denied nausea or vomiting. He states he has not been able to eat or drink secondary to the diarrhea and he has lost his appetite. He denied fever but he did have chills. He denied rhinorrhea, sore throat, cough, chest pain, shortness of breath, dyspnea on exertion. The patient has end-stage renal disease and is dialyzed on Wednesday, Wednesday and Wednesday and he missed his dialysis today. He does not make urine. Patient was admitted on for his C difficile colitis on 07/20/2022 until 07/22/2022. Patient was treated with vancomycin with improvement. Patient's told me that he also had C difficile colitis in [place] 4 years prior. Related Data Home Medications Medication Instructions Recorded Confirmed omeprazole 20 mg capsule,delayed 20 mg PO DAILY PRN Heartburn 08/24/21 08/31/22 release sevelamer carbonate 800 mg tablet 2,400 mg PO TIDWM 08/24/21 08/31/22 albuterol sulfate 90 mcg/actuation 2 puff inhalation Q4-6H PRN 01/12/22 08/31/22 aerosol inhaler Shortness Of Breath Or Wheezing cholecalciferol (vitamin D3) 25 25 mcg PO DAILY@1700 01/12/22 08/31/22 mcg (1,000 unit) capsule (Vitamin D3) bimatoprost 0.01 % eye drops 1 drp ophthalmic (eye) BEDTIME 07/20/22 08/31/22 (Vida) furosemide 80 mg tablet 80 mg PO MOWEFR 07/20/22 08/31/22 isosorbide mononitrate 30 mg 30 mg PO DAILY 07/20/22 08/31/22 tablet,extended release 24 hr metoprolol succinate 50 mg 50 mg PO QAM 07/20/22 08/31/22 tablet,extended release 24 hr montelukast 10 mg tablet 10 mg PO BEDTIME asthma 07/20/22 08/31/22 sacubitril 24 mg-valsartan 26 mg 1 tab PO BID 07/20/22 08/31/22 tablet (Entresto) ticagrelor 90 mg tablet (Brilinta) 90 mg PO BID 07/20/22 08/31/22 Previous Rx's Medication Instructions Recorded aspirin 81 mg tablet,delayed 81 mg PO DAILY #1 tab 01/14/22 release atorvastatin 40 mg tablet 40 mg PO BEDTIME #1 tab 01/14/22 vancomycin 125 mg capsule See Rx Instructions .Route 09/03/22 .COMPLEX #77 caps Allergies Allergy/AdvReac Type Severity Reaction Status Date / Time No Known Allergies Allergy Verified 02/08/22 03:58 [No Known Allergies*] Review of Systems Review of Systems: Yes all other systems are reviewed and are negative [facility] Past Medical History [facility] Narrative: Past medical history: Diabetes mellitus, hypertension, congestive heart failure, C diff in the past, end-stage renal disease, dialyzed Wednesday, Wednesday and Wednesday. Social history: He is . His is here in the emergency department with him. He denies tobacco, alcohol and drug use. Medical History Anemia in chronic renal disease Asthma C. 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) Alcohol intake: never Patient Tobacco Use Status: Never used Tobacco e-Cigarette/Vaping Use: Never Used Second Hand Smoke Exposure: No service: No Current occupational status: retired Physical Exam Vital Signs: Vital Signs: Last Vital Signs Temp 97.0 F 09/03/22 07:36 Pulse 102 H 09/03/22 07:36 Resp 18 09/03/22 07:36 BP 119/59 L 09/03/22 07:36 Pulse Ox 100 09/03/22 07:36 O2 Del Method Room Air 09/03/22 07:36 BMI result Body Mass Index 23.7 Const: General: cooperative and no acute distress Orientation/consciousness: oriented to person and oriented to place Limitations: no limitations HEENT: Head: Yes normal to inspection, Yes normocephalic and Yes atraumatic Ears: external ears normal General nose exam: Normal external nose present Face and sinus: Yes normal facial exam Mouth: Normal oral and palatal mucosa present Throat: Yes posterior oropharynx normal Eyes: General: appearance normal, both eyes and all related structures Pupils: Equal, round and reactive pupils present Neck: Neck: Yes normal visual inspection, Yes no lymphadenopathy, Yes trachea midline and Yes supple Chest: Chest palpation & inspection: normal inspection of the chest and normal palpation of entire chest wall Resp: Effort & Inspection: normal respiratory effort and able to speak in complete sentences Auscultation: clear to auscultation bilaterally Cardio: Rate: regular rate Rhythm: regular rhythm Heart sounds: S1 normal heart sound present, S2 normal heart sound present and no murmurs GI: Other: Abdomen is nondistended, soft, has mild diffuse tenderness with increased tenderness in the left lower quadrant, has normoactive bowel sounds : General: Yes no CVA tenderness Back/Spine/Pelvis: Back: no CVA tenderness Skin: General skin exam: no rashes or lesions noted Neuro: General: oriented to person and oriented to place Cranial nerves: Yes CN's II-XII intact bilaterally and Yes Equal, round and reactive pupils present Cognition (Neuro): normal cognition Motor exam (neuro): 5/5 motor strength present throughout Extrem: General: Yes normal to inspection Psych: Appearance: grossly normal Speech and movement: Normal speech and movement present Affect: normal affect Attitude: cooperative Thought process: Normal thought process present Thought content: Normal thought content present Medications Administered Discontinued Medications Generic Name Dose Route Start Last Admin Trade Name Freq PRN Reason Stop Dose Admin Acetaminophen 650 mg 08/31/22 11:50 09/02/22 15:13 Acetaminophen 325 Mg Tablet PO 650 mg Q6H PRN Administration Pain, Mild (Pain Scale 1-3) Aspirin 81 mg 09/01/22 09:00 09/03/22 08:15 Aspirin Enteric Coated 81 Mg Tablet. PO 81 mg DAILY JOSÉ Administration Atorvastatin Calcium 40 mg 09/01/22 21:00 09/02/22 20:58 Atorvastatin Calcium 40 Mg Tablet PO 40 mg BEDTIME JOSÉ Administration Epoetin Ruy 20,000 unit 09/02/22 11:09 09/02/22 15:14 Epoetin Ruy 20,000 Unit/Ml Vial SUBCUT 09/02/22 11:10 20,000 unit ONCE ONE Administration Furosemide 80 mg 09/02/22 07:43 09/02/22 08:17 Furosemide 40 Mg Tablet PO Not Given MOWEFR [facility] Protocol Heparin Sodium (Porcine) 5,000 unit 08/31/22 12:00 09/03/22 00:55 Heparin Sodium,Porcine 5,000 Unit/Ml Vial SUBCUT 5,000 unit Q12H JOSÉ Administration Insulin Human Lispro 0 unit 08/31/22 16:30 09/03/22 07:38 Insulin Lispro 100 Unit/Ml 3 Ml Vial SUBCUT Not Given QIDACHS [facility] Protocol Isosorbide Mononitrate 30 mg 09/01/22 09:00 09/03/22 08:15 Isosorbide Mononitrate 30 Mg Tab.Er.24h PO 30 mg DAILY [facility] Administration Protocol Latanoprost 1 drop 09/01/22 21:00 09/02/22 20:58 Latanoprost 0.005 % Ophth Graciela 2.5 Ml Drops EYE-BOTH 1 drop BEDTIME JOSÉ Administration Metoprolol Succinate 50 mg 09/01/22 07:45 09/03/22 08:15 Metoprolol Succinate Er 50 Mg Tab.Er.24h PO 50 mg DAILY [facility] Administration Protocol Montelukast Sodium 10 mg 09/01/22 21:00 09/02/22 20:58 Montelukast Sodium 10 Mg Tablet PO 10 mg BEDTIME JOSÉ Administration Omeprazole 20 mg 09/01/22 07:43 09/03/22 06:08 Omeprazole 20 Mg Capsule. PO 20 mg DAILY@0630 JOSÉ Administration Sacubitril/Valsartan 1 tab 09/01/22 09:00 09/03/22 08:15 Sacubitril/Valsartan 1 Tab Tablet PO 1 tab BID JOSÉ Administration Protocol Sevelamer Carbonate 2,400 mg 09/01/22 08:00 09/03/22 08:15 Sevelamer Carbonate Tablet 800 Mg Tablet PO 2,400 mg TIDWM JOSÉ Administration Sodium Chloride 3 ml 08/31/22 16:00 09/03/22 08:15 0.9 % Sodium Chloride Flush 3 Ml Syringe IVFLUSH 3 ml QSHIFT JOSÉ Administration Ticagrelor 90 mg 09/01/22 09:00 09/03/22 08:15 Ticagrelor 90 Mg Tablet PO 90 mg BID JOSÉ Administration Vancomycin HCl 125 mg 08/31/22 12:00 09/03/22 06:08 Vancomycin Hcl 125 Mg Capsule PO 125 mg Q6H JOSÉ Administration Vitamin D 25 mcg 09/01/22 17:00 09/02/22 17:01 Cholecalciferol (Vitamin D3) 25 Mcg Tablet PO 25 mcg DAILY@1700 JOSÉ Administration Medical Decision Making Medical Decision Making [facility] Narrative: C diff Patient does have a history of C diff but has not been on antibiotics recently. Vital signs did reveal elevated pulse of 115 but this improved to 93 without any treatment. Abdominal exam revealed diffuse tenderness with increased tenderness in the left lower quadrant. The following tests were ordered: CBC, BMP, liver panel, lipase, C diff, GI panel. 1002: Patient's laboratory evaluation is consistent with his chronic renal disease, potassium was normal at 4.1. Patient C difficile colitis gene test was positive was and the toxin test was positive as well suggests that he has recurrence of his C difficile colitis. This is consistent with a recurrence of his C difficile colitis since been last in 2 months from his previous treatment I will discuss treatment with vancomycin versus fidaxomicin with the hospital and admission as well. Differential Diagnosis Differential Diagnoses: The differential diagnosis associated with the presentation includes Differential diagnosis includes was not limited to viral syndrome, C difficile colitis, bacterial colitis, electrolyte abnormality, anemia Admission/Observation Consideration of admission/observation: Escalation of care including admission/observation considered Consult Healthcare Provider Management of the patient was discussed with: Hospitalist Lab Data [facility] Lab Attestation statement: I reviewed the patient's lab results. My interpretation is laboratory evaluation as follows: Anemia with an H&H of 9.3 and 27.5-this is chronic. Elevated BUN and creatinine 56 and 9.6-this is consistent with his end-stage renal disease. Potassium was normal at 4.1 which is reassuring since the patient missed dialysis today. LFTs and lipase were normal. 08/31/22 03:47 08/31/22 03:47 Labs: Lab Results 08/31/22 08/31/22 08/31/22 Range/Units 03:47 03:47 07:47 WBC 8.6 (4.8-10.8) X10*3/uL RBC 3.08 L (4.60-5.80) X10*6/uL Hgb 9.3 L (14.0-18.0) g/dl Hct 27.5 L (42.0-52.0) % MCV 89.3 (80.0-98.0) fL MCH 30.2 (27.0-33.0) pg MCHC 33.8 (31.0-36.0) g/dl RDW 14.8 (11.0-16.0) % Plt Count 220 (160-400) X10*3/uL MPV 8.6 L (9.4-12.4) fL Immature Gran % (Auto) 0.2 (0.0-0.4) % Neut % (Auto) 75.8 H (45-73) % Lymph % (Auto) 13.9 L (20-40) % Converse % (Auto) 7.2 (2-11) % Eos % (Auto) 2.6 (0-4) % Baso % (Auto) 0.3 (0-2) % Lymph # (Auto) 1.2 (1.2-4.9) X10*3/uL Converse # (Auto) 0.6 (0.1-1.2) X10*3/uL Eos # (Auto) 0.2 (0.0-0.4) X10*3/uL Baso # (Auto) 0.0 (0.0-0.2) X10*3/uL Abs Immat Gran (auto) 0.02 (0.00-0.03) X10*3/uL Absolute Neuts (auto) 6.5 (2.0-8.3) x10*3/uL Absolute Nucleated RBC 0.000 (0.0-0.012) X10*3/uL Nucleated RBC % (auto) 0.0 (0.0-0.2) /100WBC Sodium 139 (135-145) mmol/L Potassium 4.1 (3.3-5.1) mmol/L Chloride 102 (96-108) mmol/L Carbon Dioxide 25 (22-29) mmol/L Anion Gap 16 (12-20) BUN 56 H (9-16) mg/dL Creatinine 9.61 H* (0.5-1.4) mg/dL Estim Creat Clear Calc 9.0 Estimated GFR 6 Random Glucose 122 H (60-115) mg/dL Calcium 9.2 (8.4-10.2) mg/dL Total Bilirubin 0.8 (0.0-1.0) mg/dL Direct Bilirubin 0.2 (0.0-0.5) mg/dL AST 11 (5-37) U/L ALT 9 (0-40) U/L Alkaline Phosphatase 62 (39-117) U/L Total Protein 6.1 L (6.5-8.0) g/dL Albumin 3.2 L (3.5-5.0) g/dL Lipase 43 (8-78) U/L Stl C. cayetanensis PCR (Not Detect.) Stool Rotavirus A PCR (Not Detect.) Stl Adenov F 40/41 PCR (Not Detect.) Stool Astrovirus (PCR) (Not Detect.) Stool Campylobacter PCR (Not Detect.) Stool Cryptosporidium PCR (Not Detect.) Stl Sh Tox Pr E STEC PCR (Not Detect.) Stool E coli O157 PCR (Not Detect.) Stl Enterotoxigenic E PCR (Not Detect.) Stool EPEC (PCR) (Not Detect.) Stool EAEC (PCR) (Not Detect.) Stl E. histolytica PCR (Not Detect.) Stool Giardia Lamblia PCR (Not Detect.) Stl P. shigelloides PCR (Not Detect.) Stool Salmonella PCR (Not Detect.) Stool Sapovirus (PCR) (Not Detect.) Stl Shigella/EIEC PCR (Not Detect.) St Y.enterocolitica PCR (Not Detect.) Stool Vibrio (PCR) (Not Detect.) Stl Vibrio cholerae PCR (Not Detect.) Stl Norovirus GI/GII PCR (Not Detect.) C. difficile Tox B Gene POSITIVE A* (Negative) C. difficile Toxin A&B Positive A* (Negative) C. difficile Interpret SEE NOTE 08/31/22 Range/Units 07:47 WBC (4.8-10.8) X10*3/uL RBC (4.60-5.80) X10*6/uL Hgb (14.0-18.0) g/dl Hct (42.0-52.0) % MCV (80.0-98.0) fL MCH (27.0-33.0) pg MCHC (31.0-36.0) g/dl RDW (11.0-16.0) % Plt Count (160-400) X10*3/uL MPV (9.4-12.4) fL Immature Gran % (Auto) (0.0-0.4) % Neut % (Auto) (45-73) % Lymph % (Auto) (20-40) % Converse % (Auto) (2-11) % Eos % (Auto) (0-4) % Baso % (Auto) (0-2) % Lymph # (Auto) (1.2-4.9) X10*3/uL Converse # (Auto) (0.1-1.2) X10*3/uL Eos # (Auto) (0.0-0.4) X10*3/uL Baso # (Auto) (0.0-0.2) X10*3/uL Abs Immat Gran (auto) (0.00-0.03) X10*3/uL Absolute Neuts (auto) (2.0-8.3) x10*3/uL Absolute Nucleated RBC (0.0-0.012) X10*3/uL Nucleated RBC % (auto) (0.0-0.2) /100WBC Sodium (135-145) mmol/L Potassium (3.3-5.1) mmol/L Chloride (96-108) mmol/L Carbon Dioxide (22-29) mmol/L Anion Gap (12-20) BUN (9-16) mg/dL Creatinine (0.5-1.4) mg/dL Estim Creat Clear Calc Estimated GFR Random Glucose (60-115) mg/dL Calcium (8.4-10.2) mg/dL Total Bilirubin (0.0-1.0) mg/dL Direct Bilirubin (0.0-0.5) mg/dL AST (5-37) U/L ALT (0-40) U/L Alkaline Phosphatase (39-117) U/L Total Protein (6.5-8.0) g/dL Albumin (3.5-5.0) g/dL Lipase (8-78) U/L Stl C. cayetanensis PCR Not Detected (Not Detect.) Stool Rotavirus A PCR Not Detected (Not Detect.) Stl Adenov F 40/41 PCR Not Detected (Not Detect.) Stool Astrovirus (PCR) Not Detected (Not Detect.) Stool Campylobacter PCR Not Detected (Not Detect.) Stool Cryptosporidium PCR Not Detected (Not Detect.) Stl Sh Tox Pr E STEC PCR Not Detected (Not Detect.) Stool E coli O157 PCR Not applicable (Not Detect.) Stl Enterotoxigenic E PCR Not Detected (Not Detect.) Stool EPEC (PCR) Not Detected (Not Detect.) Stool EAEC (PCR) Not Detected (Not Detect.) Stl E. histolytica PCR Not Detected (Not Detect.) Stool Giardia Lamblia PCR Not Detected (Not Detect.) Stl P. shigelloides PCR Not Detected (Not Detect.) Stool Salmonella PCR Not Detected (Not Detect.) Stool Sapovirus (PCR) Not Detected (Not Detect.) Stl Shigella/EIEC PCR Not Detected (Not Detect.) St Y.enterocolitica PCR Not Detected (Not Detect.) Stool Vibrio (PCR) Not Detected (Not Detect.) Stl Vibrio cholerae PCR Not Detected (Not Detect.) Stl Norovirus GI/GII PCR Not Detected (Not Detect.) C. difficile Tox B Gene (Negative) C. difficile Toxin A&B (Negative) C. difficile Interpret Independent Historian Clinical information obtained from an independent historian. History obtained from or confirmed by: Spouse External Record Review External record reviewed: Inpatient record Chronic Conditions Patient?s care impacted by: Hypertension and Other (End-stage renal disease) Discharge Plan Discharge Clinical Impression: C. difficile colitis, End stage renal disease, Abdominal pain Patient Disposition: Admitted As Inpatient Interventions: Admission Worksheet (ED) Last Done: 08/31/22 15:18 Discharge Date/Time: 08/31/22 15:18
--- NOTE | 2022-08-31 08:02 | PC.NURSE ---
stool sample obtained and sent. pt continues to have diarrhea.
[2022-08-31 09:08] LABS: CDiff Gene PCR POSITIVE (Negative)
[2022-08-31 09:46] LABS: CDiff Toxin Positive (Negative)
[2022-08-31 09:54] LABS: CDIFF Internal ctrl Dots and bkg OK (V)
--- NOTE | 2022-08-31 11:04 | PHA.MEDREC ---
Pharmacy Consult ? Medication Reconciliation Pharmacy has completed the medication reconciliation. Spoke to patients . was able to confirm his entire medication list, she did state patient only takes furosemide on MO,WE,FR
--- NOTE | 2022-08-31 11:56 | PM.IMHP ---
History of Present Illness Date of Service: 08/31/22 Attending physician on admission: Nafisa Fink Chief Complaint: diarrhea, decreased PO intake 62-year-old male with history of coronary artery disease s/p stent placed 12/2021, cardiomyopathy, HFrEF, ESRD on dialysis, chronic normocytic anemia, history of C diff diagnosed 07/20/22 completed course of p.o. vancomycin, hypertension, asthma presented to the ED earlier today with his , Esther, for evaluation of diarrhea and decreased p.o. intake that started early yesterday morning. He states he had ?nonstop diarrhea? yesterday and has had 4 episodes of watery diarrhea since arrival to the ED this morning. There is mild left-sided abdominal pain. He denies any fevers, chills, nausea, vomiting, melena hematochezia steven denies eating any bad food are recent travel. No at home with similar symptoms. On arrival, vital stable. No leukocytosis. Stable normocytic anemia with H/H 9.3/27.5% area in creatinine 9.61, BUN 56, electrolyte levels normal, glucose 122 area did GI panel is pending but C diff toxin B gene positive and C diff toxin a and B positive. He is a dialysis patient of Dr. Ortega and is due for dialysis this morning but did not go as he was not feeling well. Review of Systems Review of Systems: General: No fevers, malaise, unintentional weight loss HEENT: No blurred vision, diplopia. No sore throat, nasal congestion, rhinorrhea, sinus pain, ear pain Cardiovascular: No chest pain, palpitations, or leg edema Respiratory: No shortness of breath, wheezing, cough GI: +abd pain, +diarrhea, +poor PO intake. No nausea, vomiting, constipation, melena, hematochezia : No dysuria, hematuria, increased urinary frequency, decreased urinary output MSK: No myalgia, back pain Neuro: No headaches, weakness, paresthesias Skin: No rashes or lesions [facility] Medical History (Updated 08/31/22 @ 12:04 by GISELA Razo) Anemia in chronic renal disease Asthma C. 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) Alcohol intake: never Patient Tobacco Use Status: Never used Tobacco e-Cigarette/Vaping Use: Never Used Second Hand Smoke Exposure: No Advance Directives: No Advance Directives Information Provided: No service: No Current occupational status: retired Meds Allergies Allergy/AdvReac Type Severity Reaction Status Date / Time No Known Allergies Allergy Verified 02/08/22 03:58 [No Known Allergies*] Active Medications: Current Medications Acetaminophen (Acetaminophen 325 Mg Tablet) 650 mg PO Q6H PRN PRN Reason: Pain, Mild (Pain Scale 1-3) Docusate Sodium (Docusate Sodium 100 Mg Capsule) 100 mg PO DAILY PRN PRN Reason: Constipation Heparin Sodium (Porcine) (Heparin Sodium,Porcine 5,000 Unit/Ml Vial) 5,000 unit SUBCUT Q12H JOSÉ Ondansetron HCl (Ondansetron Hcl 4 Mg/2 Ml Vial) 4 mg IVPUSH Q8H PRN PRN Reason: Nausea and Vomiting Pharmacy Consult (Consult Rx Perform Med Rec) 1 each MISCELLANE ONCE PRN PRN Reason: Consult order Sodium Chloride (0.9 % Sodium Chloride Flush 3 Ml Syringe) 3 ml IVFLUSH QSHIFT [facility] Home Medications Medication Instructions Recorded Confirmed Last Taken Type omeprazole 20 mg capsule,delayed 20 mg PO DAILY PRN Heartburn 08/24/21 08/31/22 08/23/21 History release sevelamer carbonate 800 mg tablet 2,400 mg PO TIDWM 08/24/21 08/31/22 01/11/22 History albuterol sulfate 90 mcg/actuation 2 puff inhalation Q4-6H PRN 01/12/22 08/31/22 01/12/22 History aerosol inhaler Shortness Of Breath Or Wheezing cholecalciferol (vitamin D3) 25 25 mcg PO DAILY@1700 01/12/22 08/31/22 01/11/22 History mcg (1,000 unit) capsule (Vitamin D3) bimatoprost 0.01 % eye drops 1 drp ophthalmic (eye) BEDTIME 07/20/22 08/31/22 Unknown History (Vida) furosemide 80 mg tablet 80 mg PO MOWEFR 07/20/22 08/31/22 Unknown History isosorbide mononitrate 30 mg 30 mg PO DAILY 07/20/22 08/31/22 Unknown History tablet,extended release 24 hr metoprolol succinate 50 mg 50 mg PO QAM 07/20/22 08/31/22 Unknown History tablet,extended release 24 hr montelukast 10 mg tablet 10 mg PO BEDTIME asthma 07/20/22 08/31/22 Unknown History sacubitril 24 mg-valsartan 26 mg 1 tab PO BID 07/20/22 08/31/22 Unknown History tablet (Entresto) ticagrelor 90 mg tablet (Brilinta) 90 mg PO BID 07/20/22 08/31/22 Unknown History Physical Exam Vital Signs and Narrative: Vital Signs: Last Vital Signs Temp 99.4 F 08/31/22 07:07 Pulse 93 08/31/22 10:19 Resp 13 08/31/22 10:19 BP 147/58 H 08/31/22 10:19 Pulse Ox 97 08/31/22 10:19 O2 Del Method Room Air 08/31/22 10:19 BMI result Body Mass Index 23.7 Constitutional - Awake and Alert, No apparent distress Eyes - PERRLA, EOMI Cardiovascular - S1S2, RRR, No edema Respiratory - Normal lung expansion, Normal respiratory effort, No respiratory distress, CTA bilaterally Gastrointestinal - mild left sided abd tenderness without guarding or rebound. ND; +BS Extremities - no calf tenderness bilaterally, no swelling Skin - Warm/Dry Neurological - Alert & oriented x3 Psychological - Appropriate affect Results Labs 08/31/22 03:47 08/31/22 03:47 Labs: Laboratory Results - last 24 hr 08/31/22 08/31/22 08/31/22 03:47 03:47 07:47 MCV 89.3 MCH 30.2 MCHC 33.8 RDW 14.8 Plt Count 220 MPV 8.6 L Immature Gran % (Auto) 0.2 Neut % (Auto) 75.8 H Lymph % (Auto) 13.9 L [place] % (Auto) 7.2 Eos % (Auto) 2.6 Baso % (Auto) 0.3 Lymph # (Auto) 1.2 [place] # (Auto) 0.6 Eos # (Auto) 0.2 Baso # (Auto) 0.0 Abs Immat Gran (auto) 0.02 Absolute Neuts (auto) 6.5 Absolute Nucleated RBC 0.000 Nucleated RBC % (auto) 0.0 Anion Gap 16 Estim Creat Clear Calc 9.0 Estimated GFR 6 Random Glucose 122 H Calcium 9.2 Total Bilirubin 0.8 Direct Bilirubin 0.2 AST 11 ALT 9 Alkaline Phosphatase 62 Total Protein 6.1 L Albumin 3.2 L Lipase 43 C. difficile Tox B Gene POSITIVE A* C. difficile Toxin A&B Positive A* C. difficile Interpret SEE NOTE Assessment and Plan (1) C. difficile colitis: Status: Acute (2) ESRD on dialysis: Status: Acute Plan 62-year-old male with history of coronary artery disease s/p stent placed 10 12/2021, cardiomyopathy, HFrEF, ESRD on dialysis, chronic normocytic anemia, history of C diff diagnosed 07/20/22 completed course of p.o. vancomycin, hypertension, asthma admitted for recurrent CDiff with poor PO intake with ESRD requiring dialysis #Recurrent CDiff Colitis with acute copious diarrhea and decreased PO intake -Cdiff Tox B Gene and Toxin A&B positive. GI panel remains pending as well -Completed course PO vanco for CDiff diagnosed 07/20/22 -No leukocytosis, vitals stable -Discussed with ID who recommends PO vanco (initiated 08/31) -ID consult -NPO for bowel rest, small sips clears OK. Advance as tolerated -Follow CBC, cultures #ESRD on dialysis -Creat 9.61, BUN 56. Lytes normal -MWF schedule, missed this morning outpt -Nephrology consult -Follow BMP, lytes #HTN- reasonably controlled -continue home meds # [id number] type 2 diabetes -hold glipizide -Humalog on sliding scale once diet advanced -POC glucose #CAD/cardiomyopathy -no anginal chest pain -continue ASA, atorvastatin, Brilinta, isosorbide, metoprolol #HFrEF -no acute exacerbation -continue Lasix, Entresto # anemia of chronic disease -H/H baseline, above transfusion threshold DVT prophylaxis-heparin Full code Patient requires in-patient stay at least 2 midnights for management of her current C diff with poor p.o. intake requiring expert consultation on requires dialysis Time Spent With Patient Time: Total time managing care of this patient today ____ minutes. Quality Stroke Does the patient have a stroke diagnosis?: No VTE Prior VTE?: No VTE Risk Level:: Medical - moderate - high VTE Device Contraindication: Treatment Not Indicated VTE Drug Contraindication: N/A - Med Ordered
--- NOTE | 2022-08-31 12:35 | PC.NURSE ---
iv established, pt has fistula in left arm
--- NOTE | 2022-08-31 13:50 | PC.NURSE ---
report given to claribel (rn) dialysis. pt to have dialysis on the 4th floor. pt is aware of plan of care.
--- NOTE | 2022-08-31 13:55 | PC.NURSE ---
report given to noelle (rn) pt to be transported to room 367 after dialysis. pt aware of plan of care.
[2022-08-31 15:16] LABS: Adenovirus F 40/41 Not Detected (Not Detect.); Astrovirus Not Detected (Not Detect.); Campylobacter Not Detected (Not Detect.); Cryptosporidium Not Detected (Not Detect.); Cyclospora cayetanensis Not Detected (Not Detect.); E. coli EAEC Not Detected (Not Detect.); E. coli EPEC Not Detected (Not Detect.); E. coli ETEC Not Detected (Not Detect.); E. coli STEC Not Detected (Not Detect.); Entamoeba histolytica Not Detected (Not Detect.); Giardia lamblia Not Detected (Not Detect.); Norovirus GI/GII Not Detected (Not Detect.); Plesiomonas shigelloides Not Detected (Not Detect.); Rotavirus A Not Detected (Not Detect.); Salmonella Not Detected (Not Detect.); Sapovirus Not Detected (Not Detect.); Shigella sp./EIEC Not Detected (Not Detect.); Vibrio Not Detected (Not Detect.); Vibrio Cholerae Not Detected (Not Detect.); Yersinia enterocolitica Not Detected (Not Detect.)
[2022-09-01 03:21] VITALS: BP 163/71; PULSE 89; RESP 16; TEMP 36.9; O2SAT 98
[2022-09-01 05:41] LABS: MANUAL DIFF FLAG NO
[2022-09-01 05:44] LABS: Basophils Percent Auto 0.5 % (0-2); Eosinophils Absolute Auto 0.2 X10*3/uL (0.0-0.4); Hematocrit 28.2 % (42.0-52.0); Hemoglobin 9.4 g/dl (14.0-18.0); Imm Gran Abs Auto 0.02 X10*3/uL (0.00-0.03); Imm Gran Pct Auto 0.2 % (0.0-0.4); Lymphocytes Absolute Auto 1.7 X10*3/uL (1.2-4.9); Lymphocytes Percent Auto 19.8 % (20-40); Mean Corpuscular HGB Conc 33.3 g/dl (31.0-36.0); Mean Corpuscular Hemoglobin 30.5 pg (27.0-33.0); Mean Corpuscular Volume 91.6 fL (80.0-98.0); Mean Platelet Volume 8.8 fL (9.4-12.4); Monocytes Absolute Auto 0.8 X10*3/uL (0.1-1.2); Monocytes Percent Auto 8.9 % (2-11); Neutrophils Absolute Auto 5.8 x10*3/uL (2.0-8.3); Neutrophils Percent Auto 68.6 % (45-73); Platelet Count 203 X10*3/uL (160-400); Red Blood Count 3.08 X10*6/uL (4.60-5.80); Red Cell Distribution Width 14.8 % (11.0-16.0); White Blood Count 8.5 X10*3/uL (4.8-10.8)
[2022-09-01 06:01] LABS: Anion Gap 16 (12-20); Blood Urea Nitrogen 25 mg/dL (9-16); Calcium 8.9 mg/dL (8.4-10.2); Carbon Dioxide 23 mmol/L (22-29); Chloride 101 mmol/L (96-108); Creatinine Clr Calc Pharmacy 15.5; Estimated Glomerular Filt Rate 9; Glucose Random 95 mg/dL (60-115); Magnesium 1.8 mg/dL (1.6-2.6); Potassium 3.7 mmol/L (3.3-5.1); Sodium 136 mmol/L (135-145)
[2022-09-01 07:47] VITALS: BP 179/79; PULSE 86; RESP 18; TEMP 36.4; O2SAT 99
[2022-09-01 07:47] LABS: Glucose, Whole Blood 98 mg/dL (60-115)
--- NOTE | 2022-09-01 11:08 | PM.EVENT ---
Event Note Date of Service: 08/31/22 Event Note: Pt seen and examined in the ER on August 31 Pt with Resp distress HD arranged and he had HD Full consult dictated Dr. Foy Time Spent With Patient Time: Total time managing care of this patient today ____ minutes.
[2022-09-01 11:25] LABS: Glucose, Whole Blood 103 mg/dL (60-115)
--- NOTE | 2022-09-01 11:34 | HO.PM.IMPN ---
Subjective Subjective Date of Service: 09/01/22 Interval History: This history was taken in Romanian from the patient. No n/V/abd pain Still having diarrhea Review of Systems Review of Systems: Yes all other systems are reviewed and are negative Physical Exam Vital Signs: Vital Signs: Last Vital Signs Temp 97.5 F 09/01/22 07:47 Pulse 86 09/01/22 07:47 Resp 18 09/01/22 07:47 BP 179/79 H 09/01/22 07:47 Pulse Ox 99 09/01/22 07:47 O2 Del Method Room Air 09/01/22 07:47 BMI result Body Mass Index 28.5 Gen: in no acute distress HEENT: sclera anicteric, moist mucus membranes Neck: supple Lungs: clear to auscultation bilaterally Heart: regular rate and rhythm, no murmurs Abd: soft, non-tender, non-distended Ext: no edema Skin: warm/well-perfused Neuro: alert and oriented x3, no focal findings Psych: appropriate affect Objective Data Active Medications Acetaminophen (Acetaminophen 325 Mg Tablet) 650 mg PO Q6H PRN PRN Reason: Pain, Mild (Pain Scale 1-3) Last Admin: 09/01/22 03:31 Dose: 650 mg Documented By: LAVONNE Albuterol Sulfate (Albuterol Sulfate 90 Mcg 8 Gm Inhaler) 2 puff INHALE RQ4H PRN PRN Reason: Shortness Of Breath Or Wheezing Aspirin (Aspirin Enteric Coated 81 Mg Tablet.) 81 mg PO DAILY [facility] Last Admin: 09/01/22 08:23 Dose: 81 mg Documented By: CIELO Atorvastatin Calcium (Atorvastatin Calcium 40 Mg Tablet) 40 mg PO BEDTIME [facility] Dextrose (Dextrose 50 % 25 Gm/50 Ml Syringe) 25 gm IVPUSH Q15M PRN; Protocol PRN Reason: per Hypoglycemia Standing Ord. Docusate Sodium (Docusate Sodium 100 Mg Capsule) 100 mg PO DAILY PRN PRN Reason: Constipation Furosemide (Furosemide 40 Mg Tablet) 80 mg PO MOWEFR [facility]; Protocol Glucose (Glucose Gel 15 Gm Gel..Gram.) 15 gm PO Q15M PRN; Protocol PRN Reason: per Hypoglycemia Standing Ord. Heparin Sodium (Porcine) (Heparin Sodium,Porcine 5,000 Unit/Ml Vial) 5,000 unit SUBCUT Q12H [facility] Last Admin: 09/01/22 11:27 Dose: 5,000 unit Documented By: CIELO Insulin Human Lispro (Insulin Lispro 100 Unit/Ml 3 Ml Vial) 0 unit SUBCUT QIDACHS [facility]; Protocol Last Admin: 09/01/22 11:28 Dose: Not Given Documented By: CIELO Non-Admin Reason: No Insulin Coverage Isosorbide Mononitrate (Isosorbide Mononitrate 30 Mg Tab.Er.24h) 30 mg PO DAILY [facility]; Protocol Last Admin: 09/01/22 08:22 Dose: 30 mg Documented By: CIELO Latanoprost (Latanoprost 0.005 % Ophth Graciela 2.5 Ml Drops) 1 drop EYE-BOTH BEDTIME [facility] Metoprolol Succinate (Metoprolol Succinate Er 50 Mg Tab.Er.24h) 50 mg PO DAILY [facility]; Protocol Last Admin: 09/01/22 08:26 Dose: Not Given Documented By: CIELO Non-Admin Reason: given Montelukast Sodium (Montelukast Sodium 10 Mg Tablet) 10 mg PO BEDTIME [facility] Omeprazole (Omeprazole 20 Mg Capsule.Dr) 20 mg PO DAILY@0630 [facility] Last Admin: 09/01/22 08:22 Dose: 20 mg Documented By: CIELO Ondansetron HCl (Ondansetron Hcl 4 Mg/2 Ml Vial) 4 mg IVPUSH Q8H PRN PRN Reason: Nausea and Vomiting Pharmacy Consult (Consult Rx Perform Med Rec) 1 each MISCELLANE ONCE PRN PRN Reason: Consult order Sacubitril/Valsartan (Sacubitril/Valsartan 1 Tab Tablet) 1 tab PO BID [facility]; Protocol Last Admin: 09/01/22 08:22 Dose: 1 tab Documented By: CIELO Sevelamer Carbonate (Sevelamer Carbonate Tablet 800 Mg Tablet) 2,400 mg PO TIDWM [facility] Last Admin: 09/01/22 11:25 Dose: 2,400 mg Documented By: CIELO Sodium Chloride (0.9 % Sodium Chloride Flush 3 Ml Syringe) 3 ml IVFLUSH QSHIFT [facility] Last Admin: 09/01/22 07:35 Dose: 3 ml Documented By: CIELO Ticagrelor (Ticagrelor 90 Mg Tablet) 90 mg PO BID [facility] Last Admin: 09/01/22 10:09 Dose: 90 mg Documented By: CIELO Vancomycin HCl (Vancomycin Hcl 125 Mg Capsule) 125 mg PO Q6H [facility] Last Admin: 09/01/22 11:25 Dose: 125 mg Documented By: CIELO Vitamin D (Cholecalciferol (Vitamin D3) 25 Mcg Tablet) 25 mcg PO DAILY@1700 [facility] Labs 09/01/22 05:26 09/01/22 05:26 Labs: Laboratory Results - last 24 hr 08/31/22 08/31/22 09/01/22 07:47 19:24 05:26 MCV 91.6 MCH 30.5 MCHC 33.3 RDW 14.8 Plt Count 203 MPV 8.8 L Immature Gran % (Auto) 0.2 Neut % (Auto) 68.6 Lymph % (Auto) 19.8 L [place] % (Auto) 8.9 Eos % (Auto) 2.0 Baso % (Auto) 0.5 Lymph # (Auto) 1.7 [place] # (Auto) 0.8 Eos # (Auto) 0.2 Baso # (Auto) 0.0 Abs Immat Gran (auto) 0.02 Absolute Neuts (auto) 5.8 Absolute Nucleated RBC 0.000 Nucleated RBC % (auto) 0.0 Anion Gap Estim Creat Clear Calc Estimated GFR POC Glucose 84 Random Glucose Calcium Magnesium Stl C. cayetanensis PCR Not Detected Stool Rotavirus A PCR Not Detected Stl Adenov F 40/41 PCR Not Detected Stool Astrovirus (PCR) Not Detected Stool Campylobacter PCR Not Detected Stool Cryptosporidium PCR Not Detected Stl Sh Tox Pr E STEC PCR Not Detected Stool E coli O157 PCR Not applicable Stl Enterotoxigenic E PCR Not Detected Stool EPEC (PCR) Not Detected Stool EAEC (PCR) Not Detected Stl E. histolytica PCR Not Detected Stool Giardia Lamblia PCR Not Detected Stl P. shigelloides PCR Not Detected Stool Salmonella PCR Not Detected Stool Sapovirus (PCR) Not Detected Stl Shigella/EIEC PCR Not Detected St Y.enterocolitica PCR Not Detected Stool Vibrio (PCR) Not Detected Stl Vibrio cholerae PCR Not Detected Stl Norovirus GI/GII PCR Not Detected 09/01/22 09/01/22 09/01/22 05:26 07:44 11:16 MCV MCH MCHC RDW Plt Count MPV Immature Gran % (Auto) Neut % (Auto) Lymph % (Auto) [place] % (Auto) Eos % (Auto) Baso % (Auto) Lymph # (Auto) [place] # (Auto) Eos # (Auto) Baso # (Auto) Abs Immat Gran (auto) Absolute Neuts (auto) Absolute Nucleated RBC Nucleated RBC % (auto) Anion Gap 16 Estim Creat Clear Calc 15.5 Estimated GFR 9 POC Glucose 98 103 Random Glucose 95 Calcium 8.9 Magnesium 1.8 Stl C. cayetanensis PCR Stool Rotavirus A PCR Stl Adenov F 40/41 PCR Stool Astrovirus (PCR) Stool Campylobacter PCR Stool Cryptosporidium PCR Stl Sh Tox Pr E STEC PCR Stool E coli O157 PCR Stl Enterotoxigenic E PCR Stool EPEC (PCR) Stool EAEC (PCR) Stl E. histolytica PCR Stool Giardia Lamblia PCR Stl P. shigelloides PCR Stool Salmonella PCR Stool Sapovirus (PCR) Stl Shigella/EIEC PCR St Y.enterocolitica PCR Stool Vibrio (PCR) Stl Vibrio cholerae PCR Stl Norovirus GI/GII PCR Assessment and Plan (1) C. difficile colitis: Status: Acute Plan d#2 62yo M with CAD s/p PCI Nov 2021, cardiomyopathy, HFrEF, ESRD on HD, anemia of ESRD, HTN, asthma recent Cdiff bout in June, completed course of PO vancomycin admitted with recurrent Cdiff # recurrent Cdiff - high risk given ESRD - vancomycin, ID consult pending - clear liquid diet, advance as tolerated # ESRD on HD - Nephro consult, on HD MWF # HTN # HFrEF, chronic - continue Imdur, metoprolol, Entresto, furosemide # CAD - continue atorvastatin, DAPT, Imdur, metoprolol # DM2 - lisa-dose lispro, hold GPZ # anemia of ESRD - monitor H+H # asthma not in acute exac - montelukast, prn albuterol # VTE ppx: UFH # dispo: TBD In my clinical judgment, the patient requires continued inpatient hospitalization for the following reasons: Cdiff high-risk Time Spent With Patient Time: Total time managing care of this patient today ___40_ minutes. Quality Stroke Does the patient have a stroke diagnosis?: No VTE Prior VTE?: No VTE Risk Level:: Medical - moderate - high VTE Device Contraindication: Treatment Not Indicated VTE Drug Contraindication: N/A - Med Ordered
--- NOTE | 2022-09-01 14:36 | PM.PNNEP ---
Subjective Subjective Date of Service: 09/01/22 Interval history: This history was taken in Serbian from the patient. No n/V/abd pain Still having diarrhea Family at bedside Physical Exam Vital Signs: Vital Signs: Last Vital Signs Temp 97.5 F 09/01/22 07:47 Pulse 86 09/01/22 07:47 Resp 18 09/01/22 07:47 BP 179/79 H 09/01/22 07:47 Pulse Ox 99 09/01/22 07:47 O2 Del Method Room Air 09/01/22 07:47 BMI result Body Mass Index 28.5 Comfortable Neck is supple Lung: Air entry equal Heart: S1,S2, normal. No rub Abd: Soft. BS + NS : Alert.No asterexis Ext: No edema Objective Data Labs 09/01/22 05:26 09/01/22 05:26 Labs: Laboratory Results - last 24 hr 08/31/22 08/31/22 09/01/22 07:47 19:24 05:26 WBC 8.5 RBC 3.08 L Hgb 9.4 L Hct 28.2 L MCV 91.6 MCH 30.5 MCHC 33.3 RDW 14.8 Plt Count 203 MPV 8.8 L Immature Gran % (Auto) 0.2 Neut % (Auto) 68.6 Lymph % (Auto) 19.8 L [place] % (Auto) 8.9 Eos % (Auto) 2.0 Baso % (Auto) 0.5 Lymph # (Auto) 1.7 [place] # (Auto) 0.8 Eos # (Auto) 0.2 Baso # (Auto) 0.0 Abs Immat Gran (auto) 0.02 Absolute Neuts (auto) 5.8 Absolute Nucleated RBC 0.000 Nucleated RBC % (auto) 0.0 Sodium Potassium Chloride Carbon Dioxide Anion Gap BUN Creatinine Estim Creat Clear Calc Estimated GFR POC Glucose 84 Random Glucose Calcium Magnesium Stl C. cayetanensis PCR Not Detected Stool Rotavirus A PCR Not Detected Stl Adenov F 40/41 PCR Not Detected Stool Astrovirus (PCR) Not Detected Stool Campylobacter PCR Not Detected Stool Cryptosporidium PCR Not Detected Stl Sh Tox Pr E STEC PCR Not Detected Stool E coli O157 PCR Not applicable Stl Enterotoxigenic E PCR Not Detected Stool EPEC (PCR) Not Detected Stool EAEC (PCR) Not Detected Stl E. histolytica PCR Not Detected Stool Giardia Lamblia PCR Not Detected Stl P. shigelloides PCR Not Detected Stool Salmonella PCR Not Detected Stool Sapovirus (PCR) Not Detected Stl Shigella/EIEC PCR Not Detected St Y.enterocolitica PCR Not Detected Stool Vibrio (PCR) Not Detected Stl Vibrio cholerae PCR Not Detected Stl Norovirus GI/GII PCR Not Detected 09/01/22 09/01/22 09/01/22 05:26 07:44 11:16 WBC RBC Hgb Hct MCV MCH MCHC RDW Plt Count MPV Immature Gran % (Auto) Neut % (Auto) Lymph % (Auto) [place] % (Auto) Eos % (Auto) Baso % (Auto) Lymph # (Auto) [place] # (Auto) Eos # (Auto) Baso # (Auto) Abs Immat Gran (auto) Absolute Neuts (auto) Absolute Nucleated RBC Nucleated RBC % (auto) Sodium 136 Potassium 3.7 Chloride 101 Carbon Dioxide 23 Anion Gap 16 BUN 25 H Creatinine 6.08 H* Estim Creat Clear Calc 15.5 Estimated GFR 9 POC Glucose 98 103 Random Glucose 95 Calcium 8.9 Magnesium 1.8 Stl C. cayetanensis PCR Stool Rotavirus A PCR Stl Adenov F 40/41 PCR Stool Astrovirus (PCR) Stool Campylobacter PCR Stool Cryptosporidium PCR Stl Sh Tox Pr E STEC PCR Stool E coli O157 PCR Stl Enterotoxigenic E PCR Stool EPEC (PCR) Stool EAEC (PCR) Stl E. histolytica PCR Stool Giardia Lamblia PCR Stl P. shigelloides PCR Stool Salmonella PCR Stool Sapovirus (PCR) Stl Shigella/EIEC PCR St Y.enterocolitica PCR Stool Vibrio (PCR) Stl Vibrio cholerae PCR Stl Norovirus GI/GII PCR Procedures Date of Service Date of Service: 09/01/22 Assessment & Plan Assessment and plan (1) ESRD on dialysis: Status: Acute Plan ESRD. Usually on dialysis Wednesday and Wednesday. Had dialysis yesterday and uneventful. No overt signs of uremia. Fluid status is infected total. Next dialysis tomorrow. Anemia. Restart Epogen admitted hemoglobin between 10 and 11 grams/deciliter. C diff Time Spent With Patient Time: Total time managing care of this patient today ____ minutes. Progress Note: Quality Stroke Does the patient have a stroke diagnosis?: No
[2022-09-01 15:24] VITALS: BP 120/60; PULSE 84; RESP 18; TEMP 36.8; O2SAT 99
--- NOTE | 2022-09-01 16:00 | MHC.CM.PN ---
CM MET WITH PT AND WITH THE ASSISTANCE OF A [facility] [place] [facility] PT LIVES AT HOME WITH HIS AND HAS DAILY [facility] SERVICES PT USES A ROLLATOR TO AMBULATE HE IS ACTIVE WITH [facility] FOR HD, -- AT 0500 HOURS HCP ON FILE PCP: SAHARA WILSON IMM DELIVERED DCP: [facility]
[2022-09-01 20:00] VITALS: BP 121/57; PULSE 83; RESP 20; TEMP 36.6; O2SAT 99
[2022-09-02 03:04] VITALS: BP 158/70; PULSE 81; RESP 16; TEMP 36.8; O2SAT 99
[2022-09-02 06:52] LABS: Hematocrit 28.2 % (42.0-52.0); Hemoglobin 9.6 g/dl (14.0-18.0); Mean Corpuscular Hemoglobin 30.8 pg (27.0-33.0); Mean Corpuscular Volume 90.4 fL (80.0-98.0); Mean Platelet Volume 9.3 fL (9.4-12.4); Platelet Count 214 X10*3/uL (160-400); Red Blood Count 3.12 X10*6/uL (4.60-5.80); Red Cell Distribution Width 14.6 % (11.0-16.0); White Blood Count 6.8 X10*3/uL (4.8-10.8)
[2022-09-02 07:24] VITALS: BP 158/72; PULSE 87; RESP 18; TEMP 36.7; O2SAT 99
[2022-09-02 07:26] LABS: Glucose, Whole Blood 115 mg/dL (60-115)
[2022-09-02 07:42] LABS: Anion Gap 14 (12-20); Blood Urea Nitrogen 38 mg/dL (9-16); Carbon Dioxide 23 mmol/L (22-29); Chloride 102 mmol/L (96-108); Creatinine Clr Calc Pharmacy 10.5; Estimated Glomerular Filt Rate 6; Glucose Random 104 mg/dL (60-115); Potassium 3.3 mmol/L (3.3-5.1); Sodium 136 mmol/L (135-145)
--- NOTE | 2022-09-02 08:19 | PC.NURSE ---
Pt refusing BP Meds and Lasix.. States he doesn't take theses meds on HD days.
--- NOTE | 2022-09-02 09:26 | HO.PM.IMPN ---
Subjective Subjective Date of Service: 09/02/22 Interval History: This history was taken in [place] from the patient. Diarrhea improved No N/V/abd pain Tolerating clears Review of Systems Review of Systems: Yes all other systems are reviewed and are negative Physical Exam Vital Signs: Vital Signs: Last Vital Signs Temp 98.1 F 09/02/22 07:24 Pulse 87 09/02/22 07:24 Resp 18 09/02/22 07:24 BP 158/72 H 09/02/22 07:24 Pulse Ox 99 09/02/22 07:24 O2 Del Method Room Air 09/02/22 07:24 BMI result Body Mass Index 28.5 Gen: in no acute distress HEENT: sclera anicteric, moist mucus membranes Neck: supple Lungs: clear to auscultation bilaterally Heart: regular rate and rhythm, no murmurs Abd: soft, non-tender, non-distended Ext: no edema Skin: warm/well-perfused Neuro: alert and oriented x3, no focal findings Psych: appropriate affect Objective Data Active Medications Acetaminophen (Acetaminophen 325 Mg Tablet) 650 mg PO Q6H PRN PRN Reason: Pain, Mild (Pain Scale 1-3) Last Admin: 09/01/22 03:31 Dose: 650 mg Documented By: LAVONNE Albuterol Sulfate (Albuterol Sulfate 90 Mcg 8 Gm Inhaler) 2 puff INHALE RQ4H PRN PRN Reason: Shortness Of Breath Or Wheezing Aspirin (Aspirin Enteric Coated 81 Mg Tablet.) 81 mg PO DAILY [facility] Last Admin: 09/02/22 08:06 Dose: 81 mg Documented By: CIELO Atorvastatin Calcium (Atorvastatin Calcium 40 Mg Tablet) 40 mg PO BEDTIME [facility] Last Admin: 09/01/22 21:53 Dose: 40 mg Documented By: CARMEL Dextrose (Dextrose 50 % 25 Gm/50 Ml Syringe) 25 gm IVPUSH Q15M PRN; Protocol PRN Reason: per Hypoglycemia Standing Ord. Docusate Sodium (Docusate Sodium 100 Mg Capsule) 100 mg PO DAILY PRN PRN Reason: Constipation Furosemide (Furosemide 40 Mg Tablet) 80 mg PO MOWEFR [facility]; Protocol Last Admin: 09/02/22 08:17 Dose: Not Given Documented By: CEILO Non-Admin Reason: Patient Refused Glucose (Glucose Gel 15 Gm Gel..Gram.) 15 gm PO Q15M PRN; Protocol PRN Reason: per Hypoglycemia Standing Ord. Guaifenesin/Dextromethorphan (Guaifenesin Dm 100/10/5 Ml 5 Ml Syrup) 5 ml PO Q4H PRN PRN Reason: cougH Heparin Sodium (Porcine) (Heparin Sodium,Porcine 5,000 Unit/Ml Vial) 5,000 unit SUBCUT Q12H [facility] Last Admin: 09/01/22 23:59 Dose: 5,000 unit Documented By: CARMEL Insulin Human Lispro (Insulin Lispro 100 Unit/Ml 3 Ml Vial) 0 unit SUBCUT QIDACHS [facility]; Protocol Last Admin: 09/02/22 07:59 Dose: Not Given Documented By: CIELO Non-Admin Reason: No Insulin Coverage Isosorbide Mononitrate (Isosorbide Mononitrate 30 Mg Tab.Er.24h) 30 mg PO DAILY [facility]; Protocol Last Admin: 09/02/22 08:18 Dose: Not Given Documented By: CIELO Non-Admin Reason: Patient Refused Latanoprost (Latanoprost 0.005 % Ophth Graciela 2.5 Ml Drops) 1 drop EYE-BOTH BEDTIME [facility] Last Admin: 09/01/22 21:53 Dose: 1 drop Documented By: CARMEL Metoprolol Succinate (Metoprolol Succinate Er 50 Mg Tab.Er.24h) 50 mg PO DAILY [facility]; Protocol Last Admin: 09/02/22 08:18 Dose: Not Given Documented By: CIELO Non-Admin Reason: Patient Refused Montelukast Sodium (Montelukast Sodium 10 Mg Tablet) 10 mg PO BEDTIME [facility] Last Admin: 09/01/22 21:53 Dose: 10 mg Documented By: CARMEL Omeprazole (Omeprazole 20 Mg Capsule.) 20 mg PO DAILY@0630 [facility] Last Admin: 09/02/22 06:07 Dose: 20 mg Documented By: CARMEL Ondansetron HCl (Ondansetron Hcl 4 Mg/2 Ml Vial) 4 mg IVPUSH Q8H PRN PRN Reason: Nausea and Vomiting Pharmacy Consult (Consult Rx Perform Med Rec) 1 each MISCELLANE ONCE PRN PRN Reason: Consult order Sacubitril/Valsartan (Sacubitril/Valsartan 1 Tab Tablet) 1 tab PO BID [facility]; Protocol Last Admin: 09/02/22 08:18 Dose: Not Given Documented By: CIELO Non-Admin Reason: Patient Refused Sevelamer Carbonate (Sevelamer Carbonate Tablet 800 Mg Tablet) 2,400 mg PO TIDWM [facility] Last Admin: 09/02/22 08:05 Dose: 2,400 mg Documented By: CIELO Sodium Chloride (0.9 % Sodium Chloride Flush 3 Ml Syringe) 3 ml IVFLUSH QSHIFT [facility] Last Admin: 09/02/22 08:06 Dose: 3 ml Documented By: CIELO Ticagrelor (Ticagrelor 90 Mg Tablet) 90 mg PO BID [facility] Last Admin: 09/02/22 08:06 Dose: 90 mg Documented By: CIELO Vancomycin HCl (Vancomycin Hcl 125 Mg Capsule) 125 mg PO Q6H [facility] Last Admin: 09/02/22 06:06 Dose: 125 mg Documented By: CARMEL Vitamin D (Cholecalciferol (Vitamin D3) 25 Mcg Tablet) 25 mcg PO DAILY@1700 [facility] Last Admin: 09/01/22 16:26 Dose: 25 mcg Documented By: CIELO Labs 09/02/22 05:58 09/02/22 05:58 Labs: Laboratory Results - last 24 hr 09/01/22 09/01/22 09/01/22 11:16 16:06 20:50 MCV MCH MCHC RDW Plt Count MPV Absolute Nucleated RBC Nucleated RBC % (auto) Anion Gap Estim Creat Clear Calc Estimated GFR POC Glucose 103 175 H 119 H Random Glucose Calcium 09/02/22 09/02/22 09/02/22 05:58 05:58 07:21 MCV 90.4 MCH 30.8 MCHC 34.0 RDW 14.6 Plt Count 214 MPV 9.3 L Absolute Nucleated RBC 0.000 Nucleated RBC % (auto) 0.0 Anion Gap 14 Estim Creat Clear Calc 10.5 Estimated GFR 6 POC Glucose 115 Random Glucose 104 Calcium 9.0 Microbiology Microbiology Results: Microbiology 08/31/22 13:08 Blood Culture - Preliminary Blood - Venous No growth after 24 hours. 08/31/22 13:08 Blood Culture - Preliminary Blood - Venous No growth after 24 hours. Assessment and Plan (1) C. difficile colitis: Status: Acute Plan d#3 62yo M with CAD s/p PCI Nov 2021, cardiomyopathy, HFrEF, ESRD on HD, anemia of ESRD, HTN, asthma recent Clostridium difficile bout in June, completed course of PO vancomycin admitted with recurrent Cdiff colitis # recurrent Cdiff - high risk given ESRD - vancomycin, ID consult pending - advance to solid diet # ESRD on HD - Nephro consult, on HD MWF # HTN # HFrEF, chronic - continue Imdur, metoprolol, Entresto, furosemide # CAD - continue atorvastatin, DAPT, Imdur, metoprolol # DM2 - lisa-dose lispro, hold GPZ # anemia of ESRD - monitor H+H # asthma not in acute exac - montelukast, prn albuterol # VTE ppx: UFH # dispo: TBD In my clinical judgment, the patient requires continued inpatient hospitalization for the following reasons: Cdiff high-risk Time Spent With Patient Time: Total time managing care of this patient today __35__ minutes. Quality Stroke Does the patient have a stroke diagnosis?: No VTE Prior VTE?: No VTE Risk Level:: Medical - moderate - high VTE Device Contraindication: Treatment Not Indicated VTE Drug Contraindication: N/A - Med Ordered
--- NOTE | 2022-09-02 10:33 | MHC.CLN ---
NUTRITION PATIENT WITH ESRD ON HEMODIALYSIS. DIET CHANGED PER DIALYSIS PARAMETERS: 2 GRAM SODIUM, LOW POTASSIUM, LOW PHOSPHORUS.
--- NOTE | 2022-09-02 11:00 | PM.PNNEP ---
Subjective Subjective Date of Service: 09/02/22 Interval history: Pt on HD . Diarrhea improved No N/V/abd pain Tolerating clears Physical Exam Vital Signs: Vital Signs: Last Vital Signs Temp 98.1 F 09/02/22 07:24 Pulse 87 09/02/22 07:24 Resp 18 09/02/22 07:24 BP 158/72 H 09/02/22 07:24 Pulse Ox 99 09/02/22 07:24 O2 Del Method Room Air 09/02/22 07:24 BMI result Body Mass Index 28.5 Comfortable Neck is supple Lung: Air entry equal Heart: S1,S2, normal. No rub Abd: Soft. BS + NS : Alert.No asterexis Ext: No edema Objective Data Labs 09/02/22 05:58 09/02/22 05:58 Labs: Laboratory Results - last 24 hr 09/01/22 09/01/22 09/01/22 11:16 16:06 20:50 WBC RBC Hgb Hct MCV MCH MCHC RDW Plt Count MPV Absolute Nucleated RBC Nucleated RBC % (auto) Sodium Potassium Chloride Carbon Dioxide Anion Gap BUN Creatinine Estim Creat Clear Calc Estimated GFR POC Glucose 103 175 H 119 H Random Glucose Calcium 09/02/22 09/02/22 09/02/22 05:58 05:58 07:21 WBC 6.8 RBC 3.12 L Hgb 9.6 L Hct 28.2 L MCV 90.4 MCH 30.8 MCHC 34.0 RDW 14.6 Plt Count 214 MPV 9.3 L Absolute Nucleated RBC 0.000 Nucleated RBC % (auto) 0.0 Sodium 136 Potassium 3.3 Chloride 102 Carbon Dioxide 23 Anion Gap 14 BUN 38 H Creatinine 8.93 H* Estim Creat Clear Calc 10.5 Estimated GFR 6 POC Glucose 115 Random Glucose 104 Calcium 9.0 Microbiology Microbiology Results: Microbiology 08/31/22 13:08 Blood - Venous Blood Culture - Preliminary No growth after 24 hours. 08/31/22 13:08 Blood - Venous Blood Culture - Preliminary No growth after 24 hours. Procedures Date of Service Date of Service: 09/02/22 Assessment & Plan Assessment and plan (1) ESRD on dialysis: Status: Acute (2) C. difficile colitis: Status: Acute (3) Anemia in chronic renal disease: Status: Acute Plan ESRD. Continue HD today Vol removal as tolerated K per protocal . Anemia. 20 K Epogen today C diff As per medical team Time Spent With Patient Time: Total time managing care of this patient today ____ minutes. Progress Note: Quality Stroke Does the patient have a stroke diagnosis?: No
--- NOTE | 2022-09-02 13:38 | MHC.CM.PN ---
EMR REVIEWED AND PER MD ROUNDS, PT HAS NOT BEEN MEDICALLY CLEARED FOR DC (C-DIFF, HIGH RISK) CM WILL CONTINUE TO FOLLOW FOR DC NEEDS/PLAN
[2022-09-02 15:12] VITALS: BP 116/55; PULSE 93; RESP 18; TEMP 36.4; O2SAT 100
--- NOTE | 2022-09-02 16:44 | W.PM.IDCN ---
History of Present Illness Data of Consult Service Date: 09/02/22 Requesting physician: Anali Saldaña Primary Care Provider: DAVID Calvo Reason for consult: recurrent Cdiff He presents with five watery bowel movements daily and abdominal cramps for a day. He was hospitalizd 07/20-07/22 Cdiff. He has had Cdiff also NH four years ago. Review of Systems Review of Systems: Yes all other systems are reviewed and are negative PMFSH Past Medical History Medical History Anemia in chronic renal disease Asthma C. 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) Alcohol intake: never Patient Tobacco Use Status: Never used Tobacco e-Cigarette/Vaping Use: Never Used Second Hand Smoke Exposure: No service: No Current occupational status: retired Meds Allergies Allergy/AdvReac Type Severity Reaction Status Date / Time No Known Allergies Allergy Verified 02/08/22 03:58 [No Known Allergies*] Active Medications: Current Medications Acetaminophen (Acetaminophen 325 Mg Tablet) 650 mg PO Q6H PRN PRN Reason: Pain, Mild (Pain Scale 1-3) Last Admin: 09/02/22 15:13 Dose: 650 mg Albuterol Sulfate (Albuterol Sulfate 90 Mcg 8 Gm Inhaler) 2 puff INHALE RQ4H PRN PRN Reason: Shortness Of Breath Or Wheezing Aspirin (Aspirin Enteric Coated 81 Mg Tablet.) 81 mg PO DAILY [facility] Last Admin: 09/02/22 08:06 Dose: 81 mg Atorvastatin Calcium (Atorvastatin Calcium 40 Mg Tablet) 40 mg PO BEDTIME [facility] Last Admin: 09/01/22 21:53 Dose: 40 mg Dextrose (Dextrose 50 % 25 Gm/50 Ml Syringe) 25 gm IVPUSH Q15M PRN; Protocol PRN Reason: per Hypoglycemia Standing Ord. Docusate Sodium (Docusate Sodium 100 Mg Capsule) 100 mg PO DAILY PRN PRN Reason: Constipation Furosemide (Furosemide 40 Mg Tablet) 80 mg PO MOWEFR [facility]; Protocol Last Admin: 09/02/22 08:17 Dose: Not Given Glucose (Glucose Gel 15 Gm Gel..Gram.) 15 gm PO Q15M PRN; Protocol PRN Reason: per Hypoglycemia Standing Ord. Guaifenesin/Dextromethorphan (Guaifenesin Dm 100/10/5 Ml 5 Ml Syrup) 5 ml PO Q4H PRN PRN Reason: cougH Heparin Sodium (Porcine) (Heparin Sodium,Porcine 5,000 Unit/Ml Vial) 5,000 unit SUBCUT Q12H [facility] Last Admin: 09/02/22 14:02 Dose: Not Given Insulin Human Lispro (Insulin Lispro 100 Unit/Ml 3 Ml Vial) 0 unit SUBCUT QIDACHS [facility]; Protocol Last Admin: 09/02/22 16:39 Dose: Not Given Isosorbide Mononitrate (Isosorbide Mononitrate 30 Mg Tab.Er.24h) 30 mg PO DAILY [facility]; Protocol Last Admin: 09/02/22 08:18 Dose: Not Given Latanoprost (Latanoprost 0.005 % Ophth Graciela 2.5 Ml Drops) 1 drop EYE-BOTH BEDTIME [facility] Last Admin: 09/01/22 21:53 Dose: 1 drop Metoprolol Succinate (Metoprolol Succinate Er 50 Mg Tab.Er.24h) 50 mg PO DAILY [facility]; Protocol Last Admin: 09/02/22 08:18 Dose: Not Given Montelukast Sodium (Montelukast Sodium 10 Mg Tablet) 10 mg PO BEDTIME [facility] Last Admin: 09/01/22 21:53 Dose: 10 mg Omeprazole (Omeprazole 20 Mg Capsule.Dr) 20 mg PO DAILY@0630 [facility] Last Admin: 09/02/22 06:07 Dose: 20 mg Ondansetron HCl (Ondansetron Hcl 4 Mg/2 Ml Vial) 4 mg IVPUSH Q8H PRN PRN Reason: Nausea and Vomiting Pharmacy Consult (Consult Rx Perform Med Rec) 1 each MISCELLANE ONCE PRN PRN Reason: Consult order Sacubitril/Valsartan (Sacubitril/Valsartan 1 Tab Tablet) 1 tab PO BID [facility]; Protocol Last Admin: 09/02/22 08:18 Dose: Not Given Sevelamer Carbonate (Sevelamer Carbonate Tablet 800 Mg Tablet) 2,400 mg PO TIDWM [facility] Last Admin: 09/02/22 14:02 Dose: Not Given Sodium Chloride (0.9 % Sodium Chloride Flush 3 Ml Syringe) 3 ml IVFLUSH QSHIFT [facility] Last Admin: 09/02/22 08:06 Dose: 3 ml Ticagrelor (Ticagrelor 90 Mg Tablet) 90 mg PO BID [facility] Last Admin: 09/02/22 08:06 Dose: 90 mg Vancomycin HCl (Vancomycin Hcl 125 Mg Capsule) 125 mg PO Q6H [facility] Last Admin: 09/02/22 14:02 Dose: Not Given Vitamin D (Cholecalciferol (Vitamin D3) 25 Mcg Tablet) 25 mcg PO DAILY@1700 [facility] Last Admin: 09/01/22 16:26 Dose: 25 mcg Home Medications Medication Instructions Recorded Confirmed Last Taken Type omeprazole 20 mg capsule,delayed 20 mg PO DAILY PRN Heartburn 08/24/21 08/31/22 08/23/21 History release sevelamer carbonate 800 mg tablet 2,400 mg PO TIDWM 08/24/21 08/31/22 01/11/22 History albuterol sulfate 90 mcg/actuation 2 puff inhalation Q4-6H PRN 01/12/22 08/31/22 01/12/22 History aerosol inhaler Shortness Of Breath Or Wheezing cholecalciferol (vitamin D3) 25 25 mcg PO DAILY@1700 01/12/22 08/31/22 01/11/22 History mcg (1,000 unit) capsule (Vitamin D3) bimatoprost 0.01 % eye drops 1 drp ophthalmic (eye) BEDTIME 07/20/22 08/31/22 Unknown History ([place]) furosemide 80 mg tablet 80 mg PO MOWEFR 07/20/22 08/31/22 Unknown History isosorbide mononitrate 30 mg 30 mg PO DAILY 07/20/22 08/31/22 Unknown History tablet,extended release 24 hr metoprolol succinate 50 mg 50 mg PO QAM 07/20/22 08/31/22 Unknown History tablet,extended release 24 hr montelukast 10 mg tablet 10 mg PO BEDTIME asthma 07/20/22 08/31/22 Unknown History sacubitril 24 mg-valsartan 26 mg 1 tab PO BID 07/20/22 08/31/22 Unknown History tablet (Entresto) ticagrelor 90 mg tablet (Brilinta) 90 mg PO BID 07/20/22 08/31/22 Unknown History Physical Exam Vital Signs: Vital Signs: Last Vital Signs Temp 97.6 F 09/02/22 15:12 Pulse 93 09/02/22 15:12 Resp 18 09/02/22 15:12 BP 116/55 L 09/02/22 15:12 Pulse Ox 100 09/02/22 15:12 O2 Del Method Room Air 09/02/22 15:12 BMI result Body Mass Index 28.5 Const: General: cooperative HEENT: Head: Yes normal to inspection Face and sinus: Yes normal facial exam Mouth: Normal oral and palatal mucosa present Teeth and gingiva: dentition normal Eyes: General: appearance normal, both eyes and all related structures Pupils: Equal, round and reactive pupils present Resp: Effort & Inspection: normal respiratory effort Cardio: Rate: regular rate Rhythm: regular rhythm GI: Palpation (GI): Soft to palpation and nontender : General: Yes no CVA tenderness Back/Spine/Pelvis: Back: no CVA tenderness Skin: General skin exam: no rashes or lesions noted Neuro: General: moves all extremities Cranial nerves: Yes Equal, round and reactive pupils present Extrem: General: Yes normal to inspection Psych: Appearance: grossly normal Results Labs 09/02/22 05:58 09/02/22 05:58 Labs: Short CBC 09/02/22 Range/Units 05:58 WBC 6.8 (4.8-10.8) X10*3/uL Hgb 9.6 L (14.0-18.0) g/dl Hct 28.2 L (42.0-52.0) % Plt Count 214 (160-400) X10*3/uL BMP 09/02/22 05:58 Sodium 136 Potassium 3.3 Chloride 102 Carbon Dioxide 23 BUN 38 H Creatinine 8.93 H* Calcium 9.0 Microbiology Microbiology Results: Microbiology 08/31/22 13:08 Blood - Venous Blood Culture - Preliminary No growth after 48 hours. 08/31/22 13:08 Blood - Venous Blood Culture - Preliminary No growth after 48 hours. Assessment and Plan (1) C. difficile colitis: Status: Acute He has recurrent Cdiff Not severe, no ICU Likelihood getting again over 40% (2) ESRD on dialysis: Status: Acute Plan Po Vancomycin taper See in office followup possible microbiota transplant and/or monoclonal antibody. Time Spent With Patient Time: Total time managing care of this patient today ____ minutes.
[2022-09-02 19:10] VITALS: BP 100/50; PULSE 86; RESP 16; TEMP 35.8; O2SAT 99
[2022-09-02 19:50] LABS: Glucose, Whole Blood 177 mg/dL (60-115)
[2022-09-03 03:17] VITALS: BP 163/72; PULSE 93; RESP 16; TEMP 36.9; O2SAT 100
[2022-09-03 07:35] LABS: Glucose, Whole Blood 121 mg/dL (60-115)
[2022-09-03 07:36] VITALS: BP 119/59; PULSE 102; RESP 18; TEMP 36.1; O2SAT 100
--- NOTE | 2022-09-03 09:59 | PM.DS ---
DS: Providers Provider Date of Service: 09/03/22 Date of admission: 08/31/22 11:50 Date of discharge: 09/03/22 Primary care physician: DAVID Calvo Consults: 08/31/22 11:50 Consult to Infectious Diseases Routine Consulting Provider: [facility] Infectious Disease Reason for consultation: recurrent cdiff Consult to Nephrology Routine Consulting Provider: [facility] Reason for consultation: esrd on dialysis DS: Diagnosis Discharge Diagnosis (1) C. difficile colitis: Status: Acute (2) ESRD on dialysis: Status: Acute DS: Summary Hospital Course Hospital Course: from admission H+P by hospitalist GISELA Hamilton, 08/31/22: 62-year-old male with history of coronary artery disease s/p stent placed 10 12/2021, cardiomyopathy, HFrEF, ESRD on dialysis, chronic normocytic anemia, history of C diff diagnosed 07/20/22 completed course of p.o. vancomycin, hypertension, asthma presented to the ED earlier today with his , Esther, for evaluation of diarrhea and decreased p.o. intake that started early yesterday morning.? He states he had ?nonstop diarrhea? yesterday and has had 4 episodes of watery diarrhea since arrival to the ED this morning.? There is mild left-sided abdominal pain.? He denies any fevers, chills, nausea, vomiting, melena hematochezia steven denies eating any bad food are recent travel.? No at home with similar symptoms.? On arrival, vital stable.? No leukocytosis.? Stable normocytic anemia with H/H 9.3/27.5% area in creatinine 9.61, BUN 56, electrolyte levels normal, glucose 122 area did GI panel is pending but C diff toxin B gene positive and C diff toxin a and B positive. He is a dialysis patient of Dr. Ortega and is due for dialysis this morning but did not go as he was not feeling well. 62yo M with CAD s/p PCI Nov 2021, cardiomyopathy, HFrEF, ESRD on HD, anemia of ESRD, HTN, asthma recent Clostridium difficile bout in June, completed course of PO vancomycin admitted with recurrent Cdiff colitis high-risk due to underlying ESRD HD was continued as per home schedule treated with oral vancomycin ID consulted recommended oral vancomycin taper as follows: 125 mg qid x14 d [3d done in hospita], then 125 mg bid x 7 d, then 125 mg daily x 7 d, then 125 mg MWF x 4 wk also recommended outpt ID follow-up for consideration of fecal microbiota transplant or monoclonal antibody treatment to prevent recurrence symptoms improved, diet advanced to regular, pt discharged home Time Spent with Patient Time attestation: Total time managing care of this patient today ____ minutes. Discharge coordination time: Greater than 30 minutes Quality: Safe Use of Opioids Does Pt have an Active Cancer Diagnosis on the Problem List?: No Quality: Stroke Does the patient have a stroke diagnosis?: No Physical Exam Vital Signs: Vital Signs: Last Vital Signs Temp 97.0 F 09/03/22 07:36 Pulse 102 H 09/03/22 07:36 Resp 18 09/03/22 07:36 BP 119/59 L 09/03/22 07:36 Pulse Ox 100 09/03/22 07:36 O2 Del Method Room Air 09/03/22 07:36 BMI result Body Mass Index 28.5 Gen: in no acute distress HEENT: sclera anicteric, moist mucus membranes Neck: supple Lungs: clear to auscultation bilaterally Heart: regular rate and rhythm, no murmurs Abd: soft, non-tender, non-distended Ext: no edema Skin: warm/well-perfused Neuro: alert and oriented x3, no focal findings Psych: appropriate affect DS: Data Data Completed and Pending Completed studies during hospitalization [Text1]: Laboratory Results WBC 6.8 X10*3/uL (4.8-10.8) 09/02/22 05:58 RBC 3.12 X10*6/uL (4.60-5.80) L 09/02/22 05:58 Hgb 9.6 g/dl (14.0-18.0) L 09/02/22 05:58 Hct 28.2 % (42.0-52.0) L 09/02/22 05:58 MCV 90.4 fL (80.0-98.0) 09/02/22 05:58 MCH 30.8 pg (27.0-33.0) 09/02/22 05:58 MCHC 34.0 g/dl (31.0-36.0) 09/02/22 05:58 RDW 14.6 % (11.0-16.0) 09/02/22 05:58 Plt Count 214 X10*3/uL (160-400) 09/02/22 05:58 MPV 9.3 fL (9.4-12.4) L 09/02/22 05:58 Immature Gran % (Auto) 0.2 % (0.0-0.4) 09/01/22 05:26 Neut % (Auto) 68.6 % (45-73) 09/01/22 05:26 Lymph % (Auto) 19.8 % (20-40) L 09/01/22 05:26 [place] % (Auto) 8.9 % (2-11) 09/01/22 05:26 Eos % (Auto) 2.0 % (0-4) 09/01/22 05:26 Baso % (Auto) 0.5 % (0-2) 09/01/22 05:26 Lymph # (Auto) 1.7 X10*3/uL (1.2-4.9) 09/01/22 05:26 [place] # (Auto) 0.8 X10*3/uL (0.1-1.2) 09/01/22 05:26 Eos # (Auto) 0.2 X10*3/uL (0.0-0.4) 09/01/22 05:26 Baso # (Auto) 0.0 X10*3/uL (0.0-0.2) 09/01/22 05:26 Abs Immat Gran (auto) 0.02 X10*3/uL (0.00-0.03) 09/01/22 05:26 Absolute Neuts (auto) 5.8 x10*3/uL (2.0-8.3) 09/01/22 05:26 Absolute Nucleated RBC 0.000 X10*3/uL (0.0-0.012) 09/02/22 05:58 Nucleated RBC % (auto) 0.0 /100WBC (0.0-0.2) 09/02/22 05:58 Sodium 136 mmol/L (135-145) 09/02/22 05:58 Potassium 3.3 mmol/L (3.3-5.1) 09/02/22 05:58 Chloride 102 mmol/L (96-108) 09/02/22 05:58 Carbon Dioxide 23 mmol/L (22-29) 09/02/22 05:58 Anion Gap 14 (12-20) 09/02/22 05:58 BUN 38 mg/dL (9-16) H 09/02/22 05:58 Creatinine 8.93 mg/dL (0.5-1.4) H* 09/02/22 05:58 Estim Creat Clear Calc 10.5 09/02/22 05:58 Estimated GFR 6 09/02/22 05:58 POC Glucose 121 mg/dL (60-115) H 09/03/22 07:30 Random Glucose 104 mg/dL (60-115) 09/02/22 05:58 Calcium 9.0 mg/dL (8.4-10.2) 09/02/22 05:58 Magnesium 1.8 mg/dL (1.6-2.6) 09/01/22 05:26 Total Bilirubin 0.8 mg/dL (0.0-1.0) 08/31/22 03:47 Direct Bilirubin 0.2 mg/dL (0.0-0.5) 08/31/22 03:47 AST 11 U/L (5-37) 08/31/22 03:47 ALT 9 U/L (0-40) 08/31/22 03:47 Alkaline Phosphatase 62 U/L (39-117) 08/31/22 03:47 Total Protein 6.1 g/dL (6.5-8.0) L 08/31/22 03:47 Albumin 3.2 g/dL (3.5-5.0) L 08/31/22 03:47 Lipase 43 U/L (8-78) 08/31/22 03:47 Stl C. cayetanensis PCR Not Detected (Not Detect.) 08/31/22 07:47 Stool Rotavirus A PCR Not Detected (Not Detect.) 08/31/22 07:47 Stl Adenov F 40/41 PCR Not Detected (Not Detect.) 08/31/22 07:47 Stool Astrovirus (PCR) Not Detected (Not Detect.) 08/31/22 07:47 Stool Campylobacter PCR Not Detected (Not Detect.) 08/31/22 07:47 Stool Cryptosporidium PCR Not Detected (Not Detect.) 08/31/22 07:47 Stl Sh Tox Pr E STEC PCR Not Detected (Not Detect.) 08/31/22 07:47 Stool E coli O157 PCR Not applicable (Not Detect.) 08/31/22 07:47 Stl Enterotoxigenic E PCR Not Detected (Not Detect.) 08/31/22 07:47 Stool EPEC (PCR) Not Detected (Not Detect.) 08/31/22 07:47 Stool EAEC (PCR) Not Detected (Not Detect.) 08/31/22 07:47 Stl E. histolytica PCR Not Detected (Not Detect.) 08/31/22 07:47 Stool Giardia Lamblia PCR Not Detected (Not Detect.) 08/31/22 07:47 Stl P. shigelloides PCR Not Detected (Not Detect.) 08/31/22 07:47 Stool Salmonella PCR Not Detected (Not Detect.) 08/31/22 07:47 Stool Sapovirus (PCR) Not Detected (Not Detect.) 08/31/22 07:47 Stl Shigella/EIEC PCR Not Detected (Not Detect.) 08/31/22 07:47 St Y.enterocolitica PCR Not Detected (Not Detect.) 08/31/22 07:47 Stool Vibrio (PCR) Not Detected (Not Detect.) 08/31/22 07:47 Stl Vibrio cholerae PCR Not Detected (Not Detect.) 08/31/22 07:47 Stl Norovirus GI/GII PCR Not Detected (Not Detect.) 08/31/22 07:47 C. difficile Tox B Gene POSITIVE (Negative) A* 08/31/22 07:47 C. difficile Toxin A&B Positive (Negative) A* 08/31/22 07:47 C. difficile Interpret SEE NOTE 08/31/22 07:47 Discharge Plan Discharge Anticipated Discharge Date/Time: 09/03/22 09:54 Patient Disposition: Home, Self-Care Discharge Diagnosis: Recurrent Clostridium difficile colitis Referrals: Yue Mcqueen MD [Physician] - 1 Week Nadine Hernandez FNP [Primary Care Provider] - 1 Week Discharge Medications: New vancomycin 125 mg capsule See Rx Instructions .ROUTE .COMPLEX Qty: 77 0RF Rx Instructions: 1 cap qid x 11 days, then 1 cap bid x 7 days, then 1 cap daily x 7 days, then 1 cap on MWF x 4 weeks Continued omeprazole 20 mg capsule,delayed release(DR/EC) 20 mg PO DAILY PRN (Reason: Heartburn) sevelamer carbonate 800 mg tablet 2,400 mg PO TIDWM albuterol sulfate 90 mcg/actuation HFA aerosol inhaler 2 puff INHALATION Q4-6H PRN (Reason: Shortness Of Breath Or Wheezing) cholecalciferol (vitamin D3) [Vitamin D3] 25 mcg (1,000 unit) capsule 25 mcg PO DAILY@1700 atorvastatin 40 mg Tablet 40 mg PO BEDTIME Qty: 1 0RF aspirin 81 mg Tablet,Delayed Release (Dr/Ec) 81 mg PO DAILY Qty: 1 0RF metoprolol succinate 50 mg tablet extended release 24 hr 50 mg PO QAM isosorbide mononitrate 30 mg tablet extended release 24 hr 30 mg PO DAILY furosemide 80 mg Tablet 80 mg PO MOWEFR montelukast 10 mg tablet 10 mg PO BEDTIME Lumigan 0.01 % drops 1 drp ophthalmic (eye) BEDTIME Brilinta 90 mg tablet 90 mg PO BID Entresto 24-26 mg tablet 1 tab PO BID Discharge Orders: Discharge Order (Routine); Ordered 09/03/22 Ordered By: Anali Saldaña Diet: Low salt diet Activity on Discharge: As tolerated Stand Alone Forms: Patient Portal Discharge page Care Plan Goals: cure and prevention of C. difficile colitis Health Concerns: ?microbiota transplant and/or monoclonal antibody. Plan of Treatment: vancomycin 125 mg capsules as follows: 1 capsule 4 times a day for 11 days then 1 capsule 2 times a day for 7 days then 1 capsule 1 time a day for 7 days then 1 capsule on Mon/Wed/Fri for [address] Nayla Mqcueen at [facility] Infectious Disease clinic for monoclonal antibody or fecal microbiota transplant Please follow up with your primary care doctor within 1 week. Return to the hospital if you experience recurrent or worsening symptoms. Assessment: See Discharge Summary.
--- NOTE | 2022-09-03 10:44 | MHC.CM.PN ---
DP: PT HAS BEEN MEDICALLY CLEARED FOR DC HOME, NO SERVICES. DAVID ADAMS NOTIFIED OF DC AND DC PAPERWORK FAXED TO [facility]RI[facility]LE AT [phone]. RN AWARE. FAMILY WILL TRANSPORT HOME.
--- NOTE | 2022-09-03 11:07 | PC.NURSE ---
Pt for discharge to home , reviewed discharge instructions with pt and pts via [employer] fixture [employer]r Tricia from [employer] all questions answered
[2022-09-03 11:21] LABS: Glucose, Whole Blood 215 mg/dL (60-115)
--- NOTE | 2022-09-10 17:50 | CONS_ITS ---
DATE OF SERVICE: 08/31/2022 REASON FOR CONSULTATION: Consult requested by the ER team to evaluate and help in management of patient with end-stage renal disease, has presented with diarrhea C diff diagnosed in July 2022 and completed vancomycin, who presented for evaluation of diarrhea, decreased p.o. intake. It started in the morning. He had nonstop diarrhea with x4 episodes. He also had left-sided abdominal pain. No fever, chills, nausea, vomiting, melena, hematochezia . On arrival, the patient was hemodynamically stable and no leukocytosis. His BUN and creatinine were 56/9.61. His potassium level is acceptable. He was admitted to the hospital for further management. Renal consult has been requested for help with management dialyzed Wednesday, Wednesday, Wednesday and missed dialysis today. Patient was followed by Dr. Ortega. REVIEW OF SYSTEMS: As noted above. Other system reviewed were negative. PAST MEDICAL HISTORY: Anemia of chronic disease; asthma; C diff colitis; coronary artery disease; cardiomyopathy; type 2 diabetes mellitus; ESRD on hemodialysis on Wednesday, Wednesday, Wednesday, followed by Dr. Ortega; history of heart failure with reduced ejection fraction; and hypertension. FAMILY HISTORY: Mother with coronary artery disease. PAST SURGICAL HISTORY: AV fistula placement and history of cardiac catheterization. PERSONAL AND SOCIAL HISTORY: Patient lives with his , is very supportive. Does not drink alcohol. Does not smoke. Does not use drugs. ALLERGIES: NO KNOWN DRUG ALLERGIES. MEDICATIONS: Omeprazole, Renagel 800 mg 3 tablets 3 times a day with meals, albuterol, vitamin D, mg 3 times a week, isosorbide metoprolol, montelukast, Entresto, ticagrelor/Brilinta two times a day. PHYSICAL EXAMINATION: GENERAL: Patient is resting in the bed, awake, fairly comfortable. VITAL SIGNS: Blood pressure is 147/58, pulse 93, afebrile. HEENT AND NECK: Shows pupils equal bilaterally to light. No jugular venous distention is noted. Neck is supple. No thyromegaly is noted. Mucosa is moist. There is no scleral icterus or conjunctival congestion. CARDIOVASCULAR: S1, S2 without rub or murmur Respiratory: . ABDOMEN: Soft, nontender, with minimal left-sided tenderness. No guarding noted. Bowel sounds normal. EXTREMITIES: Show no edema. There is no peripheral cyanosis or clubbing. Neuro exam is nonfocal. LABORATORY DATA: Done today. WBC is 8.6, hemoglobin 9.2, hematocrit 27.5, platelets 220. Sodium 139, potassium 4.1, chloride 102, CO2 25, BUN 56, creatinine 9.6, glucose 122. MD PARK Hicks/MODDidi / [id number]
== END 2022-09-03 11:18 | disposition home or self-care (01) | DRG 371 ==
LOC: HO.ED 11:03 → HO.EDOVER 11:58 → HO.S3 12:38
PROVIDERS: Admitting Provider Physician Assistant; Emergency Provider Emergency Medicine Emergency Medical Services; PCP Registered Nurse; Visit Provider Family Medicine
DX: A04.71 Enterocolitis due to Clostridium difficile, recurrent (principal); N18.6 End stage renal disease; I13.2 Hypertensive heart and chronic kidney disease with heart failure and with stage 5 chronic kidney disease, or end stage renal disease; I50.22 Chronic systolic (congestive) heart failure; D63.1 Anemia in chronic kidney disease; J45.909 Unspecified asthma, uncomplicated; I25.10 Atherosclerotic heart disease of native coronary artery without angina pectoris; Z99.2 Dependence on renal dialysis; Z95.5 Presence of coronary angioplasty implant and graft; Z91.158 Patient's noncompliance with renal dialysis for other reason; Z79.82 Long term (current) use of aspirin; Z79.899 Other long term (current) drug therapy
CPT/HCPCS: 36415; 80048; 80076; 82947; 83690; 83735; 85025; 85027; 87040; 87324; 87493; 87507; 90999; 99285; J0885; J1643

== ENCOUNTER 2022-10-15 08:26 | Outpatient (RCR) | payer MEDICARE, OTHER, MEDICAID, SELFPAY ==
--- NOTE | ~2022-10-15 | XR_ITS ---
EXAMINATION: XR FOOT, LEFT CLINICAL INFORMATION: Attention calcaneus, diabetic, nonhealing wound. COMPARISON: Left foot radiographs of 11/18/2022 and 05/16/2019. TECHNIQUE: AP, lateral, and oblique views of the left foot. FINDINGS: The bones are diffusely demineralized. Atherosclerotic vascular calcifications. 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 Redemonstration of small dorsal and plantar calcaneal spurs. Persistent soft tissue defect at the plantar aspect of the calcaneal tuberosity with dense material placed within this defect characteristic of wound care. Focal sclerosis and deformity of underlying plantar cortex of the calcaneus of concern with patient with history of osteomyelitis. XR/XR foot LT min 3V IMPRESSION: Persistent soft tissue defect at the plantar aspect of the calcaneal tuberosity with dense material placed within this defect characteristic of wound care. Focal sclerosis and deformity of underlying plantar cortex of the calcaneus of concern with patient with history of osteomyelitis. MRI should be considered for further evaluation.
--- NOTE | ~2022-10-15 | XR_ITS ---
EXAMINATION: XR FOOT, LEFT CLINICAL INFORMATION: Left calcaneus wound COMPARISON: X-ray left foot 05/16/2019. MRI ankle 08/10/2019. TECHNIQUE: AP, lateral, and oblique views of the left foot. FINDINGS: The bones are diffusely demineralized. Atherosclerotic vascular calcifications. 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 Redemonstration of small dorsal and plantar calcaneal spurs. Persistent soft tissue defect at the plantar aspect of the calcaneal tuberosity concerning for wound. Persistent subtle cortical irregularity at the underlying calcaneal tuberosity near the plantar fascial origin. XR/XR foot LT min 3V IMPRESSION: Persistent soft tissue tissue wound at the plantar aspect of the calcaneal tuberosity with underlying cortical irregularity. There may have been progression of the calcaneal cortical irregularity since the prior exam. MRI recommended for further evaluation if there is concern for osteomyelitis or other pathology.
[2022-11-17 14:17] LABS: MANUAL DIFF FLAG NO
[2022-11-17 14:39] LABS: Basophils Absolute Auto 0.1 X10*3/uL (0.0-0.2); Eosinophils Absolute Auto 0.2 X10*3/uL (0.0-0.4); Eosinophils Percent Auto 3.2 % (0-4); Hematocrit 29.5 % (42.0-52.0); Hemoglobin 9.7 g/dl (14.0-18.0); Imm Gran Abs Auto 0.01 X10*3/uL (0.00-0.03); Imm Gran Pct Auto 0.2 % (0.0-0.4); Lymphocytes Absolute Auto 1.5 X10*3/uL (1.2-4.9); Lymphocytes Percent Auto 24.4 % (20-40); Mean Corpuscular HGB Conc 32.9 g/dl (31.0-36.0); Mean Corpuscular Hemoglobin 29.6 pg (27.0-33.0); Mean Corpuscular Volume 89.9 fL (80.0-98.0); Mean Platelet Volume 9.2 fL (9.4-12.4); Monocytes Absolute Auto 0.4 X10*3/uL (0.1-1.2); Monocytes Percent Auto 6.4 % (2-11); Neutrophils Absolute Auto 4.1 x10*3/uL (2.0-8.3); Neutrophils Percent Auto 64.8 % (45-73); Platelet Count 254 X10*3/uL (160-400); Red Blood Count 3.28 X10*6/uL (4.60-5.80); Red Cell Distribution Width 14.1 % (11.0-16.0); White Blood Count 6.2 X10*3/uL (4.8-10.8)
[2022-11-17 15:00] LABS: Estimated Average Glucose 126 mg/dL
[2022-11-17 15:20] LABS: Erythrocyte Sedimentation Rate 67 MM/HR (0-15)
[2022-11-17 16:12] LABS: Anion Gap 15 (12-20); Blood Urea Nitrogen 34 mg/dL (9-16); C Reactive Protein 2.29 mg/dL (< or = 0.50); Calcium 9.4 mg/dL (8.4-10.2); Carbon Dioxide 29 mmol/L (22-29); Chloride 98 mmol/L (96-108); Estimated Glomerular Filt Rate 8; Glucose Random 125 mg/dL (60-115); Potassium 4.3 mmol/L (3.3-5.1); Sodium 138 mmol/L (135-145)
== END 2023-09-24 12:20 | disposition home or self-care (01) ==
LOC: HO.WCC 08:26
PROVIDERS: PCP Registered Nurse; Visit Provider Surgery
DX: Z09 Encounter for follow-up examination after completed treatment for conditions other than malignant neoplasm (principal); E11.9 Type 2 diabetes mellitus without complications; L84 Corns and callosities; N18.6 End stage renal disease; Z79.82 Long term (current) use of aspirin; Z99.2 Dependence on renal dialysis; Z79.899 Other long term (current) drug therapy; Z86.31 Personal history of diabetic foot ulcer
CPT/HCPCS: 11042; 11043; 29445; 36415; 73630; 80048; 83036; 84134; 85025; 85652; 86140; 87070; 87073; 87076; 87077; 87186; 87205; 97597; 99212

== ENCOUNTER 2022-10-23 14:49 | Outpatient (AMB) | payer OTHER, SELFPAY ==
--- OUTSIDE RECORDS SUMMARY | 2022-10-23 14:51 | XMS_ITS | Continuity of Care Document ---
Author Name Unknown Organization Wound Care Address [address] [place] [id number]- Care Team Providers Care Spot Man Name Role Phone Ilya RANDOLPH, [place] Primary Care Physician [phone] Encounter [facility] Date(s): 08/19/22 - 09/24/22 Wound Care [address] [place] [id number] Attending Physician: To Gonsalves MD Admitting Physician: To Gonsalves MD Allergies, Adverse Reactions, Alerts No Known [...] Maintenance, 01/16/22 10:41:00 EST,Route to Pharmacy Electronically, [facility], Partial fill upon patient request if the prescription is for a schedule II opioid drug., 18... Start Date: 01/16/22 Status: Ordered atorvastatin 80 mg oral tablet = 40 mg, By Mouth, Daily at bedtime, # 30 tablet, 0 Refills, Maintenance, 01/16/22 10:43:00 EST, Tablet, Partial fill upon patient request if the prescription is for a schedule II opioid drug., 187, cm, 01/06/22 13:18:00 EST, Height, 109, kg, 01/14/22... Start Date: 01/16/22 Status: Ordered Combigan 0.2%-0.5% ophthalmic solution 1 drops, Eyes, Both, Every 12 hours, # 10 mL, 0 Refills, Maintenance, 01/14/22 21:26:00 EST, Solution, Partial fill upon patient request if the prescription is for a schedule II opioid drug. Start Date: 01/14/22 Status: Ordered furosemide 80 mg oral tablet [...] 01/16/22 10:42:00 EST, Route to Pharmacy Electronically, [facility], Partial fill upon patient request if the prescription is for a schedule II opioi... Start Date: 01/16/22 Status: Ordered metoprolol 50 mg oral tablet, extended release 50 mg, 1, tablet, By Mouth, Daily, # 90 tablet, Refills 0, Tot. Refills 0, Maintenance, 01/16/22 10:43:00 EST, Route to Pharmacy Electronically, [facility], Partial fill upon patient request if the prescription is for a schedule II opioi... Start Date: 01/16/22 Status: Ordered omeprazole 20 mg oral enteric coated capsule TAKE 1 CAPSULE BY MOUTH EVERY DAY BEFORE A MEAL Start Date: 01/14/22 Status: Ordered Renvela 800 mg oral tablet 3 tablet = 2,400 mg, By Mouth, 3 times a day, with meals, 0 Refills, Maintenance, 09/23/17 15:02:15EDT Start Date: 09/23/17 Status: Ordered ticagrelor 90 mg oral tablet 1 tablet = 90 mg, By Mouth, 2 times a day, # 60 tablet, 11 Refills, Maintenance, 01/16/22 10:44:00 EST, Tablet, [facility], Partial fill upon patient request [...] (hypertension) Confirmed Active Diabetic retinopathy Confirmed Active Tubular adenoma of colon 1 Confirmed Active DMII (diabetes mellitus, type 2) Confirmed Active 1Needs colonscopy 2027 Patient Care team information Care Team Personnel Name: Israel Caraballo NP Position: [facility] Associate Professional Member Role: PCP Address: Address: [address] [place] [id number]- Name: Melissa Hermosillo Position: [facility] Outreach Member Role: Lifetime Consulting Physician Name: Deidre Lopez RN Position: [facility] AMB Nurse Member Role: Primary Care Nurse Care Team Related Persons Name: TORY DE LA GARZA Address: [address] [address] Name: BRIELLE ROD Address: [address] [address] Name: MICHAEL GIBSON Address: [place] [address]
--- OUTSIDE RECORDS SUMMARY | 2022-10-23 14:51 | XMS_ITS | Continuity of Care Document ---
Author Name Unknown Organization Wound Care Address [address] [place] [id number]- Care Team Providers Care Geospatial Intelligence Analyst Name Role Phone Ilya RANDOLPH, [place] Primary Care Physician Encounter [facility] Date(s): 07/29/22 - 09/03/22 Wound Care [address] [place] [address] Attending Physician: To Gonsalves MD [...] Maintenance, 01/16/22 10:41:00 EST,Route to Pharmacy Electronically, [facility], Partial fill upon patient request [...] 01/16/22 10:42:00 EST, Route to Pharmacy Electronically, [facility], Partial fill upon patient request if the prescription is for a schedule II opioi... Start Date: 01/16/22 Status: Ordered metoprolol 50 mg oral tablet, extended release 50 mg, 1, tablet, By Mouth, Daily, # 90 tablet, Refills 0, Tot. Refills 0, Maintenance, 01/16/22 10:43:00 EST, Route to Pharmacy Electronically, [facility], Partial fill upon patient request [...] 11 Refills, Maintenance, 01/16/22 10:44:00 EST, Tablet, [facility], Partial fill upon patient request [...] Team Personnel Name: Israel Caraballo NP Position: [facility] Associate Professional Member Role: PCP Address: Address: [address] [place] [id number]- Name: Melissa Hermosillo Position: S Outreach Member Role: Lifetime Consulting Physician Name: Deidre Lopez RN Position: S RN Member Role: Primary Care Nurse Care Team Related Persons Name: TORY DE LA GARZA Address: [address] [address] Name: BRIELLE ROD Address: [address] [address] Name: MICHAEL GIBSON Address: [place] [address]
--- OUTSIDE RECORDS SUMMARY | 2022-10-23 14:51 | XMS_ITS | Continuity of Care Document ---
Author Name Unknown Organization Wound Care Address [address] [place] [id number]- Care Team Providers Care Driver Starting Gate Name Role Phone Israel Caraballo NP Primary Care Physician [phone] Encounter [facility] Date(s): 09/09/22 - 10/15/22 [address]ound [address] [place] [id number] Attending Physician: To Gonsalves MD Admitting Physician: To Gonsalves MD Referring Physician: Israel Caraballo NP Allergies, Adverse Reactions, Alerts No Known Allergies [...] mg oral delayed release tablet 81 mg, 1, tablet, By Mouth, Daily, # 30 tablet, Refills 0, Maintenance, 09/29/22 14:54:00 EDT, Partial fill upon patient request if the prescription is for a schedule II opioid drug. Start Date: 09/29/22 Status: Ordered aspirin 81 mg oral delayed release tablet 81 mg, By Mouth, Daily, # 90 tablet, Refills 0, Tot. Refills 0, Maintenance, 01/16/22 10:41:00 EST,Route to Pharmacy Electronically, [facility], Partial fill upon patient request [...] kg, 01/14/22... Start Date: 01/16/22 Status: Ordered furosemide 80 [...] 01/16/22 10:42:00 EST, Route to Pharmacy Electronically, [facility], Partial fill upon patient request if the prescription is for a schedule II opioi... Start Date: 01/16/22 Status: Ordered metoprolol 50 mg oral tablet, extended release 50 mg, 1, tablet, By Mouth, Daily, # 90 tablet, Refills 0, Tot. Refills 0, Maintenance, 01/16/22 10:43:00 EST, Route to Pharmacy Electronically, [facility], Partial fill upon patient request if the prescription is for a schedule II opioi... Start Date: 01/16/22 Status: Ordered montelukast 4 mg oral granule 1 each = 4 mg, By Mouth, Daily, # 30 each, 0 Refills, Maintenance, 09/29/22 14:55:00 EDT, Granule, Partial fill upon patient request if the prescription is for a schedule II opioid drug. Start Date: 09/29/22 Status: Ordered omeprazole 20 mg oral enteric [...] 11 Refills, Maintenance, 01/16/22 10:44:00 EST, Tablet, [facility], Partial fill upon patient request if the prescription is for a schedule II opioid drug., 187, cm, 01/06/22 13:18:... Start Date: 01/16/22 Status: Ordered vancomycin 125 mg oral capsule 1 capsule = 125 mg, By Mouth, Every 6 hours, # 28 capsule, 0 Refills, Maintenance, 09/29/22 14:54:00 EDT, Capsule, Partial fill upon patient request if the prescription is for a schedule II opioid drug. Start Date: 09/29/22 Stop Date: 10/06/22 Status: Ordered Verquvo 5 mg oral tablet 1 tablet = 5 mg, By Mouth, Daily, 0 Refills, Maintenance, 09/29/22 14:54:00 EDT, Partial fill upon patient request if the prescription is for a schedule II opioid drug. Start Date: 09/29/22 Status: Ordered VITAMIN D3 1,000 UNIT SOFTGEL [...] Care team information Care Team Personnel Name: Ilya RANDOLPH, [place] Position: [facility] Associate Professional Member Role: PCP Address: Address: [address] [place] [address] Name: Melissa Hermosillo Position: [facility] Outreach Member Role: Lifetime Consulting Physician Name: Deidre Lopez RN Position: [facility] RN Member Role: Primary Care Nurse Care Team Related Persons Name: TORY DE LA GARZA Address: home [address] [place] [address] [place] [id number] Name: BRIELLE ROD Address: home [address] [place] [address] Name: MICHAEL GIBSON Address: [place] [address]
--- OUTSIDE RECORDS SUMMARY | 2022-10-23 14:51 | XMS_ITS | Continuity of Care Document ---
Author Name Unknown Organization [facility] Address [address] [place] [id number]- Care Team Providers Care Public Health Policy Analyst Name Role Phone Ilya RANDOLPH, [place] Primary Care Physician Encounter [facility] Date(s): 08/21/22 - 09/20/22 [facility] [address] [place] [id number]- [place] Allergies, Adverse Reactions, Alerts No Known Allergies [...] Maintenance, 01/16/22 10:41:00 EST,Route to Pharmacy Electronically, [facility], Partial fill upon patient request if [...] 01/16/22 10:42:00 EST, Route to Pharmacy Electronically, [facility], Partial fill upon patient request if the prescription is for a schedule II opioi... Start Date: 01/16/22 Status: Ordered metoprolol 50 mg oral tablet, extended release 50 mg, 1, tablet, By Mouth, Daily, # 90 tablet, Refills 0, Tot. Refills 0, Maintenance, 01/16/22 10:43:00 EST, Route to Pharmacy Electronically, [facility], Partial fill upon patient request if [...] 11 Refills, Maintenance, 01/16/22 10:44:00 EST, Tablet, [facility], Partial fill upon patient request if [...] Team Personnel Name: Israel Caraballo NP Position: [facility] Associate Professional Member Role: PCP Address: Address: [address] [place] [id number] Name: Melissa Hermosillo Position: [facility] Outreach Member Role: Lifetime Consulting Physician Name: Deidre Lopez RN Position: [facility] Nurse Member Role: Primary Care Nurse Care Team Related Persons Name: TORY DE LA GARZA Address: home [address] [place] [address] Name: BRIELLE ROD Address: home [address] [place] [id number] Name: MICHAEL GIBSON Address: [place] [address]
--- OUTSIDE RECORDS SUMMARY | 2022-10-23 14:51 | XMS_ITS | Continuity of Care Document ---
Author Name Unknown Organization [facility] Address [address] [place] [id number]- Care Team Providers Care Debone Processing Supervisor Name Role Phone Ilya RANDOLPH, [place] Primary Care Physician [phone] Encounter [facility] Date(s): 09/15/22 - 10/15/22 [facility] [address] [place] [id number] Attending Physician: Madison Angelo Admitting Physician: AdmtrMadison [...] Maintenance, 01/16/22 10:41:00 EST,Route to Pharmacy Electronically, [facility], Partial fill upon patient request if [...] 01/16/22 10:42:00 EST, Route to Pharmacy Electronically, [facility], Partial fill upon patient request if the prescription is for a schedule II opioi... Start Date: 01/16/22 Status: Ordered metoprolol 50 mg oral tablet, extended release 50 mg, 1, tablet, By Mouth, Daily, # 90 tablet, Refills 0, Tot. Refills 0, Maintenance, 01/16/22 10:43:00 EST, Route to Pharmacy Electronically, [facility], Partial fill upon patient [...] 11 Refills, Maintenance, 01/16/22 10:44:00 EST, Tablet, [facility], Partial fill upon patient [...] Team Personnel Name: Israel Caraballo NP Position: [facility] Associate Professional Member Role: PCP Address: Address: [address] [place] [address] Name: Melissa Hermosillo Position: [facility] Outreach Member Role: Lifetime Consulting Physician Name: Deidre Lopez RN Position: [facility] RN Member Role: Primary Care Nurse Care Team Related Persons Name: TORY DE LA GARZA Address: home [address] [place] [id number] Name: BRIELLE ROD Address: home [address] [place] [id number] Name: MICHAEL GIBSON Address: [place] [address]
--- NOTE | 2022-10-23 14:52 | A.OFFVIS_ITS ---
Intake Vital Signs 10/23/22 15:20 Height 6 ft 2 in Weight 218 lb BMI 28.0 BP 130/60 Blood Pressure Location Rt brachial Position Sitting Pulse 89 Pulse Source Pulse Oximeter Pulse Oximetry (%) 99 Intake Visit Reasons: [facility] hospital cdiff f/u Landfill Attendant Required: Yes Landfill Attendant Name: Dank Lugo CMA Allergies No Known Allergies [No Known Allergies*] Allergy (Verified 02/08/22 03:58) HPI [facility] hospital cdiff f/u HPI Details He had Cdiff once end June/early July. He had second time August and finished po Vancomycin 09/27. He has no diarrhea since. He is HD patient. [facility] Medical History Anemia in chronic renal disease Asthma C. difficile colitis CAD (coronary artery disease) Cardiomyopathy Diabetes Dialysis patient End stage chronic kidney disease HFrEF (heart failure with reduced ejection fraction) HTN (hypertension) Surgical History AV fistula S/P cardiac catheterization Family History Mother CAD (coronary artery disease) Social History Household Members: Spouse Housing: Apartment Do you presently have visiting nurse or other home services: Yes (human resources department supervisor) Alcohol intake: never Patient Tobacco Use Status: Never used Tobacco e-Cigarette/Vaping Use: Never Used Second Hand Smoke Exposure: No service: No Current occupational status: retired Review of Systems Const All systems reviewed & are unremarkable except as noted in HPI and below Physical Exam Vital Signs: Last Vital Signs Pulse 89 10/23/22 15:20 BP 130/60 10/23/22 15:20 Pulse Ox 99 10/23/22 15:20 BMI result Body Mass Index 28.0 Const General: cooperative Orientation/consciousness: patient oriented x3 HEENT Head: Yes normal to inspection Mouth: Normal oral and palatal mucosa present Eyes General: appearance normal, both eyes and all related structures Pupils: Equal, round and reactive pupils present Resp Effort & Inspection: normal respiratory effort Cardio Rate: regular rate Rhythm: regular rhythm GI Palpation (GI): Soft to palpation and nontender General: Yes no CVA tenderness Back/Spine/Pelvis Back: no CVA tenderness Skin General skin exam: no rashes or lesions noted Neuro General: patient oriented x3 Cranial nerves: Yes CN's II-XII intact bilaterally and Yes Equal, round and reactive pupils present Extrem General: Yes normal to inspection Psych Appearance: grossly normal Assessment & Plan Assessment & Plan (1) End stage renal disease: Code(s): N18.6 - End stage renal disease (2) C. difficile colitis: Comment: He has no active infection. He needs prevention,po ,,Wed 125 mg Vancomycin. Try to get Vowst fecal transplant (ordered). See in three months. Code(s): A04.72 - Enterocolitis due to Clostridium difficile, not specified as recurrent Medications: New fecal microbio spore,live-brpk (Vowst capsule) 4 caps PO DAILY 12 caps 0RF 3 days fecal microbio spore,live-brpk (Vowst capsule) 4 caps PO DAILY 12 caps 0RF 3 days vancomycin 125 mg PO .,,fri 13 caps 5RF 30 days Discontinued vancomycin Discontinued Reason: None 1 cap qid x 11 days, then 1 cap bid x 7 days, then 1 cap daily x 7 days, then 1 cap on MWF x 4 weeks 77 caps 0RF Coding Level of Care Code Est Pt Level 3 (07395) Diagnoses End stage renal disease N18.6 C. difficile colitis A04.72
[2022-10-23 15:20] VITALS: BP 130/60; PULSE 89; O2SAT 99; BMI 28.0
== END 2022-10-23 15:59 | disposition home or self-care (01) ==
PROVIDERS: PCP Registered Nurse; Visit Provider Internal Medicine
DX: N18.6 End stage renal disease (principal); A04.72 Enterocolitis due to Clostridium difficile, not specified as recurrent
CPT/HCPCS: 99213

== ENCOUNTER → 2022-10-23 14:49 | Outpatient (BNVA) | payer OTHER, SELFPAY | PROVIDERS: PCP Registered Nurse; Visit Provider Internal Medicine | DX: Z86.19 Personal history of other infectious and parasitic diseases (principal); N18.6 End stage renal disease | CPT/HCPCS: 99212 ==

== ENCOUNTER 2022-11-16 00:02 | Emergency (ER) | payer OTHER, SELFPAY ==
--- NOTE | ~2022-11-16 | XR_ITS ---
EXAMINATION: XR CHEST CLINICAL INFORMATION: Chest pressure COMPARISON: 02/21/2022 TECHNIQUE: Frontal view of the chest was obtained. FINDINGS: Heart size upper limits of normal. Compared to the prior study, there is an increase in interstitial markings suggesting mildly elevated left ventricular end-diastolic pressure. No pleural effusions. No consolidations or lung masses. XR/XR chest 1V IMPRESSION: Question of mild pulmonary vascular congestion.
--- NOTE | 2022-11-16 00:09 | ECG_ITS ---
Test Reason : CHEST PAIN Blood Pressure : / mmHG Vent. Rate : 100 BPM Atrial Rate : 100 BPM P-R Int : 140 ms QRS Dur : 084 ms QT Int : 370 ms P-R-T Axes : 054 -06 095 degrees QTc Int : 477 ms Normal sinus rhythm Possible Left atrial enlargement Nonspecific ST and T wave abnormality Abnormal ECG When compared with ECG of 21-FEB-2022 14:25, T wave inversion less evident in Lateral leads Referred By: Generic ED Physician Electronically Signed By:DIANNE BELLA
[2022-11-16 00:11] VITALS: BP 195/96; PULSE 100; RESP 18; TEMP 36.9; O2SAT 96; BMI 29.3
--- NOTE | 2022-11-16 00:12 | ED_ITS ---
HPI - Chest Pain General Chief Complaint: Chest Pain Stated Complaint: Chest pain/High BP Time Seen by Provider: 11/16/22 00:10 Source: patient and family () Mode of arrival: ambulatory Limitations: language barrier (English speaking only, iPad enrollment management director used) History of Present Illness HPI narrative: 62-year-old male with a history of end-stage renal disease, C diff colitis, cardiomyopathy, myocardial infarction, hypertension, pulmonary edema who presents emergency department for evaluation of elevated blood pressure and chest pain. Patient states that his symptoms started 2 hours prior to arrival when he was sitting and at rest. He complains of a strong chest pain but has difficulty describing the character of the pain. Points to his sternum when asked to localize the pain. The pain is been constant since onset. He states he has had similar pain in the past. He states he has had a myocardial infarction in December of 2021 and had stents placed at [facility]. Patient does have end-stage renal disease eyes and is dialyzed on Mondays, Wednesdays and Fridays, he has not missed any dialysis. He denied fever but states he did have shaking chills. He denied rhinorrhea, sore throat, cough, shortness of breath or dyspnea on exertion. He did have nausea but no vomiting. Related Data Home Medications Medication Instructions Recorded Confirmed omeprazole 20 mg capsule,delayed 20 mg PO DAILY PRN Heartburn 08/24/21 08/31/22 release sevelamer carbonate 800 mg tablet 2,400 mg PO TIDWM 08/24/21 08/31/22 albuterol sulfate 90 mcg/actuation 2 puff inhalation Q4-6H PRN 01/12/22 08/31/22 aerosol inhaler Shortness Of Breath Or Wheezing cholecalciferol (vitamin D3) 25 25 mcg PO DAILY@1700 01/12/22 08/31/22 mcg (1,000 unit) capsule (Vitamin D3) bimatoprost 0.01 % eye drops 1 drp ophthalmic (eye) BEDTIME 07/20/22 08/31/22 (Vida) furosemide 80 mg tablet 80 mg PO MOWEFR 07/20/22 08/31/22 isosorbide mononitrate 30 mg 30 mg PO DAILY 07/20/22 08/31/22 tablet,extended release 24 hr metoprolol succinate 50 mg 50 mg PO QAM 07/20/22 08/31/22 tablet,extended release 24 hr montelukast 10 mg tablet 10 mg PO BEDTIME asthma 07/20/22 08/31/22 sacubitril 24 mg-valsartan 26 mg 1 tab PO BID 07/20/22 08/31/22 tablet (Entresto) ticagrelor 90 mg tablet (Brilinta) 90 mg PO BID 07/20/22 08/31/22 Previous Rx's Medication Instructions Recorded aspirin 81 mg tablet,delayed 81 mg PO DAILY #1 tab 01/14/22 release atorvastatin 40 mg tablet 40 mg PO BEDTIME #1 tab 01/14/22 fecal microbio spore,live-brpk 4 cap PO DAILY 3 days #12 caps 10/23/22 (Vowst capsule) vancomycin 125 mg capsule 125 mg PO .,,wed 30 days #13 caps 10/23/22 morphine 15 mg immediate release 15 mg PO Q4-6H PRN pain #10 tabs 11/16/22 tablet Allergies Allergy/AdvReac Type Severity Reaction Status Date / Time No Known Allergies Allergy Verified 02/08/22 03:58 [No Known Allergies*] Review of Systems 2 Review of Systems: Yes all other systems are reviewed and are negative [facility] Past Medical History Medical History Anemia in chronic renal disease Asthma C. difficile colitis CAD (coronary artery disease) Cardiomyopathy Diabetes Dialysis patient End stage chronic kidney disease HFrEF (heart failure with reduced ejection fraction) HTN (hypertension) Surgical History AV fistula S/P cardiac catheterization Family History Family History Mother CAD (coronary artery disease) Social History Social History Household Members: Spouse Housing: Apartment Do you presently have visiting nurse or other home services: Yes (microsoft dynamics developer) Alcohol intake: never Patient Tobacco Use Status: Never used Tobacco Smoked in Last 30 Days: No e-Cigarette/Vaping Use: Never Used Second Hand Smoke Exposure: No Use of substances other than those prescribed or required for medical reasons: No Any prior treatment program specific to substance use: No Advance Directives: No Advance Directives Information Provided: Yes service: No Current occupational status: retired Physical Exam 2 Vital Signs: Vital Signs: Last Vital Signs Temp 98.7 F 11/16/22 03:16 Pulse 86 11/16/22 03:16 Resp 18 11/16/22 03:16 BP 158/69 H 11/16/22 03:16 Pulse Ox 96 11/16/22 03:16 O2 Del Method Room Air 11/16/22 03:16 BMI result Body Mass Index 29.3 Vital signs revealed an elevated pulse of 100, elevated blood pressure of 195/96, he was afebrile, O2 saturation was 96% on room air Exam: General: Awake, alert in no distress Head: Normocephalic, atraumatic EENT: PERRL, Lids normal, sclera normal, conjunctiva normal, nose normal , ears normal, throat without erythema or exudates Neck: Supple, no adenopathy, trachea midline and nontender Lung: breath sounds symmetric, no wheezing, rales or rhonchi Chest: symmetric movement, patient has moderate chest wall tenderness, this reproduces pain Heart: regular rate and rhythm, normal S1, S2 no murmurs or rubs Abdomen: soft, non-tender, nondistended, normal bowel sounds Back: no vertebral tenderness, no CVAT Extremities: no deformities, moves all extremities symmetrically Skin: no rashes, no lesion, normal color and warmth Neuro: Awake, alert, oriented, normal speech, cranial nerves intact, moves all extremities symmetrically Psych: Pleasant, cooperative Medications Administered Discontinued Medications Generic Name Dose Route Start Last Admin Trade Name Adebayo PRN Reason Stop Dose Admin Morphine Sulfate 4 mg 11/16/22 00:31 11/16/22 00:38 Morphine Sulfate 4 Mg/Ml Cartridge IVPUSH 11/16/22 00:32 4 mg ONCE STA Administration Protocol Ondansetron HCl 4 mg 11/16/22 00:31 11/16/22 00:38 Ondansetron Hcl 4 Mg/2 Ml Vial IVPUSH 11/16/22 00:32 4 mg ONCE ONE Administration Medical Decision Making Medical Decision Making MDM Narrative: 62-year-old male with a history of end-stage renal disease, C diff colitis, cardiomyopathy, myocardial infarction, hypertension, pulmonary edema who presents emergency department for evaluation of elevated blood pressure and chest pain x2 hours. Vital signs revealed an elevated pulse of 100 elevated blood pressure of 195/96. Patient's exam did reveal chest wall tenderness otherwise was unremarkable. The following evaluation was ordered CBC, BMP, liver panel, lipase, PT/INR, PTT, troponin, COVID-19, EKG, chest x-ray. Patient's pain was treated with morphine 4 mg IV, his nausea was treated with Zofran 4 mg IV. 0531: Patient is feeling better after the above treatment. Patient's laboratory evaluation is consistent with his chronic kidney disease. Patient's 1st troponin was 68.6 and the repeat troponin was 69 which is reassuring and is not a significant delta change. Patient did have significant chest wall tenderness he most likely has costochondritis. I did discuss this with the patient the patient's and the patient will be discharged home, encouraged him to go directly to his dialysis appointment from the emergency department. Patient was advised to take Tylenol 1st pain and for pain not relieved by Tylenol he was prescribed morphine 15 mg every 6 hours as needed for pain. Differential Diagnosis Differential Diagnoses: The differential diagnosis associated with the presentation includes Differential diagnosis includes was not limited to pneumonia, congestive heart failure, myocardial infarction, myocardial ischemia, chest wall pain, electrolyte abnormalities, anemia Admission/Observation Consideration of admission/observation: Escalation of care including admission/observation considered Lab Data My interpretation patient's laboratory evaluation is as follows, the patient's BUN creatinine are elevated consistent with his chronic renal disease. Patient is anemic with an H&H of 9.5 and 28.9 again consistent with chronic renal disease. The patient's 1st troponin was 68.6. but the 3 hour troponin was not significantly changed at 69. 11/16/22 00:29 11/16/22 00:29 Labs: Lab Results 11/16/22 11/16/22 Range/Units 00:29 03:20 WBC 7.0 (4.8-10.8) X10*3/uL RBC 3.27 L (4.60-5.80) X10*6/uL Hgb 9.5 L (14.0-18.0) g/dl Hct 28.9 L (42.0-52.0) % MCV 88.4 (80.0-98.0) fL MCH 29.1 (27.0-33.0) pg MCHC 32.9 (31.0-36.0) g/dl RDW 14.2 (11.0-16.0) % Plt Count 255 (160-400) X10*3/uL MPV 8.7 L (9.4-12.4) fL Immature Gran % (Auto) 0.9 H (0.0-0.4) % Neut % (Auto) 71.4 (45-73) % Lymph % (Auto) 19.8 L (20-40) % Broome % (Auto) 3.7 (2-11) % Eos % (Auto) 3.6 (0-4) % Baso % (Auto) 0.6 (0-2) % Lymph # (Auto) 1.4 (1.2-4.9) X10*3/uL Broome # (Auto) 0.3 (0.1-1.2) X10*3/uL Eos # (Auto) 0.3 (0.0-0.4) X10*3/uL Baso # (Auto) 0.0 (0.0-0.2) X10*3/uL Abs Immat Gran (auto) 0.06 H (0.00-0.03) X10*3/uL Absolute Neuts (auto) 5.0 (2.0-8.3) x10*3/uL Absolute Nucleated RBC 0.000 (0.0-0.012) X10*3/uL Nucleated RBC % (auto) 0.0 (0.0-0.2) /100WBC PT 12.0 (11.1-13.3) SEC INR 1.0 (0.9-1.1) APTT 32.2 (26.0-36.4) SEC Sodium 138 (135-145) mmol/L Potassium 4.9 D (3.3-5.1) mmol/L Chloride 100 (96-108) mmol/L Carbon Dioxide 24 (22-29) mmol/L Anion Gap 19 (12-20) BUN 51 H (9-16) mg/dL Creatinine 8.78 H* (0.5-1.4) mg/dL Estim Creat Clear Calc 10.9 Estimated GFR 6 Random Glucose 167 H (60-115) mg/dL Calcium 9.4 (8.4-10.2) mg/dL Total Bilirubin 0.6 (0.0-1.0) mg/dL Direct Bilirubin 0.3 (0.0-0.5) mg/dL AST 14 (5-37) U/L ALT 10 (0-40) U/L Alkaline Phosphatase 71 (39-117) U/L Troponin I High Sens 68.6 H D 69.7 H (<3.5-35.0) ng/L Total Protein 7.1 (6.5-8.0) g/dL Albumin 3.6 (3.5-5.0) g/dL Lipase 35 (8-78) U/L COVID-19 (LUZ) Negative (Negative) COVID-19 Clin Com See Note Independent Interpretation I performed an independent interpretation of an: EKG and Plain X-Ray Interpretation: My independent interpretation patient's 12 EKG done at 00:13 hours is as follows: Sinus tachycardia with a rate of 100, normal [place] interval, QRS interval, prolonged QTC interval of 477. There is no ST segment elevation, no ST segment depression, no PACs, no PVCs, no significant T-wave abnormalities. My independent interpretation patient's one-view chest x-ray is as follows: Increased interstitial markings consistent with mild CHF Radiology Impression Discussion of test interpretation with radiology: I have reviewed the radiologist's reading. Radiologist Impression: XR chest 1V IMPRESSION: Question of mild pulmonary vascular congestion. Dictated By: Jere Macedo MD Independent Historian Clinical information obtained from an independent historian. History obtained from or confirmed by: Spouse External Record Review External record reviewed: Inpatient record Prescription Management I considered prescription management with: Pain Medication Chronic Conditions Patient?s care impacted by: Other (End-stage renal disease, coronary artery disease) Discharge Plan Discharge Clinical Impression: Acute costochondritis Patient Disposition: Home, Self-Care Instructions: Costochondritis (ED) Additional Instructions: Your chest x-ray was normal pain Your EKG was unremarkable. Your lab work revealed a detectable troponin but at did not change after 3 hours which is very reassuring suggesting that your pain is not caused by heart attack or heart injury. Continue taking medications as prescribed by your providers. Take Tylenol (acetaminophen) 2 pills every 4-6 hours as needed for pain. For pain not relieved by Tylenol take morphine 15 mg pills, 1 pill every 4 hours as needed for pain. This medication will make you sleepy, do not drive or work while taking this medication. Morphine is a narcotic medication and can be addicting. If you are concerned about addiction you can ask the pharmacist for less pills or do not get this prescription filled. Make sure you keep your dialysis appointment this morning Follow-up with your doctor in 2 days. Please return to the emergency department if your symptoms get worse or if you develop any symptoms that are concerning to you. Prescriptions: New morphine 15 mg tablet 15 mg PO Q4-6H PRN (Reason: pain) Qty: 10 0RF Rx Instructions: The patient may ask for partial fill; Partial Fill upon patient request. No Action omeprazole 20 mg capsule,delayed release(DR/EC) 20 mg PO DAILY PRN (Reason: Heartburn) sevelamer carbonate 800 mg tablet 2,400 mg PO TIDWM albuterol sulfate 90 mcg/actuation HFA aerosol inhaler 2 puff INHALATION Q4-6H PRN (Reason: Shortness Of Breath Or Wheezing) cholecalciferol (vitamin D3) [Vitamin D3] 25 mcg (1,000 unit) capsule 25 mcg PO DAILY@1700 atorvastatin 40 mg Tablet 40 mg PO BEDTIME Qty: 1 0RF aspirin 81 mg Tablet,Delayed Release (Dr/Ec) 81 mg PO DAILY Qty: 1 0RF metoprolol succinate 50 mg tablet extended release 24 hr 50 mg PO QAM isosorbide mononitrate 30 mg tablet extended release 24 hr 30 mg PO DAILY furosemide 80 mg Tablet 80 mg PO MOWEFR montelukast 10 mg tablet 10 mg PO BEDTIME Lumigan 0.01 % drops 1 drp ophthalmic (eye) BEDTIME Brilinta 90 mg tablet 90 mg PO BID Entresto 24-26 mg tablet 1 tab PO BID Vowst Capsule 4 cap PO DAILY 3 Days Qty: 12 0RF vancomycin 125 mg capsule 125 mg PO .m,,wed 30 Days Qty: 13 5RF
[2022-11-16 00:35] LABS: MANUAL DIFF FLAG NO
[2022-11-16 00:38] LABS: Basophils Percent Auto 0.6 % (0-2); Eosinophils Absolute Auto 0.3 X10*3/uL (0.0-0.4); Eosinophils Percent Auto 3.6 % (0-4); Hematocrit 28.9 % (42.0-52.0); Hemoglobin 9.5 g/dl (14.0-18.0); Imm Gran Abs Auto 0.06 X10*3/uL (0.00-0.03); Imm Gran Pct Auto 0.9 % (0.0-0.4); Lymphocytes Absolute Auto 1.4 X10*3/uL (1.2-4.9); Lymphocytes Percent Auto 19.8 % (20-40); Mean Corpuscular HGB Conc 32.9 g/dl (31.0-36.0); Mean Corpuscular Hemoglobin 29.1 pg (27.0-33.0); Mean Corpuscular Volume 88.4 fL (80.0-98.0); Mean Platelet Volume 8.7 fL (9.4-12.4); Monocytes Absolute Auto 0.3 X10*3/uL (0.1-1.2); Monocytes Percent Auto 3.7 % (2-11); Neutrophils Percent Auto 71.4 % (45-73); Platelet Count 255 X10*3/uL (160-400); Red Blood Count 3.27 X10*6/uL (4.60-5.80); Red Cell Distribution Width 14.2 % (11.0-16.0)
[2022-11-16] MEDS: Morphine Sulfate 4 MG/ML CARTRIDGE IVPUSH (00:38)
[2022-11-16] MEDS: ondansetron HCL 4 MG/2 ML VIAL IVPUSH (00:38)
[2022-11-16 00:47] LABS: Partial Thromboplastin Time 32.2 SEC (26.0-36.4)
[2022-11-16 00:49] LABS: COVID-19 Test Negative (Negative); IDNOW Serial# 08D9AD1C
[2022-11-16 00:57] LABS: Troponin-I High Sensitivity 68.6 ng/L (<3.5-35.0)
[2022-11-16 01:01] LABS: Alanine Aminotransferase 10 U/L (0-40); Albumin Level 3.6 g/dL (3.5-5.0); Alkaline Phosphatase 71 U/L (39-117); Anion Gap 19 (12-20); Aspartate Amino Transferase 14 U/L (5-37); Bilirubin Direct 0.3 mg/dL (0.0-0.5); Bilirubin Total 0.6 mg/dL (0.0-1.0); Blood Urea Nitrogen 51 mg/dL (9-16); Calcium 9.4 mg/dL (8.4-10.2); Carbon Dioxide 24 mmol/L (22-29); Chloride 100 mmol/L (96-108); Creatinine Clr Calc Pharmacy 10.9; Estimated Glomerular Filt Rate 6; Glucose Random 167 mg/dL (60-115); Lipase 35 U/L (8-78); Potassium 4.9 mmol/L (3.3-5.1); Sodium 138 mmol/L (135-145); Total Protein 7.1 g/dL (6.5-8.0)
[2022-11-16 01:43] VITALS: BP 163/85; PULSE 89; RESP 18; O2SAT 94
[2022-11-16 03:16] VITALS: BP 158/69; PULSE 86; RESP 18; TEMP 37.1; O2SAT 96
[2022-11-16 03:45] LABS: Troponin-I High Sensitivity 69.7 ng/L (<3.5-35.0)
--- NOTE | 2022-11-16 05:52 | PC.NURSE ---
Pt verbalized feeling better, pain 1-04/10. Discharge instructions provided by Uruguayan speaking RN. Pt verbalized understanding. Pt's IV removed by this RN, and pt escorted into car via wheelchair. Pt elevated Bp due to need for dialysis which he is discharging and going to dialysis this am.
== END 2022-11-16 05:45 | disposition home or self-care (01) ==
PROVIDERS: Emergency Provider Emergency Medicine Emergency Medical Services; PCP Registered Nurse
DX: R07.89 Other chest pain (principal); M94.0 Chondrocostal junction syndrome [Tietze]; Z20.822 Contact with and (suspected) exposure to COVID-19; Z20.828 Contact with and (suspected) exposure to other viral communicable diseases; Z79.899 Other long term (current) drug therapy
CPT/HCPCS: 36415; 71045; 80048; 80076; 83690; 84484; 85025; 85610; 85730; 87635; 93005; 96374; 96375; 99284; 99285; J2270; J2405

== ENCOUNTER 2022-12-04 14:56 | Outpatient (REF) | payer OTHER, SELFPAY | END 2022-12-04 14:57 | disposition home or self-care (01) | LOC: HO.RESP 14:56 | PROVIDERS: PCP Registered Nurse; Visit Provider Internal Medicine | DX: J45.909 Unspecified asthma, uncomplicated (principal); R06.09 Other forms of dyspnea | CPT/HCPCS: 94010; 94729 ==

== ENCOUNTER → 2022-12-04 15:00 | Outpatient (BNV) | payer OTHER, SELFPAY | PROVIDERS: PCP Registered Nurse; Visit Provider Hospitalist | DX: J45.909 Unspecified asthma, uncomplicated (principal) | CPT/HCPCS: 94060; 94727; 94729 ==

== ENCOUNTER 2022-12-14 04:42 | Emergency (ER) | payer OTHER, SELFPAY ==
--- NOTE | ~2022-12-14 | XR_ITS ---
EXAMINATION: XR CHEST CLINICAL INFORMATION: Chest pain and cough. COMPARISON: 11.16.2022 TECHNIQUE: Frontal view of the chest was obtained. FINDINGS: Diffuse bronchial wall thickening with streaky opacities in the lower lungs, slightly more pronounced on the left. No large pleural effusion. No pneumothorax. Normal heart size and pulmonary vascularity. XR/XR chest 1V IMPRESSION: * Diffuse bronchial wall thickening suggestive of bronchitis. * Streaky opacities in the lower lungs could represent subsegmental atelectasis or infiltrate.
--- NOTE | 2022-12-14 04:44 | ECG_ITS ---
Test Reason : CHEST PAIN Blood Pressure : / mmHG Vent. Rate : 108 BPM Atrial Rate : 108 BPM P-R Int : 158 ms QRS Dur : 088 ms QT Int : 362 ms P-R-T Axes : 067 000 110 degrees QTc Int : 485 ms Sinus tachycardia T wave abnormality, consider lateral ischemia Abnormal ECG When compared with ECG of 16-NOV-2022 00:13, No significant change was found Referred By: Generic ED Physician Electronically Signed By:MARY MCDANIELS MD
[2022-12-14 04:51] VITALS: BP 122/95; PULSE 109; RESP 14; TEMP 37.1; O2SAT 96; BMI 28.1
--- NOTE | 2022-12-14 05:00 | ED_ITS ---
HPI - Chest Pain General Chief Complaint: Chest Pain Stated Complaint: Chest pain Time Seen by Provider: 12/14/22 04:59 Source: patient and family (, Esther) Mode of arrival: EMS Limitations: language barrier (Azeri speaking only, xerox machine mechanic used) History of Present Illness HPI narrative: 62-year-old male with history of coronary artery disease s/p stent placed 12/09/2021, cardiomyopathy, HFrEF, ESRD on dialysis M-W-F, chronic normocytic anemia, history of C diff diagnosed 07/20/22 completed course of p.o. vancomycin and on preventative vanco 3 times a week, hypertension, asthma presented to [facility] for evaluation of sudden onset of chest pressure which started at 04:00 hours patient points to the center of his chest when asked to localize the pain. He describes the pain is a constant pressure-like pain. There was no radiation to the neck, jaw or back pain was associated with shortness of breath, diaphoresis, nausea but no vomiting. Patient has had a persistent cough for at least 15 days and has been seen by his remote broadcast engineer. He denied fever, chills, abdominal pain, diarrhea. Patient had a myocardial infarction 12/09/2021 and states that pain is similar to his heart attack pain. Related Data Home Medications Medication Instructions Recorded Confirmed omeprazole 20 mg capsule,delayed 20 mg PO DAILY PRN Heartburn 08/24/21 08/31/22 release sevelamer carbonate 800 mg tablet 2,400 mg PO TIDWM 08/24/21 08/31/22 albuterol sulfate 90 mcg/actuation 2 puff inhalation Q4-6H PRN 01/12/22 08/31/22 aerosol inhaler Shortness Of Breath Or Wheezing cholecalciferol (vitamin D3) 25 25 mcg PO DAILY@1700 01/12/22 08/31/22 mcg (1,000 unit) capsule (Vitamin D3) bimatoprost 0.01 % eye drops 1 drp ophthalmic (eye) BEDTIME 07/20/22 08/31/22 (Vida) furosemide 80 mg tablet 80 mg PO MOWEFR 07/20/22 08/31/22 isosorbide mononitrate 30 mg 30 mg PO DAILY 07/20/22 08/31/22 tablet,extended release 24 hr metoprolol succinate 50 mg 50 mg PO QAM 07/20/22 08/31/22 tablet,extended release 24 hr montelukast 10 mg tablet 10 mg PO BEDTIME asthma 07/20/22 08/31/22 sacubitril 24 mg-valsartan 26 mg 1 tab PO BID 07/20/22 08/31/22 tablet (Entresto) ticagrelor 90 mg tablet (Brilinta) 90 mg PO BID 07/20/22 08/31/22 Previous Rx's Medication Instructions Recorded aspirin 81 mg tablet,delayed 81 mg PO DAILY #1 tab 01/14/22 release atorvastatin 40 mg tablet 40 mg PO BEDTIME #1 tab 01/14/22 fecal microbio spore,live-brpk 4 cap PO DAILY 3 days #12 caps 10/23/22 (Vowst capsule) vancomycin 125 mg capsule 125 mg PO .,,wed 30 days #13 caps 10/23/22 morphine 15 mg immediate release 15 mg PO Q4-6H PRN pain #10 tabs 11/16/22 tablet Allergies Allergy/AdvReac Type Severity Reaction Status Date / Time No Known Allergies Allergy Verified 12/14/22 04:51 [No Known Allergies*] Review of Systems Review of Systems: Yes all other systems are reviewed and are negative [facility] Past Medical History [facility] Narrative: Social history: Patient lives at home with his , Esther was here in the emergency department with the patient. Patient denies tobacco, alcohol and drug use. Medical History HFrEF (heart failure with reduced ejection fraction) Dialysis patient CAD (coronary artery disease) C. difficile colitis Cardiomyopathy HTN (hypertension) Anemia in chronic renal disease Diabetes Asthma End stage chronic kidney disease Surgical History S/P cardiac catheterization AV fistula Family History Family History Mother CAD (coronary artery disease) Social History Social History Household Members: Spouse Housing: Apartment Do you presently have visiting nurse or other home services: Yes (church worker) Alcohol intake: never Patient Tobacco Use Status: Never used Tobacco e-Cigarette/Vaping Use: Never Used Second Hand Smoke Exposure: No Advance Directives: No Advance Directives Information Provided: Yes service: No Current occupational status: retired Physical Exam Vital Signs: Vital Signs: Last Vital Signs Temp 98.8 F 12/14/22 04:51 Pulse 109 H 12/14/22 04:51 Resp 14 12/14/22 04:51 BP 122/95 H 12/14/22 04:51 Pulse Ox 96 12/14/22 04:51 O2 Del Method Room Air 12/14/22 04:51 BMI result Body Mass Index 28.1 Vitals revealed an elevated heart rate of 109 otherwise unremarkable. Exam General: Awake, alert in no distress Head: Normocephalic, atraumatic EENT: PERRL, Lids normal, sclera normal, conjunctiva normal, nose normal , ears normal, throat without erythema or exudates Neck: Supple, no adenopathy, trachea midline and nontender Lung: breath sounds symmetric, no wheezing, rales or rhonchi Chest: symmetric movement, moderate tenderness to sternum and anterior chest costochondral joints bilaterally Heart: Tachycardia, regular rhythm , normal S1, S2 no murmurs or rubs Abdomen: soft, non-tender, nondistended, normal bowel sounds Back: no vertebral tenderness, no CVAT Extremities: The patient's left foot is wrapped in a complex dressing with walking boot for chronic ulcers Neuro: Awake, alert, oriented, normal speech, cranial nerves intact, moves all extremities symmetrically Psych: Pleasant, cooperative Medical Decision Making Medical Decision Making MDM Narrative: 62-year-old male with history of coronary artery disease s/p stent placed 12/09/2021, cardiomyopathy, HFrEF, ESRD on dialysis --, chronic normocytic anemia, history of C diff diagnosed 07/20/22 completed course of p.o. vancomycin and on preventative vanco 3 times a week, hypertension, asthma present emergency department for evaluation of sudden onset of anterior chest pain that started at 04:00 hours. Vital signs did reveal an heart rate. Exam did reveal anterior chest wall tenderness and sternal tenderness. Following evaluation was ordered: CBC, CMP, lipase, PT/INR, PTT, troponin, lactic acid, COVID-19, blood cultures x2, EKG, chest x-ray. Patient's pain was treated with morphine 4 mg IV. Differential Diagnosis Differential Diagnoses: The differential diagnosis associated with the presentation includes Differential diagnosis includes was not limited to pneumonia, musculoskeletal pain, costochondritis, myocardial infarction, myocardial ischemia Admission/Observation Consideration of admission/observation: Escalation of care including admission/observation considered Independent Interpretation I performed an independent interpretation of an: EKG Interpretation: My independent interpretation of the patient's 12 EKG done at 04:49 hours is as follows: Sinus tachycardia with a rate of 108, normal MT interval and QRS duration. Prolonged QTC of 485 millisecond, less than [address] segment depression leads 2, 3 and AVF and through V6, no ST segment elevation, inverted T-waves lead 1 and aVL. Compared to EKG dated 11/16/2022 inverted T-waves in leads 1 and aVL are old. ST segment depression in the inferior and lateral leads are old. Independent Historian Clinical information obtained from an independent historian. History obtained from or confirmed by: Parent Discharge Plan Discharge Clinical Impression: Chest pain Patient Disposition: Still a Patient Prescriptions: No Action omeprazole 20 mg capsule,delayed release(DR/EC) 20 mg PO DAILY PRN (Reason: Heartburn) sevelamer carbonate 800 mg tablet 2,400 mg PO TIDWM albuterol sulfate 90 mcg/actuation HFA aerosol inhaler 2 puff INHALATION Q4-6H PRN (Reason: Shortness Of Breath Or Wheezing) cholecalciferol (vitamin D3) [Vitamin D3] 25 mcg (1,000 unit) capsule 25 mcg PO DAILY@1700 atorvastatin 40 mg Tablet 40 mg PO BEDTIME Qty: 1 0RF aspirin 81 mg Tablet,Delayed Release (Dr/Ec) 81 mg PO DAILY Qty: 1 0RF morphine 15 mg tablet 15 mg PO Q4-6H PRN (Reason: pain) Qty: 10 0RF Rx Instructions: The patient may ask for partial fill; Partial Fill upon patient request. metoprolol succinate 50 mg tablet extended release 24 hr 50 mg PO QAM isosorbide mononitrate 30 mg tablet extended release 24 hr 30 mg PO DAILY furosemide 80 mg Tablet 80 mg PO MOWEFR montelukast 10 mg tablet 10 mg PO BEDTIME Lumigan 0.01 % drops 1 drp ophthalmic (eye) BEDTIME Brilinta 90 mg tablet 90 mg PO BID Entresto 24-26 mg tablet 1 tab PO BID Vowst Capsule 4 cap PO DAILY 3 Days Qty: 12 0RF vancomycin 125 mg capsule 125 mg PO .m,,wed 30 Days Qty: 13 5RF
[2022-12-14 05:35] VITALS: RESP 16
[2022-12-14] MEDS: Morphine Sulfate 4 MG/ML CARTRIDGE IVPUSH (05:35)
[2022-12-14 05:36] LABS: Basophils Percent Auto 0.5 % (0-2); Eosinophils Absolute Auto 0.2 X10*3/uL (0.0-0.4); Eosinophils Percent Auto 2.4 % (0-4); Hematocrit 28.9 % (42.0-52.0); Hemoglobin 9.5 g/dl (14.0-18.0); Imm Gran Abs Auto 0.02 X10*3/uL (0.00-0.03); Imm Gran Pct Auto 0.3 % (0.0-0.4); Lymphocytes Absolute Auto 1.2 X10*3/uL (1.2-4.9); Lymphocytes Percent Auto 14.9 % (20-40); MANUAL DIFF FLAG NO; Mean Corpuscular HGB Conc 32.9 g/dl (31.0-36.0); Mean Corpuscular Hemoglobin 29.2 pg (27.0-33.0); Mean Corpuscular Volume 88.9 fL (80.0-98.0); Mean Platelet Volume 8.7 fL (9.4-12.4); Monocytes Absolute Auto 0.4 X10*3/uL (0.1-1.2); Monocytes Percent Auto 4.9 % (2-11); Platelet Count 263 X10*3/uL (160-400); Red Blood Count 3.25 X10*6/uL (4.60-5.80); Red Cell Distribution Width 15.8 % (11.0-16.0); White Blood Count 7.8 X10*3/uL (4.8-10.8)
[2022-12-14 05:42] LABS: Prothrombin Time 12.2 SEC (11.1-13.3)
[2022-12-14 05:54] LABS: Lactic Acid 1.5 mmol/L (0.5-2.0)
[2022-12-14 05:58] LABS: COVID-19 Test Negative (Negative); IDNOW Serial# 9DB6401D
--- NOTE | 2022-12-14 06:00 | PC.NURSE ---
Pt A&Ox3, primarily Burkinan speaking, reports 8/10 constant left sided CP, started early this AM at 0400. Pt reports dry cough > 20 days. Pt placed on bedside monitor, EKG obtained and reviewed by provider. SpO2 96% on RA, lung sounds diminished. Pt has LLL walking boot, states has a wound, and is going to wound care . IV line placed, labs collected and sent to lab. at bedside.
[2022-12-14 06:01] LABS: Alanine Aminotransferase 7 U/L (0-40); Albumin Level 3.6 g/dL (3.5-5.0); Alkaline Phosphatase 72 U/L (39-117); Anion Gap 19 (12-20); Aspartate Amino Transferase 11 U/L (5-37); Bilirubin Total 0.9 mg/dL (0.0-1.0); Blood Urea Nitrogen 40 mg/dL (9-16); Calcium 9.3 mg/dL (8.4-10.2); Carbon Dioxide 26 mmol/L (22-29); Chloride 98 mmol/L (96-108); Creatinine Clr Calc Pharmacy 11.1; Estimated Glomerular Filt Rate 6; Glucose Random 160 mg/dL (60-115); Lipase 29 U/L (8-78); Potassium 3.6 mmol/L (3.3-5.1); Sodium 139 mmol/L (135-145)
[2022-12-14 06:05] LABS: Troponin-I High Sensitivity 66.2 ng/L (<3.5-35.0)
[2022-12-14 07:15] VITALS: BP 158/85; PULSE 91; RESP 26; TEMP 37; O2SAT 95
[2022-12-14 09:19] LABS: Troponin-I High Sensitivity 76.3 ng/L (<3.5-35.0)
[2022-12-14 10:26] VITALS: BP 166/94; PULSE 88; RESP 13; O2SAT 93
== END 2022-12-14 11:26 | disposition home or self-care (01) ==
PROVIDERS: Emergency Provider Emergency Medicine Emergency Medical Services
DX: R07.89 Other chest pain (principal); I25.10 Atherosclerotic heart disease of native coronary artery without angina pectoris; R05.9 Cough, unspecified; I12.0 Hypertensive chronic kidney disease with stage 5 chronic kidney disease or end stage renal disease; E11.22 Type 2 diabetes mellitus with diabetic chronic kidney disease; N18.6 End stage renal disease; Z11.52 Encounter for screening for COVID-19; Z20.822 Contact with and (suspected) exposure to COVID-19; Z79.899 Other long term (current) drug therapy
CPT/HCPCS: 36415; 71045; 80053; 83605; 83690; 84484; 85025; 85610; 85730; 87040; 87635; 93005; 96374; 99284; 99285; J2270

== ENCOUNTER 2023-01-08 04:49 | Emergency (ER) | payer OTHER, SELFPAY ==
--- NOTE | 2023-01-08 | ECG_ITS ---
Test Reason : sob and chest pain Blood Pressure : / mmHG Vent. Rate : 106 BPM Atrial Rate : 106 BPM P-R Int : 146 ms QRS Dur : 086 ms QT Int : 352 ms P-R-T Axes : 063 -09 116 degrees QTc Int : [address] & T wave abnormality, consider lateral ischemia Abnormal ECG When compared with ECG of 14-DEC-2022 04:49, No significant change was found Referred By: Generic ED Physician Electronically Signed By:MARY MCDANIELS MD
--- NOTE | ~2023-01-08 | XR_ITS ---
EXAMINATION: XR CHEST CLINICAL INFORMATION: Chest pain. Shortness of breath. COMPARISON: 12/14/2022. TECHNIQUE: Frontal view of the chest was obtained. FINDINGS: The lung volumes are relatively low. The cardiomediastinal silhouette is stable. There is no focal lung consolidation or pleural effusion. The bony structures and soft tissues are unremarkable. XR/XR chest 1V IMPRESSION: No evidence for active cardiopulmonary disease.
[2023-01-08 04:55] VITALS: BP 171/78; PULSE 107; RESP 16; TEMP 37.3; O2SAT 96; BMI 27.2
[2023-01-08 05:36] LABS: MANUAL DIFF FLAG NO
[2023-01-08 05:37] LABS: Basophils Percent Auto 0.3 % (0-2); Eosinophils Absolute Auto 0.1 X10*3/uL (0.0-0.4); Eosinophils Percent Auto 1.8 % (0-4); Hematocrit 30.6 % (42.0-52.0); Imm Gran Abs Auto 0.02 X10*3/uL (0.00-0.03); Imm Gran Pct Auto 0.3 % (0.0-0.4); Lymphocytes Absolute Auto 0.9 X10*3/uL (1.2-4.9); Lymphocytes Percent Auto 12.9 % (20-40); Mean Corpuscular HGB Conc 32.7 g/dl (31.0-36.0); Mean Corpuscular Hemoglobin 29.9 pg (27.0-33.0); Mean Corpuscular Volume 91.3 fL (80.0-98.0); Mean Platelet Volume 8.9 fL (9.4-12.4); Monocytes Absolute Auto 0.3 X10*3/uL (0.1-1.2); Monocytes Percent Auto 4.8 % (2-11); Neutrophils Absolute Auto 5.6 x10*3/uL (2.0-8.3); Neutrophils Percent Auto 79.9 % (45-73); Platelet Count 256 X10*3/uL (160-400); Red Blood Count 3.35 X10*6/uL (4.60-5.80); Red Cell Distribution Width 17.8 % (11.0-16.0)
[2023-01-08 05:49] LABS: IDNOW Serial# 6674DD1D; Strep A Nucleic Acid Negative (Negative)
[2023-01-08 05:59] LABS: Alanine Aminotransferase 10 U/L (0-40); Albumin Level 3.4 g/dL (3.5-5.0); Alkaline Phosphatase 63 U/L (39-117); Anion Gap 15 (12-20); Aspartate Amino Transferase 13 U/L (5-37); Bilirubin Total 0.9 mg/dL (0.0-1.0); Blood Urea Nitrogen 32 mg/dL (9-16); Carbon Dioxide 28 mmol/L (22-29); Chloride 100 mmol/L (96-108); Creatinine Clr Calc Pharmacy 12.5; Estimated Glomerular Filt Rate 8; Glucose Random 188 mg/dL (60-115); Magnesium 1.8 mg/dL (1.6-2.6); Potassium 3.8 mmol/L (3.3-5.1); Sodium 139 mmol/L (135-145); Total Protein 6.4 g/dL (6.5-8.0)
[2023-01-08 06:13] LABS: VBG Base Excess 9.2 mmol/L; VBG HCO3 30 mmol/L (22-26); VBG pCO2 31 mmHg; VBG pO2 90 mmHg
[2023-01-08 06:14] LABS: Influenza A PCR NEGATIVE (Negative); Influenza B PCR NEGATIVE (Negative); Resp Syncy Virus RNA Qual PCR NEGATIVE (Negative); SARS COV2 PCR INHOUSE NEGATIVE (Negative)
[2023-01-08 06:14] LABS: Venous Blood Gas Refer to POC result
[2023-01-08 06:50] VITALS: BP 141/69; PULSE 96; RESP 20; TEMP 36.6; O2SAT 97
--- NOTE | 2023-01-08 07:44 | ED.SOB ---
HPI - SOB/Dyspnea General Chief Complaint: Dyspnea Stated Complaint: asthma Time Seen by Provider: 01/08/23 05:22 History of Present Illness HPI Narrative: patient is a 62-year-old male with a history of end-stage renal disease history of anxiety presented today with having coughing generalized malaise shortness of breath when he was about to go to dialysis. Normally gets dialysis on Wednesday. Last dialysis was on Wednesday. Patient decided to come to the emergency department instead of going to dialysis. No fever no chills. She positive feeling weak. MD elicited complaint: shortness of breath Related Data Home Medications Medication Instructions Recorded Confirmed omeprazole 20 mg capsule,delayed 20 mg PO DAILY PRN Heartburn 08/24/21 08/31/22 release sevelamer carbonate 800 mg tablet 2,400 mg PO TIDWM 08/24/21 08/31/22 albuterol sulfate 90 mcg/actuation 2 puff inhalation Q4-6H PRN 01/12/22 08/31/22 aerosol inhaler Shortness Of Breath Or Wheezing cholecalciferol (vitamin D3) 25 25 mcg PO DAILY@1700 01/12/22 08/31/22 mcg (1,000 unit) capsule (Vitamin D3) bimatoprost 0.01 % eye drops 1 drp ophthalmic (eye) BEDTIME 07/20/22 08/31/22 (Vida) furosemide 80 mg tablet 80 mg PO MOWEFR 07/20/22 08/31/22 isosorbide mononitrate 30 mg 30 mg PO DAILY 07/20/22 08/31/22 tablet,extended release 24 hr metoprolol succinate 50 mg 50 mg PO QAM 07/20/22 08/31/22 tablet,extended release 24 hr montelukast 10 mg tablet 10 mg PO BEDTIME asthma 07/20/22 08/31/22 sacubitril 24 mg-valsartan 26 mg 1 tab PO BID 07/20/22 08/31/22 tablet (Entresto) ticagrelor 90 mg tablet (Brilinta) 90 mg PO BID 07/20/22 08/31/22 Previous Rx's Medication Instructions Recorded aspirin 81 mg tablet,delayed 81 mg PO DAILY #1 tab 01/14/22 release atorvastatin 40 mg tablet 40 mg PO BEDTIME #1 tab 01/14/22 fecal microbio spore,live-brpk 4 cap PO DAILY 3 days #12 caps 10/23/22 (Vowst capsule) vancomycin 125 mg capsule 125 mg PO .,,wed 30 days #13 caps 10/23/22 morphine 15 mg immediate release 15 mg PO Q4-6H PRN pain #10 tabs 11/16/22 tablet albuterol sulfate 90 mcg/actuation 2 inh inhalation Q6H PRN shortness 12/14/22 breath activated powder inhaler of breath or wheezing #1 ea prednisone 20 mg tablet 20 mg PO BID #10 tabs 12/14/22 Allergies Allergy/AdvReac Type Severity Reaction Status Date / Time No Known Allergies Allergy Verified 12/14/22 04:51 [No Known Allergies*] Review of Systems Review of Systems: Positive shortness of breath positive coughing no chest pain or diaphoresis Yes all other systems are reviewed and are negative PMFSH Past Medical History Medical History HFrEF (heart failure with reduced ejection fraction) Dialysis patient CAD (coronary artery disease) C. 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) Alcohol intake: never Patient Tobacco Use Status: Never used Tobacco Smoked in Last 30 Days: Yes e-Cigarette/Vaping Use: Never Used Second Hand Smoke Exposure: No Use of substances other than those prescribed or required for medical reasons: No Advance Directives: No Advance Directives Information Provided: No service: No Current occupational status: retired Physical Exam Vital Signs: Vital Signs: Last Vital Signs Temp 97.8 F 01/08/23 06:50 Pulse 96 01/08/23 06:50 Resp 20 01/08/23 06:50 BP 141/69 H 01/08/23 06:50 Pulse Ox 97 01/08/23 06:50 O2 Del Method Room Air 01/08/23 06:50 BMI result Body Mass Index 27.2 Appearance: Alert. Oriented X3. No acute distress. Eyes: Pupils equal, round and reactive to light. ENT: Pharynx normal. Neck: Normal inspection. Neck supple. No lymph nodes noted. No crepitus CVS: Normal heart rate and rhythm. Pulses normal. Normal S1 and S2 Respiratory: No respiratory distress. Breath sounds normal. No Wheezing. No rales Abdomen: Soft and nontender. No rigidity. No distention. good BS x4 Skin: Skin warm and dry. Normal skin color. Normal skin turgor. Extremities: No lower extremity edema. Neurovascular intact to all extremities. No Lacerations. No Rash Neuro: Oriented X 3. No motor deficit. No sensory deficit. Moving all extermities. No slurred speech Medical Decision Making Medical Decision Making [facility] Narrative: My interpretation of patient's EKG showed a sinus rhythm heart rate is 100 [place] QRS QT there is no peak T-waves noted. I reviewed patient's chest x-ray there is no gross evidence of pneumonia pneumothorax. I reviewed the radiologist reading of the chest x-ray. Patient's COVID flu RSV were all negative. Troponin was 72 but this is patient's baseline. He has a history of end-stage renal disease. Hemoglobin is 10 this is baseline patient's white count is normal at 7. His pH is 7.6. There is no evidence for severe acidosis. Patient's potassium is 3.8 there is no evidence for hyperkalemia. Creatinine is 6.9 consistent with end-stage renal disease. Discussed with patient the need to go for dialysis. Unable to get in touch with the nuclear equipment test engineer at this time. Got through to the dialysis nurse. will create a spot for patient at 13:00 today to get dialysis. Will attempt to contact Nephrology again Differential Diagnosis Differential Diagnoses: The differential diagnosis associated with the presentation includes congestive heart failure, pneumonia, ACS, fluid overload, acidosis, uremia, hyperkalemia Admission/Observation Consideration of admission/observation: Escalation of care including admission/observation considered no need for admission no criteria for admission at this time. Would like to get patient to dialysis. Consult Healthcare Provider Management of the patient was discussed with: Site Project Manager Nephrology Lab Data [facility] Lab Attestation statement: I reviewed the patient's lab results. 01/08/23 05:28 01/08/23 05:28 Labs: Lab Results 01/08/23 01/08/23 01/08/23 Range/Units 05:28 05:30 06:00 WBC 7.0 (4.8-10.8) X10*3/uL RBC 3.35 L (4.60-5.80) X10*6/uL Hgb 10.0 L (14.0-18.0) g/dl Hct 30.6 L (42.0-52.0) % MCV 91.3 (80.0-98.0) fL MCH 29.9 (27.0-33.0) pg MCHC 32.7 (31.0-36.0) g/dl RDW 17.8 H (11.0-16.0) % Plt Count 256 (160-400) X10*3/uL MPV 8.9 L (9.4-12.4) fL Immature Gran % (Auto) 0.3 (0.0-0.4) % Neut % (Auto) 79.9 H (45-73) % Lymph % (Auto) 12.9 L (20-40) % Mckinley % (Auto) 4.8 (2-11) % Eos % (Auto) 1.8 (0-4) % Baso % (Auto) 0.3 (0-2) % Lymph # (Auto) 0.9 L (1.2-4.9) X10*3/uL Mckinley # (Auto) 0.3 (0.1-1.2) X10*3/uL Eos # (Auto) 0.1 (0.0-0.4) X10*3/uL Baso # (Auto) 0.0 (0.0-0.2) X10*3/uL Abs Immat Gran (auto) 0.02 (0.00-0.03) X10*3/uL Absolute Neuts (auto) 5.6 (2.0-8.3) x10*3/uL Absolute Nucleated RBC 0.000 (0.0-0.012) X10*3/uL Nucleated RBC % (auto) 0.0 (0.0-0.2) /100WBC VBG pH (7.32-7.43) VBG pCO2 mmHg VBG pO2 mmHg VBG HCO3 (22-26) mmol/L VBG O2 Saturation % VBG Base Excess mmol/L Sodium 139 (135-145) mmol/L Potassium 3.8 (3.3-5.1) mmol/L Chloride 100 (96-108) mmol/L Carbon Dioxide 28 (22-29) mmol/L Anion Gap 15 (12-20) BUN 32 H (9-16) mg/dL Creatinine 6.90 H* (0.5-1.4) mg/dL Estim Creat Clear Calc 12.5 Estimated GFR 8 Random Glucose 188 H (60-115) mg/dL Calcium 9.0 (8.4-10.2) mg/dL Magnesium 1.8 (1.6-2.6) mg/dL Total Bilirubin 0.9 (0.0-1.0) mg/dL AST 13 (5-37) U/L ALT 10 (0-40) U/L Alkaline Phosphatase 63 (39-117) U/L Troponin I High Sens 72.0 H (<3.5-35.0) ng/L Total Protein 6.4 L (6.5-8.0) g/dL Albumin 3.4 L (3.5-5.0) g/dL Influenza Type A (PCR) NEGATIVE (Negative) Influenza Type B (PCR) NEGATIVE (Negative) RSV RNA Qual (PCR) NEGATIVE (Negative) SARS-CoV-2 RNA (RT-PCR) NEGATIVE (Negative) S. pyogenes GrpA NAHID Negative (Negative) 01/08/23 Range/Units 06:03 WBC (4.8-10.8) X10*3/uL RBC (4.60-5.80) X10*6/uL Hgb (14.0-18.0) g/dl Hct (42.0-52.0) % MCV (80.0-98.0) fL MCH (27.0-33.0) pg MCHC (31.0-36.0) g/dl RDW (11.0-16.0) % Plt Count (160-400) X10*3/uL MPV (9.4-12.4) fL Immature Gran % (Auto) (0.0-0.4) % Neut % (Auto) (45-73) % Lymph % (Auto) (20-40) % Mckinley % (Auto) (2-11) % Eos % (Auto) (0-4) % Baso % (Auto) (0-2) % Lymph # (Auto) (1.2-4.9) X10*3/uL Mckinley # (Auto) (0.1-1.2) X10*3/uL Eos # (Auto) (0.0-0.4) X10*3/uL Baso # (Auto) (0.0-0.2) X10*3/uL Abs Immat Gran (auto) (0.00-0.03) X10*3/uL Absolute Neuts (auto) (2.0-8.3) x10*3/uL Absolute Nucleated RBC (0.0-0.012) X10*3/uL Nucleated RBC % (auto) (0.0-0.2) /100WBC VBG pH 7.60 H* (7.32-7.43) VBG pCO2 31 mmHg VBG pO2 90 mmHg VBG HCO3 30 H (22-26) mmol/L VBG O2 Saturation 100.0 % VBG Base Excess 9.2 mmol/L Sodium (135-145) mmol/L Potassium (3.3-5.1) mmol/L Chloride (96-108) mmol/L Carbon Dioxide (22-29) mmol/L Anion Gap (12-20) BUN (9-16) mg/dL Creatinine (0.5-1.4) mg/dL Estim Creat Clear Calc Estimated GFR Random Glucose (60-115) mg/dL Calcium (8.4-10.2) mg/dL Magnesium (1.6-2.6) mg/dL Total Bilirubin (0.0-1.0) mg/dL AST (5-37) U/L ALT (0-40) U/L Alkaline Phosphatase (39-117) U/L Troponin I High Sens (<3.5-35.0) ng/L Total Protein (6.5-8.0) g/dL Albumin (3.5-5.0) g/dL Influenza Type A (PCR) (Negative) Influenza Type B (PCR) (Negative) RSV RNA Qual (PCR) (Negative) SARS-CoV-2 RNA (RT-PCR) (Negative) S. pyogenes GrpA NAHID (Negative) Independent Interpretation I performed an independent interpretation of an: EKG ( as above) and Plain X-Ray ( as above) Radiology Impression Discussion of test interpretation with radiology: I have reviewed the radiologist's reading. Independent Historian Clinical information obtained from an independent historian. History obtained from or confirmed by: Spouse Chronic Conditions Patient?s care impacted by: Diabetes and Hypertension end-stage renal disease Discharge Plan Discharge Clinical Impression: Chronic kidney disease, Elevated troponin, ESRD on dialysis Patient Disposition: Home, Self-Care Instructions: Chronic Kidney Disease (ED), End Stage Kidney Disease (ED) Additional Instructions: Please make sure you get to the dialysis center at 13:00. Prescriptions: No Action omeprazole 20 mg capsule,delayed release(DR/EC) 20 mg PO DAILY PRN (Reason: Heartburn) sevelamer carbonate 800 mg tablet 2,400 mg PO TIDWM albuterol sulfate 90 mcg/actuation HFA aerosol inhaler 2 puff INHALATION Q4-6H PRN (Reason: Shortness Of Breath Or Wheezing) cholecalciferol (vitamin D3) [Vitamin D3] 25 mcg (1,000 unit) capsule 25 mcg PO DAILY@1700 atorvastatin 40 mg Tablet 40 mg PO BEDTIME Qty: 1 0RF aspirin 81 mg Tablet,Delayed Release (Dr/Ec) 81 mg PO DAILY Qty: 1 0RF morphine 15 mg tablet 15 mg PO Q4-6H PRN (Reason: pain) Qty: 10 0RF Rx Instructions: The patient may ask for partial fill; Partial Fill upon patient request. albuterol sulfate 90 mcg/actuation aerosol powdr breath activated 2 inh inhalation Q6H PRN (Reason: shortness of breath or wheezing) Qty: 1 0RF prednisone 20 mg tablet 20 mg PO BID Qty: 10 0RF metoprolol succinate 50 mg tablet extended release 24 hr 50 mg PO QAM isosorbide mononitrate 30 mg tablet extended release 24 hr 30 mg PO DAILY furosemide 80 mg Tablet 80 mg PO MOWEFR montelukast 10 mg tablet 10 mg PO BEDTIME Lumigan 0.01 % drops 1 drp ophthalmic (eye) BEDTIME Brilinta 90 mg tablet 90 mg PO BID Entresto 24-26 mg tablet 1 tab PO BID Vowst Capsule 4 cap PO DAILY 3 Days Qty: 12 0RF vancomycin 125 mg capsule 125 mg PO .m,,wed 30 Days Qty: 13 5RF Referrals: Nadine Hernandez FNP [Primary Care Provider] - 01/11/23 ( Please get dialysis done today at 13:00) Print Language: Citizen [place]
[2023-01-08 08:41] LABS: Troponin-I High Sensitivity 77.7 ng/L (<3.5-35.0)
[2023-01-08 09:59] VITALS: PULSE 92; RESP 18; O2SAT 100
== END 2023-01-08 10:01 | disposition home or self-care (01) ==
PROVIDERS: Emergency Provider Emergency Medicine Emergency Medical Services; PCP Registered Nurse
DX: R06.02 Shortness of breath (principal); I12.0 Hypertensive chronic kidney disease with stage 5 chronic kidney disease or end stage renal disease; E11.22 Type 2 diabetes mellitus with diabetic chronic kidney disease; R00.0 Tachycardia, unspecified; R07.89 Other chest pain; N18.6 End stage renal disease; I25.10 Atherosclerotic heart disease of native coronary artery without angina pectoris; R79.89 Other specified abnormal findings of blood chemistry; Z20.822 Contact with and (suspected) exposure to COVID-19; Z20.828 Contact with and (suspected) exposure to other viral communicable diseases; Z99.2 Dependence on renal dialysis; Z79.899 Other long term (current) drug therapy
CPT/HCPCS: 0241U; 36415; 71045; 80053; 82803; 83735; 84484; 85025; 87651; 93005; 99283; 99285

== ENCOUNTER 2023-01-27 15:26 | Outpatient (AMB) | payer OTHER, SELFPAY ==
--- NOTE | 2023-01-27 15:54 | A.OFFVIS_ITS ---
Intake Vital Signs 01/27/23 16:07 Pulse 79 Pulse Source Pulse Oximeter Pulse Oximetry (%) 99 Intake Visit Reasons: F/U,3 mth.cdiff Bridge Leverman Required: Yes Bridge Leverman Name: Dank Lugo CMA Allergies No Known Allergies [No Known Allergies*] Allergy (Verified 12/14/22 04:51) HPI F/U,3 mth.cdiff HPI Details He is doing well. He hasnt had Cdiff symptoms PFSH Medical History (Updated 02/05/23 @ 23:49 by Yue Mcqueen MD) Diarrhea HFrEF (heart failure with reduced ejection fraction) Dialysis patient CAD (coronary artery disease) C. 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) Alcohol intake: never Comment: pt weak from hd Patient Tobacco Use Status: Never used Tobacco e-Cigarette/Vaping Use: Never Used Second Hand Smoke Exposure: No service: No Current occupational status: retired Review of Systems Const All systems reviewed & are unremarkable except as noted in HPI and below Physical Exam Vital Signs: Last Vital Signs Pulse 79 01/27/23 16:07 Pulse Ox 99 01/27/23 16:07 Const General: cooperative HEENT Head: Yes normal to inspection Face and sinus: Yes normal facial exam Mouth: Normal oral and palatal mucosa present Teeth and gingiva: dentition normal Eyes General: appearance normal, both eyes and all related structures Pupils: Equal, round and reactive pupils present Resp Effort & Inspection: normal respiratory effort Cardio Rate: regular rate Rhythm: regular rhythm GI Palpation (GI): Soft to palpation and nontender General: Yes no CVA tenderness Back/Spine/Pelvis Back: no CVA tenderness Skin General skin exam: no rashes or lesions noted Neuro General: moves all extremities Cranial nerves: Yes Equal, round and reactive pupils present Extrem General: Yes normal to inspection Psych Appearance: grossly normal Assessment & Plan Assessment & Plan (1) End stage renal disease: Comment: He has not had active Cdiff symptoms of diarrhea. Code(s): N18.6 - End stage renal disease Plan: Treat with po Vancomycin prn need. (2) Abdominal pain: Comment: Cdiff related paulyley Code(s): R10.9 - Unspecified abdominal pain Qualifiers: Abdominal location: lower abdomen, unspecified Qualified Code(s): R10.30 - Lower abdominal pain, unspecified Plan: po Vancomycin prn need (3) C. difficile colitis: Comment: He has no active infection. He needs prevention,po M,W,Fri 125 mg Vancomycin. Try to get Vowst fecal transplant (ordered). See in three months. Code(s): A04.72 - Enterocolitis due to Clostridium difficile, not specified as recurrent Plan: treat as above (4) Diarrhea: Code(s): R19.7 - Diarrhea, unspecified Plan: continue po Vancomycin Coding Level of Care Code Est Pt Level 3 (95771) Diagnoses End stage renal disease N18.6 Lower abdominal pain R10.30 Abdominal location: lower abdomen, unspecified C. difficile colitis A04.72 Diarrhea R19.7
[2023-01-27 16:07] VITALS: PULSE 79; O2SAT 99
== END 2023-01-27 16:13 | disposition home or self-care (01) ==
PROVIDERS: PCP Registered Nurse; Visit Provider Internal Medicine
DX: N18.6 End stage renal disease (principal); R10.30 Lower abdominal pain, unspecified; A04.72 Enterocolitis due to Clostridium difficile, not specified as recurrent; R19.7 Diarrhea, unspecified
CPT/HCPCS: 99213

== ENCOUNTER → 2023-01-27 15:26 | Outpatient (BNVA) | payer OTHER, SELFPAY | PROVIDERS: PCP Registered Nurse; Visit Provider Internal Medicine | DX: N18.6 End stage renal disease (principal); R10.30 Lower abdominal pain, unspecified; A04.72 Enterocolitis due to Clostridium difficile, not specified as recurrent; R19.7 Diarrhea, unspecified | CPT/HCPCS: 99212 ==

== ENCOUNTER 2023-11-21 07:18 | Inpatient (IN) | payer OTHER, SELFPAY ==
[2023-11-21] VITALS (11 sets, daily range): BP systolic 158–189; BP diastolic 61–97; PULSE 87–100; RESP 16–18; TEMP 36.5–37.1; O2SAT 96–100; BMI 25.5
--- NOTE | ~2023-11-21 | XR_ITS ---
EXAMINATION: XR CHEST CLINICAL INFORMATION: Productive cough. Shortness of breath. COMPARISON: Most recent chest radiograph dated 01/08/2023. TECHNIQUE: Frontal view of the chest was obtained. FINDINGS: Minimal right middle lobe airspace opacity adjacent to the right hilum, new when compared to the prior examination. Findings could represent early pneumonia. No pleural effusion or pneumothorax. Stable cardiomediastinal silhouette. XR/XR chest 1V IMPRESSION: Minimal right middle lobe airspace opacity, new when compared to the prior examination. Findings could represent early pneumonia. Electronically signed by: Frank Howard MD 11/21/2023 08:40 AM EDT
--- NOTE | 2023-11-21 08:10 | ECG_ITS ---
Test Reason : COUGH SOB Blood Pressure : / mmHG Vent. Rate : 087 BPM Atrial Rate : 087 BPM P-R Int : 166 ms QRS Dur : 092 ms QT Int : 378 ms P-R-T Axes : 061 -25 096 degrees QTc Int : 454 ms Normal sinus rhythm Moderate voltage criteria for LVH, may be normal variant ( R in aVL , [place] product ) Possible Lateral infarct , age undetermined Abnormal ECG When compared with ECG of 08-JAN-2023 05:10, No significant change was found Referred By: Moo Samayoa Electronically Signed By:DIANNE BELLA
--- OUTSIDE RECORDS SUMMARY | 2023-11-21 08:11 | XMS_ITS | Continuity of Care Document ---
Author Organization [facility] Address [address] [facility] [address] [place] [address]- Care Team Providers Care Manager Benefit Name Role Phone Israel Caraballo NP Primary Care Physician [phone] [place]counter [facility] [place](s): 03/23/23 - 04/22/23 [facility] [address] [facility] [address] [place] [address]- Attending Physician: Madison Angelo Admitting Physician: Madison [...] Maintenance, 01/16/22 10:41:00 EST,Route to Pharmacy Electronically, [facility], Partial fill upon patient [...] 01/16/22 10:42:00 EST, Route to Pharmacy Electronically, [facility], Partial fill upon patient request if the prescription is for a schedule II opioi... Start Date: 01/16/22 Status: Ordered metoprolol 50 mg oral tablet, extended release 50 mg, 1, tablet, By Mouth, Daily, # 90 tablet, Refills 0, Tot. Refills 0, Maintenance, 01/16/22 10:43:00 EST, Route to Pharmacy Electronically, [facility], Partial fill upon patient [...] 11 Refills, Maintenance, 01/16/22 10:44:00 EST, Tablet, [facility], Partial fill upon patient [...] type 2) Confirmed Active 1Needs colonscopy 2027 Cardiology Consult note * Event Display: Consult Note Cardiology Authored Date: Cardiology * Event Display: Cardiology Office Note, Non- Authored Date: Patient Care team information Care Team Personnel Name: Ilya PLANNER/SCHEDULER, Israel Position: [facility] Associate Professional Member Role: PCP Address: Address: [address] [place] [address] Name: Melissa Hermosillo Position: [facility] Outreach Member Role: Lifetime Consulting Physician Name: Deidre Lopez RN Position: [facility] Nurse Member Role: Primary Care Nurse Care Team Related Persons Name: TORY DE LA GARZA Address: home [address] [place] [address] [place] [id number] Name: BRIELLE ROD Address: home [address] [place] [address] [place] [id number] Name: MICHAEL GIBSON Address: [place] [address]
--- OUTSIDE RECORDS SUMMARY | 2023-11-21 08:11 | XMS_ITS | Continuity of Care Document ---
Author Organization [facility] Address [address] [facility] [address] [place] [address]- Care Team Providers Care Sales Leader Name Role Phone Ilya RANDOLPH, Israel Primary Care Physician [place] [facility] [place](s): 10/07/23 - 11/06/23 [facility] [address] [facility] [place] [address]- Attending Physician: Madison Angelo Admitting Physician: AdmMadison garcia Referring Physician: Admtr, Ar8 Allergies, Adverse Reactions, [...] Team Personnel Name: Israel Caraballo NP Position: [facility] Associate Professional Member Role: PCP Address: Address: [address] [place] [address] Name: Melissa Hermosillo Position: [facility] Outreach Member Role: Lifetime Consulting Physician Care Team Related Persons Name: TORY DE LA GARZA Address: home [address] [place] [id number] Name: BRIELLE ROD Address: home [address] [place] [address] Name: MICHAEL GIBSON Address: [place] [address]
--- OUTSIDE RECORDS SUMMARY | 2023-11-21 08:12 | XMS_ITS ---
Author Organization [facility] Address [address] [place] [address] Care Team Providers Care Shape Hand Name Role Phone KENIA SUTTON MD Primary Care Provider UnavailLenin Hamilton Unavailable [phone] REASON FOR VISIT cancel appt Encounters Encounter Location Date Provider Diagnosis [facility] [address] [place] [address] 03/30/2023 Lenin Douglass PLAN OF TREATMENT No Information
--- OUTSIDE RECORDS SUMMARY | 2023-11-21 08:12 | XMS_ITS ---
Author Organization [facility] Address [address] [place] [address] Care Team Providers Care Bulk Plant Manager Name Role Phone KENIA SUTTON MD Primary Care Provider Lenin Rai Unavailable [phone] REASON FOR VISIT Needs advise on where to pt in for fecal transplant Encounters Encounter Location Date Provider Diagnosis [facility] [address] [place] [address] 09/22/2023 Lenin Douglass PLAN OF TREATMENT No Information
--- OUTSIDE RECORDS SUMMARY | 2023-11-21 08:12 | XMS_ITS ---
Author Organization [facility] Address [address] [place] [address] Care Team Providers Care Monitor Technician Name Role Phone KENIA SUTTON MD Primary Care Provider Lenin Rai Unavailable [phone] REASON FOR VISIT Patient presents today for DIARRHEA Encounters Encounter Location Date Provider Diagnosis [facility] [address] [place] [address] 03/30/2023 Lenin Douglass PLAN OF TREATMENT No Information
--- OUTSIDE RECORDS SUMMARY | 2023-11-21 08:12 | XMS_ITS | Patient Health Record ---
Author Organization [facility] Address [address] [place] [address] Care Team Providers Care Investor Relations Manager Name Role Phone KENIA SUTTON MD Primary Care Provider Lenin Rai [phone] REASON FOR REFERRAL No Information SOCIAL HISTORY Sex Assigned At : Social History Observation Description Sex Assigned At Unknown Encounters Encounter Location Date Provider Diagnosis [facility] [address] [place] [address] 03/30/2023 Lenin Douglass [facility] [address] [place] [address] 03/30/2023 Lenin Douglass [facility] [address] [place] [address] 09/22/2023 Lenin Douglass PLAN OF TREATMENT No Information Insurance Providers Payer Name Payer Address Payer Phone Subscriber Number Group Number Insured Name Patient Relationship to Insured Coverage Start Date Coverage End Date [facility] Claims [address] [address] [place] [address] [id number] VALE CUENCA Self - patient is the insured
--- NOTE | 2023-11-21 08:17 | ED_ITS ---
HPI - General Adult General Chief complaint: Upper Respiratory Symptoms Stated complaint: Asthma Time Seen by Provider: 11/21/23 08:10 Source: patient Mode of arrival: ambulatory Limitations: no limitations History of Present Illness ED Provider: Denisa TOBIN HPI narrative: 63-year-old male history of end-stage renal disease on dialysis Wednesday, Wednesday, Wednesday, hypertension, pulmonary edema, cardiomyopathy, history of C diff, diabetes presenting to the emergency department with shortness of breath, productive cough, fatigue, malaise, myalgias ongoing for the past 3 days. Multiple sick contacts at home with similar symptoms. He reports he is short of breath at all times however worse when he is lying flat. Denies associated chest pain. Denies fevers, chills, nausea, vomiting, abdominal pain. Related Data Home Medications ?Medication ?Instructions ?Recorded ?Confirmed omeprazole 20 mg capsule,delayed 20 mg PO DAILY PRN Heartburn 08/24/21 08/31/22 release sevelamer carbonate 800 mg tablet 2,400 mg PO TIDWM 08/24/21 08/31/22 albuterol sulfate 90 mcg/actuation 2 puff inhalation Q4-6H PRN 01/12/22 08/31/22 aerosol inhaler Shortness Of Breath Or Wheezing cholecalciferol (vitamin D3) 25 25 mcg PO DAILY@1700 01/12/22 08/31/22 mcg (1,000 unit) capsule (Vitamin D3) bimatoprost 0.01 % eye drops 1 drp ophthalmic (eye) BEDTIME 07/20/22 08/31/22 (Vida) furosemide 80 mg tablet 80 mg PO MOWEFR 07/20/22 08/31/22 isosorbide mononitrate 30 mg 30 mg PO DAILY 07/20/22 08/31/22 tablet,extended release 24 hr metoprolol succinate 50 mg 50 mg PO QAM 07/20/22 08/31/22 tablet,extended release 24 hr montelukast 10 mg tablet 10 mg PO BEDTIME asthma 07/20/22 08/31/22 sacubitril 24 mg-valsartan 26 mg 1 tab PO BID 07/20/22 08/31/22 tablet (Entresto) ticagrelor 90 mg tablet (Brilinta) 90 mg PO BID 07/20/22 08/31/22 Previous Rx's ?Medication ?Instructions ?Recorded aspirin 81 mg tablet,delayed 81 mg PO DAILY #1 tab 01/14/22 release atorvastatin 40 mg tablet 40 mg PO BEDTIME #1 tab 01/14/22 fecal microbio spore,live-brpk 4 cap PO DAILY 3 days #12 caps 10/23/22 (Vowst capsule) morphine 15 mg immediate release 15 mg PO Q4-6H PRN pain #10 tabs 11/16/22 tablet albuterol sulfate 90 mcg/actuation 2 inh inhalation Q6H PRN shortness 12/14/22 breath activated powder inhaler of breath or wheezing #1 ea prednisone 20 mg tablet 20 mg PO BID #10 tabs 12/14/22 vancomycin 125 mg capsule 125 mg PO .,,wed 30 days #13 caps 02/05/23 albuterol sulfate 2.5 mg/3 mL 2.5 mg (3 mL) inhalation Q6H #75 mL 11/21/23 (0.083 %) solution for nebulization albuterol sulfate 90 mcg/actuation 2 inh inhalation Q4-6H PRN 11/21/23 breath activated powder inhaler shortness of breath or wheezing #1 ea Allergies Allergy/AdvReac Type Severity Reaction Status Date / Time No Known Allergies Allergy Verified 11/21/23 07:31 [No Known Allergies*] Review of Systems 2 Review of Systems: Yes all other systems are reviewed and are negative PMFSH Past Medical History Attestation statement: The following information was validated with the patient. Source: old records reviewed and nursing notes reviewed Medical History (Updated 11/21/23 @ 09:11 by GISELA William) Diarrhea HFrEF (heart failure with reduced ejection fraction) Dialysis patient CAD (coronary artery disease) C. 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 Oriented X3.? No acute distress.? Head: Normocephalic, atraumatic, no step-offs or deformities Eyes: Pupils equal, round and reactive to light.? CVS: Normal heart rate and rhythm.? Pulses normal.? Respiratory: No respiratory distress.? Breath sounds minimal expiratory wheezing b/l..? Abdomen: Soft and nontender.? Skin: Skin warm and dry.? Normal skin color.? Normal skin turgor.? Extremities: No lower extremity edema.? No calf ttp. 5/5 strength to bilateral upper and lower extremities Neuro: Oriented X 3.? No motor deficit.? No sensory deficit. CN 2-12 intact Course Reevaluation(s) Reevaluation #1: CBC with no acute findings needing intervention at baseline normocytic anemia noted. Chemistry with baseline CKD patient is due for dialysis tomorrow. Patient's BNP significantly elevated 2344 again likely secondary to CKD/viral illness patient again is due for dialysis tomorrow. EKG is nonischemic troponin elevated however secondary to CKD I do not suspect this is ACS. Time: 08:58 Reevaluation #2: Consulted nephro Dr. Dennis who is aware of the case, they will follow patient while in the hospital needed. Time: 09:11 Medications Administered Discontinued Medications Generic Name Dose Route Start Last Admin Trade Name Freq PRN Reason Stop Dose Admin Albuterol Sulfate 5 mg 11/21/23 08:39 11/21/23 08:50 Albuterol Sulfate (0.083%) 2.5 Mg/3 Ml Vial.Neb INHALE 11/21/23 08:40 5 mg ONCE ONE Administration Medical Decision Making Medical Decision Making MDM Narrative: 2018 63 year old male presents w/ cough X 3 days PE minimal expiratory wheezing bilaterally Hx and pe concerning for virall illness vs bronchitis vs pna vs chf Unlikely pe, acs, ards, dissection. Will rule out metabolic derangements Plan- labs, imaging, ekg Differential Diagnosis Differential Diagnoses: The differential diagnosis associated with the presentation includes (Hx and pe concerning for virall illness vs bronchitis vs pna vs chf. Unlikely pe, acs, ards, dissection, CHF. Will rule out metabolic derangements ) Admission/Observation Consideration of admission/observation: Escalation of care including admission/observation considered possible Lab Data MDM Lab Attestation statement: I reviewed the patient's lab results. 11/21/23 08:28 11/21/23 08:28 Labs: Lab Results 11/21/23 11/21/23 Range/Units 07:35 08:28 WBC 5.2 (4.8-10.8) X10*3/uL RBC 3.12 L (4.60-5.80) X10*6/uL Hgb 10.0 L (14.0-18.0) g/dl Hct 29.5 L (42.0-52.0) % MCV 94.6 (80.0-98.0) fL MCH 32.1 (27.0-33.0) pg MCHC 33.9 (31.0-36.0) g/dl RDW 13.9 (11.0-16.0) % Plt Count 159 L D (160-400) X10*3/uL MPV 8.8 L (9.4-12.4) fL Immature Gran % (Auto) 0.4 (0.0-0.4) % Neut % (Auto) 60.1 (45-73) % Lymph % (Auto) 24.4 (20-40) % Sevier % (Auto) 8.7 (2-11) % Eos % (Auto) 6.0 H (0-4) % Baso % (Auto) 0.4 (0-2) % Lymph # (Auto) 1.3 (1.2-4.9) X10*3/uL Sevier # (Auto) 0.5 (0.1-1.2) X10*3/uL Eos # (Auto) 0.3 (0.0-0.4) X10*3/uL Baso # (Auto) 0.0 (0.0-0.2) X10*3/uL Abs Immat Gran (auto) 0.02 (0.00-0.03) X10*3/uL Absolute Neuts (auto) 3.1 (2.0-8.3) x10*3/uL Absolute Nucleated RBC 0.000 (0.0-0.012) X10*3/uL Nucleated RBC % (auto) 0.0 (0.0-0.2) /100WBC Sodium 140 (135-145) mmol/L Potassium 4.2 (3.3-5.1) mmol/L Chloride 102 (96-108) mmol/L Carbon Dioxide 27 (22-29) mmol/L Anion Gap 15 (12-20) BUN 42 H (9-16) mg/dL Creatinine 8.26 H* (0.5-1.4) mg/dL Estim Creat Clear Calc 10.3 Estimated GFR 7 Random Glucose 166 H (60-115) mg/dL Calcium 9.4 (8.4-10.2) mg/dL Total Bilirubin 0.5 (0.0-1.0) mg/dL AST 11 (5-37) U/L ALT 10 (0-40) U/L Alkaline Phosphatase 88 (39-117) U/L Troponin I High Sens 42.9 H (<3.5-35.0) ng/L B-Natriuretic Peptide 2344 H (<100) pg/mL Total Protein 6.7 (6.5-8.0) g/dL Albumin 3.4 L (3.5-5.0) g/dL Influenza Type A (PCR) NEGATIVE (Negative) Influenza Type B (PCR) NEGATIVE (Negative) RSV RNA Qual (PCR) NEGATIVE (Negative) SARS-CoV-2 RNA (RT-PCR) NEGATIVE (Negative) Critical Care Time Critical Care Time Critical Care Time: Yes Total Critical Care Time: 45 Attestation: I attest to this time spent taking care of the patient, obtaining history, physical, reviewing labs, imaging, treatment of patients condition +/- specialist/hospitalist consult Discharge Plan Discharge Clinical Impression: Pneumonia, CKD (chronic kidney disease), CHF (congestive heart failure) Patient Disposition: Admitted As Inpatient Instructions: Acute Bronchitis (ED) Additional Instructions: Take your medications as prescribed. If you were prescribed antibiotics today, it is important that you take your medication to their entirety, do not skip any doses, do not finish them early. Follow-up with your primary care provider this week. Return to the emergency department with new or worsening symptoms. Such as fevers, chills, chest pain, shortness of breath, nausea, vomiting, dizziness, headache, vision changes, lethargy In case of emergency call 911 Prescriptions: New albuterol sulfate 2.5 mg /3 mL (0.083 %) solution for nebulization 2.5 mg inhalation Q6H Qty: 75 0RF albuterol sulfate 90 mcg/actuation aerosol powdr breath activated 2 inh inhalation Q4-6H PRN (Reason: shortness of breath or wheezing) Qty: 1 0RF No Action omeprazole 20 mg capsule,delayed release(DR/EC) 20 mg PO DAILY PRN (Reason: Heartburn) sevelamer carbonate 800 mg tablet 2,400 mg PO TIDWM albuterol sulfate 90 mcg/actuation HFA aerosol inhaler 2 puff INHALATION Q4-6H PRN (Reason: Shortness Of Breath Or Wheezing) cholecalciferol (vitamin D3) [Vitamin D3] 25 mcg (1,000 unit) capsule 25 mcg PO DAILY@1700 atorvastatin 40 mg Tablet 40 mg PO BEDTIME Qty: 1 0RF aspirin 81 mg Tablet,Delayed Release (Dr/Ec) 81 mg PO DAILY Qty: 1 0RF morphine 15 mg tablet 15 mg PO Q4-6H PRN (Reason: pain) Qty: 10 0RF Rx Instructions: The patient may ask for partial fill; Partial Fill upon patient request. albuterol sulfate 90 mcg/actuation aerosol powdr breath activated 2 inh inhalation Q6H PRN (Reason: shortness of breath or wheezing) Qty: 1 0RF prednisone 20 mg tablet 20 mg PO BID Qty: 10 0RF metoprolol succinate 50 mg tablet extended release 24 hr 50 mg PO QAM isosorbide mononitrate 30 mg tablet extended release 24 hr 30 mg PO DAILY furosemide 80 mg Tablet 80 mg PO MOWEFR montelukast 10 mg tablet 10 mg PO BEDTIME Lumigan 0.01 % drops 1 drp ophthalmic (eye) BEDTIME Brilinta 90 mg tablet 90 mg PO BID Entresto 24-26 mg tablet 1 tab PO BID Vowst Capsule 4 cap PO DAILY 3 Days Qty: 12 0RF vancomycin 125 mg capsule 125 mg PO .,,wed 30 Days Qty: 13 5RF Referrals: Matthieu Zelaya PA-C [Primary Care Provider] - 2 days Stand Alone Forms: Work/School Release Print Language: Maltese
[2023-11-21 08:27] LABS: Influenza A PCR NEGATIVE (Negative); Influenza B PCR NEGATIVE (Negative); Resp Syncy Virus RNA Qual PCR NEGATIVE (Negative); SARS COV2 PCR INHOUSE NEGATIVE (Negative)
[2023-11-21 08:31] LABS: MANUAL DIFF FLAG NO
[2023-11-21 08:33] LABS: Basophils Percent Auto 0.4 % (0-2); Eosinophils Absolute Auto 0.3 X10*3/uL (0.0-0.4); Hematocrit 29.5 % (42.0-52.0); Imm Gran Abs Auto 0.02 X10*3/uL (0.00-0.03); Imm Gran Pct Auto 0.4 % (0.0-0.4); Lymphocytes Absolute Auto 1.3 X10*3/uL (1.2-4.9); Lymphocytes Percent Auto 24.4 % (20-40); Mean Corpuscular HGB Conc 33.9 g/dl (31.0-36.0); Mean Corpuscular Hemoglobin 32.1 pg (27.0-33.0); Mean Corpuscular Volume 94.6 fL (80.0-98.0); Mean Platelet Volume 8.8 fL (9.4-12.4); Monocytes Absolute Auto 0.5 X10*3/uL (0.1-1.2); Monocytes Percent Auto 8.7 % (2-11); Neutrophils Absolute Auto 3.1 x10*3/uL (2.0-8.3); Neutrophils Percent Auto 60.1 % (45-73); Platelet Count 159 X10*3/uL (160-400); Red Blood Count 3.12 X10*6/uL (4.60-5.80); Red Cell Distribution Width 13.9 % (11.0-16.0); White Blood Count 5.2 X10*3/uL (4.8-10.8)
[2023-11-21] MEDS: Albuterol Sulfate (0.083%) 2.5 MG/3 ML VIAL.NEB 5 MG INHALE (08:50)
[2023-11-21 08:53] LABS: Alanine Aminotransferase 10 U/L (0-40); Albumin Level 3.4 g/dL (3.5-5.0); Alkaline Phosphatase 88 U/L (39-117); Anion Gap 15 (12-20); Aspartate Amino Transferase 11 U/L (5-37); B Type Natriuretic Peptide 2344 pg/mL (<100); Bilirubin Total 0.5 mg/dL (0.0-1.0); Blood Urea Nitrogen 42 mg/dL (9-16); Calcium 9.4 mg/dL (8.4-10.2); Carbon Dioxide 27 mmol/L (22-29); Chloride 102 mmol/L (96-108); Creatinine Clr Calc Pharmacy 10.3; Estimated Glomerular Filt Rate 7; Glucose Random 166 mg/dL (60-115); Potassium 4.2 mmol/L (3.3-5.1); Sodium 140 mmol/L (135-145); Total Protein 6.7 g/dL (6.5-8.0)
[2023-11-21 08:56] LABS: Troponin-I High Sensitivity 42.9 ng/L (<3.5-35.0)
[2023-11-21] MEDS: cefTRIAXone sodium 1 GM in 0.9 % Sodium Chloride 50 ML IV (09:27)
[2023-11-21] MEDS: methylPREDNISolone Sod Succ 125 MG/2 ML VIAL IVPUSH (09:27)
[2023-11-21] MEDS: Furosemide 40 MG/4 ML VIAL IVPUSH ×2 (09:27→17:02)
--- NOTE | 2023-11-21 09:37 | PC.NURSE ---
patient a&ox3, vss, lungs in/ex wheezing, pt difficult stick- multiple attempts/dialysis patient. IV inserted, labs drawn, blood cultures drawn, ekg performed, color television console monitor applied-nsr, pt medicated per order, iv abx per order, RT given updraft, AV fistula + bruit/thriss, pt states he urinates small amounts- spoke with provider who ok'd the lasix to be given as he does urinate at times. call verdugo within reach, pt to be admitted-charge aware, will continue with plan of care
[2023-11-21 09:40] LABS: Lactic Acid 1.2 mmol/L (0.5-2.0)
[2023-11-21] MEDS: Azithromycin 500 MG in 0.9 % Sodium Chloride 250 ML 125 MG IV (10:02)
--- NOTE | 2023-11-21 10:05 | PC.NURSE ---
this nurse spoke with providers and pt is NOT sepsis protocol per provider. pt administered 2nd set of abx per orders.
--- NOTE | 2023-11-21 10:05 | PC.NURSE ---
dialysis days pt goes to dialysis m, w, f
[2023-11-21 10:47] LABS: Troponin-I High Sensitivity 44.4 ng/L (<3.5-35.0)
--- NOTE | 2023-11-21 11:56 | PHA.MEDREC ---
Addendum entered by Jasiel Banerjee [facility] 11/21/23 13:07: MED REC CHECKED BY [facility] Addendum entered by Lee Mitchell 11/21/23 11:57: Utilized Human Resources Technician services. Original Note: Pharmacy Consult ? Medication Reconciliation Pharmacy has completed the medication reconciliation. Pt states they take all confirmed meds. According to patient, their steam fitter supervisor maintenance put them on Inpefa recently.
[2023-11-21 12:04] LABS: Glucose, Whole Blood 208 mg/dL (60-115)
[2023-11-21 12:41] LABS: Adenovirus PCR Not Detected (Not Detect.); Bordetella parapertussis PCR Not Detected (Not Detect.); Bordetella pertussis PCR Not Detected (Not Detect.); Chlamydia pneumoniae PCR Not Detected (Not Detect.); Coronavirus 229E PCR Not Detected (Not Detect.); Coronavirus HKU1 PCR Not Detected (Not Detect.); Coronavirus NL63 PCR Not Detected (Not Detect.); Coronavirus OC43 PCR Not Detected (Not Detect.); Human metapneumovirus PCR Not Detected (Not Detect.); Influenza A PCR Not Detected (Not Detect.); Influenza B PCR Not Detected (Not Detect.); Mycoplasma pneumoniae PCR Not Detected (Not Detect.); Parainfluenza 1 PCR Not Detected (Not Detect.); Parainfluenza 2 PCR Not Detected (Not Detect.); Parainfluenza 3 PCR Not Detected (Not Detect.); Parainfluenza 4 PCR Not Detected (Not Detect.); RSV PCR Not Detected (Not Detect.); Rhino/Enterovirus PCR Detected (Not Detect.)
[2023-11-21 13:00] LABS: SARS-CoV-2 PCR Not Detected (Not Detect.)
[2023-11-21] MEDS: Insulin Lispro 100 UNIT/ML 3 ML VIAL SUBCUT ×3 (13:37→21:29)
--- NOTE | 2023-11-21 13:39 | PC.NURSE ---
re: late admin of insulin- tray arrived on unit 1330
--- NOTE | 2023-11-21 13:54 | PM.IMHP ---
History of Present Illness Date of Service: 11/21/23 Attending physician on admission: Aminta Brito Chief Complaint: sob 63y/o M with hx of esrd on dialysis(m,w,f) hypertension, pulmonary edema, CAD status post stent in , cardiomyopathy, history of C diff, diabetes, chronic normocytic anemia, says recently completed antibiotics for C diff(?taper):Patient multiple family members had URI like symptoms subsequently patient also had URI like symptoms afterwards started developing shortness of breath and cough productive. No hypoxia, He gets short of breath with minimal exertion as well as could not lie flat. Denies any chest pain or palpitations, Denies fevers, chills, nausea, vomiting, abdominal pain. In the ED: Patient has no leukocytosis, creatinine in his usual range of 8. Chest x-ray shows pneumonia right middle lobe. Admission was requested for treatment of pneumonia. Review of Systems Review of Systems: As above. Yes all other systems are reviewed and are negative [facility] Medical History Diarrhea HFrEF (heart failure with reduced ejection fraction) Dialysis patient CAD (coronary artery disease) C. difficile colitis Cardiomyopathy HTN (hypertension) Anemia in chronic renal disease Diabetes Asthma End stage chronic kidney disease Family History Mother CAD (coronary artery disease) Surgical History S/P cardiac catheterization AV fistula Social History Household Members: Spouse Housing: Apartment Do you presently have visiting nurse or other home services: Yes (chemist intern) Alcohol intake: never Comment: pt weak from hd Patient Tobacco Use Status: Never used Tobacco Smoked in Last 30 Days: No e-Cigarette/Vaping Use: Never Used Second Hand Smoke Exposure: No Use of substances other than those prescribed or required for medical reasons: No Advance Directives: No Advance Directives Information Provided: Yes service: No Current occupational status: retired Meds Allergies Allergy/AdvReac Type Severity Reaction Status Date / Time No Known Allergies Allergy Verified 11/21/23 07:31 [No Known Allergies*] Active Medications: Current Medications Acetaminophen (Acetaminophen 325 Mg Tablet) 650 mg PO Q6H PRN PRN Reason: Pain, Mild (Pain Scale 1-3), fever or headache Calcium Carbonate (Calcium Carbonate 750 Mg Tab.Chew) 750 mg PO Q4H PRN PRN Reason: Heartburn Glucose (Glucose Gel 15 Gm Gel..Gram.) 15 gm PO Q15M PRN; Protocol PRN Reason: per Hypoglycemia Standing Ord. Dextrose (D10) 250 mls @ 750 mls/hr IV Q15M PRN; Protocol PRN Reason: per Hypoglycemia Standing Ord. Insulin Human Lispro (Insulin Lispro 100 Unit/Ml 3 Ml Vial) 0 unit SUBCUT [facility]; Protocol Last Admin: 11/21/23 13:37 Dose: 4 unit Magnesium Hydroxide (Milk Of Magnesia 30 Ml Oral.Susp) 30 ml PO DAILY PRN PRN Reason: Constipation Melatonin (Melatonin 3 Mg Tablet) 6 mg PO BEDTIME PRN PRN Reason: Insomnia Sodium Chloride (0.9 % Sodium Chloride Flush 3 Ml Syringe) 3 ml IVFLUSH [facility] Home Medications ?Medication ?Instructions ?Recorded ?Confirmed ?Last Taken ?Type omeprazole 20 mg capsule,delayed 20 mg PO DAILY PRN Heartburn 08/24/21 11/21/23 08/23/21 History release sevelamer carbonate 800 mg tablet 800 mg PO TIDWM 08/24/21 11/21/23 11/20/23 History furosemide 80 mg tablet 80 mg PO MOWEFR 07/20/22 11/21/23 11/19/23 History isosorbide mononitrate 30 mg 30 mg PO DAILY 07/20/22 11/21/23 11/20/23 History tablet,extended release 24 hr metoprolol succinate 50 mg 50 mg PO DAILY 07/20/22 11/21/23 11/20/23 History tablet,extended release 24 hr montelukast 10 mg tablet 10 mg PO BEDTIME asthma 07/20/22 11/21/23 11/20/23 History sacubitril 24 mg-valsartan 26 mg 1 tab PO BID 07/20/22 11/21/23 11/20/23 History tablet (Entresto) brimonidine 0.2 %-timolol 0.5 % 1 drp ophthalmic (eye) Q12H 11/21/23 11/21/23 11/20/23 History eye drops carvedilol 3.125 mg tablet 3.125 mg PO BIDWM 11/21/23 11/21/23 11/20/23 History sotagliflozin 200 mg tablet 200 mg PO DAILY 11/21/23 11/21/23 11/20/23 History (Inpefa) vericiguat 5 mg tablet (Verquvo) 5 mg PO DAILY 11/21/23 11/21/23 11/20/23 History Physical Exam Vital Signs and Narrative: Vital Signs: Last Vital Signs Temp 98.3 F 11/21/23 09:26 Pulse 87 11/21/23 09:26 Resp 18 11/21/23 09:41 BP 168/66 H 11/21/23 09:27 Pulse Ox 98 11/21/23 09:26 O2 Del Method Room Air 11/21/23 09:26 BMI result Body Mass Index 25.5 Appearance: Alert.? Oriented X3.? cvs: rrr, [id number] , no murmur res: air entry fair, has diminshed breath sound right>left. abd: no rebound or guarding ,nt, bs present. ext pulses present , no cyanosis neuro: axo3 , nonfocal. Results Labs 11/21/23 08:28 11/21/23 08:28 Labs: Laboratory Results - last 24 hr 11/21/23 11/21/23 11/21/23 07:35 08:28 09:16 MCV 94.6 MCH 32.1 MCHC 33.9 RDW 13.9 Plt Count 159 L D MPV 8.8 L Immature Gran % (Auto) 0.4 Neut % (Auto) 60.1 Lymph % (Auto) 24.4 [place] % (Auto) 8.7 Eos % (Auto) 6.0 H Baso % (Auto) 0.4 Lymph # (Auto) 1.3 [place] # (Auto) 0.5 Eos # (Auto) 0.3 Baso # (Auto) 0.0 Abs Immat Gran (auto) 0.02 Absolute Neuts (auto) 3.1 Absolute Nucleated RBC 0.000 Nucleated RBC % (auto) 0.0 Anion Gap 15 Estim Creat Clear Calc 10.3 Estimated GFR 7 POC Glucose Random Glucose 166 H Lactic Acid 1.2 Calcium 9.4 Total Bilirubin 0.5 AST 11 ALT 10 Alkaline Phosphatase 88 Troponin I High Sens 42.9 H B-Natriuretic Peptide 2344 H Total Protein 6.7 Albumin 3.4 L Respiratory Panel Mora Adenovirus (Rapid PCR) B.pert (TEM-PCR) B.parapertussis DNA PCR C. pneumoniae DNA (PCR) Coronavirus OC43 (PCR) Coronavirus HKU1 (PCR) Coronavirus 229E (PCR) Coronavirus NL63 (PCR) Human Metapneumovir PCR Influenza A (RT-PCR) Influenza Type A (PCR) NEGATIVE Influenza B (RT-PCR) Influenza Type B (PCR) NEGATIVE M. pneumoniae (PCR) Parainfluenza 1 (PCR) Parainfluenza 2 (PCR) Parainfluenza 3 (PCR) Parainfluenza 4 (PCR) RSV (PCR) RSV RNA Qual (PCR) NEGATIVE Entero/Rhino (PCR) SARS-CoV-2 RNA (RT-PCR) NEGATIVE 11/21/23 11/21/23 11/21/23 10:22 10:53 12:00 MCV MCH MCHC RDW Plt Count MPV Immature Gran % (Auto) Neut % (Auto) Lymph % (Auto) [place] % (Auto) Eos % (Auto) Baso % (Auto) Lymph # (Auto) [place] # (Auto) Eos # (Auto) Baso # (Auto) Abs Immat Gran (auto) Absolute Neuts (auto) Absolute Nucleated RBC Nucleated RBC % (auto) Anion Gap Estim Creat Clear Calc Estimated GFR POC Glucose 208 H Random Glucose Lactic Acid Calcium Total Bilirubin AST ALT Alkaline Phosphatase Troponin I High Sens 44.4 H B-Natriuretic Peptide Total Protein Albumin Respiratory Panel Mora See Note Adenovirus (Rapid PCR) Not Detected B.pert (TEM-PCR) Not Detected B.parapertussis DNA PCR Not Detected C. pneumoniae DNA (PCR) Not Detected Coronavirus OC43 (PCR) Not Detected Coronavirus HKU1 (PCR) Not Detected Coronavirus 229E (PCR) Not Detected Coronavirus NL63 (PCR) Not Detected Human Metapneumovir PCR Not Detected Influenza A (RT-PCR) Not Detected Influenza Type A (PCR) Influenza B (RT-PCR) Not Detected Influenza Type B (PCR) M. pneumoniae (PCR) Not Detected Parainfluenza 1 (PCR) Not Detected Parainfluenza 2 (PCR) Not Detected Parainfluenza 3 (PCR) Not Detected Parainfluenza 4 (PCR) Not Detected RSV (PCR) Not Detected RSV RNA Qual (PCR) Entero/Rhino (PCR) Detected A SARS-CoV-2 RNA (RT-PCR) Not Detected Imaging Radiologist's Impressions: Impressions Chest X-Ray 11/21/23 07:35 IMPRESSION: Minimal right middle lobe airspace opacity, new when compared to the prior examination. Findings could represent early pneumonia. Electronically signed by: Frank Howard MD 11/21/2023 08:40 AM EDT RP Workstation: [id number] Assessment and Plan (1) Pneumonia: Qualifiers: Pneumonia type: due to unspecified organism Laterality: right Lung location: middle lobe of lung Qualified Code(s): J18.9 - Pneumonia, unspecified organism Status: Acute Plan 63yo M with CAD s/p PCI Nov 2021, cardiomyopathy, HFrEF, ESRD on HD, anemia of ESRD, HTN, asthma cdiff recently completed antibiotics (? Completed Taper) Pneumonia : Patient is 63-year-old, end-stage renal disease, diabetes, unable to lie flat as well as shortness of breath with minimal exertion even though sats are fine. RPP Lactic acid normal, no leukocytosis Blood cultures sent C ontinue ceftriaxone azithromycin Id evaluation ESRD on HD- Nephro consult, on HD MWF Switched to IV Lasix 40 b.i.d. until tomorrow gets dialysis HTN HFrEF, chronic: when med reconcilled then we start- Imdur, metoprolol, Entresto, furosemide CAD- continue atorvastatin, DAPT, Imdur, metoprolol DM2- lisa-dose lispro, hold GPZ anemia of ESRD- monitor H+H asthma not in acute exac- montelukast, prn albuterol VTE ppx: UFH Ongoing need for hospitalization-considering 63-year-old with end-stage renal disease as well as diabetes and worsening respiratory status ,as well as hx of reccurrent cdiff -patient will benfefit for inpatient hospital admit with iv antibiotic s, Id input and close monitering of respiratory status, patient may need 2 midnight stays. Above management discussed with the patient in detail length he understand and in agreement with the plan, planning aide present during the conversation. Time spent 70 minute, patient full code. Total time managing care of this patient today: 70 minutes. Quality Stroke Does the patient have a stroke diagnosis?: No VTE Prior VTE?: No VTE Risk Level:: Medical - moderate - high VTE Device Contraindication: N/A - Device Ordered VTE Drug Contraindication: N/A - Med Ordered
[2023-11-21] MEDS: Sacubitril/Valsartan 24/26 1 TAB TABLET PO ×2 (15:14→21:30)
[2023-11-21] MEDS: Aspirin Enteric Coated 81 MG TABLET.DR PO (15:14)
[2023-11-21] MEDS: Isosorbide Mononitrate 30 MG TAB.ER.24H PO (15:14)
[2023-11-21] MEDS: 0.9 % Sodium Chloride Flush 3 ML SYRINGE IVFLUSH (15:14)
[2023-11-21] MEDS: Metoprolol Succinate ER 50 MG TAB.ER.24H PO (15:14)
[2023-11-21] MEDS: Heparin Sodium,Porcine 5,000 UNIT/ML VIAL 5000 UNIT SUBCUT (15:15)
[2023-11-21 16:33] LABS: Glucose, Whole Blood 267 mg/dL (60-115)
[2023-11-21] MEDS: Sevelamer Carbonate Tablet 800 MG TABLET PO (17:03)
[2023-11-21] MEDS: carvediloL 3.125 MG TABLET PO (17:03)
[2023-11-21 20:58] LABS: Glucose, Whole Blood 234 mg/dL (60-115)
[2023-11-21] MEDS: timoloL maleate 0.5 % Oph Sol 5 ML DRBTL 1 DROP EYE-BOTH (21:26)
[2023-11-21] MEDS: Brimonidine Tartrate 0.2% Oph 5 ML BOTTLE 1 DROP EYE-BOTH (21:26)
[2023-11-21] MEDS: Montelukast Sodium 10 MG TABLET PO (21:28)
[2023-11-21] MEDS: Atorvastatin Calcium 40 MG TABLET PO (21:28)
[2023-11-22] MEDS: Heparin Sodium,Porcine 5,000 UNIT/ML VIAL 5000 UNIT SUBCUT ×3 (00:20→18:10)
[2023-11-22 03:50] VITALS: BP 182/86; PULSE 82; RESP 16; TEMP 36.5; O2SAT 97
[2023-11-22 04:10] VITALS: BP 177/82
[2023-11-22 07:17] LABS: Glucose, Whole Blood 170 mg/dL (60-115)
[2023-11-22 07:41] VITALS: BP 176/81; PULSE 80; RESP 18; TEMP 36.3; O2SAT 100
[2023-11-22] MEDS: Furosemide 40 MG/4 ML VIAL IVPUSH ×2 (07:44→18:10)
[2023-11-22] MEDS: Isosorbide Mononitrate 30 MG TAB.ER.24H PO (07:45)
[2023-11-22] MEDS: Sevelamer Carbonate Tablet 800 MG TABLET PO ×3 (07:45→18:11)
[2023-11-22] MEDS: Aspirin Enteric Coated 81 MG TABLET.DR PO (07:45)
[2023-11-22] MEDS: Metoprolol Succinate ER 50 MG TAB.ER.24H PO (07:45)
[2023-11-22] MEDS: Sacubitril/Valsartan 24/26 1 TAB TABLET PO ×2 (07:45→19:47)
[2023-11-22] MEDS: carvediloL 3.125 MG TABLET PO ×2 (07:45→18:13)
[2023-11-22] MEDS: Insulin Lispro 100 UNIT/ML 3 ML VIAL SUBCUT ×3 (07:45→19:48)
[2023-11-22] MEDS: 0.9 % Sodium Chloride Flush 3 ML SYRINGE IVFLUSH ×3 (07:46→18:13)
[2023-11-22] MEDS: timoloL maleate 0.5 % Oph Sol 5 ML DRBTL 1 DROP EYE-BOTH (07:57)
[2023-11-22] MEDS: Brimonidine Tartrate 0.2% Oph 5 ML BOTTLE 1 DROP EYE-BOTH (07:57)
[2023-11-22] MEDS: Azithromycin 500 MG in 0.9 % Sodium Chloride 250 ML 125 MG IV (07:58)
--- NOTE | 2023-11-22 09:00 | MHC.CM.PN ---
CM met with Patient at bedside with the assist of a [facility] [employer] Research [employer] and addressed IMM with Patient (original was given to him and a copy has been placed on the chart. 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 Home/resume said services is the goal and CM has initiated and will follow for dc planning. PCP/PA is Matthieu Zelaya and Daughter will transport to home.
[2023-11-22] MEDS: vancomycin HCL 125 MG CAPSULE PO ×3 (09:39→19:48)
[2023-11-22 11:04] LABS: Glucose, Whole Blood 213 mg/dL (60-115)
[2023-11-22 11:27] VITALS: BP 158/76; PULSE 77; RESP 20; TEMP 36.5; O2SAT 99
[2023-11-22] MEDS: cefTRIAXone sodium 1 GM in 0.9 % Sodium Chloride 50 ML IV ×2 (11:33→18:14)
--- NOTE | 2023-11-22 11:57 | PM.EVENT ---
Event Note Date of Service: 11/22/23 Event Note: 63 yr old man with ESRD Usually follows with Dr. Ortega Will arrange for HD today Full consult to follow Time Spent With Patient Time: Total time managing care of this patient today ____ minutes.
--- NOTE | 2023-11-22 14:49 | P.CNID_ITS ---
History of Present Illness Data of Consult Service Date: 11/22/23 Requesting physician: Aminta Brito Primary Care Provider: Matthieu Zelaya PA-C HPI Reason for consult: pneumonia,h/o Cdiff He presents with cough and shortness of breath for three days. He has no fever. He has RML infiltrate,. Review of Systems 2 Respiratory: Respiratory: Reports cough PMFSH Past Medical History Medical History Diarrhea HFrEF (heart failure with reduced ejection fraction) Dialysis patient CAD (coronary artery disease) C. difficile colitis Cardiomyopathy HTN (hypertension) Anemia in chronic renal disease Diabetes Asthma End stage chronic kidney disease Family History Family History Mother CAD (coronary artery disease) Family history: reviewed and not pertinent Surgical History Surgical History S/P cardiac catheterization AV fistula Social History Social History Household Members: Significant Other Housing: Apartment Do you presently have visiting nurse or other home services: Yes Alcohol intake: never Comment: pt weak from hd Patient Tobacco Use Status: Never used Tobacco e-Cigarette/Vaping Use: Never Used Second Hand Smoke Exposure: No service: No Current occupational status: retired [employer] Allergies Allergy/AdvReac Type Severity Reaction Status Date / Time No Known Allergies Allergy Verified 11/21/23 07:31 [No Known Allergies*] Active Medications: Current Medications Acetaminophen (Acetaminophen 325 Mg Tablet) 650 mg PO Q6H PRN PRN Reason: Pain, Mild (Pain Scale 1-3), fever or headache Aspirin (Aspirin Enteric Coated 81 Mg Tablet.) 81 mg PO DAILY [facility] Last Admin: 11/22/23 07:45 Dose: 81 mg Atorvastatin Calcium (Atorvastatin Calcium 40 Mg Tablet) 40 mg PO BEDTIME JOSÉ Last Admin: 11/21/23 21:28 Dose: 40 mg Brimonidine Tartrate (Brimonidine Tartrate 0.2% Oph 5 Ml Bottle) 1 drop EYE- BOTH BID JOSÉ Last Admin: 11/22/23 07:57 Dose: 1 drop Calcium Carbonate (Calcium Carbonate 750 Mg Tab.Chew) 750 mg PO Q4H PRN PRN Reason: Heartburn Carvedilol (Carvedilol 3.125 Mg Tablet) 3.125 mg PO BIDWM [facility]; Protocol Last Admin: 11/22/23 07:45 Dose: 3.125 mg Furosemide (Furosemide 40 Mg/4 Ml Vial) 40 mg IVPUSH BID@0900,1800 [facility]; Protocol Last Admin: 11/22/23 07:44 Dose: 40 mg Glucose (Glucose Gel 15 Gm Gel..Gram.) 15 gm PO Q15M PRN; Protocol PRN Reason: per Hypoglycemia Standing Ord. Heparin Sodium (Porcine) (Heparin Sodium,Porcine 5,000 Unit/Ml Vial) 5,000 unit SUBCUT Q8H [facility] Last Admin: 11/22/23 07:44 Dose: 5,000 unit Dextrose (D10) 250 mls @ 750 mls/hr IV Q15M PRN; Protocol PRN Reason: per Hypoglycemia Standing Ord. Ceftriaxone Sodium 1 gm/ (Sodium Chloride) 50 mls @ 100 mls/hr IV Q24H [facility] Last Infusion: 11/22/23 12:09 Dose: Infused Azithromycin 500 mg/ Sodium (Chloride) 250 mls @ 125 mls/hr IV Q24H [facility] Last Infusion: 11/22/23 10:41 Dose: Infused Insulin Human Lispro (Insulin Lispro 100 Unit/Ml 3 Ml Vial) 0 unit SUBCUT QIDACHS [facility]; Protocol Last Admin: 11/22/23 11:34 Dose: 4 unit Isosorbide Mononitrate (Isosorbide Mononitrate 30 Mg Tab.Er.24h) 30 mg PO DAILY [facility]; Protocol Last Admin: 11/22/23 07:45 Dose: 30 mg Magnesium Hydroxide (Milk Of Magnesia 30 Ml Oral.Susp) 30 ml PO DAILY PRN PRN Reason: Constipation Melatonin (Melatonin 3 Mg Tablet) 6 mg PO BEDTIME PRN PRN Reason: Insomnia Metoprolol Succinate (Metoprolol Succinate Er 50 Mg Tab.Er.24h) 50 mg PO DAILY [facility]; Protocol Last Admin: 11/22/23 07:45 Dose: 50 mg Montelukast Sodium (Montelukast Sodium 10 Mg Tablet) 10 mg PO BEDTIME [facility] Last Admin: 11/21/23 21:28 Dose: 10 mg Pt Owned (Vericiguat [Verquvo] 5 Mg Tablet) 5 mg PO DAILY [facility] Last Admin: 11/22/23 11:42 Dose: 5 mg Pt Owned ( Sotagliflozin [ Inpefa] 200 Mg Tablet) 200 mg PO DAILY [facility] Last Admin: 11/22/23 11:38 Dose: Not Given Omeprazole (Omeprazole 20 Mg Capsule.Dr) 20 mg PO DAILY PRN PRN Reason: Heartburn Sacubitril/Valsartan (Sacubitril/Valsartan 1 Tab Tablet) 1 tab PO BID [facility]; Protocol Last Admin: 11/22/23 07:45 Dose: 1 tab Sevelamer Carbonate (Sevelamer Carbonate Tablet 800 Mg Tablet) 800 mg PO TIDWM [facility] Last Admin: 11/22/23 11:34 Dose: 800 mg Sodium Chloride (0.9 % Sodium Chloride Flush 3 Ml Syringe) 3 ml IVFLUSH QSHIFT [facility] Last Admin: 11/22/23 07:46 Dose: 3 ml Timolol Maleate (Timolol Maleate 0.5 % Oph Graciela 5 Ml Drbtl) 1 drop EYE-BOTH BID [facility] Last Admin: 11/22/23 07:57 Dose: 1 drop Vancomycin HCl (Vancomycin Hcl 125 Mg Capsule) 125 mg PO QID [facility] Stop: 11/23/23 21:01 Home Medications ?Medication ?Instructions ?Recorded ?Confirmed ?Last Taken ?Type omeprazole 20 mg capsule,delayed 20 mg PO DAILY PRN Heartburn 08/24/21 11/21/23 08/23/21 History release sevelamer carbonate 800 mg tablet 800 mg PO TIDWM 08/24/21 11/21/23 11/20/23 History furosemide 80 mg tablet 80 mg PO MOWEFR 07/20/22 11/21/23 11/19/23 History isosorbide mononitrate 30 mg 30 mg PO DAILY 07/20/22 11/21/23 11/20/23 History tablet,extended release 24 hr metoprolol succinate 50 mg 50 mg PO DAILY 07/20/22 11/21/23 11/20/23 History tablet,extended release 24 hr montelukast 10 mg tablet 10 mg PO BEDTIME asthma 07/20/22 11/21/23 11/20/23 History sacubitril 24 mg-valsartan 26 mg 1 tab PO BID 07/20/22 11/21/23 11/20/23 History tablet (Entresto) brimonidine 0.2 %-timolol 0.5 % 1 drp ophthalmic (eye) Q12H 11/21/23 11/21/23 11/20/23 History eye drops carvedilol 3.125 mg tablet 3.125 mg PO BIDWM 11/21/23 11/21/23 11/20/23 History sotagliflozin 200 mg tablet 200 mg PO DAILY 11/21/23 11/21/23 11/20/23 History (Inpefa) vericiguat 5 mg tablet (Verquvo) 5 mg PO DAILY 11/21/23 11/21/23 11/20/23 History Physical Exam 2 Vital Signs: Vital Signs: Last Vital Signs Temp 97.7 F 11/22/23 11:27 Pulse 77 11/22/23 11:27 Resp 20 11/22/23 11:27 BP 158/76 H 11/22/23 11:27 Pulse Ox 99 11/22/23 11:27 O2 Del Method Room Air 11/22/23 11:27 BMI result Body Mass Index 25.5 Const: General: cooperative HEENT: Head: Yes normal to inspection Face and sinus: Yes normal facial exam Mouth: Normal oral and palatal mucosa present Teeth and gingiva: d entition normal Eyes: General: appearance normal, both eyes and all related structures P upils: Equal, round and reactive pupils present Resp: Other: rhonchi bases Effort & Inspection: normal respiratory effort Cardio: Rate: regular rate Rhythm: regular rhythm GI: Palpation (GI): Soft to palpation and nontender : General: Yes no CVA tenderness Back/Spine/Pelvis: Back: no CVA tenderness Skin: General skin exam: no rashes or lesions noted Neuro: General: moves all extremities Cranial nerves: Yes Equal, round and reactive pupils present Extrem: General: Yes normal to inspection Psych: Appearance: grossly normal Results Labs 11/21/23 08:28 11/21/23 08:28 Microbiology Microbiology Results: Microbiology 11/21/23 09:27 Blood - Venous Blood Culture - Preliminary No growth after 24 hours. 11/21/23 09:16 Blood - Venous Blood Culture - Preliminary No growth after 24 hours. Assessment and Plan (1) CHF (congestive heart failure): Status: Acute (2) End stage renal disease: Status: Acute (3) Pneumonia: Qualifiers: Laterality: right Lung location: middle lobe of lung Pneumonia type: d ue to unspecified organism Qualified Code(s): J18.9 - Pneumonia, unspecified organism Status: Acute Plan He has pneumonia,CAP He has ESRD He has had Cdiff in past Would agree CTX and Zithromax 3-5 days and then po zmax zpack total 8 days. Check nares MRSA Check Legionella While on antibiotics would give po Vancomycin 125 mg qid and then two days after antibiotics.
--- NOTE | 2023-11-22 14:55 | P.CDIM_ITS ---
PROVIDER RESPONSE TEXT: To clarify, the appropriate diagnosis supported by the clinical indicators: Diabetes mellitus Type 2 with hyperglycemia QUERY TEXT: PHYSICIAN'S DOCUMENTATION REQUEST Date of Query: 11/22/2023 10:57 AM EDT Patient Name: Manny Gar Admit Date: 11/21/2023 Dear Aminta Brito MD, A review of the medical record indicates additional documentation may be needed. Please review below and update the documentation accordingly. Clinical Indicators: POC glucose 208 H 267 H Insulin Please clarify the following regarding the labs: Diabetes mellitus Type 2 with hyperglycemia Other (explain) Clinically unable to determine (explain) Thank you, Addis Millan, CCS, CDIS Use of terms such as suspected, likely, concern for, or probable (associated with a specific diagnosi s that is being evaluated, monitored, or treated as if it exists) are acceptable and can be coded in the inpatient se tting, when documented at the time of discharge. Please use your independent medical judgment in providing your response. THIS QUERY IS PART OF THE PERMANENT MEDICAL RECORD
--- NOTE | 2023-11-22 15:55 | P.DS_ITS ---
DS: Providers Provider Date of Service: 11/22/23 Date of admission: 11/21/23 10:52 Date of discharge: 11/22/23 Primary care physician: Matthieu Zelaya PA-C Consults: 11/21/23 10:54 Consult to Infectious Diseases Routine Consulting Provider: [facility] Reason for consultation: Pneumonia ,hx of c diff Has provider been notified: No Consult to Nephrology Routine Consulting Provider: [facility] Reason for consultation: esrd/sob Has provider been notified: No Attending physician on discharge: Aminta Brito Discharging clinician: Aminta Brito DS: Diagnosis Discharge Diagnosis (1) CHF (congestive heart failure): Status: Acute (2) End stage renal disease: Status: Acute (3) Pneumonia: Status: Acute DS: Summary Hospital Course Hospital Course: 63y/o M with hx of esrd on dialysis(m,w,f) hypertension, pulmonary edema, CAD status post stent in , cardiomyopathy, history of C diff, diabetes, chronic normocytic anemia, says recently completed antibiotics for C diff(?taper):Patient multiple family members had URI like symptoms subsequently patient also had URI like symptoms afterwards started developing shortness of breath and cough productive. No hypoxia, He gets short of breath with minimal exertion as well as could not lie flat. Denies any chest pain or palpitations, Denies fevers, chills, nausea, vomiting, abdominal pain. In the ED: Patient has no leukocytosis, creatinine in his usual range of 8. Chest x-ray shows pneumonia right middle lobe. Admission was requested for treatment of pneumonia. Hospital course: Patient was admitted for pneumonia, URI like symptoms: Does not have leukocytosis, no fever, had productive cough, shortness of breath and chest x- ray shows middle lobe possible pneumonia, lactic acid normal, blood culture sent started on IV antibiotics seems to be improved significantly, blood culture negative at 24 hours. Respiratory panel came positive for renal/enterovirus. Patient discussed with infectious disease recommended ceftriaxone 2 g post dialysis(for 4 days-2 doses total), azithromycin 500 mg daily for 5 days. Patient was given vancomycin 125 mg p.o. q.i.d. supply for 7 days since patient will be on antibiotics for 5 days. Above management discussed with patient detail length also discussed with Dr. Dennis from Nephrology they will arrange outpatient ceftriaxone with dialysis. plan: please complete ceftriaxone 2 g post dialysis(for 4 days-2 doses total), azithromycin 500 mg daily for 5 days. Patient was given vancomycin 125 mg p.o. q.i.d. supply for 7 days since patient will be on antibiotics for 5 days. Please consider chest imaging in 3-4 weeks to see resolution of pneumonia Outpatient. Above management discussed with the patient in detail length with the help of paraprofessional interpreter, assessment plan coordination time spent 40 minute. Time Attestation Total time managing care of this patient today: 40 mintues. Discharge Coordination Time (in mins): 40 min Quality: Safe Use of Opioids Does Pt have an Active Cancer Diagnosis on the Problem List?: No Quality: Stroke Does the patient have a stroke diagnosis?: No Physical Exam Vital Signs: Vital Signs: Last Vital Signs Temp 97.7 F 11/22/23 11:27 Pulse 77 11/22/23 11:27 Resp 20 11/22/23 11:27 BP 158/76 H 11/22/23 11:27 Pulse Ox 99 11/22/23 11:27 O2 Del Method Room Air 11/22/23 11:27 BMI result Body Mass Index 25.5 Appearance: Alert.? Oriented X3.? cvs: rrr, [id number] , no murmur res: air entry fair, no rales or wheezing. abd: no rebound or guarding ,nt, bs present. ext pulses present , no cyanosis neuro: axo3 , nonfocal. DS: Data Data Completed and Pending Completed studies during hospitalization [Text1]: Procedures Performance of Urinary Filtration, Intermittent, Less than 6 Hours Per Day (08/31/22) Labs on day of discharge: Laboratory Results - last 24 hr 11/21/23 11/21/23 11/22/23 16:29 20:54 07:13 POC Glucose 267 H 234 H 170 H 11/22/23 11:00 POC Glucose 213 H Preliminary micro results at discharge 11/21/23 09:27 Blood Culture - Preliminary Blood - Venous No growth after 24 hours. 11/21/23 09:16 Blood Culture - Preliminary Blood - Venous No growth after 24 hours. Imaging Chest x-ray: Radiologist's impression: ITS Impressions Chest X-Ray 11/21/23 07:35 IMPRESSION: Minimal right middle lobe airspace opacity, new when compared to the prior examination. Findings could represent early pneumonia. Electronically signed by: Frank Howard MD 11/21/2023 08:40 AM EDT RP Discharge Plan Discharge Anticipated Discharge Date/Time: 11/22/23 15:01 Patient Disposition: Home, Self-Care Discharge Diagnosis: has entero/rhinoviral uri,pneumonia ,esrd Referrals: Matthieu Zelaya PA-C [Primary Care Provider] - 2 days Discharge Medications: New albuterol sulfate 2.5 mg /3 mL (0.083 %) solution for nebulization 2.5 mg inhalation Q6H Qty: 75 0RF albuterol sulfate 90 mcg/actuation aerosol powdr breath activated 2 inh inhalation Q4-6H PRN (Reason: shortness of breath or wheezing) Qty: 1 0RF ceftriaxone 2 gram recon soln 2 g IV .HD Qty: 2 0RF azithromycin 500 mg tablet 500 mg PO DAILY 5 Days Qty: 5 0RF vancomycin 125 mg Capsule 125 mg PO QID Qty: 28 0RF Continued omeprazole 20 mg capsule,delayed release(DR/EC) 20 mg PO DAILY PRN (Reason: Heartburn) sevelamer carbonate 800 mg tablet 800 mg PO TIDWM atorvastatin 40 mg Tablet 40 mg PO BEDTIME Qty: 1 0RF aspirin 81 mg Tablet,Delayed Release (Dr/Ec) 81 mg PO DAILY Qty: 1 0RF carvedilol 3.125 mg tablet 3.125 mg PO BIDWM brimonidine-timolol 0.2-0.5 % drops 1 drp ophthalmic (eye) Q12H Verquvo 5 mg tablet 5 mg PO DAILY Inpefa 200 mg Tablet 200 mg PO DAILY metoprolol succinate 50 mg tablet extended release 24 hr 50 mg PO DAILY isosorbide mononitrate 30 mg tablet extended release 24 hr 30 mg PO DAILY furosemide 80 mg Tablet 80 mg PO MOWEFR montelukast 10 mg tablet 10 mg PO BEDTIME Entresto 24-26 mg tablet 1 tab PO BID Discharge Orders: Discharge Order (Routine); Ordered 11/22/23 Ordered By: Aminta Brito Diet: Advance to usual diet Activity on Discharge: As tolerated Stand Alone Forms: Patient Portal Discharge page, Work/School Release Print Language: Danish Activity Restrictions/Additional Instructions: Take your medications as prescribed. If you were prescribed antibiotics today, it is important that you take your medication to their entirety, do not skip any doses, do not finish them early. Follow-up with your primary care provider this week. Return to the emergency department with new or worsening symptoms. Such as fevers, chills, chest pain, shortness of breath, nausea, vomiting, dizziness, headache, vision changes, lethargy In case of emergency call 911 Care Plan Goals: Patient was admitted for pneumonia, URI like symptoms: Does not have leukocytosis, no fever, had productive cough, shortness of breath and chest x- ray shows middle lobe possible pneumonia, lactic acid normal, blood culture sent started on IV antibiotics seems to be improved significantly, blood culture negative at 24 hours. Respiratory panel came positive for renal/enterovirus. Patient discussed with infectious disease recommended ceftriaxone 2 g post dialysis(for 4 days-2 doses total), azithromycin 500 mg daily for 5 days. Patient was given vancomycin 125 mg p.o. q.i.d. supply for 7 days since patient will be on antibiotics for 5 days. Above management discussed with patient detail length also discussed with Dr. Dennis from Nephrology they will arrange outpatient ceftriaxone with dialysis. Health Concerns: please complete ceftriaxone 2 g post dialysis(for 4 days-2 doses total), azithromycin 500 mg daily for 5 days. Patient was given vancomycin 125 mg p.o. q.i.d. supply for 7 days since patient will be on antibiotics for 5 days. Please consider chest imaging in 3-4 weeks to see resolution of pneumonia Outpatient. Plan of Treatment: as above. Assessment: as above. Patient Instructions: Acute Bronchitis (ED)
--- NOTE | 2023-11-22 15:57 | MHC.CM.PN ---
Patient has been medically cleared for dc to home today, self care. CM met with Patient at bedside, in HD and left the original IMM with him and a copy has been placed on the chart.
[2023-11-22 18:01] VITALS: BP 150/60; PULSE 83; RESP 18; TEMP 36.4; O2SAT 100
[2023-11-22 18:05] LABS: Glucose, Whole Blood 140 mg/dL (60-115)
[2023-11-22 19:17] VITALS: BP 159/72; PULSE 83; RESP 16; TEMP 36.1; O2SAT 100
[2023-11-22 19:47] LABS: Glucose, Whole Blood 209 mg/dL (60-115)
[2023-11-22] MEDS: Atorvastatin Calcium 40 MG TABLET PO (19:48)
[2023-11-22] MEDS: Montelukast Sodium 10 MG TABLET PO (19:48)
== END 2023-11-22 19:57 | disposition home or self-care (01) | DRG 193 ==
LOC: HO.ED 09:11 → HO.EDOVER 10:59 → HO.IMC 13:01
PROVIDERS: Physician Assistant; Admitting Provider Internal Medicine; Emergency Provider Emergency Medicine; PCP Physician Assistant; Visit Provider Internal Medicine
DX: J18.9 Pneumonia, unspecified organism (principal); N18.6 End stage renal disease; I13.2 Hypertensive heart and chronic kidney disease with heart failure and with stage 5 chronic kidney disease, or end stage renal disease; I50.22 Chronic systolic (congestive) heart failure; I42.9 Cardiomyopathy, unspecified; J45.909 Unspecified asthma, uncomplicated; E11.22 Type 2 diabetes mellitus with diabetic chronic kidney disease; D63.1 Anemia in chronic kidney disease; E11.65 Type 2 diabetes mellitus with hyperglycemia; Z99.2 Dependence on renal dialysis; I25.10 Atherosclerotic heart disease of native coronary artery without angina pectoris; Z20.822 Contact with and (suspected) exposure to COVID-19; Z95.5 Presence of coronary angioplasty implant and graft; Z79.82 Long term (current) use of aspirin; Z79.899 Other long term (current) drug therapy
CPT/HCPCS: 0241U; 36415; 71045; 80053; 82947; 83605; 83880; 84484; 85025; 87040; 87633; 90999; 93005; 94640; 99285; J0456; J0696; J1644; J1940; J2919

== ENCOUNTER → 2023-11-21 10:52 | Outpatient (BNV) | payer OTHER, SELFPAY | PROVIDERS: Admitting Provider Internal Medicine; Emergency Provider Emergency Medicine; PCP Physician Assistant; Visit Provider Internal Medicine | DX: I50.9 Heart failure, unspecified (principal); N18.6 End stage renal disease; J18.9 Pneumonia, unspecified organism | CPT/HCPCS: 99222 ==

== ENCOUNTER → 2023-11-21 10:52 | Outpatient (BNV) | payer OTHER, SELFPAY | PROVIDERS: Admitting Provider Internal Medicine; Emergency Provider Emergency Medicine; PCP Physician Assistant; Visit Provider Internal Medicine | DX: I50.9 Heart failure, unspecified (principal); N18.6 End stage renal disease; J18.9 Pneumonia, unspecified organism | CPT/HCPCS: 99222; 99239 ==

== ENCOUNTER 2023-12-22 16:09 | Outpatient (REF) | payer OTHER, SELFPAY ==
--- NOTE | ~2023-12-22 | XR_ITS ---
EXAMINATION: XR CHEST CLINICAL INFORMATION: Recent pneumonia COMPARISON: 11/21/2023 and selected images from priors TECHNIQUE: Frontal and lateral views of the chest. 2 frontal radiographs. FINDINGS: Interval resolution of patchy consolidation at the right base. Chronic central predominant increase in reticular markings consistent with chronic airways disease. Lung volumes within normal limits. No effusion or pneumothorax. Stable heart and mediastinum. Cardiac silhouette is enlarged a chronic finding. Cardiomegaly on [address] without pericardial effusion. Nonobstructive gas pattern. No acute osseous finding. Vascular stents in the left arm. XR/XR chest 2V IMPRESSION: 1. Resolution of right-sided pneumonia. 2. Chronic central increase in lung markings. 3. Chronic cardiomegaly without overt edema. Electronically signed by: Sherman Dunn MD 12/22/2023 07:47 PM EDT
== END 2023-12-22 16:10 | disposition home or self-care (01) ==
LOC: HO.HHCX 16:09
PROVIDERS: Visit Provider Registered Nurse
DX: Z87.01 Personal history of pneumonia (recurrent) (principal)
CPT/HCPCS: 71046

== ENCOUNTER 2024-01-06 09:15 | Outpatient (REF) | payer OTHER, SELFPAY ==
[2024-01-06 11:23] LABS: MANUAL DIFF FLAG NO
[2024-01-06 11:28] LABS: Basophils Percent Auto 0.7 % (0-2); Eosinophils Absolute Auto 0.2 X10*3/uL (0.0-0.4); Hematocrit 35.2 % (42.0-52.0); Hemoglobin 11.7 g/dl (14.0-18.0); Imm Gran Abs Auto 0.01 X10*3/uL (0.00-0.03); Imm Gran Pct Auto 0.2 % (0.0-0.4); Lymphocytes Absolute Auto 1.3 X10*3/uL (1.2-4.9); Lymphocytes Percent Auto 29.3 % (20-40); Mean Corpuscular HGB Conc 33.2 g/dl (31.0-36.0); Mean Corpuscular Hemoglobin 31.5 pg (27.0-33.0); Mean Corpuscular Volume 94.6 fL (80.0-98.0); Mean Platelet Volume 9.4 fL (9.4-12.4); Monocytes Absolute Auto 0.5 X10*3/uL (0.1-1.2); Monocytes Percent Auto 10.7 % (2-11); Neutrophils Absolute Auto 2.5 x10*3/uL (2.0-8.3); Neutrophils Percent Auto 55.1 % (45-73); Platelet Count 197 X10*3/uL (160-400); Red Blood Count 3.72 X10*6/uL (4.60-5.80); Red Cell Distribution Width 14.2 % (11.0-16.0); White Blood Count 4.5 X10*3/uL (4.8-10.8)
[2024-01-06 11:37] LABS: Estimated Average Glucose 140 mg/dL; Hemoglobin A1C 150.3374 umol/L; Hemoglobin A1c % 6.5 % (<6.0); Total Hemoglobin (HGBA1C) 3150.1213 umol/L
[2024-01-06 12:21] LABS: TSH reflex Free T4 6.09 uIU/mL (0.32-4.0)
[2024-01-06 12:25] LABS: Alanine Aminotransferase 13 U/L (0-40); Albumin Level 3.5 g/dL (3.5-5.0); Alkaline Phosphatase 89 U/L (39-117); Anion Gap 16 (12-20); Aspartate Amino Transferase 23 U/L (5-37); Bilirubin Total 0.7 mg/dL (0.0-1.0); Blood Urea Nitrogen 33 mg/dL (9-16); Calcium 9.3 mg/dL (8.4-10.2); Carbon Dioxide 30 mmol/L (22-29); Chloride 97 mmol/L (96-108); Cholesterol 114 mg/dL (<200); Estimated Glomerular Filt Rate 8; Glucose Random 119 mg/dL (60-115); HDL Cholesterol 42 mg/dL (>40); LDL Cholesterol Calculated 51 mg/dL (<100); Sodium 139 mmol/L (135-145); Total Protein 6.7 g/dL (6.5-8.0); Triglycerides 108 mg/dL (<150)
[2024-01-06 12:29] LABS: HBS Num1 > 1000.00 mIU/mL (0-7.99); HBc Num1 0.11 S/CO (0.00-0.79); HBsAGNum1 0.34 S/CO (0.00-0.99); HIV AB/AG Nonreactive (Nonreactive); HIV Num 1 0.06 S/CO (0.00-0.99); Hepatitis B Core Antibody Nonreactive (Nonreactive); Hepatitis B Surface Antigen Negative (Negative); ~Hepatitis B Surface Antibody REACTIVE (Nonreactive)
[2024-01-06 13:05] LABS: Free T4 (Free Thyroxine) 1.01 ng/dL (0.71-1.85)
[2024-01-07 11:03] LABS: RPR Rapid Plasma Reagin NON-REACTIVE (NON-REACTIVE)
[2024-01-08 08:03] LABS: HCV Log PCR <1.18 NOT DETECTED Log IU/mL (NOT DETECTED); HepC Viral Load <15 NOT DETECTED IU/mL (NOT DETECTED)
== END 2024-01-06 09:16 | disposition home or self-care (01) ==
LOC: HO.HHCL 09:15
PROVIDERS: Visit Provider Registered Nurse
DX: Z00.00 Encounter for general adult medical examination without abnormal findings (principal); Z11.4 Encounter for screening for human immunodeficiency virus [HIV]; Z13.6 Encounter for screening for cardiovascular disorders; Z13.1 Encounter for screening for diabetes mellitus
CPT/HCPCS: 36415; 80053; 80061; 83036; 84439; 84443; 85025; 86592; 86704; 86706; 87340; 87389; 87522

== ENCOUNTER 2024-02-15 09:01 | Outpatient (REF) | payer OTHER, SELFPAY ==
[2024-02-15 10:35] LABS: Anion Gap 17 (12-20); Blood Urea Nitrogen 34 mg/dL (9-16); Calcium 9.4 mg/dL (8.4-10.2); Carbon Dioxide 31 mmol/L (22-29); Chloride 99 mmol/L (96-108); Glucose Random 106 mg/dL (60-115); Potassium 4.9 mmol/L (3.3-5.1); Sodium 142 mmol/L (135-145)
[2024-02-15 10:42] LABS: Estimated Glomerular Filt Rate 7
== END 2024-02-15 09:02 | disposition home or self-care (01) ==
LOC: HO.LAB 09:01
PROVIDERS: Student in an Organized Health Care Education/Training Program; PCP Registered Nurse; Visit Provider Registered Nurse
DX: I50.20 Unspecified systolic (congestive) heart failure (principal)
CPT/HCPCS: 36415; 80048

== ENCOUNTER 2024-02-28 12:44 | Outpatient (REF) | payer OTHER, SELFPAY ==
[2024-02-28 14:20] LABS: Anion Gap 15 (12-20); Blood Urea Nitrogen 47 mg/dL (9-16); Calcium 8.7 mg/dL (8.4-10.2); Carbon Dioxide 29 mmol/L (22-29); Chloride 100 mmol/L (96-108); Estimated Glomerular Filt Rate 7; Glucose Random 147 mg/dL (60-115); Potassium 4.9 mmol/L (3.3-5.1); Sodium 139 mmol/L (135-145)
[2024-02-28 14:32] LABS: TSH reflex Free T4 2.59 uIU/mL (0.32-4.0)
== END 2024-02-28 12:45 | disposition home or self-care (01) ==
LOC: HO.LAB 12:44
PROVIDERS: PCP Registered Nurse; Visit Provider Physician Assistant
DX: E04.1 Nontoxic single thyroid nodule (principal); I50.20 Unspecified systolic (congestive) heart failure
CPT/HCPCS: 36415; 80048; 84443

== ENCOUNTER 2024-12-24 09:40 | Emergency (ER) | payer OTHER, SELFPAY ==
--- NOTE | ~2024-12-24 | XR_ITS ---
CLINICAL HISTORY: cp 2 view chest x-ray Comparison: CR/SR - XR CHEST 2 VIEWS - 12/22/23 16:31 EDT Findings: No consolidation or effusion. Heart size is normal. Mild aortic atherosclerosis. No acute fracture. IMPRESSION: 1. No acute findings. This document has been electronically signed by: Ablertina Waters MD on 12/24/2024 12:18:17
--- NOTE | 2024-12-24 09:43 | ECG_ITS ---
Test Reason : CP Blood Pressure : */* mmHG Vent. Rate : 65 BPM Atrial Rate : 65 BPM P-R Int : 164 ms QRS Dur : 90 ms QT Int : 418 ms P-R-T Axes : 77 -27 117 degrees QTcB Int : 434 ms Normal sinus rhythm Minimal voltage criteria for LVH, may be normal variant ( R in aVL ) T wave abnormality, consider lateral ischemia Abnormal ECG When compared with ECG of 21-Nov-2023 08:27, No significant change was found Referred By: Generic ED Physician Electronically Signed By: JOSÉ MANUEL URIBE
[2024-12-24 10:13] VITALS: BP 167/70; PULSE 63; RESP 18; TEMP 36.7; O2SAT 100; BMI 26.0
[2024-12-24 10:38] LABS: MANUAL DIFF FLAG NO
[2024-12-24 10:39] LABS: Hematocrit 37.6 % (42.0-52.0); Hemoglobin 12.8 g/dl (14.0-18.0); Imm Gran Abs Auto 0.03 X10*3/uL (0.00-0.03); Imm Gran Pct Auto 0.5 % (0.0-0.4); Lymphocytes Absolute Auto 1.5 X10*3/uL (1.2-4.9); Mean Corpuscular HGB Conc 34.0 g/dl (31.0-36.0); Mean Corpuscular Hemoglobin 30.8 pg (27.0-33.0); Mean Corpuscular Volume 90.4 fL (80.0-98.0); NRBC Abs Auto 0.000 X10*3/uL (0.0-0.012); NRBC Pct Auto 0.0 /100WBC (0.0-0.2); Platelet Count 144 X10*3/uL (160-400); Red Blood Count 4.16 X10*6/uL (4.60-5.80); White Blood Count 5.8 X10*3/uL (4.8-10.8)
[2024-12-24 10:56] LABS: Alanine Aminotransferase 6 U/L (0-40); Albumin Level 3.6 g/dL (3.5-5.0); Alkaline Phosphatase 64 U/L (39-117); Anion Gap 18 (12-20); Aspartate Amino Transferase 18 U/L (5-37); Blood Urea Nitrogen 56 mg/dL (9-16); Calcium 9.7 mg/dL (8.4-10.2); Carbon Dioxide 28 mmol/L (22-29); Chloride 96 mmol/L (96-108); Creatinine Clr Calc Pharmacy 9.0; Estimated Glomerular Filt Rate 6; Potassium 5.8 mmol/L (3.3-5.1); Sodium 136 mmol/L (135-145); Total Protein 6.7 g/dL (6.5-8.0)
[2024-12-24 11:01] LABS: IDNOW Serial# 08D9AD1C; Influenza B2 Negative (Negative); Troponin-I High Sensitivity 45.5 ng/L (<3.5-35.0)
[2024-12-24 11:04] LABS: COVID-19 Test Negative (Negative); IDNOW Serial# 6674DD1D
--- OUTSIDE RECORDS SUMMARY | 2024-12-24 11:04 | XMS_ITS | Encounter Summary ---
Author Organization [employer] Address [address] [place] [address] Care Team Providers Care Discount Clerk Name Role Phone Nadine Hernandez Primary Care Provider [phone] Christian Ortega Unavailable Lawrence Urbano MD Unavailable [phone] Edward Wu Unavailable Encounter Details Date Type Department Care Team (Late st Contact Info) Description 02/03/2022 Abstract [facility] MED[facility] [address] [place] [address] Provider, MD Allie Social History Tobacco Use Types Packs/Day Years Used Date Smoking Tobacco: Never Smokeless Tobacco: Never Alcohol Use Standard Drinks/Week Comments Never 0 (1 standard drink = 0.6 oz pur e alcohol) Sex and Gender Information Value Date Recorded Sex Assigned at Male 12/29/2021 10:36 AM EDT Legal Sex Male 10:36 AM EDT Gender Identity Male 12/29/2021 10:36 AM EDT Sexual Orientation Straight 12/29/2021 10 :36 AM EDT COVID-19 Exposure Response Date Recorded In the last 10 days, have yo u been in contact with someone who was confirmed or suspected to have Coronavirus/COVID-19? No / Unsure 02/03/2022 9:54 AM EST documented as of this encounter Plan of Treatment Not on file documented as of this encounter Visit Diagnoses Not on filedocumented in this encounter Care Teams Discount Clerk Relationship Specialty Start Date End Date Nadine Hernandez FNP [address] [place] [address] PCP - General Family Medicine 01/20/22 Christian Ortega [address] [place] [address] Nephrology 01/02/24 Lawrence Urbano MD [address] [place] [address] Cardiology 01/02/24 Edward Wu [address] [place] [address] Infectious Diseases 01/02/24 documented as of this encounter
--- OUTSIDE RECORDS SUMMARY | 2024-12-24 11:04 | XMS_ITS | Encounter Summary ---
Author Organization [employer] Address [address] [place] [address] Care Team Providers Care Principal Archaeologist Name Role Phone Nadine Hernandez CLASSICS TEACHER Primary Care Provider [phone] Christian Ortega Unavailable Lawrence Urbano MD Unavailable [phone] Edward Wu Unavailable Reason for Visit * Reason Onset Date Comments Pre op 07/13/2024 Encounter Details Date Type Department Care Team ([facility] st Contact Info) Description 07/13/2024 Telephone [facility] [address] [place], [place] [phone] Nadine Hernandez FNP [address] [place], [place] [phone] Pre op Social History Tobacco Use Types Packs/Day Years Used Date Smoking Tobacco: Never Smokeless Tobacco: Never Alcohol Use Standard Drinks/Week Comments Never 0 (1 standard drink = 0.6 oz pur e alcohol) Depression Answer Date Recorded Patient Health Questionnaire-9 Score 0 08/11/2022 Housing Stability Answer Date Recorded What is your housing situation today? I have agustinashalonda torres 11/25/[address] you li ve. Do you have problems with any of the following? None of the above 11/25/2023 Food Insecurity Answer Date Recorded Within the past 12 months, y ou worried that your food would run out before you got money to buy more: Sometimes True 2023 Within the past 12 months,th e food you bought just didn't last and you didn't have enough money to get more: Sometimes True 11/25/2023 Transportation Answer Date Recorded In the past 12 months, has l ack of transportation kept you from medical appts, meetings, work or from getting things needed for daily living? No 11/25/2023 Utilities Answer Date Recorded In the past 12 months, has t he electric, gas, oil or water company threatened to shut off services in your home? No 11/25/2023 Depression Answer Date Recorded Patient Health Questionnaire-2 Score 0 08/11/2022 Internet Access Answer Date Recorded Internet Access Q1 Yes 11/25/2023 Internet Access Q2 Not on file 11/25/2023 Sex and Gender Information Value Date Recorded Sex Assigned at Male 12/29/2021 10:36 AM EDT Legal Sex Male 10:36 AM EDT Gender Identity Male 12/29/2021 10:36 AM EDT Sexual Orientation Straight 12/29/2021 10 :36 AM EDT documented as of this encounter Miscellaneous Notes * Telephone Encounter - Hafsa Quintero - 07/13/2024 10:07 AM EDT Date of Surgery: 09/20/24 Surgical procedure being done: Vitrectomy Type of anesthesia: MAC Lab needed: No EKG: No and only if pt has a cardiac history Surgeon's name: Dr Rufus Gomez Facility name: [facility] Surgeon's office number: [phone] ext [phone] Surgeon's office fax number: [phone] Contact name (person you spoke with): Ashley Last office note from surgeon requested: Yes Facility agreed to pre op appointment on 08/31/24 at 10:15 with Praveena. Appointment reminder letter mailed documented in this encounter Plan of Treatment Not on file documented as of this encounter Visit Diagnoses Not on filedocumented in this encounter Additional Health Concerns Assessment Noted Time PHQ-9 Depression Total Score: 0 08/12/19 23 1:24 PM EDT documented as of this encounter Care Teams Principal Archaeologist Relationship Specialty Start Date End Date Nadine Hernandez FNP [address] [place] [id number] PCP - General Family Medicine 01/20/22 Christian Ortega [address] [place] [address] Nephrology 01/02/24 Lawrence Urbano MD [address] [place] [address] Cardiology 01/02/24 Edward Wu [address] [place] [address] Infectious Diseases 01/02/24 documented as of this encounter
--- OUTSIDE RECORDS SUMMARY | 2024-12-24 11:04 | XMS_ITS | Encounter Summary ---
Author Organization [employer] Address [address] [place] [address] Care Team Providers Care Cvt Tech Name Role Phone Nadine Hernandez PRODUCT DEVELOPMENT MANAGER Primary Care Provider [phone] Christian Ortega Unavailable Lawrence Urbano MD Unavailable [phone] Edward Wu Unavailable Encounter Details Date Type Department Care Team (Late st Contact Info) Description 12/24/2024 Orders Only GENERIC EXTERNAL DATA DEPARTMENT Provider, Generic External Data Social History Tobacco Use Types Packs/Day Years Used Date Smoking Tobacco: Never Passive Smoke Exposure: Never Smokeless Tobacco: Never Alcohol Use Standard Drinks/Week Comments Never 0 (1 standard drink = 0.6 oz pur e alcohol) Depression Answer Date Recorded Patient Health Questionnaire-9 Score 0 10/04/2024 Patient Health Questionnaire-9 Score 0 10/04/2024 Last PHQ-9: Questionnaire Data Not on file 0 10/04/2024 Housing Stability Answer Date Recorded What is your housing situation today? I have agustina torres 11/25/[address] you li ve. Do you have problems with any of the following? None of the above 11/25/2023 Food Insecurity Answer Date Recorded Within the past 12 months, y ou worried that your food would run out before you got money to buy more: Never True 10/04/2024 Within the past 12 months,th e food you bought just didn't last and you didn't have enough money to get more: Never True 07/2024 Transportation Answer Date Recorded In the past [...] Date Recorded Patient Health Questionnaire-2 Score 0 10/04/2024 Internet Access Answer Date Recorded Internet Access Q1 Yes 11/25/2023 Internet Access Q2 Not on file 11/25/2023 Sex and Gender Information Value Date Recorded Sex Assigned at Male 12/29/2021 10:36 AM EDT Legal Sex Male 10:36 AM EDT Gender Identity Male 12/29/2021 10:36 AM EDT Sexual Orientation Straight 12/29/2021 10 :36 AM EDT documented as of this encounter Plan of Treatment Not on file documented as of this encounter Procedures Procedure Name Priority Date/Time Associated Diagnosis Comments INFLUENZA A B2 ID NOW (PRATHER) Routine 12/24/2024 10:24 AM EDT documented in this encounter Results * Influenza A B2 ID NOW (Prather) (12/24/2024 10:24 AM EDT) IDNOW SERIAL# [id number] [facility] Influenza A Negative Negative [facility] Influenza B2 Negative Negative [facility] Influenza A B2 Note See Note [facility] Comment:The Prather ID NOW In fluenza A B2 test is used for thequalitative detection of influenza A and B from patientswith signs and symptoms of respiratory infection.Negative results do not preclude influenza virus infectionand should not be used as the sole basis for diagnosis,treatment or other patient management decisions.There is a risk of false negative results due to thepresence of variants in the viral targets of the assay, lowlevels of virus in the specimen and co- infection withRespiratory Syncytial Virus. 12/24/2024 10:2 4 AM EDT 12/24/2024 10:33 AM EDT us Generic External Data Provider LAB MICROBIOLOGY - GENERAL ORDERABLES Final Result [facility] [address] [place] [phone] documented in this encounter Visit Diagnoses Not on filedocumented in this encounter Additional Health Concerns Assessment Noted Time PHQ-9 Depression Total Score: 0 10/05/19 25 3:18 PM EDT documented as of this encounter Care Teams Cvt Tech Relationship Specialty Start Date End Date Nadine Hernandez FNP [address] [place] [address] PCP - General Family Medicine 01/20/22 Christian Ortega [address] [place] [address] Nephrology 01/02/24 Lawrence Urbano MD [address] [place] [address] Cardiology 01/02/24 Edward Wu [address] [place] [address] Infectious Diseases 01/02/24 documented as of this encounter
--- OUTSIDE RECORDS SUMMARY | 2024-12-24 11:04 | XMS_ITS | Clinical Summary ---
Author Organization [facility] [address] [facility] Address [address] [place] [address] Phone Care Team Providers Care Glass Cutter Helper Name Role Phone Kori Rodríguez MD Primary Care Provider [phone] Allergies No known active allergies Medications acetaminophen (TYLENOL) 500 mg tablet Take 2 tablets (1,000 mg total) by mouth every 6 hours as needed. 5 Active albuterol 2.5 mg /3 mL (0.083 %) nebulizer solution Take 3 mL (2.5 mg total) by nebulization every 6 hours as needed. 5 Active albuterol HFA (PROAIR HFA ; PROVENTIL HFA ; VENTOLIN HFA) 90 mcg/actuation inhaler Inhale 2 puffs by mouth Every 4 hours as needed. 2 Active amLODIPine (NORVASC) 5 mg tablet Take 1 tablet (5 mg total) by mouth 1 (one) time each day. 5 Active aspirin 81 mg EC tablet Take 1 tablet (81 mg total) by mouth 1 (one) time each day. 2 Active atorvastatin (LIPITOR) 40 mg tablet Take 1 tablet (40 mg total) by mouth at bedtime. 2 Active brimonidine-vick oloL (COMBIGAN) 0.2-0.5 % ophthalmic solution 1 drop. 4 Active carvediloL (COREG) 3.125 mg tablet Take 1 tablet (3.125 mg total) by mouth 2 (two) times a day with meals. Active cholecalciferol (VITAMIN D-3) 25 mcg (1,000 unit) capsule Take 1 capsule (1,000 Units total) by mouth 1 (one) time each day. 2 Active cinacalcet (SENSIPAR) 30 mg tablet Take 1 tablet (30 mg total) by mouth 1 (one) time each day. Active dextromethorpha n-guaifenesin 5-100 mg/5 mL liquid Take 5 mL by mouth. 5 10/05/19 26 Active dorzolamide (TRUSOPT) 2 % ophthalmic solution Administer 1 drop into both eyes. 3 Active furosemide (LASIX) 80 mg tablet TAKE 1 TABLET TWICE DAILY ON //WED/ UN + TAKE 1 TABLET IN THE EVENING ON WED/WED/Wed 2 Active glipiZIDE (GLUCOTROL XL) 2.5 mg 24 hr tablet Take 1 tablet (2.5 mg total) by mouth daily. 5 06/28/19 26 Active ketoconazole (NIZORAL) 2 % cream Apply topically to back Once daily x 2 weeks (indication: tinea versicolor) 4 Active montelukast (SINGULAIR) 10 mg tablet Take 1 tablet (10 mg total) by mouth at bedtime. 3 Active omeprazole (PriLOSEC) [address] capsule Take 1 capsule (20 mg total) by mouth 1 (one) time each day before breakfast. 2 Active sacubitriL-vals davidson (Entresto) 24-26 mg per tablet Take 1 tablet by mouth 2 (two) times a day. 3 Active sevelamer carbonate (RENVELA) 800 mg tablet Take 3 tablets (2,400 mg total) by mouth 3 (three) times a day with meals. Active vericiguat (Verquvo) 2.5 mg tablet Take 2.5 mg by mouth 1 (one) time each day. Active Encounters Date Type Department Care Team Description 10/24/2024 Telephone Gastroenterology - [address] [address] Anish Galindo MD 10/20/2024 Telephone Gastroenterology - [address] [address] Anish Galindo MD from Last 3 Months Social History Tobacco Use Types Packs/Day Years Used Date Smoking Tobacco: Never Assessed Sex and Gender Information Value Date Recorded Sex Assigned at Not on file Legal Sex Male 12:58 AM EST Gender Identity Not on file Sexual Orientation Not on file Last Filed Vital Signs Vital Sign Reading Time Taken Comments Blood Pressure - - Pulse - - Temperature - - Respiratory Rate - - Oxygen Saturation - - Inhaled Oxygen Concentration - - Weight 98 kg (216 lb) 05/20/2023 8:40 AM EDT Height 185.4 cm (6' 1 ) 05/20/2023 8:40 AM EDT Body Mass Index 28.5 05/20/2023 8:40 AM EDT Plan of Treatment Health Maintenance Due Date Last Done Comments Diabetes: Annual Foot Exam 1968 Diabetes: Annual Retina Eye Exam 1968 RSV Immunization Adult Patients (1 - Risk 50-74 years 1-dose series) 2008 Zoster Vaccines (2 of 2) 12/09/2021 022, 09/16/2021, 03/27/2021, Additional history exists Abdominal Aortic Aneurysm (AAA) Screen 01/25/2024 Falls Risk Assessment 01/25/2024 Hepatitis C Screening 01/25/2024 Social Influencers of Health Screening 01/25/2024 Depression Screening 03/01/2024 Diabetes: Annual Urine Albumin-Creatinine Ratio (uACR) 04/04/2024 COVID-19 Vaccine ( season) 2024 02/07/2021, 05/24/2020, 04/10/2020 Influenza Vaccine (#1) 2024 12/07/2023, 2023 Diabetes: Annual GFR (Glomerular Filtration Rate) 02/27/2025 02/28/2024, 02/15/2024, 01/06/2024 Hypertension/CHF/CAD Annual BMP Blood Test 02/27/2025 02/28/2024, 02/15/2024, 01/06/2024 Diabetes: Blood Sugar Control Test (HGBA1C) 04/06/2025 10/04/2024, 01/06/2024 Cholesterol Screening (Lipid Panel) 01/05/2029 01/06/2024 DTaP,Tdap,and Td Vaccines (2 - Td or Tdap) 06/15/2033 06/16/2023 Colorectal Cancer Screening: Colonoscopy 10/25/2034 10/25/2024 Varicella Vaccines Aged Out 10/14/2021, 0 09/16/2021, 02/16/2019, Additional history exists No longer eligible based on patient's age to complete this topic Pneumococcal Vaccine: 50+ Years Completed 06/16/2023 HIB Vaccines Aged Out No longer eligi ble based on patient's age to complete this topic HPV Vaccines Aged Out No longer eligi ble based on patient's age to complete this topic Hepatitis A Vaccines Aged Out No long er eligible based on patient's age to complete this topic Hepatitis B Vaccines Aged Out No long er eligible based on patient's age to complete this topic IPV Vaccines Aged Out No longer eligi ble based on patient's age to complete this topic MMR Vaccines Aged Out No longer eligi ble based on patient's age to complete this topic Meningococcal ACWY Vaccine Aged Out N o longer eligible based on patient's age to complete this topic Meningococcal B Vaccine Aged Out No l onger eligible based on patient's age to complete this topic RSV Immunization Patients Under 20 months Aged Out No longer eligible based on patient's age to complete this topic Procedures Procedure Name Priority Date/Time Associated Diagnosis Comments HP LINK COLONOSCOPY Routine 10/25/2024 9:52 AM EDT from Last 3 Months Results * Colonoscopy (10/25/2024 9:52 AM EDT) us Historical Provider HEALTH MAINTENANCE Final Result from Last 3 Months Insurance [facility] Member Subscriber Plan / Payer (Ef fective 2024-Present) Name:Manny Gar Relation to Subscriber:Self Name:Manny Gar Payer ID:[id number] Group ID:Not on file Type:Not on file Address: [address] [place] [address] Care Teams Glass Cutter Helper Relationship Specialty Start Date End Date Kori Rodríguez MD [address] [place] [address] PCP - General 05/14/23
--- OUTSIDE RECORDS SUMMARY | 2024-12-24 11:04 | XMS_ITS | Encounter Summary ---
Author Organization [employer] Address [address] [facility] [address] [place] [address] Care Team Providers Care Rn Social Work Name Role Phone Nadine Hernandez EDUCATION DEPARTMENT CHAIR Primary Care Provider [phone] Christian Ortega Unavailable Lawrence Urbano MD Unavailable [phone] Edward Wu Unavailable Encounter Details Date Type Department Care Team (Late st Contact Info) Description 08/01/2024 Orders Only [facility] [address] [place], [place] [phone] ProviderAllie MD Social History Tobacco Use Types Packs/Day Years [...] Procedure Name Priority Date/Time Associated Diagnosis Comments TRANSTHORACIC ECHO (TTE) COMPLETE Routine 07/28/2024 2:04 PM EDT documented in this encounter Results * Transthoracic echo (TTE) complete (07/28/2024 2:04 PM EDT) Historical Provider CV ECHO PROCEDURES Final Result documented in this encounter Visit Diagnoses Not on filedocumented in this encounter Additional Health Concerns Assessment Noted Time PHQ-9 Depression Total Score: 0 08/12/19 23 1:24 PM EDT documented as of this encounter Care Teams Rn Social Work Relationship Specialty Start Date End Date Nadine Hernandez FNP [address] [place] [address] PCP - General Family Medicine 01/20/22 Christian Ortega [address] [place] [address] Nephrology 01/02/24 Lawrence Urbano MD [address] [place] [address] Cardiology 01/02/24 Edward Wu [address] [place] [address] Infectious Diseases 01/02/24 documented as of this encounter
--- OUTSIDE RECORDS SUMMARY | 2024-12-24 11:04 | XMS_ITS | Encounter Summary ---
Author Organization [employer] Address [address] [facility] [address] [address] 7[address] [place] [address] Care Team Providers Care Systems Software Manager Name Role Phone Nadine Hernandez Primary Care Provider [phone] Christian Ortega Unavailable Lawrence Urbano MD Unavailable [phone] Edward Wu Unavailable Reason for Visit * Reason Onset Date Comments PCP change location 12/01/2022 Encounter Details Date Type Department Care Team (Late st Contact Info) Description 12/01/2022 Telephone [facility] MEDICINE [address] [place] [address] Nadine Hernandez FNP [address] [place], [place] [phone] PCP change location Social History Tobacco Use Types Packs/Day Years Used Date Smoking Tobacco: Never Smokeless Tobacco: Never Alcohol Use Standard Drinks/Week Comments Never 0 (1 standard drink = 0.6 oz pur e alcohol) Depression Answer Date Recorded Patient Health Questionnaire-9 Score 0 08/11/2022 Housing Stability Answer Date Recorded What is your housing situation today? I have agustina torres 12/05/[address] you li ve. Do you have problems with any of the following? None of the above 12/05/2022 Food Insecurity Answer Date Recorded Within the past 12 months, y ou worried that your food would run out before you got money to buy more: Never True 12/05/2022 Within the past 12 months,th e food you bought just didn't last and you didn't have enough money to get more: Never True 08/2022 Transportation Answer Date Recorded In the past 12 months, has l ack of transportation kept you from medical appts, meetings, work or from getting things needed for daily living? No 12/05/2022 Utilities Answer Date Recorded In the past 12 months, has t he electric, gas, oil or water company threatened to shut off services in your home? No 12/05/2022 Depression Answer Date Recorded Patient Health Questionnaire-2 Score 0 08/11/2022 Sex and Gender Information Value Date Recorded Sex Assigned at Male 12/29/2021 10:36 AM EDT Legal Sex Male 10:36 AM EDT Gender Identity Male 12/29/2021 10:36 AM EDT Sexual Orientation Straight 12/29/2021 10 :36 AM EDT documented as of this encounter Miscellaneous Notes * Telephone Encounter - Meryl Rebollar - 12/01/2022 12:12 PM EDT Tc from patient requesting to change his PCP to one in [facility]. documented in this encounter Plan of Treatment Not on file documented as of this encounter Visit Diagnoses Not on filedocumented in this encounter Additional Health Concerns Assessment Noted Time PHQ-9 Depression Total Score: 0 08/12/19 23 1:24 PM EDT documented as of this encounter Care Teams Systems Software Manager Relationship Specialty Start Date End Date Nadine Hernandez FNP [address] [place] [address] PCP - General Family Medicine 01/20/22 Christian Ortega [address] [place] [address] Nephrology 01/02/24 Lawrence Urbano MD [address] [place] [address] Cardiology 01/02/24 Edward Wu [address] [place] [address] Infectious Diseases 01/02/24 documented as of this encounter
--- OUTSIDE RECORDS SUMMARY | 2024-12-24 11:05 | XMS_ITS | Encounter Summary ---
Author Organization [employer] Address [address] [place] [address] Care Team Providers Care Agricultural Equipment Sales Engineer Name Role Phone Nadine Hernandez PROJECT CONTROLLER Primary Care Provider [phone] Christian Ortega Unavailable Lawrence Urbano MD Unavailable [phone] Edward Wu Unavailable Encounter Details Date Type Department Care Team (Late st Contact Info) Description 01/14/2023 Abstract [facility] MEDICINE [address] [place], [place] [phone] Kezia Norton Social History Tobacco Use Types Packs/Day Years Used Date Smoking Tobacco: Never Smokeless Tobacco: Never Alcohol Use Standard Drinks/Week Comments Never 0 (1 standard drink = 0.6 oz pur e alcohol) Depression Answer Date Recorded Patient Health Questionnaire-9 Score 0 08/11/2022 Housing Stability Answer Date Recorded What is your housing situation today? I have agustinashalonda torres 12/21/[address] you li ve. Do you have problems with any of the following? None of the above 12/21/2022 Food Insecurity Answer Date Recorded Within the past 12 months, y ou worried that your food would run out before you got money to buy more: Never True 12/21/2022 Within the past 12 months,th e food you bought just didn't last and you didn't have enough money to get more: Never True Transportation Answer Date Recorded In the past 12 months, has l ack of transportation kept you from medical appts, meetings, work or from getting things needed for daily living? No 12/21/2022 Utilities Answer Date Recorded In the past 12 months, has t he [employer], gas, oil or water [employer] threatened to shut off services in your home? No 12/21/2022 Depression Answer Date Recorded Patient Health Questionnaire-2 [...] Procedure Name Priority Date/Time Associated Diagnosis Comments COLONOSCOPY Routine 05/04/2019 documented in this encounter Results * Hm Colonoscopy (05/04/2019) Colonoscopy Normal Normal Narrative Kezia Norton - 05/04/2019 Recommended 1 year follow up us Historical Provider HEALTH MAINTENANCE Final Result documented in this encounter Visit Diagnoses Not on filedocumented in this encounter Additional Health Concerns Assessment Noted Time PHQ-9 Depression Total Score: 0 08/12/19 23 1:24 PM EDT documented as of this encounter Care Teams Agricultural Equipment Sales Engineer Relationship Specialty Start Date End Date Nadine Hernandez FNP [address] [place] [address] PCP - General Family Medicine 01/20/22 Christian Ortega [address] [place] [address] Nephrology 01/02/24 Lawrence Urbano MD [address] [place] [address] Cardiology 01/02/24 Edward Wu [address] [place] [address] Infectious Diseases 01/02/24 documented as of this encounter
--- OUTSIDE RECORDS SUMMARY | 2024-12-24 11:05 | XMS_ITS | Encounter Summary ---
Author Organization [employer] Address [address] [facility] [address] [place] [address] Care Team Providers Care Warehouse Traffic Supervisor Name Role Phone Nadine Hernandez HELP DESK ANALYST Primary Care Provider [phone] Christian Ortega Unavailable Lawrence Urbano MD Unavailable [phone] KanchanIain seoel Unavailable Reason for Visit * Reason Onset Date Comments PAIRER SUBSTANDARD SERVICES 02/09/2022 The pt requested to be referred for PAIRER SUBSTANDARD services. I called to inform him that he would need to contact his insurance [employer], because the referral needs to go through them. I reached a voicemail, and left a msg asking him to return my call at ext [phone]. Encounter Details Date Type Department Care Team ([facility] st Contact Info) Description 02/09/2022 Telephone [facility] [address] [place], [place] [phone] Mariaelena Delgado [place] PA[employer] (The pt requested to be referred for PAIRER SUBSTANDARD services. I called to inform him that he would need to contact his insurance [employer], because the referral needs to go through them. I reached a voicemail, and left a msg asking him to return my call at ext [phone].) Social History Tobacco Use Types Packs/Day Years [...] on filedocumented in this encounter Care Teams Warehouse Traffic Supervisor Relationship Specialty Start Date End Date Nadine Hernandez FNP [address] [place] [address] PCP - General Family Medicine 01/20/22 Christian Ortega [address] [place] [phone] Nephrology 01/02/24 Lawrence Urbano MD [address] [place] [address] Cardiology 01/02/24 Edward Wu [address] [place] [address] Infectious Diseases 01/02/24 documented as of this encounter
--- OUTSIDE RECORDS SUMMARY | 2024-12-24 11:05 | XMS_ITS | Clinical Summary ---
Author Organization [employer] Address [address] [facility] [address] [place] [address] Care Team Providers Care Director Digital Marketing Name Role Phone Nadine Hernandez DAVID Primary Care Provider Christian Ortega Unavailable Lawrence Urbano MD Unavailable Edward Wu Unavailable Allergies No known active allergies Medications furosemide (Lasix) 80 MG tablet TAKE 1 TABLET BY MOUTH TWICE DAILY ON , , WED AND WEDNESDAY AND TAKE 1 TABLET BY MOUTH IN THE EVENING ON WEDNESDAY, , WEDNESDAY Active sevelamer carbonate (Renvela) 800 MG tablet Take 3 tablets by mouth every 8 (eight) hours. Active cholecalciferol (Vitamin D-3) 25 MCG (1000 UT) capsule Take 1 capsule by mouth in the morning. Active Entresto 24-26 MG tablet Take 1 tablet by mouth 2 times daily. 05/15/19 23 Active cinacalcet (Sensipar) 30 MG tablet Take 30 mg by mouth 1 (one) time each day. Active dorzolamide (Trusopt) 2 % ophthalmic solution INSTILL 1 DROP INTO BOTH EYES 3 TIMES A DAY 04/14/19 23 Active Verquvo 5 MG tablet TAKE 1 TABLET BY MOUTH EVERY DAY WITH FOOD 11/27/19 23 Active ketoconazole (NIZOral) 2 % creamIndications:T inea versicolor Apply topically to back Once daily x 2 weeks (indication: tinea versicolor) 30 g 1 03/29/19 24 Active brimonidine-timolo l (Combigan) 0.2-0.5 % ophthalmic solution ADMINISTER 1 DROP INTO BOTH EYES EVERY 12 HOURS. 10 mL 11/10/19 24 Active carvedilol (Coreg) 3.125 MG tablet Take 1 tablet by mouth with breakfast and with evening meal. Active timolol (Timoptic) 0.5 % ophthalmic solution Administer 1 drop into both eyes 2 times daily. 11/30/19 24 Active Rocklatan 0.02-0.005 % solution Administer 1 drop into the left eye Once per day. 08/30/19 24 Active Aspirin Low Dose 81 MG EC tabletIndications: NSTEMI (non-ST elevated myocardial infarction) (HCC) TAKE 1 TABLET (81 MG) BY MOUTH IN THE MORNING 90 tablet 3 03/27/19 25 Active acetaminophen (Tylenol) 500 MG tablet Take 2 tablets (1,000 mg) by mouth every 6 (six) hours if needed for moderate pain or fever for up to 25 doses. 50 tablet 06/07/19 25 Active albuterol (2.5 MG/3ML) 0.083% nebulizer solutionIndication s:Asthma, unspecified asthma severity, unspecified whether complicated, unspecified whether persistent Take 3 mL (2.5 mg) by nebulization every 6 (six) hours if needed for wheezing. 75 mL 1 06/07/19 25 Active albuterol (Ventolin HFA) 108 (90 Base) MCG/ACT inhalerIndications :Asthma, unspecified asthma severity, unspecified whether complicated, unspecified whether persistent Inhale 2 puffs every 4 (four) hours if needed for wheezing or shortness of breath. 18 g 11 06/07/19 25 Active Spacer/Aero-Holdin g Chambers (OptiChamber Holly) misc 1 each every 4 (four) hours if needed (asthma). 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 DO NOT CRUSH, CHEW, OR SPLIT. 90 tablet 3 06/28/19 25 026 Active omeprazole (PriLOSEC) [address] capsuleIndications :Gastroesophageal reflux disease, unspecified whether esophagitis present TAKE 1 CAPSULE BY MOUTH ONCE DAILY BEFORE BREAKFAST. Do not crush or chew. 90 capsule 2 06/29/19 25 Active montelukast (Singulair) 10 MG tabletIndications: Mild asthma without complication, unspecified whether persistent TAKE 1 TABLET BY MOUTH EVERY DAY AT BEDTIME FOR ASTHMA/ALLERGIES 90 tablet 3 06/29/19 25 Active amLODIPine (Norvasc) 5 MG tabletIndications: Essential hypertension TAKE 1 TABLET BY MOUTH AFTER DIALYSIS SESSIONS (WEDNESDAY, WEDNESDAY, WEDNESDAY) 36 tablet 1 08/22/19 25 Active atorvastatin (Lipitor) 40 MG tabletIndications: Other hyperlipidemia Take 1 tablet (40 mg) by mouth at bedtime. (Cholesterol) 90 tablet 3 10/05/19 25 Active glucose blood (FREESTYLE LITE) test stripIndications:T ype 2 diabetes mellitus with chronic 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, without long-term current use of insulin (HCC) 1 each by Other route 3 times daily. 100 each 11 10/05/19 25 Active dextromethorphan-g uaiFENesin (Tussin DM) 10-100 MG/5ML liquid Take 5 mL by mouth every 12 (twelve) hours if needed for cough. 120 mL 2 10/05/19 25 026 Active Active Problems Problem Noted Date Diagnosed Date Healthcare maintenance 06/28/2024 Overview (10/04/2024): Colonoscopy: Referred to [facility] 10/04/24 Assessment & Plan (06/29/2024 10:37 AM EDT): Unclear follow up recommendations - pt reports was advised 10 year f/up. Will bring in home records next appt. Chronic cough 12/07/2023 Assessment & Plan (12/07/2023 4:06 PM EDT): I explain to patient he may have some residual cough after pneumonia diagnosis I will prescribe for patient some cough syrup Nocturnal enuresis 09/20/2023 Assessment & Plan (10/04/2024 4:13 PM EDT): UA: pt unable to void in office, but denies any dysuria or other urinary symptoms. Oliguric 2/2 ESRD, but still produces urine, primarily at night DME request for the following items placed 09/20/23: Briefs - Large Gloves - Medium Wipes 10/04/24: Requesting refill of Wipes. Request sent to DME team. Assessment & Plan (09/20/2023 8:15 PM EDT): UA: pt unable to void in office, but denies any dysuria or other urinary symptoms. Oliguric 2/2 ESRD, but still produces urine, primarily at night DME request for the following items placed 09/20/23: Briefs - Large Gloves - Medium Wipes Gastroesophageal reflux disease 09/15/2023 Raised intraocular pressure of both eyes 024 Overview (06/17/2023): Followed by [facility] s/p citrectomy with IOL exchange OD 02/14/21. Per consult note Dec 2021: Plan for Combigan 1 drop BID bilat, Lumigan 1 drop nightly bilat Assessment & Plan (06/17/2023 9:05 AM EDT): Next consult appt scheduled 06/30/23 Assessment & Plan (03/18/2023 6:57 AM EST): -Office to fax over last note from 2021 for review -Refill of Lumigan drops sent to pharmacy as specialist unable to send in until follow up appt scheduled 06/30/23 Recurrent Clostridioides difficile diarrhea 09/2022 Overview (12/30/2023): [facility] Admission 07/23/22: presented for evaluation of generalized weakness, profuse nonbloody diarrhea, and generalized abdominal pain, worse on the left side for thelast 1 week. Positive C diff. Completed course of vancomycin. 08/31/22-09/03/22: [facility] Hospitalization. Admitted for recurrent C diff colitis, high risk due to underlying ESRD. Tx with vancomycin taper. Also encouraged to see Dr. Mcqueen at [facility] ID clinic for monoclonal antibody or fecal microbiota transplant. 10/23/22: [facility] ID appt. Plan for prevention with PO Vanco 125mg M/W/F 11/16/23: [facility] ID consult: DISCONTINUED vancomycin. Plan to send stool studies for C Diff toxin PCR if he experiences more diarrhea Assessment & Plan (12/30/2023 4:50 PM EDT): Content to no longer be taking abx 3x/week No current symptoms of C diff infx Dental calculus 10/22/2022 Anemia in chronic renal disease 09/29/2022 Tubular adenoma of colon 09/29/2022 Overview (09/29/2022): Needs colonscopy 2027 Diabetic retinopathy 08/04/2022 Asthma 03/02/2022 Assessment & Plan (06/29/2024 10:31 AM EDT): -Stable -PFTs completed through cards wnl (see [facility] note April 2024) -Continue albuterol PRN -Cont montelukast 10mg nightly, reviewed med safety and SE Assessment & Plan (09/15/2023 3:42 PM EDT): -Continue albuterol PRN -Cont montelukast 10mg nightly, reviewed med safety and SE Assessment & Plan (03/02/2022 6:37 PM EST): -Continue albuterol PRN -Start montelukast 10mg nightly, reviewed med safety and SE History of non-ST elevation myocardial infarctio n (NSTEMI) 02/04/2022 Overview (06/17/2023): -December 2021 -Cardiac cath and ARIELA placed to mid LAD in [facility] -Plan for Brillinta x 12 months (discontinue Dec 2022) Continues with the following medication regimen: aspirin 81mg for life atorvastatin to 40mg nightly (pt unable to tolerate 80mg dosage) Imdur 30mg daily metoprolol succinate 50mg daily Sent RX for Amlodipine 5mg to be taken after dialysis (3x/week) Verquvo 5mg daily (rx Cards) Entresto 24-26 mg BID (rx [facility]) Furosemide 80mg (BID on non-dialysis days, daily on dialysis days) DC Mar 2023 -Following with [facility] Cardiology - Dr. Urbano -ED precautions reviewed Assessment & Plan (03/18/2023 7:02 AM EST): -Reports BP levels mostly well controlled at home -Reports continues taking Brillinta as under impression to continue from Cards - no known dose adjustment at 12 month tao. Provider called [facility] during appt to confirm with [facility] current desired dosing and continuation of med. Pending return call. Assessment & Plan (03/02/2022 6:32 PM EST): -December 2021 -Cardiac cath and ARIELA placed to mid LAD in [facility] -Plan for Brillinta x 12 months (discontinue Dec 2022) -Continue with aspirin 81mg for life -shared decision making to DECREASE atorvastatin to 40mg nightly -Continue Imdur 30mg daily -Continue amlodipine 10mg daily -Continue metoprolol succinate 50mg daily -Following with [facility] Cardiology - Dr. Cortez -Reports BP well controlled at home. Follow up parameters reviewed Assessment & Plan (02/04/2022 11:41 AM EST): -December 2021 -Cardiac cath and ARIELA placed to mid LAD in [facility] -Plan for Brillinta x 12 months (discontinue Dec 2022) -Continue with aspirin 81mg for life -Continue atorvastatin 80mg nightly -Continue Imdur 30mg daily -Continue amlodipine 10mg daily -Continue metoprolol succinate 50mg daily -Following with [facility] Cardiology - Dr. Cortez -Plan for cardiac rehab as well, although pt reports has not yet heard about appts. -Will request Blue Team RN reach out to [facility] Cardiology to see if they are planning to send in med refills for cardiac meds going forward, and if pt has already been established with cardiac rehab. 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 May pursue MRI to further eval concern for OM. No active F/C/N/V/D End stage chronic kidney disease ([facility]) 01/27 Overview (10/04/2024): -[facility] [place]: recieving dialysis -Pressure Control Supervisor: Dr. Ortega -Hemodialysis on -Access: Left upper extremity fistula Assessment & Plan (10/04/2024 4:16 PM EDT): Goal for kidney transplant, reports in need of screening colonoscopy. Referral placed on [facility] on 10/04/24. Assessment & Plan (06/29/2024 10:32 AM EDT): Goal for kidney transplant Assessment & Plan (06/17/2023 9:09 AM EDT): Goal for kidney transplant Assessment & Plan (10/01/2022 7:34 PM EDT): -[facility]: recieving dialysis -Pressure Control Supervisor: Dr. Ortega -Hemodialysis on -Access: Left upper extremity fistula Assessment & Plan (03/02/2022 6:33 PM EST): -Hemodialysis on /Wed -Left upper extremity fistula Assessment & Plan (02/04/2022 11:15 AM EST): -Hemodialysis on /Wed -Left upper extremity fistula Hypercholesterolemia 01/27/2022 Thyroid nodule 01/27/2022 Type 2 diabetes mellitus wit h chronic kidney disease, without long-term current use of insulin 01/27/2022 Assessment & Plan (10/04/2024 4:14 PM EDT): -Continue glipizide 2.5mg daily. Discussed possible de-prescribing, but he would like to cont at this time. Denies hypoglycemic episodes. Lab Results Component Value Date HGBA1C 5.9 (A) 10/04/2024 -A1c: well controlled -[facility]ometry: [facility] -DME for diabetic shoes: Ordered fall 2023, received as of 2024 Assessment & Plan (06/29/2024 10:32 AM EDT): -Continue glipizide 2.5mg daily Lab Results Component Value Date HGBA1C 6.3 (A) 06/28/2024 -A1c: well controlled -[facility]ometry: [facility] -DME for diabetic shoes: Ordered fall 2023, received as of 2024 Assessment & Plan (12/30/2023 5:00 PM EDT): -Continue glipizide 2.5mg daily Lab Results Component Value Date HGBA1C 6.6 (A) 12/22/2023 -A1c: well controlled -[facility]ometry: [facility] -DME for diabetic shoes: fall 2023 Assessment & Plan (12/07/2023 4:11 PM EDT): Patient reports hypoglycemia episodes last A1c is 6 Im going to go down on glipizide dose, I advise to monitor glucose and bring log for next PCP appointment Assessment & Plan (09/20/2023 8:12 PM EDT): -Continue glipizide 5mg daily Lab Results Component Value Date HGBA1C 6.0 06/16/2023 -A1c: well controlled -Optometry: [facility] -Interested in diabetic shoes, referred to podiatry from [facility] Wound care. Called and left message with office today. Will send in DME request and see if MD colleague able to co-sign. Assessment & Plan (06/17/2023 9:18 AM EDT): -Continue glipizide 5mg daily Lab Results Component Value Date HGBA1C 6.0 06/16/2023 -A1c: well controlled -[facility]ometry: [facility] Assessment & Plan (03/18/2023 7:03 AM EST): -Continue glipizide 5mg daily -Reports readings well controlled at home Lab Results Component Value Date HGBA1C 7.0 (A) 2023 -Optometry: provider and pt called [facility] during appt to reschedule missed appt d/t snow -Podiatry: referral placed on 10/01/22 Assessment & Plan (10/01/2022 7:35 PM EDT): -Continue glipizide 5mg daily -Reports readings well controlled at home Lab Results Component Value Date HGBA1C 7.6 (A) 08/11/2022 -Optometry: provider and pt called [facility] during appt to reschedule missed appt while in hospital -Podiatry: referral placed on 10/01/22 Assessment & Plan (06/08/2022 7:14 PM EDT): -Continue glipizide 5mg daily -Reports readings well controlled at home -DME recommended through wound care clinic, PCP in agreement to sign Assessment & Plan (02/04/2022 11:29 AM EST): -Continue glipizide 5mg daily Aortic valve sclerosis 02/05/2021 Cardiomyopathy 02/05/2021 Essential hypertension 02/05/2021 Assessment & Plan (10/04/2024 4:15 PM EDT): -Well controlled -Cont current regimen Assessment & Plan (12/07/2023 4:09 PM EDT): Elevated today, this is reasonable on a patient with ESRD on dyalisis I renewed his amlodipine prescription, c.w rest of medications Assessment & Plan (09/20/2023 8:13 PM EDT): -Elevated today in office, but well controlled per home/dialysis readings -Cont current regimen Assessment & Plan (12/06/2022 6:57 AM EDT): See I21.4 Heart failure 02/05/2021 Overview (10/04/2024): 02/11/23: [facility] Nuclear Stress Test - Dr. Smith. negative ECG response to pharm stress test for evidence of ischemia. Abnormal myocardial perfusion with small area of moderate-severe perfusion defect involving the apical segments c/w myocardial infarct. Moderately reduced global LV function with resting LVEF 28% and post stress ventricular EF of 31%. Left ventricular size severely dilated. Cards consult Oct 2023: Dr. Urbano - EF 20%. Cont on Entresto, Verquvo, with plan to start Inpefa. Plan to eval for ICD d/t ischemic cardiomyopathy with very low EF. July 2024: TTE demonstrated mild impairment of EF 40-45%. Mild-mod mitral regurgitation. Assessment & Plan (06/29/2024 10:32 AM EDT): - Cont following with specialist - Plan for upcoming Echo June 2024 w/ consideration of ICD pending results. Patient discussion with family. Mitral valve regurgitation 02/05/2021 Mitral valve stenosis 02/05/2021 Bilateral cataracts 04/12/2019 Dependence on renal dialysis 04/12/2019 Assessment & Plan (10/01/2022 7:36 PM EDT): Encouraged to present to Medical Records with housing form to transfer for 1st floor apartment History of total hip arthroplasty 04/12/2019 Resolved Problems Problem Noted Date Diagnosed Date Resolved Date Preop examination 08/31/2024 10/04/2024 Assessment & Plan (08/31/2024 12:38 PM EDT): RCRI score is 3 which means at 10% risk Surgery should proceed as scheduled N.p.o. after midnight was discussed today Advised to take his blood pressure medication with his multiple flattering morning of the procedure Dental caries 10/22/2022 12/06/2022 Chest pain 09/29/2022 10/01/2022 Chronic kidney disease 09/29/202210/01 COVID-19 09/29/2022 10/01/2022 Elevated brain natriuretic p eptide (BNP) level 09/29/2022 10/01/2022 Elevated troponin 09/29/2022 10/01/2022 Fever of unknown origin 09/29/2022 08/0 04/2022 Hypokalemia 09/29/2022 10/01/2022 Pleural effusion on right 09/29/2022 Pulmonary edema 09/29/2022 10/01/2022 C. difficile colitis 08/04/2022 023 Simple chronic bronchitis ([facility]) 03/02/2022 03/02/2022 Well controlled type 2 diabetes mellitus 07/24/2021 06/28/2024 Overview (05/30/2024): Replacing diagnoses that were inactivated after the 11/30/23 Regulatory Import Encounters Date Type Department Care Team Description 12/24/2024 Orders Only GENERIC EXTERNAL DATA DEPARTMENT Provider, Generic External Data 12/08/2024 Telephone [facility] [address] [place] [address] [phone] Nadine Hernandez FNP Test Request 10/05/2024 Telephone [facility] [address], [place] [phone] Nadine Hernandez FNP Durable Medical Equipment 10/04/2024 3:00 PM EDT Office Visit [facility] [address] [place] [address] Nadine Hernandez FNP Heart failure, unspecified HF chronicity, unspecified heart failure type ([facility]) (Primary Dx); Type 2 diabetes mellitus with chronic 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, without long-term current use of insulin ([facility]); Other hyperlipidemia; Essential hypertension; Screening for colon cancer; End stage chronic kidney disease ([facility]); Nocturnal enuresis; Healthcare maintenance; Hyperkeratosis of sole 10/04/2024 Travel 10/03/2024 Telephone [facility] [address], [place] [phone] Nadine Hernandez FNP chart prep from Last 3 Months Immunizations Immunization Administration Dates Next Due Influenza injectable quadriv alent preservative free 2023 Influenza, High Dose Seasona l, Preservative Free 12/07/2023 Moderna Covid-19 Vaccine 12+ 02/11/2021, 02/07/2021,05/24/2020,2020 Pneumococcal Conjugate PCV 20 06/16/2023 Tdap 06/16/2023 Varicella 10/14/2021, 2,02/16/2019,2018 Zoster, Recombinant 03/27/2021 Social History Tobacco Use Types Packs/Day Years Used Date Smoking Tobacco: Never Passive Smoke Exposure: Never Smokeless Tobacco: Never Tobacco Cessation:Counseling Given: Not Answered Alcohol Use Standard Drinks/Week Comments Never 0 (1 standard drink = 0.6 oz pur e alcohol) Depression Answer Date Recorded Patient Health Questionnaire-9 Score 0 10/04/2024 Patient Health Questionnaire-9 Score 0 10/04/2024 Last PHQ-9: Questionnaire Data Not on file 0 10/04/2024 Housing Stability Answer Date Recorded What is your housing situation today? I have agustina brian 11/25/[address] you li [...] Orientation Straight 12/29/2021 10 :36 AM EDT Last Filed Vital Signs Vital Sign Reading Time Taken Comments Blood Pressure 136/68 10/04/2024 3:22 PM EDT Pulse 76 10/04/2024 3:22 PM EDT Temperature 36.5 C (97.7 F) 10/04/2024 3:22 PM EDT Respiratory Rate 20 10/04/2024 3:22 PM EDT Oxygen Saturation 99% 10/04/2024 3:22 PM EDT Inhaled Oxygen Concentration - - Weight 92 kg (202 lb 13.2 oz) 10/04/2024 3:22 PM EDT Height 188 cm (6' 2 ) 10/04/2024 3:22 PM EDT Body Mass Index 26.04 10/04/2024 3:22 PM EDT Plan of Treatment Health Maintenance Due Date Last Done Comments CT Colonography 1958 Dental Prophylaxis 1958 Dental X-Ray: Bitewings 1958 FIT DNA/Cologuard 1958 FIT 1958 FOBT 1958 Sigmoidoscopy 1958 Eye Exam 1968 RSV Patients and Patients Aged 60 years or older (1 - Risk 60-74 years 1-dose series) 2018 Colonoscopy 05/03/2020 05/04/2019 Colorectal Cancer Screening 05/03/2020 Zoster Vaccines (2 of 2) 12/09/2021 03/27/2021 Diabetes: Foot Exam 09/14/2024 09/15/2023, 09/15/2023, 09/15/2023, Additional history exists COVID-19 Vaccine ( season) 2024 02/11/2021, 02/07/2021, 05/24/2020, Additional history exists Influenza Vaccine (#1) 2024 12/07/2023, 2023 Dental Oral Exam 11/30/2024 05/30/2024, 10/22/2022 Lipid Panel 01/05/2025 01/06/2024, 08/29, 07/25/2020 Diabetes: Hemoglobin A1C 04/06/2025 025, 06/28/2024, 01/06/2024, Additional history exists Alcohol/Substance Use Screening 10/04/2025 10/04/2024 Depression Screening 10/04/2025 10/04/2024, 10/05/19 25 SDOH Screening 10/04/2025 10/04/2024 Tobacco Screening 10/04/2025 10/04/2024 Dental X-Ray: Full Mouth 10/23/2025 10/22/2022 DTaP/Tdap/Td Vaccines (2 - Td or Tdap) 06/15/2033 06/16/2023 Hepatitis B Vaccines Discontinued 11/18/2022, 10/07/2022, 07/08/2022 Pneumococcal Vaccine: 50+ Years Completed 06/16/2023 Hepatitis C Screening Completed 01/06/2024 HIB Vaccines Aged Out No longer eligi [...] patient's age to complete this topic Meningococcal Vaccine Aged Out No sean alessandra eligible based on patient's age to complete this topic RSV under 20 months Aged Out No longe r eligible based on patient's age to complete this topic Rotavirus Vaccines Aged Out No longer eligible based on patient's age to complete this topic Procedures Procedure Name Priority Date/Time Associated Diagnosis Comments INFLUENZA A B2 ID NOW (PRATHER) Routine 12/24/2024 10:24 AM EDT POCT GLYCATED HEMOGLOBIN, TOTAL Routine 10/04/2024 3:35 PM EDT Type 2 diabetes mellitus with chronic 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, without long-term current use of insulin ([facility]) POCT GLUCOSE Routine 10/04/2024 3:27 PM EDT Type 2 diabetes mellitus with chronic 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, without long-term current use of insulin ([facility]) PERIODIC ORAL EVALUATION - ESTABLISHED PATIENT Routine 05/30/2024 10:00 AM EDT HEPATITIS C VIRAL RNA, QUANTITATIVE, REAL-TIME PCR Routine 01/06/2024 9:25 AM EST Healthcare maintenance LIPID PANEL, STANDARD Routine 01/06/2024 9:25 AM EST Healthcare maintenance PANORAMIC RADIOGRAPHIC IMAGE Routine 10/22/2022 10:30 AM EDT HM COLONOSCOPY Routine 05/04/2019 from Last 3 Months or Most Recently Relevant to Health Maintenance Results * Influenza A B2 ID NOW (Prather) (12/24/2024 10:24 AM EDT) IDNOW SERIAL# [id number] [facility] Influenza A Negative Negative [facility] Influenza B2 Negative Negative [facility] Influenza A B2 Note See Note [facility] Comment:The Prather ID NOW In fluenza [...] LAB MICROBIOLOGY - GENERAL ORDERABLES Final Result [facility] [address] [place] [address] [phone] * (ABNORMAL) POCT HGB A1C (10/04/2024 3:35 PM EDT) Hemoglobin A1C 5.9(A) 4.0 - 5.7 % QC Media Lot # [id number] Lot# Expiration Date Blood 10/04/2024 3:35 PM EDT Nadine Hernandez [employer] POINT OF CARE TEST ENTER/EDIT ORDERABLES Final Result * POCT Glucose (10/04/2024 3:27 PM EDT) Pathologist [facility] Glucose Blood, POC 107 60 - 200 mg/dL QC Media Lot # [id number] Lot# Expiration Date ,170,[id number] Blood Capillary blood specimen / Unknown 10/04/2024 3:27 PM EDT Nadine CARVALHOP POINT OF CARE TEST ENTER/EDIT ORDERABLES Final Result * Hepatitis C Viral RNA, Quantitative, Real-Time PCR (01/06/2024 9:25 AM EST) [facility] Hepatitis C Viral Load <15 NOT DETECTED NOT DETECTED IU/mL [facility] HCV Log PCR <1.18 NOT DETECTED NOT DETECTED Log IU/mL [facility] Comment:For additional infor [place], please refer [email or web address] Relevant/faq/[email or web address](This link is being provided for informational/educational purposes only.)THIS TEST WAS PERFORMED AT:[facility] [place] [phone] AVILA MD Blood 01/06/2024 9:25 AM EST 01/06/2024 11:30 AM EST Nadine Hernandez [facility] BLOOD ORDERABLES Final Res ult [facility] [address] [place] [address] [phone] * Lipid Panel, Standard (01/06/2024 9:25 AM EST) Pathologist [facility] Triglycerides 108 <150 mg/dL [facility] Comment:Desirable Triglyceri de: less than 150 mg/dLBorderline High Triglyceride 150-199 mg/dLHigh Triglyceride: 200-499 mg/dLVery High Triglyceride: greater than or equal to 5OO mg/dL Cholesterol 114 <200 mg/dL [facility] Comment:Desirable Cholestero l: less than 200 mg/dLBorderline High Cholesterol: 200-239 mg/dLHigh Cholesterol: greater than 239 mg/dL LDL Cholesterol Calculated 51 <100 mg/dL [facility] Comment:Desirable LDL: less than 100 mg/dLNear Optimal/Above Optimal LDL: 110- 129 mg/dLBorderline High LDL: 130-159 mg/dLHigh LDL: 160-189 mg/dLVery High LDL: greater than or equal to 190 mg/dL HDL Cholesterol 42 >40 mg/dL [facility] Comment:Desirable HDL: great er than 40 mg/dL Note: This HDL assay may give artificially low results in patients with liver disease. Blood Venous blood specimen / Unknown 01/06/2024 9:25 AM EST 01/06/2024 11:30 AM EST Nadine Hernandez [employer] LAB BLOOD ORDERABLES Final Res ult [facility] [address] [place] [phone] * Colonoscopy (05/04/2019) Colonoscopy Normal Normal Narrative Kezia Norton - 05/04/2019 Recommended 1 year follow up Historical Provider MD HEALTH MAINTENANCE Final Result from Last 3 Months or Most Recently Relevant to Health Maintenance Insurance [facility] [employer]-TERM OPTIONS (O D-SNP) GISELA YEUNG [id number] [facility] Care Teams Director Digital Marketing Relationship Specialty Start Date End Date Nadine Hernandez FNP [address] [place], [place] PCP - General Family Medicine 01/20/22 Christian Ortega [address] [place] [phone] Nephrology 01/02/24 Lawrence Urbano MD [address] [place] [address] Cardiology 01/02/24 Edward Wu [address] [place] [address] Infectious Diseases 01/02/24
--- OUTSIDE RECORDS SUMMARY | 2024-12-24 11:05 | XMS_ITS | Encounter Summary ---
Author Organization [employer] Address [address] [place] [address] Care Team Providers Care Special Collections Librarian Name Role Phone Nadine Hernandez JOINER HELPER Primary Care Provider [phone] Christian Ortega Unavailable Lawrence Urbano MD Unavailable [phone] Edward Wu Unavailable Encounter Details Date Type Department Care Team (Late st Contact Info) Description 01/11/2024 Orders Only [facility] [address] [place], [place] [phone] Nadine Hernandez FNP [address] [place], [place] [phone] Thyroid nodule (Primary Dx) Social History Tobacco Use Types Packs/Day Years [...] Procedure Name Priority Date/Time Associated Diagnosis Comments TSH W/REFLEX TO FT4 Routine 02/28/2024 1 2:57 PM EST Thyroid nodule BASIC METABOLIC PANEL Routine 02/28/2024 12:57 PM EST Thyroid nodule BASIC METABOLIC PANEL Routine 02/15/2024 9:14 AM EST Thyroid nodule documented in this encounter Results * (ABNORMAL) Basic Metabolic Panel (02/28/2024 12:57 PM EST) Sodium 139 135 - 145 mmol/L [facility] Potassium 4.9 3.3 - 5.1 mmol/L [facility] Chloride 100 96 - 108 mmol/L [facility] Carbon Dioxide 29 22 - 29 mmol/L [facility] Anion Gap 15 12 - 20 [facility] Urea Nitrogen (BUN) 47(H) 9 - 16 mg/dL [facility] Creatinine, Serum 7.39(HH) 0.5 - 1.4 mg/dL [facility] Comment:Critical value for C RE: Results called to and read backby: SHILA Laguna Person calling: WILFRED Date: 02/28/24 Time:1419 Estimated Glomerular Filt Rate 7 [facility] Comment:Chronic Kidney Disea se: Estimated GFR < 60 mL/min/1.81x2Jentps Kidney Disease: Estimated GFR < 15 mL/min/1.73m2 Glucose 147(H) 60 - 115 mg/dL [facility] Calcium 8.7 8.4 - 10.2 mg/dL [facility] 02/28/2024 12:5 7 PM EST 02/28/2024 12:57 PM EST Nadine Hernandez [facility] BLOOD ORDERABLES Final Res ult Performing Organization Address [facility] de Phone Number [facility] [address] [place] [phone] * TSH W/Reflex to FT4 (02/28/2024 12:57 PM EST) Pathologist [facility] TSH reflex Free T4 2.59 0.32 - 4.0 uIU/mL [facility] Blood Venous blood specimen / Unknown 02/28/2024 12:57 PM EST 02/28/2024 12:57 PM EST Nadine Hernandez [facility] BLOOD ORDERABLES Final Res ult Performing Organization Address [facility] de Phone Number [facility] [address] [place] [phone] * (ABNORMAL) Basic Metabolic Panel (02/15/2024 9:14 AM EST) Pathologist [facility] Sodium 142 135 - 145 mmol/L [facility] Potassium 4.9 3.3 - 5.1 mmol/L [facility] Chloride 99 96 - 108 mmol/L [facility] Carbon Dioxide 31(H) 22 - 29 mmol/L [facility] Anion Gap 17 12 - 20 [facility] Urea Nitrogen (BUN) 34(H) 9 - 16 mg/dL [facility] Creatinine, Serum 7.42(HH) 0.5 - 1.4 mg/dL [facility] Comment:Critical value for C RE Results called to and read back by:PRIMITIVO Mao Person calling: LITZAIDA Date: 02/15/24 Time: 1038 Estimated Glomerular Filt Rate 7 [facility] Comment:Chronic Kidney Disea se: Estimated GFR < 60 mL/min/[id number] Kidney Disease: Estimated GFR < 15 mL/min/1.73m2 Glucose 106 60 - 115 mg/dL [facility] Calcium 9.4 8.4 - 10.2 mg/dL [facility] 02/15/2024 9:14 AM EST 02/15/2024 9:14 AM EST us Generic External Data Provider LAB BLOOD ORDERAB LES Final Result [facility] [address] [place] [phone] documented in this encounter Visit Diagnoses Diagnosis Thyroid nodule- Primary Nontoxic uninodular goiter documented in this encounter Additional Health Concerns Assessment Noted Time PHQ-9 Depression Total Score: 0 08/12/19 23 1:24 PM EDT documented as of this encounter Care Teams Special Collections Librarian Relationship Specialty Start Date End Date Nadine Hernandez FNP [address] [place] [address] PCP - General Family Medicine 01/20/22 Christian Ortega [address] [phone] Nephrology 01/02/24 Lawrence Urbano MD [address] [place] [address] Cardiology 01/02/24 Edward Wu [address] [place] [address] Infectious Diseases 01/02/24 documented as of this encounter
--- NOTE | 2024-12-24 11:17 | ED.CHESTPAIN ---
HPI - Chest Pain General Chief Complaint: Chest Pain Stated Complaint: Chest Pain Time Seen by Provider: 12/24/24 10:58 History of Present Illness ED Provider: teresa HPI narrative: 64-year-old male poor historian history of end-stage renal disease presents with left-sided chest pain since waking this morning possibly around 08:00. No cough or difficulty breathing denies leg swelling. Was dialyzed on Wednesday. Related Data Home Medications ?Medication ?Instructions ?Recorded ?Confirmed omeprazole 20 mg capsule,delayed 20 mg PO DAILY PRN Heartburn 08/24/21 11/23/23 release sevelamer carbonate 800 mg tablet 800 mg PO TIDWM 08/24/21 11/23/23 furosemide 80 mg tablet 80 mg PO MOWEFR 07/20/22 11/23/23 isosorbide mononitrate 30 mg 30 mg PO DAILY 07/20/22 11/23/23 tablet,extended release 24 hr metoprolol succinate 50 mg 50 mg PO DAILY 07/20/22 11/23/23 tablet,extended release 24 hr montelukast 10 mg tablet 10 mg PO BEDTIME asthma 07/20/22 11/23/23 sacubitril 24 mg-valsartan 26 mg 1 tab PO BID 07/20/22 11/23/23 tablet (Entresto) brimonidine 0.2 %-timolol 0.5 % 1 drp ophthalmic (eye) Q12H 11/21/23 11/23/23 eye drops carvedilol 3.125 mg tablet 3.125 mg PO BIDWM 11/21/23 11/23/23 sotagliflozin 200 mg tablet 200 mg PO DAILY 11/21/23 11/23/23 (Inpefa) vericiguat 5 mg tablet (Verquvo) 5 mg PO DAILY 11/21/23 11/23/23 Previous Rx's ?Medication ?Instructions ?Recorded aspirin 81 mg tablet,delayed 81 mg PO DAILY #1 tab 01/14/22 release atorvastatin 40 mg tablet 40 mg PO BEDTIME #1 tab 01/14/22 albuterol sulfate 2.5 mg/3 mL 2.5 mg (3 mL) inhalation Q6H #75 mL 11/21/23 (0.083 %) solution for nebulization albuterol sulfate 90 mcg/actuation 2 inh inhalation Q4-6H PRN 11/21/23 breath activated powder inhaler shortness of breath or wheezing #1 ea azithromycin 500 mg tablet 500 mg PO DAILY 5 days #5 tabs 11/22/23 ceftriaxone 2 gram solution for 2 g IV .HD #2 ea 11/22/23 injection vancomycin 125 mg capsule 125 mg PO QID #28 caps 11/22/23 Allergies Allergy/AdvReac Type Severity Reaction Status Date / Time No Known Allergies (No Known Allergy Verified 12/24/24 10:15 Allergies*) [facility] Past Medical History Medical History Diarrhea HFrEF (heart failure with reduced ejection fraction) Dialysis patient CAD (coronary artery disease) C. difficile colitis Cardiomyopathy HTN (hypertension) Anemia in chronic renal disease Diabetes Asthma End stage chronic kidney disease Surgical History S/P cardiac catheterization AV fistula Family History Family History Mother CAD (coronary artery disease) Social History Social History Household Members: Significant Other Housing: Apartment Do you presently have visiting nurse or other home services: Yes Alcohol intake: never Comment: pt weak from hd Patient Tobacco Use Status: Never used Tobacco e-Cigarette/Vaping Use: Never Used Second Hand Smoke Exposure: No Advance Directives Date on File: 01/15/22 service: No Current occupational status: retired Physical Exam Exam: Exam: EXAM: Gen: Alert, awake, well appearing, well hydrated. Head: Atraumatic Eyes: Anicteric, Normal conjunctiva. ENT: Moist mucosa, no pallor. ? Neck: Supple. Skin: ?No observable rash or bruising on exposed or examined skin Respiratory: Breathing comfortably, No distress.Clear to auscultation bilaterally, symmetric chest expansion, No wheeze, rales, ronchi. Cardiovascular: Regular rate and rhythm. No murmurs or rub. Well perfused periphery, warm extremities. No edema. ? Abdominal: No focal tenderness. Soft, no objective distension. No palpable masses or obvious organomegaly. ?No guarding, no rebound tenderness or other peritoneal findings. : No flank tenderness. Neuro: Alert. Gross movement of all extremities intact. ? Psych: Calm. Cooperative. MSK: No grossly visible deformity. Vital signs: See flowsheet Vital Signs: Vital Signs: Last Vital Signs Temp 98.0 F 12/24/24 15:20 Pulse 62 12/24/24 15:20 Resp 17 12/24/24 15:20 BP 155/69 H 12/24/24 15:20 Pulse Ox 99 12/24/24 15:20 O2 Del Method Room Air 12/24/24 15:20 BMI result Body Mass Index 26.0 Course Reevaluation(s) Reevaluation #1: Just prior to arrival patient reassessed there was hypoxia distress or other indication for emergent dialysis he is hyperkalemic and this was known by our communications scientist he got to [employer] [facility] among other temporizing hyperkalemia treatments feels well now and no severe or worsening chest discomfort. Doubt ACS or PE not suggestive aortic dissection. Could be musculoskeletal pain pleuritis Medications Administered Discontinued Medications Generic Name Dose Route Start Last Admin Trade Name Freq PRN Reason Stop Dose Admin Albuterol Sulfate 7.5 mg/ 10 mg 12/24/24 11:59 12/24/24 12:09 Albuterol Sulfate 2.5 mg INHALE 12/24/24 12:00 10 mg ONCE ONE Administration Sodium Zirconium Cyclosilicate 10 gm 12/24/24 11:59 12/24/24 12:28 Sodium Zirconium Cyclosilicate 10 Gm Powd.Pack PO 12/24/24 12:00 10 gm ONCE ONE Administration Sodium Zirconium Cyclosilicate 10 gm 12/24/24 13:12 12/24/24 13:45 Sodium Zirconium Cyclosilicate 10 Gm Powd.Pack PO 12/24/24 13:13 10 gm ONCE ONE Administration Medical Decision Making Medical Decision Making MDM Narrative: Medical Decision Making: [age] male with history of CAD ESRD left-sided chest discomfort constant and atypical. Looks well not distressed. Peaked T-waves on ECG no overt acute ischemic changes. There was poor R-wave progression though consistent with previous October 2023 Lungs clear. Euvolemic. Hyperkalemia 5.[address] alcala brass sorter/nephrology reports to me that the patient is typically mid 5 range can be dialyzed tomorrow. Preliminary Favored Differential Diagnosis: ACS among additional considered etiologies Testing Interpreted Independently: ?See below for details Radiology or Lab testing Results Reviewed: ?See below for details Consults: ?Nephrology doctor fredrick Independent Historians/External Chart Reviews: ?See below for details Social Determinants of Health Impacting MDM/Planning: ?See below for details Lab Data MDM Lab Attestation statement: I reviewed the patient's lab results. 12/24/24 10:24 12/24/24 10:24 Labs: Lab Results 12/24/24 12/24/24 Range/Units 10:24 13:34 WBC 5.8 (4.8-10.8) X10*3/uL RBC 4.16 L (4.60-5.80) X10*6/uL Hgb 12.8 L (14.0-18.0) g/dl Hct 37.6 L (42.0-52.0) % MCV 90.4 (80.0-98.0) fL MCH 30.8 (27.0-33.0) pg MCHC 34.0 (31.0-36.0) g/dl RDW 14.0 (11.0-16.0) % Plt Count 144 L D (160-400) X10*3/uL MPV 9.3 L (9.4-12.4) fL Immature Gran % (Auto) 0.5 H (0.0-0.4) % Neut % (Auto) 58.3 (45-73) % Lymph % (Auto) 26.5 (20-40) % [place] % (Auto) 10.6 (2-11) % Eos % (Auto) 3.6 (0-4) % Baso % (Auto) 0.5 (0-2) % Lymph # (Auto) 1.5 (1.2-4.9) X10*3/uL [place] # (Auto) 0.6 (0.1-1.2) X10*3/uL Eos # (Auto) 0.2 (0.0-0.4) X10*3/uL Baso # (Auto) 0.0 (0.0-0.2) X10*3/uL Abs Immat Gran (auto) 0.03 (0.00-0.03) X10*3/uL Absolute Neuts (auto) 3.4 (2.0-8.3) x10*3/uL Absolute Nucleated RBC 0.000 (0.0-0.012) X10*3/uL Nucleated RBC % (auto) 0.0 (0.0-0.2) /100WBC Sodium 136 (135-145) mmol/L Potassium 5.8 H (3.3-5.1) mmol/L Chloride 96 (96-108) mmol/L Carbon Dioxide 28 (22-29) mmol/L Anion Gap 18 (12-20) BUN 56 H (9-16) mg/dL Creatinine 9.36 H* (0.5-1.4) mg/dL Estim Creat Clear Calc 9.0 Estimated GFR 6 Random Glucose 95 (60-115) mg/dL Calcium 9.7 D (8.4-10.2) mg/dL Total Bilirubin 0.4 (0.0-1.0) mg/dL AST 18 (5-37) U/L ALT 6 (0-40) U/L Alkaline Phosphatase 64 (39-117) U/L Troponin I High Sens 45.5 H 44.0 H (<3.5-35.0) ng/L Total Protein 6.7 (6.5-8.0) g/dL Albumin 3.6 (3.5-5.0) g/dL COVID-19 (LUZ) Negative (Negative) COVID-19 Clin Com See Note Influenza Type A (NAHID) Negative (Negative) Influenza Type B (NAHID) Negative (Negative) Influenza A & B Note See Note Discharge Plan Discharge Clinical Impression: Chest pain, Hyperkalemia Patient Disposition: Home, Self-Care Instructions: Chest Pain (ED), Hyperkalemia (ED) Additional Instructions: In the emergency department you were evaluated for left-sided chest pain. You had EKG which showed signs of elevated potassium. Some of this is chronic and secondary to renal disease we consulted with Nephrology recommended continue with your previously scheduled outpatient dialysis tomorrow unless other hospitalization as otherwise needed. Your chest pain was not suggestive of heart attack and your lab work was reassuring be sure to complete dialysis tomorrow if you have an abrupt change in severity or character of your chest pain return back for evaluation in the ED Prescriptions: No Action omeprazole 20 mg capsule,delayed release(DR/EC) 20 mg PO DAILY PRN (Reason: Heartburn) sevelamer carbonate 800 mg tablet 800 mg PO TIDWM atorvastatin 40 mg Tablet 40 mg PO BEDTIME Qty: 1 0RF aspirin 81 mg Tablet,Delayed Release (Dr/Ec) 81 mg PO DAILY Qty: 1 0RF albuterol sulfate 2.5 mg /3 mL (0.083 %) solution for nebulization 2.5 mg inhalation Q6H Qty: 75 0RF albuterol sulfate 90 mcg/actuation aerosol powdr breath activated 2 inh inhalation Q4-6H PRN (Reason: shortness of breath or wheezing) Qty: 1 0RF carvedilol 3.125 mg tablet 3.125 mg PO BIDWM brimonidine-timolol 0.2-0.5 % drops 1 drp ophthalmic (eye) Q12H Verquvo 5 mg tablet 5 mg PO DAILY Inpefa 200 mg Tablet 200 mg PO DAILY ceftriaxone 2 gram recon soln 2 g IV .HD Qty: 2 0RF azithromycin 500 mg tablet 500 mg PO DAILY 5 Days Qty: 5 0RF vancomycin 125 mg Capsule 125 mg PO QID Qty: 28 0RF metoprolol succinate 50 mg tablet extended release 24 hr 50 mg PO DAILY isosorbide mononitrate 30 mg tablet extended release 24 hr 30 mg PO DAILY furosemide 80 mg Tablet 80 mg PO MOWEFR montelukast 10 mg tablet 10 mg PO BEDTIME Entresto 24-26 mg tablet 1 tab PO BID Interventions: ED Discharge Assessment Last Done: 12/24/24 15:20 Discharge Date/Time: 12/24/24 15:21 Print Language: Vincentian
[2024-12-24] MEDS: Albuterol Sulfate 7.5 MG, Albuterol Sulfate (0.083%) 2.5 MG 10 MG INHALE (12:09)
[2024-12-24 12:10] VITALS: PULSE 64; RESP 18; O2SAT 99
--- NOTE | 2024-12-24 13:07 | PM.CNNEP ---
History of Present Illness Reason for Consult Consult date: 12/24/24 Chief Complaint Chief complaint: Chest Pain History of Present Illness Narrative: 64-year-old gentleman with past medical history of ESRD on maintenance hemodialysis MWF through left arm AV fistula functioning well, hypertension, CAD s/p PCI in Dec 20, cardiomyopathy, diabetes mellitus presented to the ED with complaints of chest pain. His last dialysis session was on Wednesday, tolerated well without any complications and issues. Review of Systems Review of Systems Const : no body aches, no chills, no excessive sweating and no fatigue Eyes: no blurry vision and no change in vision ENT: no bleeding gums and no change in voice, no dizziness Card: + chest pain, no shortness of breath, no orthopnea, no PND Resp: no cough, no excessive phlegm production, no SOB GI: no abdominal pain and no nausea, no vomiting : no hematuria, no urinary frequency and no difficulty voiding Musc: no abnormal gait, no bone pain Neuro: no abnormal movements, no weakness, no dizziness, no abnormal gait and no behavioral changes Psych: no behavioral changes and no change in appetite Endo: no change in body appearance, no cold intolerance, no excessive sweating and no fatigue PMFSH Past Medical History Medical History Diarrhea HFrEF (heart failure with reduced ejection fraction) Dialysis patient CAD (coronary artery disease) C. difficile colitis Cardiomyopathy HTN (hypertension) Anemia in chronic renal disease Diabetes Asthma End stage chronic kidney disease Family History Family History Mother CAD (coronary artery disease) Surgical History Surgical History S/P cardiac catheterization AV fistula Social History Social History Household Members: Significant Other Housing: Apartment Do you presently have visiting nurse or other home services: Yes Alcohol intake: never Comment: pt weak from hd Patient Tobacco Use Status: Never used Tobacco e-Cigarette/Vaping Use: Never Used Second Hand Smoke Exposure: No Advance Directives: Yes Advance Directives on File: Yes Advance Directives Date on File: 01/15/22 service: No Current occupational status: retired Meds Allergies Allergy/AdvReac Type Severity Reaction Status Date / Time No Known Allergies (No Known Allergy Verified 12/24/24 10:15 Allergies*) Home Medications ?Medication ?Instructions ?Recorded ?Confirmed ?Last Taken ?Type omeprazole 20 mg capsule,delayed 20 mg PO DAILY PRN Heartburn 08/24/21 11/23/23 08/23/21 History release sevelamer carbonate 800 mg tablet 800 mg PO TIDWM 08/24/21 11/23/23 11/20/23 History furosemide 80 mg tablet 80 mg PO MOWEFR 07/20/22 11/23/23 11/19/23 History isosorbide mononitrate 30 mg 30 mg PO DAILY 07/20/22 11/23/23 11/20/23 History tablet,extended release 24 hr metoprolol succinate 50 mg 50 mg PO DAILY 07/20/22 11/23/23 11/20/23 History tablet,extended release 24 hr montelukast 10 mg tablet 10 mg PO BEDTIME asthma 07/20/22 11/23/23 11/20/23 History sacubitril 24 mg-valsartan 26 mg 1 tab PO BID 07/20/22 11/23/23 11/20/23 History tablet (Entresto) brimonidine 0.2 %-timolol 0.5 % 1 drp ophthalmic (eye) Q12H 11/21/23 11/23/23 11/20/23 History eye drops carvedilol 3.125 mg tablet 3.125 mg PO BIDWM 11/21/23 11/23/23 11/20/23 History sotagliflozin 200 mg tablet 200 mg PO DAILY 11/21/23 11/23/23 11/20/23 History (Inpefa) vericiguat 5 mg tablet (Verquvo) 5 mg PO DAILY 11/21/23 11/23/23 11/20/23 History Physical Exam Vital Signs: Last Vital Signs Temp 98.0 F 12/24/24 10:13 Pulse 64 12/24/24 12:10 Resp 18 12/24/24 12:10 BP 167/70 H 12/24/24 10:13 Pulse Ox 100 12/24/24 10:13 O2 Del Method Room Air 12/24/24 10:13 BMI result Body Mass Index 26.0 General: not in any acute distress, ill appearing Nutritional Appearance: well nourished and overweight Eyes: appearance normal, both eyes and all related structures; Alignment and Position: alignment normal and position normal Neck: No lymphadenopathy, no thyromegaly Resp: bilateral air entry equal, no added sounds present Cardio: Regular rate, regular rhythm; Heart sounds: S1 normal heart sound present and S2 normal heart sound present GI: soft, nontender, no guarding, no hepatosplenomegaly : bladder normal to inspection, bladder normal to palpation, no renal angle tenderness Skin: no rashes or lesions noted and elasticity normal Neuro: alert, oriented x 3, moves all extremities Results Lab Results 12/24/24 10:24 12/24/24 10:24 Lab results: Chemistry 12/24/24 10:24 Sodium 136 Potassium 5.8 H Carbon Dioxide 28 BUN 56 H Creatinine 9.36 H* Calcium 9.7 D Hematology 12/24/24 10:24 WBC 5.8 Hgb 12.8 L Plt Count 144 L D Assessment and Plan (1) Hyperkalemia: Status: Acute (2) End stage chronic kidney disease: Status: Acute Plan End-stage renal disease: On maintenance hemodialysis MWF through left arm AV fistula, has a good thrill. Last session of dialysis was on Wednesday, an uneventful. Currently the patient is euvolemic, bicarb is 28, in no acute respiratory distress. If the patient is admitted we will dialyze him tomorrow in the morning. Hyperkalemia: Potassium of 5.8, is not contributing to any of his medical issues We will add Lokelma Should improve with dialysis in the morning Procedures Date of Service Date of Service: 12/24/24
[2024-12-24 14:14] LABS: Troponin-I High Sensitivity 44.0 ng/L (<3.5-35.0)
--- NOTE | 2024-12-24 14:45 | ECG_ITS ---
Test Reason : REPEAT Blood Pressure : */* mmHG Vent. Rate : 75 BPM Atrial Rate : 75 BPM P-R Int : 170 ms QRS Dur : 90 ms QT Int : 414 ms P-R-T Axes : 63 -30 59 degrees QTcB Int : 462 ms Normal sinus rhythm Possible Left atrial enlargement Left axis deviation Left ventricular hypertrophy ( R in aVL , [place] product ) Abnormal ECG When compared with ECG of 24-Dec-2024 09:45, Nonspecific T wave abnormality has replaced inverted T waves in Lateral leads Referred By: Yazan Faria Electronically Signed By: JOSÉ MANUEL URIBE
[2024-12-24 15:20] VITALS: BP 155/69; PULSE 62; RESP 17; TEMP 36.7; O2SAT 99
== END 2024-12-24 15:21 | disposition home or self-care (01) ==
PROVIDERS: Emergency Provider Emergency Medicine
DX: E23.2 Diabetes insipidus (principal); R07.89 Other chest pain; I10 Essential (primary) hypertension; I25.10 Atherosclerotic heart disease of native coronary artery without angina pectoris; Z11.52 Encounter for screening for COVID-19; Z79.899 Other long term (current) drug therapy
CPT/HCPCS: 36415; 71046; 80053; 84484; 85025; 87502; 87635; 93005; 94640; 99284; 99285

== ENCOUNTER → 2024-12-24 09:43 | Outpatient (BNV) | payer OTHER, SELFPAY | PROVIDERS: Emergency Provider Emergency Medicine; Visit Provider Internal Medicine | DX: R94.31 Abnormal electrocardiogram [ECG] [EKG] (principal); R07.9 Chest pain, unspecified; I51.7 Cardiomegaly | CPT/HCPCS: 93010 ==

== ENCOUNTER → 2024-12-24 10:16 | Outpatient (BNV) | payer OTHER, SELFPAY | PROVIDERS: Emergency Provider Emergency Medicine; Visit Provider Radiology Diagnostic Radiology | DX: R07.9 Chest pain, unspecified (principal) | CPT/HCPCS: 71046 ==

== ENCOUNTER → 2024-12-24 10:57 | Outpatient (BNV) | payer OTHER, SELFPAY | PROVIDERS: Emergency Provider Emergency Medicine; Visit Provider Internal Medicine Critical Care Medicine | DX: E87.5 Hyperkalemia (principal); N18.6 End stage renal disease | CPT/HCPCS: 99283 ==